=== PATIENT | female | born 1960 | race Caucasian/White ===

== ENCOUNTER → 2016-11-08 | Outpatient (CLI) | payer OTHER ==
[~2016-11-08] MED LIST: CALCTAB5 PO; CETI10TA84 PO; DOXY100C76 PO; EPP3/2 IM; LEVO50TA6 PO; LISD30CA4 PO; LORA-741 PO; MELATAB2 PO; MULT-506 PO; ONDA4TAB46 PO; OXYB10TA13 PO; PRED10TA PO; SUMA25TA12 PO
== END | disposition home or self-care (01) ==
LOC: C.PAPS 13:39
PROVIDERS: ATTEND Obstetrics & Gynecology
DX: Z01.419 Encounter for gynecological examination (general) (routine) without abnormal findings (principal)

== ENCOUNTER 2024-03-14 18:29 | Inpatient (IN) ==
--- OUTSIDE RECORDS SUMMARY | 2024-03-14 18:36 | External Medical Summary | Summary of Care ---
Author Name Unknown Organization [facility] Address [address] [place] [address] Phone [phone] Care Team Providers Care Knit Tubing Dyer Name Role Phone Mendez Pastor MD Primary Care Provider + Reason for Referral * Medication Prior Authorization - Pending Review Specialty Diagnoses / Procedures Referred By Contfaye t Referred To Contact Diagnoses Attention deficit disorder (ADD) without hyperactivity MEDICATION USE AGREEMENT Mendez Pastor MD [address] [place] [address] Referral ID Status Reason Start Date Expiration Date V isits Requested Visits Authorized [id number] Pending Review [phone] Reason for Visit * Reason Comments Medication Refill Encounter Details Date Type Department Care Team (Late st Contact Info) Description 01/10/2024 Refill Family Practice [facility] [address] [place] [address] Mendez Pastor MD [address] [place] [address] Attention deficit disorder (ADD) without hyperactivity; MEDICATION USE AGREEMENT Allergies Active Allergy Reactions Criticality Noted Date Comments Bactrim Hives 10/29/2007 Citalopram Hydrobromide 02/17/2017 Flu like symptoms Doxycycline Nausea/vomiting 09/20/2016 Not able to eat Cefuroxime Sodium Rash 07/13/2010 Swelling of feet rash documented as of this encounter (statuses as of 01/14/2024) Medications Medication Sig Dispensed Refills Start Date End Date Status CALCIUM 1200 [id number] MG-UNIT PO CHEW one tablet daily 0 Active cetirizine (ZYRTEC) 10 MG Tablet Take 1 Tablet by mouth in the morning. 0 01/26/2018 Active Albuterol Sulfate (ALBUTEROL HFA) 108 (90 BASE) MCG/ACT inhaler Inhale 2 Puffs by mouth every 6 hours as needed (cough). 18 g 1 01/03/2020 Active silver sulfadiazine (SILVADENE) 1 % cream Apply topically to affected area daily. Apply to burn. 20 g 1 06/02/2020 Active traMADol HCl 50 MG Oral Tablet (Ultram)Indication s:Fibromyalgia Take 1 Tab by mouth every 6 hours as needed for Pain, Severe. 30 Tab 0 03/20/2021 Active B Complex Vitamins Oral Capsule Take 1 Cap by mouth daily. 1 Cap 0 05/26/2021 Active Ondansetron HCl 4 MG Oral Tablet (Zofran)Indication s:Vertigo Take 1 Tab by mouth every 6 hours as needed for Nausea. 360 Tab 0 08/13/2021 Active Meclizine HCl 25 MG Oral Tablet (Antivert)Indicati ons:Vertigo Take 1 Tab by mouth 3 times a day as needed for Dizziness. 270 Tab 0 08/13/2021 Active Benzonatate 100 MG Oral CapsuleIndications :Bronchitis, complicated Take 1 Capsule by mouth 3 times a day as needed for Cough. 30 Capsule 1 05/13/2023 Active Fluorouracil 5 % External Cream (Efudex) Apply a thin layer twice daily to isolated lesion on face for 3 weeks then send photos through My Chart at the end of the treatment. 40 g 0 08/28/2023 Active Levothyroxine Sodium 50 MCG Oral Tablet (Levoxyl) TAKE 1 TABLET BY MOUTH DAILY (AT LEAST 30 MINUTES PRIOR TO BREAKFAST OR OTHER MEDS) 90 Tablet 1 11/07/2023 5 Active LORazepam 0.5 MG Oral Tablet (Ativan)Indication s:Anxiety state TAKE ONE TABLET BY MOUTH AT BEDTIME NEEDED FOR ANXIETY OR INSOMNIA 30 Tablet 2 11/19/2023 4 Active Semaglutide (1 MG/DOSE) 4 MG/3ML Subcutaneous Solution Pen-injector (Ozempic) Inject 1 mg under the skin once a week. 9 mL 2 11/20/2023 Active Pregabalin 75 MG Oral Capsule (Lyrica) TAKE ONE CAPSULE BY MOUTH EVERY MORNING AND TAKE TWO CAPSULES BY MOUTH EVERY NIGHT--can take extra 1 capsule in afternoon and extra 1 capsule in evening as needed for fibro flare. 400 Capsule 1 12/31/2023 Active Lisdexamfetamine Dimesylate 20 MG Oral Capsule (Vyvanse)Indicatio ns:Attention deficit disorder (ADD) without hyperactivity,MEDI CATION USE AGREEMENT Take 1 Capsule by mouth in the morning. 30 Capsule 0 01/14/2024 Active Lisdexamfetamine Dimesylate 20 MG Oral Capsule (Vyvanse)Indicatio ns:Attention deficit disorder (ADD) without hyperactivity,MEDI CATION USE AGREEMENT Take 1 Capsule by mouth in the morning. 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 Adjacent cysts to GB 01/24 [facility] US Chronic iritis 01/10/2014 ADD (attention deficit disorder) 06/16/2013 Overview: 06/25 trial vyvgautam. MEDICATION USE AGREEMENT 06/16/2013 Overview: Dr Pastor for ADD stimulants Osteoarthritis, hand 05/21/2013 Routine general medical exam ination at a health care facility 05/13/2013 Overview: 08/03 cologuard WNL alejandra 3y. 04/02 pap & HPV WNL. Alejandra 6y 06/29 GB polyp 3mm (no size mentioned on [facility] 2014 US). Alejandra 2y d/c if stable Referred for TOOLSMITH-EAB endometrial polyp 01/26 11/25 mammo WNL 11/25 D&C benign, no polyp 2011 colonoscopy WNL alejandra 5y (elects cologaurd) 07/24 ASCUS neg HPV, 04/22 WNL No transf. Zone, 11/22 WNL No transf. Zone, 12/19 WNL. Other past abnormals Urinary incontinence 08/06/2012 Overview: ICD-10 update of inactive term Allergic rhinitis 02/23/2009 Chronic sinusitis 02/23/2009 Major depressive disorder, r ecurrent episode, in partial remission Overview: on celexa ICD-10 update of inactive term Migraine Overview: maxalt prn Hypothyroidism documented as of this encounter (statuses as of 01/14/2024) Resolved Problems Problem Noted Date Diagnosed Date Resolved Date History of insect sting 06/29/201512/12 Diverticulitis of colon 01/25/2014 090 05/2017 Overview: 01/24 [facility] Abnormal pap 02/14/2009 08/28/2016 ADVANCE DIRECTIVE INFORMATION 05/31/2008 08/02/2008 Overview: No, explained to patient Major depressive disorder Overview: ICD-10 update of inactive term Cervical intraepithelial neoplasia grade 2 05/13/2013 documented as of this encounter (statuses as of 01/14/2024) Immunizations Name Administration Dates Next Due COVID-19 mRNA, LNP-s, No Pre serve, 2-Dose Series (Pfizer) 07/25/2021,10/28/2020,10/07/2020 COVID-19, LNP-s, No Preserve , Irving-sucrose, Ages 12+ (Pfizer) 04/05/2022 COVID-19, MRNA-LNP, 23-24, P F, 30 MCG/0.3 mL, 12 YRS AND ABOVE, IM ([facility]) 07/07/2023 Covid-19, Mrna, Lnp-s, Pf, B ivalent, 30 Mcg, IM, 12 yrs and above (Pfizer) 09/25/2022 DTWP - Dipth/Tet/Whole Cell Pertussis 05/27/2001 Diptheria/Tetanus (Adult) 05/27/2001 PPD 11/20/2010 Seasonal Influenza, PF, 6 M & above, IM , (FluLaval or Fluzone) 07/07/2023,07/26/2022 Seasonal Influenza, Quadriva lent, No Preserve, IM 07/11/2021,06/28/2020,07/22/2019,2017 Seasonal Influenza, Split, I IV3, With Preserve, Inj 07/23/2017,07/17/2016,07/20/2015,2013,08/13/2013,07/28/2012,07/02/2011,1 ,07/17/2009 TD, Preservative Free 07/02/2011 TDAP (age 10 and older)(Boostrix) 08/10/2021 TDAP (age 11 and older)(Adacel) 05/27/2001 documented as of this encounter Social History Tobacco Use Types Packs/Day Years Used Date Smoking Tobacco: Never Smokeless Tobacco: Never Comments:no passive smoke ex posures Alcohol Use Standard Drinks/Week Comments Not Currently 0 (1 standard drink = 0.6 oz pur e alcohol) PHQ-2 Answer Date Recorded PHQ-2 Score -1 10/15/2018 Sex and Gender Information Value Date Recorded Sex Assigned at Not on file Gender Identity Not on file Sexual Orientation Not on file Job Start Date Occupation Industry Not on file Not on file Not on file documented as of this encounter Miscellaneous Notes * Telephone Encounter - Soham Anderson CPhT - 01/14/2024 9:21 AM EDT Patients insurance would like to inform the office that LISDEXAMFETAMINE 20 MG CAPSULE is not requiring review because No review at this time, on formulary, needs sent as generic and NOT brand Vyvanse although member has had a lifetime auth in place for brand Vyvanse. Member received VYVANSE 20 MG CAPS 12.17.2023 Rx released Thank you, Catracho Anderson ([facility]) Gypsum Calciner III [facility] ([facility]) 01/14/2024, 9:21 AM * Telephone Encounter - Mendez Pastor MD - 01/14/2024 8:25 AM EDTSigned Prescriptions: Disp Refills Lisdexamfetamine Dimesylate 20 MG Oral Cap*30 Cap*0 Sig: Take 1 Capsule by mouth in the morning. Authorizing Provider: MENDEZ PASTOR * Telephone Encounter - Ida Myers [facility] - 01/14/2024 4:20 AM EDTPending Prescriptions: Disp Refills Lisdexamfetamine Dimesylate 20 MG Oral Cap*30 Cap*0 Sig: Take 1 Capsule by mouth in the morning. * Telephone Encounter - Nallely Mariano RPh - 01/12/2024 4:58 AM EDT Postponing until 01/13 I have reviewed the patients controlled substance dispensing history in the Prescription Drug Monitoring Program in compliance with the [facility] regulations before prescribing a controlled substance. PDMP checked on 01/12/2024. Pending Prescriptions: Disp Refills Lisdexamfetamine Dimesylate 20 MG Oral Ca*30 Cap*0 Sig: Take 1 Capsule by mouth in the morning. Last Visit: 12/31/2023 (in office), Visit date not found (telemedicine) Next Visit: 07/30/2024 Date medication was last filled: 12/18 Date medication is due for refill: 01/16 Pharmacy: [facility] Is this request for a controlled substance? Yes and Urine Drug Screen Not completed Toxicology results: Results for orders placed or performed in visit on 09/21/20 OPIOIDS/BENZO COMPLIANCE MONITORING W/INTERP Result Value COMPLIANCE INTERP (NOTE) URINE DRUG SCREEN RESULT Amphetamine REFER TO CONFIRMATION RESULT (A) Benzodiazepines REFER TO CONFIRMATION RESULT (A) Cannabinoids NEGATIVE Cocaine Metabolite NEGATIVE HYDROCODONE NEGATIVE METHADONE METABOLITE NEGATIVE Morphine / Codeine NEGATIVE OXYCODONE NEGATIVE COMMENT THE ABOVE SCREENING RESULTS ARE PRESUMPTIVE AND CAN ONLY BE USED FOR MEDICAL PURPOSES. CONFIRMATORY TESTING IS AVAILABLE UPON REQUEST. Cutoff Concentration URINE VALID INTERP NORMAL CREATININE JO ANN 30 *Note: Due to a large number of results and/or encounters for the requested time period, some results have not been displayed. A complete set of results can be found in Results Review. Please approve if appropriate. Thank you, Nallely Mariano, PharmD. Clinical Pharmacist [facility] ([facility] ([facility]) 01/12/2024, 4:58 AM documented in this encounter Plan of Treatment Upcoming Encounters Date Type Department Care Team (Late st Contact Info) Description 04/22/2024 7:40 AM EDT Office Visit [address] [place] [id number] Miya Dang PA-C [address] [place] [address] [place] [id number] 05/20/2024 8:20 AM EDT Office Visit Nutrition & Weight Management, [facility] [address] [address] Tamara Kinney PA-C [address] [place] [address] 05/26/2024 7:00 AM EDT [facility] [address] [address] 07/30/2024 8:40 AM EDT Office Visit Family Practice [facility] [address] [place] [address] Mendez Pastor MD [address] [facility] [address] Scheduled Procedures Name Priority Associated Diagnoses Date/Ti me COLONOSCOPY FLEXIBLE PROXIMA L DIAGNOSTIC Recall Special screening for malignant neoplasms, colon Health Maintenance Due Date Last Done Comments Fecal Occult Blood Test 2006 Sigmoidoscopy 2006 Zoster Vaccines (1 of 2) 2011 Depression Screening 10/15/2019 10/15/2018, 03/13/2017 (Declined) Colonoscopy 08/20/2022 08/20/2012, 08/20/2012 Mammogram 11/13/2023 11/13/2022, 10/2022, 09/04/2021, Additional history exists TSH 12/30/2024 12/31/2023, 11/2022, 12/10/2022, Additional history exists Cologuard 07/23/2025 07/23/2022, 03/2022, 07/18/2022, Additional history exists Colorectal Cancer Screening 07/23/2025 PAP SMEAR-EVERY 5 YRS,AGES 21-100 03/26/2026 03/26/2021, 11/08/2016, 07/20/2015, Additional history exists Lipid Panel 05/11/2026 05/11/2021, 03/14, 10/11/2017, Additional history exists DTaP,Tdap,and Td Vaccines (6 - Td or Tdap) 08/10/2031 08/10/2021, 07/02/2011, 05/27/2001, Additional history exists COVID-19 Vaccine Completed 07/07/2023, , 04/05/2022, Additional history exists Influenza Vaccine (FLU shot) Completed , 07/26/2022, 07/11/2021, Additional history exists GARDASIL-HPV IMMUNIZATION SERIES Aged Out No longer eligible based on patient's age to complete this topic Hepatitis B Aged Out No longer eligi ble based on patient's age to complete this topic MENINGOCOCCAL (MENACTRA/MENVEO) Aged Out No longer eligible based on patient's age to complete this topic Pneumococcal Vaccine: Pediatrics (0 to 5 Years) and At-Risk Patients (6 to 64 Years) Aged Out No longer eligible based on patient's age to complete this topic documented as of this encounter Medical Devices Not on filedocumented as of this encounter Visit Diagnoses Diagnosis Attention deficit disorder (ADD) without hyperactivity MEDICATION USE AGREEMENT documented in this encounter Care Teams Knit Tubing Dyer Relationship Specialty Start Date End Date Mendez Pastor MD [address] [place] [address] PCP - General Family Medicine 01/25/16 documented as of this encounter
--- OUTSIDE RECORDS SUMMARY | 2024-03-14 18:36 | External Medical Summary | Summary of Care ---
Author Name Unknown Organization [facility] Address [address] [place] [address] Phone [phone] Care Team Providers Care Hockey Instructor Name Role Phone Mendez Licona MD Primary Care Provider + Reason for Referral * Evaluate & Treat - Unlimited Visits (Within 10 days (routine)) - Authorized Specialty Diagnoses / Procedures Referred By Cat tilley Referred To Contact Psychology Diagnoses Persistent insomnia Mendez Licona MD [address] [place] [address] Referral ID Status Reason Start Date Expiration Date Visits Requested Visits Authorized [id number] Authorized Specialty Services Required 03/02/[phone] Question Answer Referral Priority Within 10 days (routine) Where should this appointment be scheduled? [facility] Is this referral for medication management? No Reason for Referral: Insomnia/Sleep Disorder Specific Condition Cognitive Behavioral Therapy for Insomnia (CBTI) Comments For E Feliciano @[facility] Reason for Visit * Reason Comments Return Visit Discuss sleep meds Encounter Details Date Type Department Care Team (Latest Contact Info) Description 03/02/2024 1:40 PM EDT Office Visit Family Practice [facility] [address] [place] [address] Mendez Licona MD [address] [place] [id number] Persistent insomnia*; Attention deficit disorder (ADD) without hyperactivity Allergies Active Allergy Reactions Criticality Noted Date Comments Bactrim Hives 10/29/2007 Citalopram Hydrobromide 02/17/2017 Flu like symptoms Doxycycline Nausea/vomiting 09/20/2016 Not able to eat Cefuroxime Sodium Rash 07/13/2010 Swelling of feet rash documented as of this encounter (statuses as of 03/02/2024) Medications Medication Sig Dispensed Refills Start Date End Date Status CALCIUM 1200 [id number] MG-UNIT PO CHEW one tablet daily Active cetirizine (ZYRTEC) 10 MG Tablet Take 1 Tablet by mouth in the morning. 01/26/2018 Active Albuterol Sulfate (ALBUTEROL HFA) 108 (90 BASE) MCG/ACT inhaler Inhale 2 Puffs by mouth every 6 hours as needed (cough). 18 g 1 01/03/2020 Active silver sulfadiazine (SILVADENE) 1 % cream Apply topically to affected area daily. Apply to burn. 20 g 1 06/02/2020 Active traMADol HCl 50 MG Oral Tablet (Ultram)Indications :Fibromyalgia Take 1 Tab by mouth every 6 hours as needed for Pain, Severe. 30 Tab 03/20/2021 Active B Complex Vitamins Oral Capsule Take 1 Cap by mouth daily. 1 Cap 05/26/2021 Active Ondansetron HCl 4 MG Oral Tablet (Zofran)Indications :Vertigo Take 1 Tab by mouth every 6 hours as needed for Nausea. 360 Tab 08/13/2021 Active Meclizine HCl 25 MG Oral Tablet (Antivert)Indicatio ns:Vertigo Take 1 Tab by mouth 3 times a day as needed for Dizziness. 270 Tab 08/13/2021 Active Benzonatate 100 MG Oral CapsuleIndications: Bronchitis, complicated Take 1 Capsule by mouth 3 times a day as needed for Cough. 30 Capsule 1 05/13/2023 Active Fluorouracil 5 % External Cream (Efudex) Apply a thin layer twice daily to isolated lesion on face for 3 weeks then send photos through My Chart at the end of the treatment. 40 g 08/28/2023 Active Levothyroxine Sodium 50 MCG Oral Tablet (Levoxyl) TAKE 1 TABLET BY MOUTH DAILY (AT LEAST 30 MINUTES PRIOR TO BREAKFAST OR OTHER MEDS) 90 Tablet 1 11/07/2023 11/06/2024 Active Semaglutide (1 MG/DOSE) 4 MG/3ML Subcutaneous [...] Active Lisdexamfetamine Dimesylate 20 MG Oral Capsule (Vyvanse)Indication s:Attention deficit disorder (ADD) without hyperactivity,MEDIC ATION USE AGREEMENT Take 1 Capsule by mouth in the morning. 30 Capsule 02/16/2024 Active LORazepam 0.5 MG Oral Tablet (Ativan)Indications :Anxiety state Take 1 Tablet by mouth at bedtime as needed for Anxiety or Sleep. 30 Tablet 2 02/20/2024 Active Eszopiclone 1 MG Oral Tablet (Lunesta)Indication s:Persistent insomnia Take 1 Tablet by mouth at bedtime. for sleep 30 Tablet 03/02/2024 Active documented as of this encounter (statuses as of 03/02/2024) Active Problems Problem Noted Date Diagnosed Date [...] US-3mm polyp. Adjacent cysts to GB 01/24 [facility] ER US Chronic iritis 01/10/2014 ADD (attention deficit disorder) 06/16/2013 Overview: 06/25 trial vyvrode. MEDICATION USE AGREEMENT 06/16/2013 Overview: Dr Licona for ADD stimulants Osteoarthritis, hand 05/21/2013 Routine general medical exam ination at a health care facility 05/13/2013 Overview: 08/03 cologuard WNL alejandra 3y. 04/02 pap & HPV WNL. Alejandra 6y 06/29 GB polyp 3mm ([place] [facility] Alejandra 2y d/c if stable Referred for FINANCIAL AID ADMINISTRATOR-EAB endometrial polyp 01/26 11/25 mammo WNL 11/25 [...] as of this encounter (statuses as of 03/02/2024) Resolved Problems Problem Noted Date Diagnosed Date Resolved Date History of insect sting 06/29/201512/12 Diverticulitis of colon 01/25/2014 09/0 05/2017 Overview: 01/24 [facility] Abnormal pap 02/14/2009 08/28/2016 ADVANCE DIRECTIVE INFORMATION 05/31/2008 08/02/2008 Overview: No, explained to patient Major depressive disorder Overview: ICD-10 update of inactive term Cervical intraepithelial neoplasia grade 2 05/13/2013 documented as of this encounter (statuses as of 03/02/2024) Immunizations Name Administration Dates Next Due COVID-19 mRNA, LNP-s, No Pre serve, 2-Dose Series (Pfizer) 07/25/2021,10/28/2020,10/07/2020 COVID-19, LNP-s, No Preserve , Irving-sucrose, Ages 12+ (Pfizer) 04/05/2022 COVID-19, MRNA-LNP, 23-24, P F, 30 MCG/0.3 mL, 12 YRS AND ABOVE, IM [facility] 07/07/2023 Covid-19, Mrna, Lnp-s, Pf, B ivalent, 30 Mcg, IM, 12 yrs and above (Pfizer) 09/25/2022 DTWP - Dipth/Tet/Whole Cell Pertussis 05/27/2001 Diptheria/Tetanus (Adult) 05/27/2001 PPD 11/20/2010 Seasonal Influenza, PF, 6 M & above, IM , (FluLaval or Fluzone) 07/07/2023,07/26/2022 Seasonal Influenza, Quadriva lent, No Preserve, IM 07/11/2021,06/28/2020,07/22/2019,2017 Seasonal Influenza, Split, I IV3, With Preserve, Inj 07/23/2017,07/17/2016,07/20/2015,2012,07/28/2012,07/02/2011,07/22/2010,1 TD, Preservative Free 07/02/2011 TDAP (age 10 [...] on file documented as of this encounter Last Filed Vital Signs Vital Sign Reading Time Taken Comments Blood Pressure 106/64 03/02/2024 1:33 PM EDT Pulse 95 03/02/2024 1:33 PM EDT Temperature - - Respiratory Rate - - Oxygen Saturation 97% 03/02/2024 1:33 PM EDT Inhaled Oxygen Concentration - - Weight - - Height - - Body Mass Index - - documented in this encounter Progress Notes * Mendez Licona MD - 03/02/2024 2:07 PM EDT SUBJECTIVE: Reyna Lobato is a 63 year old female here for Return Visit (Discuss sleep meds) . Here for f/u. Ongoing anxiety with insomnia at night. She has been using lorazepam 0.5 mg some fair relief but not always. She tends to worry about work her family. She thinks she has had this off and on since shewas a child. Her [employer] has been working very well her ADHD symptoms at work and at home. Her sleep symptoms did not seem to be worse since she has been on it. She has been on Vyvanse stable dose for several years. A lot of stress with her father being recently in the hospital. Other family stress. Hasn't been on sleep meds or CBT-I in past. Physical: BP 106/64 | Pulse 95 | LMP 01/08/2016 | SpO2 97% General-No apparent Distress Head, Eyes, Ears, Nose, Throat--Normocephalic, atraumatic Neck-Supple Lymph-no lymphadenopathy Lungs-Clear to Auscultation bilaterally Cardiovascular--Regular rate & Rhythm, +s1, s2, no murmur Extremities--no edema Neuro-alert & oriented x3 Psych-normal mood/affect no SIHI I/j- good + some anxiety (G47.00) Persistent insomnia (primary encounter diagnosis) Plan: Eszopiclone 1 MG Oral Tablet (Lunesta) Sleep hygiene discussed -trial Calm or Headspace appt -refer for CBT-I (F98.8) Attention deficit disorder (ADD) without hyperactivity Plan: consider decrease dose slightly (This note was completed using the dictation program Fluency Direct. As such, there may be misspellings, word substitutions, or other variations that should not change the essence of the clinical content of this encounter note.If there is need for further clarification, please direct questions to the provider listed above.) Mendez Licona MD "I have reviewed the patient's controlled substance dispensing history in the Prescription Drug Monitoring Program in compliance with the [facility] regulations before prescribing a controlled substance." documented in this encounter Nursing Notes * Mindy Lambert LPN - 03/02/2024 1:33 PM EDT The patient has been properly identified by confirmation of name and date of . Chief Complaint Patient presents with Return Visit Discuss sleep meds documented in this encounter Plan of Treatment Upcoming Encounters Date Type Department Care Team (Late st Contact Info) Description 05/20/2024 8:20 AM EDT Office Visit Nutrition & Weight Management, [facility] [address] [place] [address] Tamara Kinney PA-C [address] [place] [address] 05/26/2024 7:00 AM EDT Imaging Radiology [facility] [address] [place] [address] 07/30/2024 8:40 AM EDT Office Visit Family Practice [facility] [address] [place] [address] Mendez Licona MD [address] [place] [address] Scheduled Procedures Name Priority Associated Diagnoses Date/Ti me COLONOSCOPY FLEXIBLE PROXIMA L DIAGNOSTIC Recall Special screening for malignant neoplasms, colon Scheduled Referrals Name Type Priority Associated Diagnoses Orde r Schedule ADULT/PEDS PSYCHOLOGY REFERRAL OP Referral Within 10 days (routine) Persistent insomnia Ordered: 03/02/2024 Health Maintenance Due Date Last Done Comments Fecal Occult Blood Test 2006 Sigmoidoscopy 2006 Zoster Vaccines (1 of 2) 2011 Colonoscopy 08/20/2022 08/20/2012, 08/20/2012 Mammogram 11/13/2023 11/13/2022, 10/2022, 09/04/2021, Additional history exists TSH 12/30/2024 12/31/2023, 11/2022, 12/10/2022, Additional history exists Cologuard 07/23/2025 07/23/2022, 03/2022, 07/18/2022, Additional history exists Colorectal Cancer Screening 07/23/2025 PAP SMEAR-EVERY 5 YRS,AGES 21-100 03/26/2026 03/26/2021, 11/08/2016, 07/20/2015, Additional history exists Lipid Panel 01/28/2029 01/29/2024, 04/14, 04/06/2019, Additional history exists DTaP,Tdap,and Td Vaccines (6 [...] as of this encounter Visit Diagnoses Diagnosis Persistent insomnia- Primary Persistent disorder of initiating or maintaining sleep Attention deficit disorder (ADD) without hyperactivity documented in this encounter Care Teams Hockey Instructor Relationship Specialty Start Date End Date Mendez Licona MD [address] [place] [address] PCP - General Family Medicine 01/25/16 documented as of this encounter
--- OUTSIDE RECORDS SUMMARY | 2024-03-14 18:36 | External Medical Summary ---
Author Name Unknown Address Unknown Organization [id number]:[facility] [place] - [address] [facility] [address] Laboratory Report Ordering Provider Test Date Status DAWIT PALMA 01/29/2024 10:11:23 Final Observation Date Value Abnormality Reference (Units ) Status Triglyceride 01/29/2024 10:11:23 50 <=174 ( mg/dL) Final Triglyceride Reference Range s (mg/dL):
<150 Acceptable
150-174 Borderline high
175-499 High
>=500 Very high Cholesterol 01/29/2024 10:11:23 159 <200 (mg /dL) Final Total Cholesterol Reference Ranges (mg/dL):
<200 Desirable
200-239 Borderline high
>=240 High HDL 01/29/2024 10:11:23 72 >49 (mg/dL ) Final HDL Cholesterol Reference Ra nges (mg/dL):
>=60 High (Desirable)
<50 Low (Undesirable) For Females
<40 Low (Undesirable) For Males NON-HDL CHOLESTEROL 01/29/2024 10:11:23 87 <=159 (mg/dL) Final Non-HDL Cholesterol Referenc e Range (mg/dL):
<100 Target level for high risk ASCVD patient
<130 Optimal for general population
130-159 Near optimal for general population
160-189 Borderline High
190-219 High
>=220 Very High LDL, (calculated) 01/29/2024 10:11:23 77 <= 129 (mg/dL) Final LDL Cholesterol Reference Ra nges (mg/dL):
<70 Target level for high risk ASCVD patient
<100 Optimal for general population
100-129 Near optimal for general population
130-159 Borderline high
160-189 High
>=190 Very high Performing Location [facility] [place] - [address] [place] [address]
--- OUTSIDE RECORDS SUMMARY | 2024-03-14 18:36 | External Medical Summary | Summary of Care ---
Author Name Unknown Organization [facility] Address [address] [place] [address] Phone [phone] Care Team Providers Care Residential Sales Consultant Name Role Phone Mendez Pastor MD Primary Care Provider + Reason for Visit * Reason Comments Medication Refill Encounter Details Date Type Department Care Team (Late st Contact Info) Description 02/19/2024 [facility] [address] [facility] [address] Mendez Pastor MD [address] [place] [address] Anxiety state Allergies Active Allergy Reactions Criticality Noted Date Comments Bactrim Hives 10/29/2007 Citalopram Hydrobromide 02/17/2017 Flu like symptoms Doxycycline Nausea/vomiting 09/20/2016 Not able to eat Cefuroxime Sodium Rash 07/13/2010 Swelling of feet rash documented as of this encounter (statuses as of 02/20/2024) Medications Medication Sig Dispensed Refills Start Date End Date Status CALCIUM 1200 [id number] MG-UNIT PO CHEW one tablet daily 0 [...] MEDS) 90 Tablet 1 11/07/2023 5 Active Semaglutide (1 MG/DOSE) 4 MG/3ML Subcutaneous [...] mouth in the morning. 30 Capsule 0 02/16/2024 Active LORazepam 0.5 MG Oral Tablet (Ativan)Indication s:Anxiety state Take 1 Tablet by mouth at bedtime as needed for Anxiety or Sleep. 30 Tablet 2 02/20/2024 Active LORazepam 0.5 MG Oral Tablet (Ativan)Indication s:Anxiety state TAKE ONE TABLET BY MOUTH AT BEDTIME NEEDED FOR ANXIETY OR INSOMNIA 30 Tablet 2 11/19/2023 4 Discontinue d(Refill) documented as of this encounter (statuses as of 02/20/2024) Active Problems Problem Noted Date Diagnosed Date [...] US-3mm polyp. Adjacent cysts to GB 01/24 [facility] ER US Chronic iritis 01/10/2014 ADD (attention deficit disorder) 06/16/2013 Overview: 06/25 trial vyvrode. MEDICATION USE AGREEMENT 06/16/2013 Overview: Dr Pastor for ADD stimulants Osteoarthritis, hand 05/21/2013 Routine general medical exam ination at a health care facility 05/13/2013 Overview: 08/03 cologuard WNL alejandra 3y. 04/02 pap & HPV WNL. Alejandra 6y 06/29 GB polyp 3mm ([place] [facility] [place] Alejandra 1y d/c if stable Referred for ERP MANAGER-EAB endometrial polyp 01/26 11/25 mammo WNL 11/25 [...] as of this encounter (statuses as of 02/20/2024) Resolved Problems Problem Noted Date Diagnosed Date Resolved Date History of insect sting 06/29/201512/12 Diverticulitis of colon 01/25/201405/2017 Overview: 01/24 [facility] Abnormal pap 02/14/2009 08/28/2016 ADVANCE DIRECTIVE INFORMATION 05/31/2008 08/02/2008 Overview: No, explained to patient Major depressive disorder Overview: ICD-10 update of inactive term Cervical intraepithelial neoplasia grade 2 05/13/2013 documented as of this encounter (statuses as of 02/20/2024) Immunizations Name Administration Dates Next Due COVID-19 mRNA, LNP-s, No Pre serve, 2-Dose Series ([employer] website) 07/25/2021,10/28/2020,10/07/2020 COVID-19, LNP-s, No Preserve , Irving-sucrose, Ages 12+ ([employer] website) 04/05/2022 COVID-19, MRNA-LNP, 23-24, P F, 30 MCG/0.3 mL, 12 YRS AND ABOVE, IM ([employer]) 07/07/2023 Covid-19, Mrna, Lnp-s, Pf, B ivalent, 30 Mcg, IM, 12 yrs and above ([employer] website) 09/25/2022 DTWP - Dipth/Tet/Whole Cell Pertussis 05/27/2001 [...] encounter Miscellaneous Notes * Telephone Encounter - Mendez Pastor MD - 02/20/2024 2:56 PM EDTSigned Prescriptions: Disp Refills LORazepam 0.5 MG Oral Tablet (Ativan) 30 Tab*2 Sig: Take 1 Tablet by mouth at bedtime as needed for Anxiety or Sleep.Authorizing Provider: MENDEZ PASTOR----- * Telephone Encounter - Israel Rojo, [facility] - 02/20/2024 8:59 AM EDTPending Prescriptions: Disp Refills LORazepam 0.5 MG Oral Tablet (Ativan) 30 Tab*2 Sig: TAKE ONE TABLET BY MOUTH AT BEDTIME NEEDED FOR ANXIETY OR INSOMNIA * Telephone Encounter - Israel Rojo, [facility] - 02/20/2024 8:58 AM EDT I have reviewed the patients controlled substance dispensing history in the Prescription Drug Monitoring Program in compliance with the [facility] regulations before prescribing a controlled substance. PDMP checked on 02/20/2024. Pending Prescriptions: Disp Refills LORazepam 0.5 MG Oral Tablet (Ativan) 30 Tab*2 Sig: TAKE ONE TABLET BY MOUTH AT BEDTIME NEEDED FOR ANXIETY OR INSOMNIA Last Visit: 12/31/2023 (in office), Visit date not found (telemedicine) Next Visit: 03/02/2024 Date medication was last filled: 01/27/24 Date medication is due for refill: 02/25/24 Pharmacy: [facility] Is this request for a controlled [...] Results Review. Please approve if appropriate. Thank You, Israel Hsu [facility] Clinical Pharmacist [facility] ([facility]) (formerly Telepharmacy) 02/20/2024, 8:58 AM documented in this encounter Plan of Treatment Upcoming Encounters Date Type Department Care Team (Late st Contact Info) Description 03/02/2024 1:40 PM EDT Office Visit [facility] [address] [address] Mendez Pastor MD [address] [address] 04/22/2024 7:40 AM EDT Office Visit Dermatology[address] [place] [address] Miya Dang PA-C [address] [place] [address] [place] [address] 05/20/2024 8:20 AM EDT Office Visit Nutrition & Weight Management, [facility] [address] [place] [address] Tamara Kinney PA-C [address] [place] [address] 05/26/2024 7:00 AM EDT [facility] [address] [place] [address] 07/30/2024 8:40 AM EDT Office Visit [facility] [address] [address] Mendez Pastor MD [address] [place] [address] Scheduled Procedures Name Priority Associated Diagnoses Date/Ti me COLONOSCOPY FLEXIBLE PROXIMA L DIAGNOSTIC Recall Special screening for malignant neoplasms, colon Health Maintenance Due Date Last Done Comments Fecal Occult Blood Test 2006 Sigmoidoscopy 2006 Zoster Vaccines (1 of 2) 2011 Colonoscopy 08/20/2022 08/20/2012, 08/20/2012 Mammogram 11/13/2023 11/13/2022, 10/2022, 09/04/2021, Additional history exists TSH 12/30/2024 12/31/2023, 11/2022, 12/10/2022, Additional history exists Cologuard 07/23/2025 07/23/2022, 1003/2022, 07/18/2022, Additional history exists Colorectal Cancer Screening 07/23/2025 PAP SMEAR-EVERY 5 YRS,AGES 21-100 03/26/2026 03/26/2021, 11/08/2016, 07/20/2015, Additional history exists Lipid Panel 01/28/2029 01/29/2024, 07/, 04/06/2019, Additional history exists DTaP,Tdap,and Td Vaccines [...] as of this encounter Visit Diagnoses Diagnosis Anxiety state Anxiety state, unspecified documented in this encounter Care Teams Residential Sales Consultant Relationship Specialty Start Date End Date Mendez Pastor MD [address] [place] [address] PCP - General Family Medicine 01/25/16 documented as of this encounter
--- OUTSIDE RECORDS SUMMARY | 2024-03-14 18:36 | External Medical Summary | Summary of Care ---
Author Name Unknown Organization [facility] Address [address] [place] [address] Phone [phone] Care Team Providers Care Kiln Tester Name Role Phone Mendez Pastor MD Primary Care Provider + Reason for Visit * Reason Comments Medication Refill Encounter Details Date Type Department Care Team (Late st Contact Info) Description 02/11/2024 Refill Family Practice [facility] [address] [place] [address] Mendez Pastor MD [address] [place] [address] Attention deficit disorder (ADD) without hyperactivity; MEDICATION USE AGREEMENT Allergies Active Allergy Reactions Criticality Noted Date Comments Bactrim Hives 10/29/2007 Citalopram Hydrobromide 02/17/2017 Flu like symptoms Doxycycline Nausea/vomiting 09/20/2016 Not able to eat Cefuroxime Sodium Rash 07/13/2010 Swelling of feet rash documented as of this encounter (statuses as of 02/16/2024) Medications Medication Sig Dispensed Refills Start Date End Date Status CALCIUM 1200 [id number] MG-UNIT PO CHEW one tablet daily 0 [...] the morning. 30 Capsule 0 02/16/2024 Active Lisdexamfetamine Dimesylate 20 MG Oral Capsule (Vyvanse)Indicatio ns:Attention deficit disorder (ADD) without hyperactivity,MEDI CATION USE AGREEMENT Take 1 Capsule by mouth in the morning. 30 Capsule 0 01/14/2024 Discontinue d(Refill) documented as of this encounter (statuses as of 02/16/2024) Active Problems Problem Noted Date Diagnosed Date [...] US-3mm polyp. Adjacent cysts to GB 01/24 [facility] US Chronic iritis 01/10/2014 ADD (attention deficit disorder) 06/16/2013 Overview: 06/25 trial vyvanse. MEDICATION USE AGREEMENT 06/16/2013 Overview: Dr Pastor for ADD stimulants Osteoarthritis, hand 05/21/2013 Routine general medical exam ination at a health care facility 05/13/2013 Overview: 08/03 cologuard WNL alejandra 4y. 04/02 pap & HPV WNL. Alejandra 6y 06/29 GB polyp 3mm (no size mentioned [place] [facility] [place] Alejandra 2y d/c if stable Referred for LOAN ANALYST-EAB endometrial polyp 01/26 11/25 mammo WNL 11/25 [...] as of this encounter (statuses as of 02/16/2024) Resolved Problems Problem Noted Date Diagnosed Date Resolved Date History of insect sting 06/29/201512/12 Diverticulitis of colon 01/25/2014 090 05/2017 Overview: 01/24 [facility] Abnormal pap 02/14/2009 08/28/2016 ADVANCE DIRECTIVE INFORMATION 05/31/2008 08/02/2008 Overview: No, explained to patient Major depressive disorder Overview: ICD-10 update of inactive term Cervical intraepithelial neoplasia grade 2 05/13/2013 documented as of this encounter (statuses as of 02/16/2024) Immunizations Name Administration Dates Next Due COVID-19 mRNA, LNP-s, No Pre serve, 2-Dose Series ([employer]) 07/25/2021,10/28/2020,10/07/2020 COVID-19, LNP-s, No Preserve , Irving-sucrose, Ages 12+ (Pfizer) 04/05/2022 COVID-19, MRNA-LNP, 23-24, P F, 30 MCG/0.3 mL, 12 YRS AND ABOVE, IM ([facility]) 07/07/2023 Covid-19, Mrna, Lnp-s, Pf, B [...] Telephone Encounter - Mendez Pastor MD - 02/16/2024 10:50 PM EDT Signed Prescriptions: Disp Refills Lisdexamfetamine Dimesylate 20 MG Oral Cap*30 Cap*0 Sig: Take 1 Capsule by mouth in the morning. Authorizing Provider: MENDEZ PASTOR * Telephone Encounter - Ida Myers [facility] - 02/16/2024 4:02 AM EDTPending Prescriptions: Disp Refills Lisdexamfetamine Dimesylate 20 MG Oral Cap*30 Cap*0 Sig: Take 1 Capsule by mouth in the morning. * Telephone Encounter - Angela Noe [facility] - 02/12/2024 9:53 AM EDT PDMP review and script is too soon to refill. May be requested two full business days prior to nextdue date. Encounter postponed until 02/15. Please recheck PDMP and route to provider on this date if appropriate. I have reviewed the patients controlled substance dispensing history in the Prescription Drug Monitoring Program in compliance with the [facility] regulations before prescribing a controlled substance. PDMP checked on 02/12/2024. Pending Prescriptions: Disp Refills Lisdexamfetamine Dimesylate 20 MG Oral Ca*30 Cap*0 Sig: Take 1 Capsule by mouth in the morning. Last Visit: 12/31/2023 (in office), Visit date not found (telemedicine) Next Visit: 07/30/2024 Date medication was last filled: 01/20/24 Date medication is due for refill: 02/18/24 Pharmacy: [facility] Is this request for [...] in Results Review. Please approve if appropriate. Angela Pelletier, PharmD Clinical Pharmacist [facility] ([facility] Former[facility]) [phone] 02/12/2024 9:54 AM documented in this encounter Plan of Treatment Upcoming Encounters Date Type Department Care Team (Late st Contact Info) Description 04/22/2024 7:40 AM EDT Office Visit Dermatology[address] [address] Miya Dang PA-C [address] [place] [address] [place] [address] 05/20/2024 8:20 AM EDT Office Visit Nutrition & Weight Management, [facility] [address] [place] [address] Tamara Kinney PA-C [address] [facility] [place] [address] 05/26/2024 7:00 AM EDT Imaging Radiology [facility] [address] [place] [address] 07/30/2024 8:40 AM EDT Office Visit Family Practice [facility] [address] [place] [address] Mendez Pastor MD [address] [place] [address] Scheduled Procedures Name Priority Associated Diagnoses Date/Ti [...] Additional history exists Lipid Panel 01/28/2029 01/29/2024, /, 04/06/2019, Additional history exists DTaP,Tdap,and Td Vaccines [...] AGREEMENT documented in this encounter Care Teams Kiln Tester Relationship Specialty Start Date End Date Mendez Pastor MD [address] [place] [address] PCP - General Family Medicine 01/25/16 documented as of this encounter
--- OUTSIDE RECORDS SUMMARY | 2024-03-14 18:36 | External Medical Summary | Summary of Care ---
Author Name Unknown Organization [facility] Address [address] [place] [address] Phone [phone] Care Team Providers Care Liner Assembler Name Role Phone Mendez Licona MD Primary Care Provider + Reason for Visit * Reason Comments Outpatient Testing Encounter Details Date Type Department Care Team (Late st Contact Info) Description 01/29/2024 10:20 AM EDT Laboratory Laboratory, [facility] [address] [place] [phone] [facility] [address] [place] [address] Lipid screening Allergies Active Allergy Reactions Criticality Noted Date Comments Bactrim Hives 10/29/2007 Citalopram Hydrobromide 02/17/2017 Flu like symptoms Doxycycline Nausea/vomiting 09/20/2016 Not able to eat Cefuroxime Sodium Rash 07/13/2010 Swelling of feet rash documented as of this encounter (statuses as of 01/29/2024) Medications Medication Sig Dispensed Refills Start Date End Date Status CALCIUM 1200 [id number] MG-UNIT PO CHEW one tablet daily 0 [...] 0 08/13/2021 Active Benzonatate 100 MG Oral CapsuleIndications: [...] MEDS) 90 Tablet 1 11/07/2023 11/06/2024 Active LORazepam 0.5 MG Oral Tablet (Ativan)Indications :Anxiety state TAKE ONE TABLET BY MOUTH AT BEDTIME NEEDED FOR ANXIETY OR INSOMNIA 30 Tablet 2 11/19/2023 05/19/2024 Active Semaglutide (1 MG/DOSE) 4 MG/3ML Subcutaneous [...] the morning. 30 Capsule 0 01/14/2024 Active documented as of this encounter (statuses as of 01/29/2024) Active Problems Problem Noted Date Diagnosed Date [...] US-3mm polyp. Adjacent cysts to GB 01/24 [facility] US Chronic iritis 01/10/2014 ADD (attention deficit disorder) 06/16/2013 Overview: 06/25 trial vyvanse. MEDICATION USE AGREEMENT 06/16/2013 Overview: Dr Licona for ADD stimulants Osteoarthritis, hand 05/21/2013 Routine general medical exam ination at a health care facility 05/13/2013 Overview: 08/03 cologuard WNL alejandra 4y. 04/02 pap & HPV WNL. Alejandra 6y 06/29 GB polyp 3mm (no size mentioned on [facility] 2014 US). Alejandra 2y d/c if stable Referred for SHOE TURNER-EAB endometrial polyp 01/26 11/25 mammo WNL 11/25 D&C benign, no polyp 2011 colonoscopy WNL alejandra 6y (elects cologaurd) 07/24 ASCUS neg HPV, 04/22 WNL No transf. Zone, 11/22 WNL No transf. Zone, 3/09 WNL. Other past abnormals Urinary incontinence 08/06/2012 Overview: ICD-10 update of inactive term Allergic rhinitis 02/23/2009 Chronic sinusitis 02/23/2009 Major depressive disorder, r ecurrent episode, in partial remission Overview: on celexa ICD-10 update of inactive term Migraine Overview: maxalt prn Hypothyroidism documented as of this encounter (statuses as of 01/29/2024) Resolved Problems Problem Noted Date Diagnosed Date Resolved Date History of insect sting 06/29/201512/12 Diverticulitis of colon 01/25/201405/2017 Overview: 01/24 [facility] Abnormal pap 02/14/2009 08/28/2016 ADVANCE DIRECTIVE INFORMATION 05/31/2008 08/02/2008 Overview: No, explained to patient Major depressive disorder Overview: ICD-10 update of inactive term Cervical intraepithelial neoplasia grade 2 05/13/2013 documented as of this encounter (statuses as of 01/29/2024) Immunizations Name Administration Dates Next Due COVID-19 mRNA, LNP-s, No Pre serve, 2-Dose Series ([employer]) 07/25/2021,10/28/2020,10/07/2020 COVID-19, LNP-s, No Preserve , Irving-sucrose, Ages 12+ (Pfizer) 04/05/2022 COVID-19, MRNA-LNP, 23-24, P F, 30 MCG/0.3 mL, 12 YRS AND ABOVE, IM ([facility] 07/07/2023 Covid-19, Mrna, Lnp-s, Pf, B ivalent, [...] on file documented as of this encounter Plan of Treatment Upcoming Encounters Date Type Department Care Team (Late st Contact Info) Description 04/22/2024 7:40 AM EDT Office Visit Dermatology, [address] [address] Miya Dang PA-C [address] [place] [address] [place] [address] 05/20/2024 8:20 AM EDT Office Visit Nutrition & Weight Management, [facility] [address] [place] [address] Tamara Kinney PA-C [address] [place] [address] 05/26/2024 7:00 AM EDT Imaging Radiology [address] [place] [address] 07/30/2024 8:40 AM EDT Office Visit Family Practice [facility] [address] [place] [address] Mendez Licona MD [address] [place] [address] Pending Results Name Type Priority Associated Diagnoses Date /Time LIPID PANEL WITH DIRECT LDL IF TG IS HIGH Lab Routine Lipid screening 01/29/2024 10:11 AM EDT Scheduled Procedures Name Priority Associated Diagnoses Date/Ti [...] as of this encounter Visit Diagnoses Diagnosis Lipid screening Screening for lipoid disorders documented in this encounter Care Teams Liner Assembler Relationship Specialty Start Date End Date Mendez Licona MD [address] [place] [address] PCP - General Family Medicine 01/25/16 documented as of this encounter
--- OUTSIDE RECORDS SUMMARY | 2024-03-14 18:36 | External Medical Summary | Summary of Care ---
Author Name Unknown Organization [facility] Address [address] [place] [address] Phone [phone] Care Team Providers Care Die Repair Name Role Phone Mendez Pastor MD Primary Care Provider + Reason for Visit * Reason Comments Follow Up lesion on left cheek Encounter Details Date Type Department Care Team (Late st Contact Info) Description 01/08/2024 10:40 AM EDT Office Visit Dermatology[address] [address] Myia Dang PA-C [address] [place] [address] [place] [id number] Hx of nonmelanoma skin cancer*; Seborrheic keratosis; H/O dysplastic nevus Allergies Active Allergy Reactions Criticality Noted Date Comments Bactrim Hives 10/29/2007 Citalopram Hydrobromide 02/17/2017 Flu like symptoms Doxycycline Nausea/vomiting 09/20/2016 Not able to eat Cefuroxime Sodium Rash 07/13/2010 Swelling of feet rash documented as of this encounter (statuses as of 01/22/2024) Medications Medication Sig Dispensed Refills Start Date End Date Status CALCIUM 1200 2872-1290 MG-UNIT PO CHEW one tablet daily 0 [...] as of this encounter (statuses as of 01/22/2024) Active Problems Problem Noted Date Diagnosed Date [...] US-3mm polyp. Adjacent cysts to GB 01/24 [facility] ER US Chronic iritis 01/10/2014 ADD (attention deficit disorder) 06/16/2013 Overview: 06/25 trial vyvanse. MEDICATION USE AGREEMENT 06/16/2013 Overview: Dr Pastor for ADD stimulants Osteoarthritis, hand 05/21/2013 Routine general medical exam ination at a health care facility 05/13/2013 Overview: 08/03 cologuard WNL alejandra 3y. 04/02 pap & HPV WNL. Alejandra 5y 06/29 GB polyp 3mm (no size mentioned on [facility] 2014 US). Alejandra 1y d/c if stable Referred for DERMATOLOGY TEACHER-EAB endometrial polyp 01/26 11/25 mammo WNL 11/25 [...] as of this encounter (statuses as of 01/22/2024) Resolved Problems Problem Noted Date Diagnosed Date Resolved Date History of insect sting 06/29/201512/12 Diverticulitis of colon 01/25/201405/2017 Overview: 01/24 [facility] Abnormal pap 02/14/2009 08/28/2016 ADVANCE DIRECTIVE INFORMATION 05/31/2008 08/02/2008 Overview: No, explained to patient Major depressive disorder Overview: ICD-10 update of inactive term Cervical intraepithelial neoplasia grade 2 05/13/2013 documented as of this encounter (statuses as of 01/22/2024) Immunizations Name Administration Dates Next Due COVID-19 mRNA, LNP-s, No Pre serve, 2-Dose Series ([employer]) 07/25/2021,10/28/2020,10/07/2020 COVID-19, LNP-s, No Preserve , Irving-sucrose, Ages 12+ ([employer]) 04/05/2022 COVID-19, MRNA-LNP, 23-24, P F, 30 MCG/0.3 mL, 12 YRS AND ABOVE, IM ([employer]) 07/07/2023 Covid-19, Mrna, Lnp-s, Pf, B ivalent, 30 Mcg, IM, 12 yrs and above ([employer]) 09/25/2022 DTWP - Dipth/Tet/Whole Cell Pertussis 05/27/2001 [...] on file documented as of this encounter Patient Instructions * Patient Instructions* Miya Dang PA-C - 01/08/2024 10:42 AM EDT SUNSCREEN USE AND SUN PROTECTION: 1. The best protection is sun avoidance. Seek shade if you can, especially between 10am to 4pm (peak sun hours). 2. Use sunscreen with an SPF (Sun Protection Factor - the number on most sunscreen bottles) of 30 or more that protects from Ultraviolet A (UVA) and Ultraviolet B (UVB) wavelength light (strongly recommend SPF 50). This is referred to as broad spectrum sun protection because it protects from most wa velengths in both spectrums of UVA and UVB light. Unfortunately, even though the protection is broad it is not complete, therefore making sun avoidance the best protection. UVB and UVA have both beenimplicated in causing skin cancers. Older sunscreens only protected from UVB and sunscreens with added UVA protection should contain Titanium dioxide, Zinc oxide, or Avobenzone. Other oil free, non-comedogenic lotion with SPF 30 or greater is fine. 3. Use sun protection if outside for 15 minutes or more. Apply 20-30 minutes before going out and reapply every 1-2 hours. No sunscreen is truly water ''proof'' and it will wash away with sweat, swimming and rubbing. 4. Wear tightly woven, loose fitting (cooler) long sleeved clothing, UV-blocking sun glasses (eyes need protection as well) and wide-brimmed hatwear (no straw hats with holes because light still getsthrough). Strongly recommended *Neutrogena Pure and Free Baby SPF 60 (have separate face and body lotions) orCeraVe AM facial lotion (with SPF 30). If looking for non toxic alternatives-look for non-earl particle zinc. Product examples; Think sport, Think baby, Nogal, Dress Code, [place], [place] baby. "Baby" products can be used for all ages. documented in this encounter Progress Notes * Brianna Langford MD - 01/22/2024 12:03 PM EDT I have reviewed the relevant notes and photographs taken by SCARLETT Booker. I have reviewed and agree with the assessment and plan. Brianna Langford MD 01/22/2024 12:03 PM * Miya Dang PA-C - 01/08/2024 10:40 AM EDT SUBJECTIVE: History of Present Illness: Reyna Lobato is a 63 year old female seen today for follow up of lesion. Previous appointment date: 06/26/2023 Last attempted treatments include: cryo to AKs Full skin exam 03/04 Lesion on L cheek, present for 1-2 years, enlarging and now obstructing in line of sight.No tx to date. REVIEW OF SYSTEMS: SKIN: No other new or changing moles. HEME/LYMPH: No new or enlarging lumps or bumps. CONSTITUTIONAL: No nausea, vomiting, fevers, chills, diarrhea. No recent unintended weight loss, night sweats, appetite or malaise. 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 MEDICA TIONS: Current Outpatient Medications Medication Sig Dispense Refill CALCIUM 1200 4519-6030 MG-UNIT PO CHEW one tablet daily cetirizine (ZYRTEC) 10 MG Tablet Take 1 Tablet by mouth in the morning. Albuterol Sulfate (ALBUTEROL HFA) 108 (90 BASE) MCG/ACT inhaler Inhale 2 Puffs by mouth every 6 hours as needed (cough). 18 g 1 silver sulfadiazine (SILVADENE) 1 % cream Apply topically to affected area daily. Apply to burn. 20g 1 traMADol HCl 50 MG Oral Tablet (Ultram) Take 1 Tab by mouth every 6 hours as needed for Pain, Severe. 30 Tab 0 B Complex Vitamins Oral Capsule Take 1 Cap by mouth daily. 1 Cap 0 Ondansetron HCl 4 MG Oral Tablet (Zofran) Take 1 Tab by mouth every 6 hours as needed for Nausea. 360 Tab 0 Meclizine HCl 25 MG Oral Tablet (Antivert) Take 1 Tab by mouth 3 times a day as needed for Dizziness. 270 Tab 0 Benzonatate 100 MG Oral Capsule Take 1 Capsule by mouth 3 times a day as needed for Cough. 30 Capsule 1 Fluorouracil 5 % External Cream (Efudex) Apply a thin layer twice daily to isolated lesion on face for 3 weeks then send photos through My Chart at the end of the treatment. 40 g 0 Levothyroxine Sodium 50 MCG Oral Tablet (Levoxyl) TAKE 1 TABLET BY MOUTH DAILY (AT LEAST 30 MINUTESPRIOR TO BREAKFAST OR OTHER MEDS) 90 Tablet 1 LORazepam 0.5 MG Oral Tablet (Ativan) TAKE ONE TABLET BY MOUTH AT BEDTIME NEEDED FOR ANXIETY OR INSOMNIA 30 Tablet 2 Semaglutide (1 MG/DOSE) 4 MG/3ML Subcutaneous Solution Pen-injector (Ozempic) Inject 1 mg under theskin once a week. 9 mL 2 Lisdexamfetamine Dimesylate 20 MG Oral Capsule (Vyvanse) Take 1 Capsule by mouth in the morning. 30Capsule 0 Pregabalin 75 MG Oral Capsule (Lyrica) TAKE ONE CAPSULE BY MOUTH EVERY MORNING AND TAKE TWO CAPSULES BY MOUTH EVERY NIGHT--can take extra 1 capsule in afternoon and extra 1 capsule in evening as needed for fibro flare. 400 Capsule 1 No current facility-administered medications for this visit. ALLERG IES: Bactrim, Celexa [citalopram hydrobromide], Doxycycline, and Zinacef [cefuroxime sodium] OBJECT KIMO: GEN: alert, no distress, appears oriented, pleasant, and cooperative. SKIN: Detailed exam of face including lids and lips completed: 1A. L infraorbital region-[id number] skin colored pedunculated papule. ASSESS MENT/PLAN: 1. Favor tag like SK on L infraorbital region-Shave removal of the lesion noted above to remove andconfirm diagnosis. The procedure, risks including but not limited to; (scarring, bleeding, infection, pain, and bruising), benefits, alternatives and expected outcomes were discussed with the patient, and obtained verbal consent from pt. Time out called. Patient identified, procedure verified, siteidentified and verified. Patient and staff present in agreement. Area prepped with alcohol and anesthetized using 0.5cc of 0.5% lidocaine with epinephrine at 1:200,000 concentration. Shave of lesion performed. 20% AlCl and bandaging applied. Specimen sent to pathology. Patient instructed in routine post-op care. Patient alone today. Photo(s) of #1 taken, pt verbally consented to having photo(s) taken. Follow-up: 05/05 for full skin exam Contact patient via [employer] Photos and chart reviewed by Dr. Brianna Langford. Presumed diagnoses, expected natural histories, and management options discussed with the patient at length. Questions were addressed and anticipatory guidance provided. They were instructed to contact me if additional questions, concerns, or problems develop in the interim. -There were no barriers to learning and no other pain was related to today's visit. The patient and/or person accompanying patient demonstrates understanding of the visit and treatment. Miya Dang PA-C 01/08/2024 7:35 AM Ref: SELF[[id number]] NO STREET ADDRESS AVAILABLE None (office) None (fax) PCP: MENDEZ PASTOR [address] [place] [phone] documented in this encounter Nursing Notes * Sindi Ahn LPN - 01/08/2024 10:38 AM EDT Patient identified by full name and date of . Chief Complaint Patient presents with Follow Up lesion on left cheek documented in this encounter Miscellaneous Notes * Result Encounter Note - Miya Dang PA-C - 01/12/2024 7:34 AM EDT Sent patient a portal message with bx result. SK, no further tx needed. Pt urged to contact me withany questions or concerns. Miya Dang SYANELIS ATamar Skin, L infraorbital region, shave: Seborrheic keratosis documented in this encounter Plan of Treatment Upcoming Encounters Date Type Department Care Team (Late st Contact Info) Description 04/22/2024 7:40 AM EDT Office Visit Dermatology[address] [place] [address] Miya Segovia PA-C [address] [place] [address] [place] [address] 05/20/2024 8:20 AM EDT Office Visit Nutrition & Weight Management, [facility] [address] [place] [address] Tamara Kinney PA-C [address] [place] [address] 05/26/2024 7:00 AM EDT [facility] [address] [place] [address] 07/30/2024 8:40 AM EDT Office Visit Family Practice [facility] [address] [place] [address] Mendez Pastor MD [address] [place] [address] Scheduled Procedures Name Priority Associated Diagnoses Date/Ti [...] Not on filedocumented as of this encounter Procedures Procedure Name Priority Date/Time Associated Diagnosis Comments SURGICAL PATHOLOGY Routine 01/08/2024 11 :01 AM EDT Seborrheic keratosis DERM IMAGE (SITE) Routine 01/08/2024 Seborrheic keratosis Hx of nonmelanoma skin cancer H/O dysplastic nevus documented in this encounter Results * SURGICAL PATHOLOGY (01/08/2024 11:01 AM EDT) Final Diagnosis A. Skin, L infraorbital region, shave: Seborrheic keratosis 01/09/2024 10:42 AM EDT [facility] Clinical History See Order Comments 01/09/2024 10:42 AM EDT [facility] Order Comments 1A. L infraorbital region-[id number] skin colored pedunculated papule. Favor tag like SK 01/09/2024 10:42 AM EDT [facility] Gross Description A. Skin. Received in formalin with a container labeled with "Reyna Lobato", "[id number]", "1960" and " left infraorbital region". Received is a 0.5 x 0.2 cm skin shave. The skin surface has a so to yellow slightly raised, slightly rough, dull, firm, scaly papule measuring 0.2 x 0.2 cm, which extends to the closest margin. The underlying tissue is inked. The specimen is bisected and submitted in cassette A1. Gross By: 01/09/2024 10:42 AM EDT LAB[facility]ATORY [facility] Sign Out Location Pathologist sign out performed at [facility] ([facility] [place] [address]. 01/09/2024 10:42 AM EDT LAB[facility]ATORY [facility] Photographic images and diagrams represent dolan findings in this case; they are not intended to replace a complete review of the final diagnostic report. The following statement applies to Flow Cytometry, Histology, In situ Hybridization Assays and Molecular Genetics. This test was developed and performed at [facility] and its performance characteristics determined by [facility]. It has not been cleared or approved by the U.S. Food and Drug Administration. The FDA has determined that such clearance or approval is not necessary. This test is used for clinical purposes. It should not be regarded as investigational or for research. Special stains, including histochemical stains, and studies using immunologic and OLY methodology (where applicable) are performed with appropriate positive and negative control reactions. 01/09/2024 10:42 AM EDT LABORATORY [facility] Tissue Skin structure / Unknown 01/08/2024 11:01 AM EDT 01/08/2024 11:01 AM EDT Comment:1A. L infraorbital r egion-[id number] skin colored pedunculated papule.Favor tag like SK Miya Dang PA-C LAB PATHOLOGY ORDERABLES LABORATORY [address] [address] * DERM IMAGE (SITE) (01/08/2024) 01/08/2024 Miya Karen Dang PA-C DIGITAL PHOTOG ANTONIO documented in this encounter Visit Diagnoses Diagnosis Hx of nonmelanoma skin cancer- Primary Personal history of other malignant neoplasm of skin Seborrheic keratosis Other seborrheic keratosis H/O dysplastic nevus Personal history of diseases of skin and subcutaneous tissue documented in this encounter Care Teams Die Repair Relationship Specialty Start Date End Date Mendez Pastor MD [address] [place] [address] PCP - General Family Medicine 01/25/16 documented as of this encounter
--- OUTSIDE RECORDS SUMMARY | 2024-03-14 18:37 | External Medical Summary | Summary of Care ---
Author Name Unknown Organization [facility] Address [address] [place] [address] Phone [phone] Care Team Providers Care Legal Operations Manager Name Role Phone Mendez Licona MD Primary Care Provider + Reason for Visit * Reason Comments Outpatient Testing Encounter Details Date Type Department Care Team (Late st Contact Info) Description 12/09/2023 2:00 PM EST Laboratory Laboratory, [facility] [address] [place] [address] [place], Specimen Drop Off [facility] [address] [place] [address] Diarrhea, unspecified type Allergies Active Allergy Reactions Criticality Noted Date Comments Bactrim Hives 10/29/2007 Citalopram Hydrobromide 02/17/2017 Flu like symptoms Doxycycline Nausea/vomiting 09/20/2016 Not able to eat Cefuroxime Sodium Rash 07/13/2010 Swelling of feet rash documented as of this encounter (statuses as of 12/09/2023) Medications Medication Sig Dispensed Refills Start Date End Date Status CALCIUM 1200 6412-6353 MG-UNIT PO CHEW one tablet daily 0 [...] the treatment. 40 g 0 08/28/2023 Active Lisdexamfetamine Dimesylate 20 MG Oral Capsule (Vyvanse)Indication s:Attention deficit disorder (ADD) without hyperactivity,MEDIC ATION USE AGREEMENT Take 1 Capsule by mouth in the morning. 30 Capsule 0 11/10/2023 Active Levothyroxine Sodium 50 MCG Oral Tablet [...] AND TAKE TWO CAPSULES BY MOUTH EVERY NIGHT 300 Capsule 1 11/24/2023 Active Ciprofloxacin HCl 500 MG Oral Tablet (Cipro) take 1 tablet (500 mg) orally every 12 hours 20 Tablet 0 11/22/2023 Active metroNIDAZOLE 500 MG Oral Tablet (Flagyl) take 1 tablet (500 mg) orally three times a day 30 Tablet 0 11/22/2023 Active Ondansetron HCl 4 MG Oral Tablet (Zofran) take 1 tablet (4 mg) orally every 8 hours As Needed for nausea and vomiting for 4 days 14 Tablet 0 11/22/2023 Active documented as of this encounter (statuses as of 12/09/2023) Active Problems Problem Noted Date Diagnosed Date Sensorineural hearing loss (SNHL) of both ears 0 05/10/2022 Hx of nonmelanoma skin cancer 03/07/2022 Overview: 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 Adjacent cysts to GB 01/24 [facility] ER US Chronic iritis 01/10/2014 ADD (attention deficit disorder) 06/16/2013 Overview: 06/25 trial vyvanse. MEDICATION USE AGREEMENT 06/16/2013 Overview: Dr Licona for ADD stimulants Osteoarthritis, hand 05/21/2013 Routine general medical exam ination at a health care facility 05/13/2013 Overview: 08/03 cologuard WNL alejandra 3y. 04/02 pap & HPV WNL. Alejandra 5y 06/29 GB polyp 3mm (no size mentioned on [facility] [place] Alejandra 1y d/c if stable Referred for PHYSICIAN CHIEF OF PATHOLOGY-EAB endometrial polyp 01/26 11/25 mammo WNL 11/25 [...] as of this encounter (statuses as of 12/09/2023) Resolved Problems Problem Noted Date Diagnosed Date Resolved Date Diverticulitis of colon 01/25/2014 09/0 05/2017 Overview: 01/24 [facility] Abnormal pap 02/14/2009 08/28/2016 ADVANCE DIRECTIVE INFORMATION 05/31/2008 08/02/2008 Overview: No, explained to patient Major depressive disorder Overview: ICD-10 update of inactive term Cervical intraepithelial neoplasia grade 2 05/13/2013 documented as of this encounter (statuses as of 12/09/2023) Immunizations Name Administration Dates Next Due COVID-19 mRNA, LNP-s, No Pre serve, 2-Dose Series ([employer]) 07/25/2021,10/28/2020,10/07/2020 COVID-19, LNP-s, No Preserve , Irving-sucrose, Ages 12+ ([employer]) 04/05/2022 COVID-19, MRNA-LNP, 23-24, P F, 30 MCG/0.3 mL, 12 YRS AND ABOVE, IM ([facility]) 07/07/2023 Covid-19, Mrna, Lnp-s, Pf, B ivalent, [...] ex posures Alcohol Use Standard Drinks/Week Comments Yes 0 (1 standard drink = 0.6 oz pur e alcohol) social PHQ-2 Answer Date Recorded PHQ-2 Score -1 [...] Care Team (Late st Contact Info) Description 12/31/2023 8:20 AM EDT Office Visit Family Practice [facility] [address] [place] [address] Mendez Licona MD [address] [place] [address] 04/22/2024 7:40 AM EDT Office Visit [address] [place] [address] Miya Segovia PA-C [address] [place] [address] [place] [address] 05/20/2024 8:20 AM EDT Office Visit Nutrition & Weight Management, [facility] [address] [place] [address] Tamara Kinney PA-C [address] [place] [address] Pending Results Name Type Priority Associated Diagnoses Date /Time CLOSTRIDIUM DIFFICILE, PCR Lab Routine Diarrhea, unspecified type 12/09/2023 2:03 PM EST Scheduled Procedures Name Priority Associated Diagnoses Date/Ti me COLONOSCOPY FLEXIBLE PROXIMA L DIAGNOSTIC Recall Special screening for malignant neoplasms, colon Health Maintenance Due Date Last Done Comments Fecal Occult Blood Test 2006 Sigmoidoscopy 2006 Zoster Vaccines (1 of 2) 2011 Depression Screening 10/15/2019 10/15/2018, 03/13/2017 (Declined) Colonoscopy 08/20/2022 08/20/2012, 08/20/2012 Mammogram 11/13/2023 11/13/2022, 10/2022, 09/04/2021, Additional history exists TSH 03/14/2024 03/14/2023, 11/14, 02/18/2022, Additional history exists PAP SMEAR-EVERY 3 YRS,AGES 18-100 03/26/2024 03/26/2021, 11/08/2016, 07/20/2015, Additional history exists Cologuard 07/23/2025 07/23/2022, 03/2022, 07/18/2022, Additional history exists Colorectal Cancer Screening 07/23/2025 Lipid Panel 05/11/2026 05/11/2021, 03/14, 10/11/2017, Additional [...] as of this encounter Visit Diagnoses Diagnosis Diarrhea, unspecified type documented in this encounter Additional Health Concerns Infection Onset Date Last Indicated Resolved Time C. difficile Rule-Out 12/09/2023 12/09/2023 documented as of this encounter Care Teams Legal Operations Manager Relationship Specialty Start Date End Date Mendez Licona MD [address] [place] [address] PCP - General Family Medicine 01/25/16 documented as of this encounter
--- OUTSIDE RECORDS SUMMARY | 2024-03-14 18:37 | External Medical Summary ---
Author Name Unknown Address Unknown Organization [id number][facility] [address] [place] [address] Laboratory Report Ordering Provider Test Date Status DAWIT PALMA 12/08/2023 10:23:01 Final Observation Date Value Abnormality Reference (Units ) Status BUN 12/08/2023 10:23:01 14 6-20 (mg/dL) Final Creatinine 12/08/2023 10:23:01 0.6 0.5-1.0 (mg/dL) Final Glomerular filtration rate/1.73 sq M.predicted [Volume Rate/Area] in Serum, Plasma or Blood by Creatinine-based formula (CKD-EPI) 12/08/2023 10:23:01 >90 >=60 (mL/min) Final eGFR is calculated based on the CKD-EPI 2020 equation SODIUM 12/08/2023 10:23:01 142 135-146 (m mol/L) Final Potassium 12/08/2023 10:23:01 4.7 3.5-5.1 (m mol/L) Final Cl 12/08/2023 10:23:01 103 98-107 (mm ol/L) Final CO2 12/08/2023 10:23:01 26 22-32 (mmo l/L) Final Anion gap 12/08/2023 10:23:01 13 7-15 (mmol /L) Final Glucose 12/08/2023 10:23:01 85 70-120 (mg /dL) Final Calcium 12/08/2023 10:23:01 9.9 8.4-10.2 ( mg/dL) Final Performing Location LABORATORY [facility] [address] [place] [address]
--- OUTSIDE RECORDS SUMMARY | 2024-03-14 18:37 | External Medical Summary ---
Author Name Unknown Address Unknown Organization K01:[facility] [address] [facility] [address] Laboratory Report Ordering Provider Test Date Status DAWIT PALMA 12/08/2023 10:23:01 Final Observation Date Value Abnormality Reference (Units ) Status WBC, Total 12/08/2023 10:23:01 7.17 4.00-10.8 0 (K/uL) Final RBC 12/08/2023 10:23:01 4.26 3.85-5.15 (M/uL) Final Hemoglobin 12/08/2023 10:23:01 12.8 12.0-15.3 (g/dL) Final Anemia reflex testing trigge rs on a HGB < 12.0 for Females and HGB < 13.0 for Males in accordance with the WHO Anemia Guidelines
Anemia reflex testing triggers on a HGB < 12.0 for Females and HGB < 13.0 for Males in accordance with the WHO Anemia Guidelines HCT 12/08/2023 10:23:01 40.3 36.0-45.2 (%) Final MCV 12/08/2023 10:23:01 94.6 81.5-97.5 (fL) Final MCH 12/08/2023 10:23:01 30.0 27.0-34.0 (pg) Final MCHC 12/08/2023 10:23:01 31.8 32.0-36.0 (g/dL) Final RDW 12/08/2023 10:23:01 13.4 11.5-15.5 (%) Final Platelets 12/08/2023 10:23:01 483 Above hi gh normal 140-400 (K/uL) Final MPV 12/08/2023 10:23:01 10.4 6.6-11.1 ( fL) Final Nucleated erythrocytes/100 leukocytes [Ratio] in Blood by Automated count 12/08/2023 10:23:01 0 <=0 (/100 WBCs) Final Performing Location [facility] - [address] [facility] [address]
--- OUTSIDE RECORDS SUMMARY | 2024-03-14 18:37 | External Medical Summary ---
Author Name Unknown Address Unknown Organization : Laboratory Report Ordering Provider Test Date Status DAWIT PALMA 12/31/2023 15:56:56 Final Observation Date Value Abnormality Reference (Units ) Status Thiamine [Moles/volume] in Blood 12/31/2023 15:56:56 214 Above high normal 78-185 (nmol/L) Final Vitamin supplementation with in 24 hours prior to
blood draw may affect the accuracy of the results.
This test was developed and its analytical performance
characteristics have been determined by [facility] [place]. It has
not been cleared or approved by the U.S. Food and Drug
Administration. This assay has been validated pursuant
to the CLIA regulations and is used for clinical
purposes.

Test Performed at:
[facility]
[address] [facility]
[place] [address]
Bao Judge M.D., Ph.D.,Director of Laboratories Performing Location
--- OUTSIDE RECORDS SUMMARY | 2024-03-14 18:37 | External Medical Summary ---
Author Name Unknown Address Unknown Organization [id number]:[facility] [place] [address] [place] [address] Laboratory Report Ordering Provider Test Date Status DAWIT PALMA 12/31/2023 15:56:56 Final Observation Date Value Abnormality Reference (Units ) Status Vitamin B12 12/31/2023 15:56:56 415 [id number] (pg/mL) Final Performing Location LABORATORY [facility] - [address] [place] [address]
--- OUTSIDE RECORDS SUMMARY | 2024-03-14 18:37 | External Medical Summary | Summary of Care ---
Author Name Unknown Organization [facility] Address [address] [place] [address] Phone [phone] Care Team Providers Care Automotive Worker Foreman Name Role Phone Mendez Licona MD Primary Care Provider + Reason for Visit * Reason Comments Physical-Exam Yearly physical Encounter Details Date Type Department Care Team (Late st Contact Info) Description 12/31/2023 8:20 AM EDT Office Visit [facility] [address] [facility] [address] Mendez Licona MD [address] [place] [address] Well adult exam*; Encounter for screening mammogram for breast cancer; Hypothyroidism, unspecified type; B12 deficiency; Lipid screening; Screening for diabetes mellitus; Fibromyalgia; Need for shingles vaccine Allergies Active Allergy Reactions Criticality Noted Date Comments Bactrim Hives 10/29/2007 Citalopram Hydrobromide 02/17/2017 Flu like symptoms Doxycycline Nausea/vomiting 09/20/2016 Not able to eat Cefuroxime Sodium Rash 07/13/2010 Swelling of feet rash documented as of this encounter (statuses as of 12/31/2023) Medications Medication Sig Dispensed Refills Start Date End Date Status CALCIUM 1200 9637-9494 MG-UNIT PO CHEW one tablet daily 0 Active cetirizine (ZYRTEC) 10 MG Tablet Take 1 Tablet by mouth in the morning. 0 8 Active Albuterol Sulfate (ALBUTEROL HFA) 108 (90 BASE) MCG/ACT inhaler Inhale 2 Puffs by mouth every 6 hours as needed (cough). 18 g 1 0 Active silver sulfadiazine (SILVADENE) 1 % cream Apply topically to affected area daily. Apply to burn. 20 g 1 0 Active traMADol HCl 50 MG Oral Tablet (Ultram)Indicatio ns:Fibromyalgia Take 1 Tab by mouth every 6 hours as needed for Pain, Severe. 30 Tab 0 1 Active B Complex Vitamins Oral Capsule Take 1 Cap by mouth daily. 1 Cap 0 1 Active Ondansetron HCl 4 MG Oral Tablet (Zofran)Indicatio ns:Vertigo Take 1 Tab by mouth every 6 hours as needed for Nausea. 360 Tab 0 1 Active Meclizine HCl 25 MG Oral Tablet (Antivert)Indicat ions:Vertigo Take 1 Tab by mouth 3 times a day as needed for Dizziness. 270 Tab 0 1 Active Benzonatate 100 MG Oral CapsuleIndication s:Bronchitis, complicated Take 1 Capsule by mouth 3 times a day as needed for Cough. 30 Capsule 1 3 Active Fluorouracil 5 % External Cream (Efudex) Apply a thin layer twice daily to isolated lesion on face for 3 weeks then send photos through My Chart at the end of the treatment. 40 g 0 3 Active Levothyroxine Sodium 50 MCG Oral Tablet (Levoxyl) TAKE 1 TABLET BY MOUTH DAILY (AT LEAST 30 MINUTES PRIOR TO BREAKFAST OR OTHER MEDS) 90 Tablet 1 4 11/06/19 25 Active LORazepam 0.5 MG Oral Tablet (Ativan)Indicatio ns:Anxiety state TAKE ONE TABLET BY MOUTH AT BEDTIME NEEDED FOR ANXIETY OR INSOMNIA 30 Tablet 2 4 05/19/20 24 Active Semaglutide (1 MG/DOSE) 4 MG/3ML Subcutaneous Solution Pen-injector (Ozempic) Inject 1 mg under the skin once a week. 9 mL 2 4 Active Lisdexamfetamine Dimesylate 20 MG Oral Capsule (Vyvanse)Indicati ons:Attention deficit disorder (ADD) without hyperactivity,MED ICATION USE AGREEMENT Take 1 Capsule by mouth in the morning. 30 Capsule 0 4 Active Pregabalin 75 MG Oral Capsule (Lyrica) TAKE ONE CAPSULE BY MOUTH EVERY MORNING AND TAKE TWO CAPSULES BY MOUTH EVERY NIGHT--can take extra 1 pill in afternoon and extra 1 pill in evening as needed fibro flare. 400 Capsule 1 4 Active Pregabalin 75 MG Oral Capsule (Lyrica) TAKE ONE CAPSULE BY MOUTH EVERY MORNING AND TAKE TWO CAPSULES BY MOUTH EVERY NIGHT 300 Capsule 1 4 12/31/19 24 Discontinued Ciprofloxacin HCl 500 MG Oral Tablet (Cipro) take 1 tablet (500 mg) orally every 12 hours 20 Tablet 0 4 12/31/19 24 Discontinued(Med ication List Clean Up) metroNIDAZOLE 500 MG Oral Tablet (Flagyl) take 1 tablet (500 mg) orally three times a day 30 Tablet 0 4 12/31/19 24 Discontinued(Med ication List Clean Up) Ondansetron HCl 4 MG Oral Tablet (Zofran) take 1 tablet (4 mg) orally every 8 hours As Needed for nausea and vomiting for 4 days 14 Tablet 0 4 12/31/19 24 Discontinued(Med ication List Clean Up) documented as of this encounter (statuses as of 12/31/2023) Active Problems Problem Noted Date Diagnosed Date [...] US-3mm polyp. Adjacent cysts to GB 01/24 [facility] ER US Chronic iritis 01/10/2014 [...] [facility] 2013 US). Alejandra 1y d/c if stable Referred for SENIOR ASSOCIATE-EAB endometrial polyp 01/26 11/25 mammo WNL 11/25 [...] as of this encounter (statuses as of 12/31/2023) Resolved Problems Problem Noted Date Diagnosed Date Resolved Date History of insect sting 06/29/201512/12 Diverticulitis of colon 01/25/201405/2017 Overview: 01/24 [facility] Abnormal pap 02/14/2009 08/28/2016 ADVANCE DIRECTIVE INFORMATION 05/31/2008 08/02/2008 Overview: No, explained to patient Major depressive disorder Overview: ICD-10 update of inactive term Cervical intraepithelial neoplasia grade 2 05/13/2013 documented as of this encounter (statuses as of 12/31/2023) Immunizations Name Administration Dates Next Due COVID-19 mRNA, LNP-s, No Pre serve, 2-Dose Series (Pfizer) 07/25/2021,10/28/2020,10/07/2020 COVID-19, LNP-s, No Preserve , Irving-sucrose, Ages 12+ (Pfizer) 04/05/2022 COVID-19, MRNA-LNP, 23-24, P F, 30 MCG/0.3 mL, 12 YRS AND ABOVE, IM ([facility]) 07/07/2023 Covid-19, Mrna, Lnp-s, Pf, B ivalent, [...] Date Smoking Tobacco: Never Smokeless Tobacco: Never Tobacco Cessation:Counseling Given: Not Answered Comments:no passive smoke exposures Alcohol Use Standard Drinks/Week Comments Not Currently [...] Sign Reading Time Taken Comments Blood Pressure 118/62 12/31/2023 8:24 AM EDT Pulse 96 12/31/2023 8:24 AM EDT Temperature 36.9 C (98.5 F) 12/31/2023 8:24 AM ED T Respiratory Rate 18 12/31/2023 8:24 AM EDT Oxygen Saturation 98% 12/31/2023 8:24 AM EDT Inhaled Oxygen Concentration - - Weight 59.2 kg (130 lb 8 oz) 12/31/2023 8:24 AM EDT Height 157.5 cm (5' 2") 12/31/2023 8:24 AM EDT Body Mass Index 23.87 12/31/2023 8:24 AM EDT documented in this encounter Progress Notes * Mendez Licona MD - 12/31/2023 9:14 AM EDT SUBJECTIVE: Reyna Lobato is a 63 year old female here for Physical-Exam (Yearly physical) . Here for CPE No fever, chills, chest pain, shortness of breath, headache, nausea, vomit, diarrhea, constipation or vision changes Patient with chronic fibromyalgia pain worse with stress. She currently takes 75 mg in the morning and 150 mg in the evening. She still gets flares at some points. She has tried duloxetine 90 mg in the past without any relief. She uses tramadol with some minimal relief. She is wondering about otheroptions. She is considering retiring in the fall in his hopeful that will bring reduce stress but has to figure out medication coverage. ADHD is well controlled with Vyvanse 20 mg has been on a stable dose for quite some time. Pt was assessed for potential risk of misuse, abuse, or addiction based on family and social history and has been educated on the potential adverse affects of stimulants including the risk for misuseabuse and addiction. Where appropriate (history of comorbid substance dependency, abuse or diversion has had recent urine drug screening testing (including oxycodone, fentanyl, tramadol and carisoprodol) when applicable--- not applicable to this patient. patient has experienced improvement in pain control and level of functioning well on tramadol The narcotic will be used in combination with tolerated non pharmacologic therapy and non opiate pharacologic therapy and I have reviewed her medical record documentation for urine drug screening testing for listed and illicit drugs with the potential for abuse consistent with prescribed controlled substances. Patient has tried and failed non-drug pain management modalities and non-opioid drugs, acetaminophen, nsaids, etc. It will be used in combination with tolerated non drug therapies and non-opioid meds. Patient was assessed for potential risk of misuse, abuse, and addiction based on family and social history. Patient was counseled regarding potential side effects of opioids including risk or misuse, abuse, addiction. Patient was assessed for recent (w/in 60d) opioid use. Patient was evaluated for risk factors for opioid related harm. If identified to be at high risk for Opioid -related harm, the prescribed considered naloxone. Mendez Licona MD ROS: Negative except above. Past Medical History: Diagnosis Date ADD (attention deficit disorder) 06/16/2013 Cervical intraepithelial neoplasia grade 2 Chronic iritis 01/10/2014 Depressive disorder, not elsewhere classified on celexa Diverticulitis of colon 01/25/201401/24 [facility] Fibromyalgia 08/02/2019 History of diverticulitis of colon 12/31/2023 Hypothyroidism 2004 Iritis Migraine maxalt prn Osteoarthritis, hand 05/21/2013 Sensorineural hearing loss (SNHL) of both ears 05/10/2022 Past Surgical History: Procedure Laterality Date COLONOSCOPY, DIAGNOSTIC (RECTUM) 08/20/2012 COLONOSCOPY FLEXIBLE PROXIMAL DIAGNOSTIC performed by Rhea Guzman DO at OR [facility] COLPSCPY CERVIX W/LOOP ELECT 07/21/2008 for CIN2, 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 01/2016 Dr Santos [facility] polyp HYSTEROSCOPY W/BIOPSY AND/OR POLYPECTOMY W/WO D&C 11/2012 lobo Junior polyp OTHER (INFORMATION) ACT 112 SIGNED 06/20/21 DR. MOSHER REVISE UPPER EYELID/EXCESS SKIN Bilateral 06/01/2021 Bilateral Bleph Upper Eyelids Dr. Vargas Social History Socioeconomic History Marital status: Spouse name: Not on file Number of children: Not on file Years of education: Not on file Highest education level: Not on file Occupational History Occupation: [employer] at Tobacco Use Smoking status: Never Smokeless tobacco: Never Tobacco comments: no passive smoke exposures Vaping Use Vaping Use: Never used Substance and Sexual Activity Alcohol use: Not Currently Drug use: No Sexual activity: Not Currently Partners: Male control/protection: Condom Comment: 2 children Srinivas & Bayron. +Grandchild. . no DV Other Topics Concern Service Not Asked Blood Transfusions Not Asked Caffeine Concern Not Asked Occupational Exposure Not Asked Hobby Hazards Not Asked Sleep Concern Not Asked Stress Concern Not Asked Weight Concern Not Asked Special Diet Yes Comment: on Ca supp Back Care Not Asked Exercise No Bike Helmet Not Asked Seat Belt Not Asked Self-Exams Yes Comment: +BSE occ Social History Narrative [employer] INFORMATION ENVIRONMENTAL HISTORY: Type of Home: [employer] Story and Townhouse Type of Heating System: Electric Air Conditioning: No Basement: Unfinished, Dampness, Mold, mildew and garage Home have cockroaches: No Irritants in the home: Scented Candles and Scented air fresheners Patient's bedroom location: Floor: second Type of baljeet: Carpeting Beds: Number: 1 Type of beds: Mattress and Box spring Pillows: Number: 4 Type of pillows: Synthetic (hypoallergenic, polyester) Bedroom contains: Stuffed animals Pets: 1 cat(s) Lives on a farm: No 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 Entered by: Juan J Cintron MD 02/23/2009 Social Determinants of Health Financial Resource Strain: Not on file Food Insecurity: Not on file Transportation Needs: Not on file Physical Activity: Not on file Stress: Not on file Social Connections: Not on file Intimate Partner Violence: Not on file Housing Stability: Not on file Family History Problem Relation Age of Onset Heart Disorder Mother blockages Osteoporosis Mother Rheum arthritis Father seronegative Other (incontinence) Father No Known Problems Sister Rheum arthritis Brother No Known Problems Brother No Past Hx Brother No Past Hx Brother Asthma Brother Allergies Brother food allergies Cancer Grandmother (Maternal) 65 colon Cancer Grandmother (Paternal) age 93 nasal/eye cancer? Glaucoma Grandmother (Paternal) Pancreatic cancer Grandfather (Paternal) 80 Allergies Son seasonal allergies Testicular cancer Son 29 Current Outpatient Medications Medication Sig Dispense Refill CALCIUM 1200 4335-2096 MG-UNIT PO CHEW one tablet daily cetirizine [...] theskin once a week. 9 mL 2 Pregabalin 75 MG Oral Capsule (Lyrica) TAKE ONE CAPSULE BY MOUTH EVERY MORNING AND TAKE TWO CAPSULES BY MOUTH EVERY NIGHT 300 Capsule 1 Lisdexamfetamine Dimesylate 20 MG Oral Capsule (Vyvanse) Take 1 Capsule by mouth in the morning. 30Capsule 0 No current facility-administered medications for this visit. Physical: BP 118/62 | Pulse 96 | Temp 36.9 C (98.5 F) (Tympanic) | Resp 18 | Ht 1.575 m (5' 2") | Wt 59.2kg (130 lb 8 oz) | LMP 01/08/2016 | SpO2 98% | BMI 23.87 kg/m | BSA 1.61 m General-No apparent Distress Head, Eyes, Ears, Nose, Throat--Normocephalic, atraumatic Neck-Supple Lymph-no lymphadenopathy Lungs-Clear to Auscultation bilaterally Cardiovascular--Regular rate & Rhythm, +s1, s2, no murmur Abdomen-soft, nontender, nondistended + bowel sounds Extremities--no edema Skin- skin tag left cheek. Neuro-alert & oriented x3 "I have reviewed the patient's controlled substance dispensing history in the Prescription Drug Monitoring Program in compliance with the [facility] regulations before prescribing a controlled substance." (Z00.00) Well adult exam (primary encounter diagnosis) Plan: counseled on diet/exercise Pap UTD Mammo elects Q-1-2y , will ck this summer Colon UTD cologuard Labs reviewwed/ordered (Z12.31) Encounter for screening mammogram for breast cancer Plan: MAMMOGRAM SCREENING JOSE LUIS BILATERAL (E03.9) Hypothyroidism, unspecified type Plan: TSH WITH FREE T4 IF INDICATED (E53.8) B12 deficiency Plan: VITAMIN B12, VITAMIN B1 (THIAMINE), BLOOD, LC/MS/MS (Z13.220) Lipid screening Plan: LIPID PANEL WITH DIRECT LDL IF TG IS HIGH (Z13.1) Screening for diabetes mellitus Plan: BASIC METABOLIC PANEL (M79.7) Fibromyalgia Plan: can take extra 1-2 lyrica a day[ prn flares (Z23) Need for shingles vaccine Plan: ZOSTER VACCINE RECOMB, 2 DOSE, IM (SHINGRIX) (This note was completed using the dictation program Fluency Direct. As such, there may be misspellings, word substitutions, or other variations that should not change the essence of the clinical content of this encounter note.If there is need for further clarification, please direct questions to the provider listed above.) Mendez Licona MD documented in this encounter Nursing Notes * Mindy Lambert LPN - 12/31/2023 8:24 AM EDT The patient has been properly identified by confirmation of name and date of . Chief Complaint Patient presents with Physical-Exam Yearly physical documented in this encounter Plan of Treatment Upcoming Encounters Date Type Department Care Team (Late st Contact Info) Description 04/22/2024 7:40 AM EDT Office Visit Dermatology, [address], [place] [address] Miya Dang PA-C [address] [place] [address] [place] [address] 05/20/2024 8:20 AM EDT Office Visit Nutrition & Weight Management, [facility] [address] [place] [address] Tamara Kinney PA-C [address] [place] [address] 05/26/2024 7:00 AM EDT Imaging Radiology [facility] [address] [place] [address] 07/30/2024 8:40 AM EDT Office Visit Family Practice [facility] [address] [place] [address] Mendez Licona MD [address] [place] [address] Scheduled Orders Name Type Priority Associated Diagnoses Orde r Schedule VITAMIN B12 Lab Routine B12 deficiency Expected: 12/31/2023 (Approximate), Expires: 12/30/2024 VITAMIN B1 (THIAMINE), BLOOD, LC/MS/MS Lab Routine B12 deficiency Expected: 12/31/2023, Expires: 12/30/2024 TSH WITH FREE T4 IF INDICATED Lab Routine Hypothyroidism, unspecified type Expected: 12/31/2023 (Approximate), Expires: 12/30/2024 MAMMOGRAM SCREENING JOSE LUIS BILATERAL Medical Imaging Routine Encounter for screening mammogram for breast cancer Expected: 05/26/2024, Expires: 01/30/2025 BASIC METABOLIC PANEL Lab Routine Screening for diabetes mellitus Expected: 12/31/2023 (Approximate), Expires: 12/30/2024 LIPID PANEL WITH DIRECT LDL IF TG IS HIGH Lab Routine Lipid screening Expected: 12/31/2023, Expires: 12/30/2024 Scheduled Procedures Name Priority Associated Diagnoses Date/Ti [...] 03/14/2024 03/14/2023, 11/14, 02/18/2022, Additional history exists Cologuard 07/23/2025 07/23/2022, 03/2022, [...] as of this encounter Visit Diagnoses Diagnosis Well adult exam- Primary Routine general medical examination at a health care facility Encounter for screening mammogram for breast cancer Hypothyroidism, unspecified type B12 deficiency Other B-complex deficiencies Lipid screening Screening for lipoid disorders Screening for diabetes mellitus Fibromyalgia Mylagia and myositis, unspecified Need for shingles vaccine Need for prophylactic vaccination and inoculation against other viral diseases documented in this encounter Care Teams Automotive Worker Foreman Relationship Specialty Start Date End Date Mendez Licona MD [address] [place] [address] PCP - General Family Medicine 01/25/16 documented as of this encounter
--- OUTSIDE RECORDS SUMMARY | 2024-03-14 18:37 | External Medical Summary | Summary of Care ---
Author Name Unknown Organization [facility] Address [address] [place] [address] Phone [phone] Care Team Providers Care Occupational Therapy Director Name Role Phone Mendez Licona MD Primary Care Provider + Reason for Visit * Reason Comments Outpatient Testing Encounter Details Date Type Department Care Team (Late st Contact Info) Description 12/08/2023 11:00 AM EST Laboratory Laboratory, [facility] [address] [place] [id number] [facility] [address] [place] [address] Diarrhea, unspecified type Allergies Active Allergy Reactions Criticality Noted Date Comments Bactrim Hives 10/29/2007 Citalopram Hydrobromide 02/17/2017 Flu like symptoms Doxycycline Nausea/vomiting 09/20/2016 Not able to eat Cefuroxime Sodium Rash 07/13/2010 Swelling of feet rash documented as of this encounter (statuses as of 12/08/2023) Medications Medication Sig Dispensed Refills Start Date End Date Status CALCIUM 1200 9109-3217 MG-UNIT PO CHEW one tablet daily 0 [...] as of this encounter (statuses as of 12/08/2023) Active Problems Problem Noted Date Diagnosed Date [...] polyp. Adjacent cysts to GB 01/24 [facility] ER US Chronic iritis 01/10/2014 ADD (attention deficit disorder) 06/16/2013 Overview: 06/25 trial vyvanse. MEDICATION USE AGREEMENT 06/16/2013 Overview: Dr Licona for ADD stimulants Osteoarthritis, hand 05/21/2013 Routine general medical exam ination at a health care facility 05/13/2013 Overview: 08/03 cologuard WNL alejandra 3y. 04/02 pap & HPV WNL. Alejandra 5y 06/29 GB polyp 3mm (no size mentioned on [facility] 2014 US). Alejandra 1y d/c if stable Referred for TRADE ECONOMIST-EAB endometrial polyp 01/26 11/25 mammo WNL 11/25 [...] as of this encounter (statuses as of 12/08/2023) Resolved Problems Problem Noted Date Diagnosed Date Resolved Date Diverticulitis of colon 01/25/201405/2017 Overview: 01/24 [facility] Abnormal pap 02/14/2009 08/28/2016 ADVANCE DIRECTIVE INFORMATION 05/31/2008 08/02/2008 Overview: No, explained to patient Major depressive disorder Overview: ICD-10 update of inactive term Cervical intraepithelial neoplasia grade 2 05/13/2013 documented as of this encounter (statuses as of 12/08/2023) Immunizations Name Administration Dates Next Due COVID-19 mRNA, LNP-s, No Pre serve, 2-Dose Series (combionic) 07/25/2021,10/28/2020,10/07/2020 COVID-19, LNP-s, No Preserve , Irving-sucrose, Ages 12+ (combionic) 04/05/2022 COVID-19, MRNA-LNP, 23-24, P F, 30 MCG/0.3 mL, 12 YRS AND ABOVE, IM ([facility]) 07/07/2023 Covid-19, Mrna, Lnp-s, Pf, B ivalent, [...] 8:20 AM EDT Office Visit Family Practice [facility] [address] [place] [address] Mendez Licona MD [address] [place] [address] 04/22/2024 7:40 AM EDT Office Visit [address] [place], [place] [id number] Miya Dang, PATatianaC [address] [place] [address] [place] [address] 05/20/2024 8:20 AM EDT Office Visit Nutrition & Weight Management, [facility] [address] [place] [address] Tamara Kinney PA-C [address] [place] [address] Pending Results Name Type Priority Associated Diagnoses Date /Time CBC WITH WBC DIFFERENTIAL AND ANEMIA REFLEX WORKUP Lab Routine Diarrhea, unspecified type 12/08/2023 10:23 AM EST BASIC METABOLIC PANEL Lab Routine Diarrhea, unspecified type 12/08/2023 10:23 AM EST ANEMIA CBC Lab Routine Diarrhea, unspecified type 12/08/2023 10:23 AM EST DIFFERENTIAL, AUTOMATED Lab Routine Diarrhea, unspecified type 12/08/2023 10:23 AM EST ANEMIA REFLEX CHEMISTRY HOLD Lab Routine Diarrhea, unspecified type 12/08/2023 10:23 AM EST Scheduled Procedures Name Priority Associated Diagnoses Date/Ti me COLONOSCOPY FLEXIBLE PROXIMA L DIAGNOSTIC Recall Special screening for malignant neoplasms, colon Health Maintenance Due Date Last Done Comments Fecal Occult Blood Test 2006 Sigmoidoscopy 2006 Zoster Vaccines (1 of 2) 2011 Depression Screening 10/15/2019 10/15/2018, 03/13/2017 (Declined) Colonoscopy 08/20/2022 08/20/2012, 08/20/2012 Mammogram 11/13/2023 11/13/2022, 10/2022, 09/04/2021, Additional history exists TSH 03/14/2024 03/14/2023, 2 05/2023, 02/18/2022, Additional history exists PAP SMEAR-EVERY 3 YRS,AGES 18-100 03/26/2024 03/26/2021, 11/08/2016, 07/20/2015, Additional history exists Cologuard 07/23/2025 07/23/2022, 100 03/2022, 07/18/2022, Additional history exists Colorectal Cancer [...] Diarrhea, unspecified type documented in this encounter Care Teams Occupational Therapy Director Relationship Specialty Start Date End Date Mendez Licona MD [address] [place] [address] PCP - General Family Medicine 01/25/16 documented as of this encounter
--- OUTSIDE RECORDS SUMMARY | 2024-03-14 18:37 | External Medical Summary ---
Author Name Unknown Address Unknown Organization K01:[place] [facility] [place] [address] [facility] [address] Laboratory Report Ordering Provider Test Date Status DAWIT PALMA 12/31/2023 15:56:56 Final Observation Date Value Abnormality Reference (Units ) Status BUN 12/31/2023 15:56:56 16 6-20 (mg/dL) Final Creatinine 12/31/2023 15:56:56 0.6 0.5-1.0 (mg/dL) Final Glomerular filtration rate/1.73 sq M.predicted [Volume Rate/Area] in Serum, Plasma or Blood by Creatinine-based formula (CKD-EPI) 12/31/2023 15:56:56 >90 >=60 (mL/min) Final eGFR is calculated based on the CKD-EPI 2020 equation Sodium 12/31/2023 15:56:56 142 135-146 (m mol/L) Final Potassium 12/31/2023 15:56:56 4.1 3.5-5.1 (m mol/L) Final Cl 12/31/2023 15:56:56 103 98-107 (mm ol/L) Final CO2 12/31/2023 15:56:56 28 22-32 (mmo l/L) Final Anion gap 12/31/2023 15:56:56 11 7-15 (mmol /L) Final Glucose 12/31/2023 15:56:56 74 70-120 (mg /dL) Final Calcium 12/31/2023 15:56:56 9.4 8.4-10.2 ( mg/dL) Final Performing Location [facility] [place] [address] [place] [address]
--- OUTSIDE RECORDS SUMMARY | 2024-03-14 18:37 | External Medical Summary | Summary of Care ---
Author Name Unknown Organization [facility] Address [address] [place] [address] Phone [phone] Care Team Providers Care Material Damage Appraiser Name Role Phone Mendez Pastor MD Primary Care Provider + Reason for Visit * Reason Comments Medication Refill Encounter Details Date Type Department Care Team (Late st Contact Info) Description 11/22/2023 Refill Family Practice [facility] [address] [facility] [place] [address] Mendez Pastor MD [address] [place] [address] Allergies Active Allergy Reactions Criticality Noted Date Comments Bactrim Hives 10/29/2007 Citalopram Hydrobromide 02/17/2017 Flu like symptoms Doxycycline Nausea/vomiting 09/20/2016 Not able to eat Cefuroxime Sodium Rash 07/13/2010 Swelling of feet rash documented as of this encounter (statuses as of 11/24/2023) Medications Medication Sig Dispensed Refills Start Date End Date Status CALCIUM 1200 0566-9947 MG-UNIT PO CHEW one tablet daily 0 [...] EVERY NIGHT 300 Capsule 1 11/24/2023 Active Pregabalin 75 MG Oral Capsule (Lyrica) TAKE ONE CAPSULE BY MOUTH EVERY MORNING AND TAKE TWO CAPSULES BY MOUTH EVERY NIGHT 21 Capsule 0 08/26/2023 4 Discontinue d(Refill) documented as of this encounter (statuses as of 11/24/2023) Active Problems Problem Noted Date Diagnosed Date [...] US-3mm polyp. Adjacent cysts to GB 01/24 [facility] ER US Chronic iritis 01/10/2014 ADD (attention deficit disorder) 06/16/2013 Overview: 06/25 trial vyvanse. MEDICATION USE AGREEMENT 06/16/2013 Overview: Dr Pastor for ADD stimulants Osteoarthritis, hand 05/21/2013 Routine general medical exam ination at a health care facility 05/13/2013 Overview: 08/03 cologuard WNL alejandra 3y. 04/02 pap & HPV WNL. Alejandra 6y 06/29 GB polyp 3mm (no size mentioned on [facility] 2014 US). Alejandra 2y d/c if stable Referred for SHELL GRADER-EAB endometrial polyp 01/26 11/25 mammo WNL 11/25 D&C benign, no polyp 2011 colonoscopy WNL alejandra 5y (elects cologaurd) 07/24 ASCUS neg HPV, 7/11 WNL No transf. Zone, 11/22 WNL No transf. Zone, 12/19 WNL. Other past abnormals Urinary incontinence 08/06/2012 Overview: ICD-10 update of inactive term Allergic rhinitis 02/23/2009 Chronic sinusitis 02/23/2009 Major depressive disorder, r ecurrent episode, in partial remission Overview: on celexa ICD-10 update of inactive term Migraine Overview: maxalt prn Hypothyroidism documented as of this encounter (statuses as of 11/24/2023) Resolved Problems Problem Noted Date Diagnosed Date Resolved Date Diverticulitis of colon 01/25/201405/2017 Overview: 01/24 [facility] Abnormal pap 02/14/2009 08/28/2016 ADVANCE DIRECTIVE INFORMATION 05/31/2008 08/02/2008 Overview: No, explained to patient Major depressive disorder Overview: ICD-10 update of inactive term Cervical intraepithelial neoplasia grade 2 05/13/2013 documented as of this encounter (statuses as of 11/24/2023) Immunizations Name Administration Dates Next Due COVID-19 mRNA, LNP-s, No Pre serve, 2-Dose Series (Cerac) 07/25/2021,10/28/2020,10/07/2020 COVID-19, LNP-s, No Preserve , Irving-sucrose, Ages 12+ (Pfizer) 04/05/2022 COVID-19, MRNA-LNP, 23-24, P F, 30 MCG/0.3 mL, 12 YRS AND ABOVE, IM ([employer]-Comirnat) 07/07/2023 Covid-19, Mrna, Lnp-s, Pf, B ivalent, [...] Telephone Encounter - Mendez Pastor MD - 11/24/2023 8:29 AM ESTSigned Prescriptions: Disp Refills Pregabalin 75 MG Oral Capsule (Lyrica) 300 Ca*1 Sig: TAKE ONE CAPSULE BY MOUTH EVERY MORNING AND TAKE TWO CAPSULES BY MOUTH EVERY NIGHTAuthorizing Provider: MENDEZ PASTOR * Telephone Encounter - Ulysses Swann [facility] - 11/24/2023 6:44 AM EST Pending Prescriptions: Disp Refills Pregabalin 75 MG Oral Capsule (Lyrica) 270 Ca*1 Sig: TAKE ONE CAPSULE BY MOUTH EVERY MORNING AND TAKE TWO CAPSULES BY MOUTH EVERY NIGHT * Telephone Encounter - Ulysses Swann [facility] - 11/24/2023 6:42 AM EST I have reviewed the patients controlled substance dispensing history in the Prescription Drug Monitoring Program in compliance with the [facility] regulations before prescribing a controlled substance. PDMP checked on 11/24/2023. Pending Prescriptions: Disp Refills Pregabalin 75 MG Oral Capsule (Lyrica) 270 Ca*1 Sig: TAKE ONE CAPSULE BY MOUTH EVERY MORNING AND TAKE TWO CAPSULES BY MOUTH EVERY NIGHT Last Visit: 06/05/2023 (in office), Visit date not found (telemedicine) Next Visit: 12/31/2023 Date medication was last filled: 08/25 Date medication is due for refill: 11/25 Pharmacy: [facility] Is this request for a [...] in Results Review. Please approve if appropriate. Thanks, Ulysses Swann PharmD Clinical Pharmacist [facility] [phone] 11/24/2023,6:43 AM documented in this encounter Plan of Treatment Upcoming Encounters Date Type Department Care Team (Late st Contact Info) Description 12/31/2023 8:20 AM EDT Office Visit Family Practice [facility] [address] [place] [address] Mendez Pastor MD [address] [place] [address] 04/22/2024 7:40 AM EDT Office Visit Dermatology[address] [place] [address] Miya Dang PA-C [address] [place] [address] [place] [address] 05/20/2024 8:20 AM EDT Office Visit Nutrition & Weight Management, [facility] [address] [place] [address] Tamara Kinney PA-C [address] [place] [address] Scheduled Procedures Name Priority Associated Diagnoses Date/Ti [...] Not on filedocumented as of this encounter Care Teams Material Damage Appraiser Relationship Specialty Start Date End Date Mendez Pastor MD [address] [place] [address] PCP - General Family Medicine 01/25/16 documented as of this encounter
--- OUTSIDE RECORDS SUMMARY | 2024-03-14 18:37 | External Medical Summary | Summary of Care ---
Author Name Unknown Organization [facility] Address [address] [place] [address] Phone [phone] Care Team Providers Care Financial Analysis Consultant Name Role Phone Mendez Licona MD Primary Care Provider + Encounter Details Date Type Department Care Team (Late st Contact Info) Description 01/02/2024 Orders Only PATIENT PORTAL DO NOT DELETE THIS DEPT USED BY [place] [id number] Allergies Active Allergy Reactions Criticality Noted Date Comments Bactrim Hives 10/29/2007 Citalopram Hydrobromide 02/17/2017 Flu like symptoms Doxycycline Nausea/vomiting 09/20/2016 Not able to eat Cefuroxime Sodium Rash 07/13/2010 Swelling of feet rash documented as of this encounter (statuses as of 01/02/2024) Medications Medication Sig Dispensed Refills Start Date End Date Status CALCIUM 1200 6449-3862 MG-UNIT PO CHEW one tablet daily 0 [...] a week. 9 mL 2 11/20/2023 Active Lisdexamfetamine Dimesylate 20 MG Oral Capsule (Vyvanse)Indication s:Attention deficit disorder (ADD) without hyperactivity,MEDIC ATION USE AGREEMENT Take 1 Capsule by mouth in the morning. 30 Capsule 0 12/10/2023 Active Pregabalin 75 MG Oral Capsule (Lyrica) TAKE ONE CAPSULE BY MOUTH EVERY MORNING AND TAKE TWO CAPSULES BY MOUTH EVERY NIGHT--can take extra 1 capsule in afternoon and extra 1 capsule in evening as needed for fibro flare. 400 Capsule 1 12/31/2023 Active documented as of this encounter (statuses as of 01/02/2024) Active Problems Problem Noted Date Diagnosed Date [...] US-3mm polyp. Adjacent cysts to GB 01/24 [facility] ER US Chronic iritis 01/10/2014 ADD (attention deficit disorder) 06/16/2013 Overview: 06/25 trial vyvanse. MEDICATION USE AGREEMENT 06/16/2013 Overview: Dr Licona for ADD stimulants Osteoarthritis, hand 05/21/2013 Routine general medical exam ination at a health care facility 05/13/2013 Overview: 08/03 cologuard WNL alejandra 3y. 04/02 pap & HPV WNL. Alejandra 6y 06/29 GB polyp 3mm (no size mentioned on [facility] 2014 US). Alejandra 1y d/c if stable Referred for OCCUPATIONAL HEALTH SPECIALIST-EAB endometrial polyp 01/26 11/25 mammo WNL 11/25 [...] as of this encounter (statuses as of 01/02/2024) Resolved Problems Problem Noted Date Diagnosed Date Resolved Date History of insect sting 06/29/201512/12 Diverticulitis of colon 01/25/201405/2017 Overview: 01/24 [facility] Abnormal pap 02/14/2009 08/28/2016 ADVANCE DIRECTIVE INFORMATION 05/31/2008 08/02/2008 Overview: No, explained to patient Major depressive disorder Overview: ICD-10 update of inactive term Cervical intraepithelial neoplasia grade 2 05/13/2013 documented as of this encounter (statuses as of 01/02/2024) Immunizations Name Administration Dates Next Due COVID-19 mRNA, LNP-s, No Pre serve, 2-Dose Series (Pfizer) 07/25/2021,10/28/2020,10/07/2020 COVID-19, LNP-s, No Preserve , Irving-sucrose, Ages 12+ (Pfizer) 04/05/2022 COVID-19, MRNA-LNP, 23-24, P F, 30 MCG/0.3 mL, 12 YRS AND ABOVE, IM ([facility]) 07/07/2023 Covid-19, Mrna, Lnp-s, Pf, B [...] 04/22/2024 7:40 AM EDT Office Visit Dermatology, [address] [place] [address] Miya Dang PA-C [address] [place] [address] [place] [address] 05/20/2024 8:20 AM EDT Office Visit Nutrition & Weight Management, [facility] [address] [place] [address] Tamara Kinney PA-C [address] [place] [address] 05/26/2024 7:00 AM EDT Imaging Radiology [facility] [address] [place] [address] 07/30/2024 8:40 AM EDT Office Visit Family Practice [facility] [address] [place] [address] Mendez Licona MD [address] [place] [address] Scheduled Procedures Name Priority Associated Diagnoses Date/Ti [...] filedocumented as of this encounter Care Teams Financial Analysis Consultant Relationship Specialty Start Date End Date Mendez Licona MD [address] [place] [address] PCP - General Family Medicine 01/25/16 documented as of this encounter
--- OUTSIDE RECORDS SUMMARY | 2024-03-14 18:37 | External Medical Summary | Summary of Care ---
Author Name Unknown Organization [facility] Address [address] [place] [address] Phone [phone] Care Team Providers Care Seismic Prospecting Observer Helper Name Role Phone Mendez Licona MD Primary Care Provider + Reason for Visit * Reason Comments Outpatient Testing Encounter Details Date Type Department Care Team (Late st Contact Info) Description 12/31/2023 4:10 PM EDT Laboratory Laboratory, Health system [address] [place] [id number] [facility] [address] [place] [address] B12 deficiency; Hypothyroidism, unspecified type; Screening for diabetes mellitus Allergies Active Allergy Reactions Criticality Noted Date Comments Bactrim Hives 10/29/2007 Citalopram Hydrobromide 02/17/2017 Flu like symptoms Doxycycline Nausea/vomiting 09/20/2016 Not able to eat Cefuroxime Sodium Rash 07/13/2010 Swelling of feet rash documented as of this encounter (statuses as of 12/31/2023) Medications Medication Sig Dispensed Refills Start Date End Date Status CALCIUM 1200 6301-8175 MG-UNIT PO CHEW one tablet daily 0 [...] polyp 3mm (no size mentioned on [facility] 2014 [place]). Alejandra 1y d/c if stable Referred for FLOATLIGHT LOADING SUPERVISOR-EAB endometrial polyp 01/26 11/25 mammo WNL 11/25 [...] mRNA, LNP-s, No Pre serve, 2-Dose Series (GOOD) 07/25/2021,10/28/2020,10/07/2020 COVID-19, LNP-s, No Preserve , Irving-sucrose, Ages 12+ (Pfizer) 04/05/2022 COVID-19, MRNA-LNP, 23-24, P F, 30 MCG/0.3 mL, 12 YRS AND ABOVE, IM ([employer]-Comirnat) 07/07/2023 Covid-19, Mrna, Lnp-s, Pf, B [...] 04/22/2024 7:40 AM EDT Office Visit Dermatology, [address] [place] [address] Miya Dang PA-C [address] [place] [address] [place] [address] 05/20/2024 8:20 AM EDT Office Visit Nutrition & Weight Management, Health system [address] [place] [address] Tamara Kinney PA-C [address] [place] [address] 05/26/2024 7:00 AM EDT Imaging Radiology [facility] [address] [place] [address] 07/30/2024 8:40 AM EDT Office Visit Family Practice Health system [address] [place] [address] Mendez Licona MD [address] [place] [address] Pending Results Name Type Priority Associated Diagnoses Date /Time VITAMIN B12 Lab Routine B12 deficiency 12/31/2023 3:56 PM EDT VITAMIN B1 (THIAMINE), BLOOD, LC/MS/MS Lab Routine B12 deficiency 12/31/2023 3:56 PM EDT TSH WITH FREE T4 IF INDICATED Lab Routine Hypothyroidism, unspecified type 12/31/2023 3:56 PM EDT BASIC METABOLIC PANEL Lab Routine Screening for diabetes mellitus 12/31/2023 3:56 PM EDT Scheduled Procedures Name Priority Associated Diagnoses [...] 02/18/2022, Additional history exists Cologuard 07/23/2025 07/23/2022, 1003/2022, [...] as of this encounter Visit Diagnoses Diagnosis B12 deficiency Other B-complex deficiencies Hypothyroidism, unspecified type Screening for diabetes mellitus documented in this encounter Care Teams Seismic Prospecting Observer Helper Relationship Specialty Start Date End Date Mendez Licona MD [address] [place] [address] PCP - General Family Medicine 01/25/16 documented as of this encounter
--- OUTSIDE RECORDS SUMMARY | 2024-03-14 18:37 | External Medical Summary ---
Author Name Unknown Address Unknown Organization K01:[facility] [place] [address] [facility] [address] Laboratory Report Ordering Provider Test Date Status DAWIT PALMA 12/08/2023 10:23:01 Final Observation Date Value Abnormality Reference (Units ) Status SYNC LEUKOCYTES IN BLOOD BY AUTOMATED COUNT 12/08/2023 10:23:01 7.17 4.00-10.80 (K/uL) Final Segs 12/08/2023 10:23:01 56.7 40.0-75.0 (%) Final Lymphs % 12/08/2023 10:23:01 30.3 18.0-42.0 (%) Final Monos 12/08/2023 10:23:01 6.0 1.0-11.0 (%) Final Eosinophils 12/08/2023 10:23:01 5.6 0.0-6.0 (%) Final Basos 12/08/2023 10:23:01 1.3 0.0-2.0 (%) Final Immature Granulocyte, Percent 12/08/2023 10:23:01 0.1 0.0-2.0 (%) Final Absolute Segs 12/08/2023 10:23:01 4.07 1.80-7.70 (K/uL) Final Lymphs, absolute 12/08/2023 10:23:01 2.17 1.00-4.80 (K/ul) Final Monos, Abs 12/08/2023 10:23:01 0.43 0.00-1.10 (K/uL) Final Eos, Abs 12/08/2023 10:23:01 0.40 0.00-0.70 (K/uL) Final Basos, Abs 12/08/2023 10:23:01 0.09 0.00-0.20 (K/uL) Final Immature Granulocytes, Number 12/08/2023 10:23:01 0.01 0.00-0.20 (K/uL) Final Performing Location [facility] [place] [address] [facility] [address]
--- OUTSIDE RECORDS SUMMARY | 2024-03-14 18:37 | External Medical Summary | Summary of Care ---
Author Name Unknown Organization [facility] Address [address] [place] [address] Phone [phone] Care Team Providers Care Rock Drill Operator Name Role Phone Mendez Pastor MD Primary Care Provider + Reason for Visit * Reason Comments Follow Up lesion on left cheek Encounter Details Date Type Department Care Team (Late st Contact Info) Description 01/08/2024 10:40 AM EDT Office Visit Dermatology[address] [address] Miya Dang PA-C [address] [place] [address] [place] [address] Hx of nonmelanoma skin cancer*; Seborrheic keratosis; H/O dysplastic nevus Allergies Active Allergy Reactions Criticality Noted Date Comments Bactrim Hives 10/29/2007 Citalopram Hydrobromide 02/17/2017 Flu like symptoms Doxycycline Nausea/vomiting 09/20/2016 Not able to eat Cefuroxime Sodium Rash 07/13/2010 Swelling of feet rash documented as of this encounter (statuses as of 01/08/2024) Medications Medication Sig Dispensed Refills Start Date End Date Status CALCIUM 1200 0400-9760 MG-UNIT PO CHEW one tablet daily 0 [...] as of this encounter (statuses as of 01/08/2024) Active Problems Problem Noted Date Diagnosed Date [...] US-3mm polyp. Adjacent cysts to GB 01/24 [facility] ER US Chronic iritis 01/10/2014 ADD (attention deficit disorder) 06/16/2013 Overview: 06/25 trial vyvanse. MEDICATION USE AGREEMENT 06/16/2013 Overview: Dr Pastor for ADD stimulants Osteoarthritis, hand 05/21/2013 Routine general medical exam ination at a health care facility 05/13/2013 Overview: 08/03 cologuard WNL alejandra 3y. 04/02 pap & HPV WNL. Alejandra 6y 06/29 GB polyp 3mm (no size mentioned on [facility] [place] Alejandra 1y d/c if stable Referred for ORACLE DATABASE MANAGER-EAB endometrial polyp 01/26 11/25 mammo WNL [...] as of this encounter (statuses as of 01/08/2024) Resolved Problems Problem Noted Date Diagnosed Date Resolved Date History of insect sting 06/29/201512/12 Diverticulitis of colon 01/25/201405/2017 Overview: 01/24 [facility] Abnormal pap 02/14/2009 08/28/2016 ADVANCE DIRECTIVE INFORMATION 05/31/2008 08/02/2008 Overview: No, explained to patient Major depressive disorder Overview: ICD-10 update of inactive term Cervical intraepithelial neoplasia grade 2 05/13/2013 documented as of this encounter (statuses as of 01/08/2024) Immunizations Name Administration Dates Next Due COVID-19 mRNA, LNP-s, No Pre serve, 2-Dose Series (its learning) 07/25/2021,10/28/2020,10/07/2020 COVID-19, LNP-s, No Preserve , Irving-sucrose, Ages 12+ (Pfizer) 04/05/2022 COVID-19, MRNA-LNP, 23-24, P F, 30 MCG/0.3 mL, 12 YRS AND ABOVE, IM ([employer]-Comirnat) 07/07/2023 Covid-19, Mrna, Lnp-s, Pf, B ivalent, 30 Mcg, IM, 12 yrs and above (its learning) 09/25/2022 DTWP - Dipth/Tet/Whole Cell Pertussis 05/27/2001 [...] zinc. Product examples; Think sport, Think baby, [employer], [employer], [employer], [place] baby. "Baby" products can be used for all ages. documented in this encounter Progress Notes * Miya Dang PA-C - 01/08/2024 10:40 [...] 07/2020) Reviewed, same day as visit, 0 [employer] Dermatology lab work(s)/pathology report(s) as well as those sent by referring provider prior to seeing pt. MEDICA TIONS: Current Outpatient Medications Medication Sig Dispense Refill CALCIUM 1200 7001-5441 MG-UNIT PO CHEW one tablet daily cetirizine [...] (1 MG/DOSE) 4 MG/3ML Subcutaneous Solution Pen-injector (OzSmartMove) Inject 1 mg under theskin once a [...] lids and lips completed: 1A. L infraorbital region-[id number] skin colored pedunculated papule. ASSESS MENT/PLAN: 1. [...] for full skin exam Contact patient via [facility] Photos and chart reviewed by Dr. Brianna [...] Miya Dang PA-C 01/08/2024 7:35 AM Ref: SELF[[id number]] NO STREET ADDRESS AVAILABLE None (office) None (fax) PCP: MENDEZ PASTOR [address] [place] [address] [phone] documented in this encounter Nursing Notes * Sindi Ahn LPN - 01/08/2024 10:38 AM EDT Patient identified by full name and date of . Chief Complaint Patient presents with Follow Up lesion on left cheek documented in this encounter Plan of Treatment Upcoming Encounters Date Type Department Care Team (Late st Contact Info) Description 04/22/2024 7:40 AM EDT Office Visit Dermatology[address] [place] [address] Miya Dang PA-C [address] [place] [address] [place] [address] 05/20/2024 8:20 AM EDT Office Visit Nutrition & Weight Management, [facility] [address] [place] [address] Tamara Kinney PA-C [address] [place] [address] 05/26/2024 7:00 AM EDT [facility] [address] [place] [address] 07/30/2024 8:40 AM EDT Office Visit Family Practice [facility] [address] [place] [address] Mendez Pastor MD [address] [place] [address] Pending Results Name Type Priority Associated Diagnoses Date /Time SURGICAL PATHOLOGY Pathology Routine Seborrheic keratosis 01/08/2024 11:01 AM EDT Scheduled Procedures Name Priority Associated [...] as of this encounter Visit Diagnoses Diagnosis Hx of nonmelanoma skin cancer- Primary Personal history of other malignant neoplasm of skin Seborrheic keratosis Other seborrheic keratosis H/O dysplastic nevus Personal history of diseases of skin and subcutaneous tissue documented in this encounter Care Teams Rock Drill Operator Relationship Specialty Start Date End Date Mendez Pastor MD [address] [place] [address] PCP - General Family Medicine 01/25/16 documented as of this encounter
--- OUTSIDE RECORDS SUMMARY | 2024-03-14 18:37 | External Medical Summary | Summary of Care ---
Author Name Unknown Organization [facility] Address [address] [place] [address] Phone [phone] Care Team Providers Care Directional Driller Name Role Phone Mendez Pastor MD Primary Care Provider + Reason for Visit * Reason Comments Medication Refill Encounter Details Date Type Department Care Team (Late st Contact Info) Description 12/06/2023 Refill Family Practice [facility] [address] [facility] [place] [address] Alejandro Hernandez MD [address] [facility] [place] [address] Attention deficit disorder (ADD) without hyperactivity; MEDICATION USE AGREEMENT Allergies Active Allergy Reactions Criticality Noted Date Comments Bactrim Hives 10/29/2007 Citalopram Hydrobromide 02/17/2017 Flu like symptoms Doxycycline Nausea/vomiting 09/20/2016 Not able to eat Cefuroxime Sodium Rash 07/13/2010 Swelling of feet rash documented as of this encounter (statuses as of 12/10/2023) Medications Medication Sig Dispensed Refills Start Date End Date Status CALCIUM 1200 2618-1614 MG-UNIT PO CHEW one tablet daily 0 [...] 4 days 14 Tablet 0 11/22/2023 Active Lisdexamfetamine Dimesylate 20 MG Oral Capsule (Vyvanse)Indicatio ns:Attention deficit disorder (ADD) without hyperactivity,MEDI CATION USE AGREEMENT Take 1 Capsule by mouth in the morning. 30 Capsule 0 12/10/2023 Active Lisdexamfetamine Dimesylate 20 MG Oral Capsule (Vyvanse)Indicatio ns:Attention deficit disorder (ADD) without hyperactivity,MEDI CATION USE AGREEMENT Take 1 Capsule by mouth in the morning. 30 Capsule 0 11/10/2023 4 Discontinue d(Refill) documented as of this encounter (statuses as of 12/10/2023) Active Problems Problem Noted Date Diagnosed Date [...] US-3mm polyp. Adjacent cysts to GB 01/24 [facility] US Chronic iritis 01/10/2014 ADD (attention deficit disorder) 06/16/2013 Overview: 06/25 trial vyvanse. MEDICATION USE AGREEMENT 06/16/2013 Overview: Dr Pastor for ADD stimulants Osteoarthritis, hand 05/21/2013 Routine general medical exam ination at a health care facility 05/13/2013 Overview: 08/03 cologuard WNL alejandra 3y. 04/02 pap & HPV WNL. Alejandra 6y 06/29 GB polyp 3mm (no size mentioned on [facility] 2014 [place]). Alejandra 2y d/c if stable Referred for POWER [employer] INST[employer]ER [employer] REPA[employer]ER-EAB endometrial polyp 01/26 11/25 mammo WNL 11/25 [...] as of this encounter (statuses as of 12/10/2023) Resolved Problems Problem Noted Date Diagnosed Date Resolved Date Diverticulitis of colon 01/25/2014 09/0 05/2017 Overview: 01/24 [facility] Abnormal pap 02/14/2009 08/28/2016 ADVANCE DIRECTIVE INFORMATION 05/31/2008 08/02/2008 Overview: No, explained to patient Major depressive disorder Overview: ICD-10 update of inactive term Cervical intraepithelial neoplasia grade 2 05/13/2013 documented as of this encounter (statuses as of 12/10/2023) Immunizations Name Administration Dates Next Due COVID-19 mRNA, LNP-s, No Pre serve, 2-Dose Series (I-Pulse) 07/25/2021,10/28/2020,10/07/2020 COVID-19, LNP-s, No Preserve , Irving-sucrose, Ages 12+ (I-Pulse) 04/05/2022 COVID-19, MRNA-LNP, 23-24, P F, 30 MCG/0.3 mL, 12 YRS AND ABOVE, IM (PFIZER-Comirnat) 07/07/2023 Covid-19, Mrna, Lnp-s, Pf, B ivalent, [...] Telephone Encounter - Mendez Pastor MD - 12/10/2023 8:47 AM ESTSigned Prescriptions: Disp Refills Lisdexamfetamine Dimesylate 20 MG Oral Cap*30 Cap*0 Sig: Take 1 Capsule by mouth in the morning. Authorizing Provider: MENDEZ PASTOR * Telephone Encounter - Ida Myers, [facility] - 12/10/2023 4:39 AM ESTPending Prescriptions: Disp Refills Lisdexamfetamine Dimesylate 20 MG Oral Cap*30 Cap*0 Sig: Take 1 Capsule by mouth in the morning. * Telephone Encounter - Geri Wheeler [facility] - 12/06/2023 4:29 PM EST Postpone until 12/10 I have reviewed the patients controlled substance dispensing history in the Prescription Drug Monitoring Program in compliance with the [facility] regulations before prescribing a controlled substance. PDMP checked on 12/06/2023. Pending Prescriptions: Disp Refills Lisdexamfetamine Dimesylate 20 MG Oral Ca*30 Cap*0 Sig: Take 1 Capsule by mouth in the morning. Last Visit: 06/05/2023 (in office), Visit date not found (telemedicine) Next Visit: 12/31/2023 Date medication was last filled: 11/14/23 Date medication is due for refill: 12/13/23 Pharmacy: [facility] Is this request for [...] Results Review. Please approve if appropriate. Thank You Geri Wheeler PharmD Clinical Pharmacist [facility] ([facility]) (formerly Telepharmacy) [phone] / [phone] 12/06/2023, 4:29 PM documented in this encounter Plan of Treatment Upcoming Encounters Date Type Department Care Team (Late st Contact Info) Description 12/31/2023 8:20 AM EDT Office Visit Family Practice [facility] [address] [place] [address] Mendez Pastor MD [address] [employer] [address] 04/22/2024 7:40 AM EDT Office Visit Dermatology[address] [address] Miya Dang PA-C [address] [place] [address] [place] [address] 05/20/2024 8:20 AM EDT Office Visit Nutrition & Weight Management, [facility] [address] [place] [address] Tamara Kineny PA-C [address] [place] [address] Scheduled Procedures Name Priority Associated Diagnoses Date/Ti [...] MEDICATION USE AGREEMENT documented in this encounter Additional Health Concerns Infection Onset Date Last Indicated Resolved Time C. difficile Rule-Out 12/09/2023 12/09/2023 documented as of this encounter Care Teams Directional Driller Relationship Specialty Start Date End Date Mendez Pastor MD [address] [place] [address] PCP - General Family Medicine 01/25/16 documented as of this encounter
--- OUTSIDE RECORDS SUMMARY | 2024-03-14 18:37 | External Medical Summary ---
Author Name Unknown Address Unknown Organization [id number]:[facility] [place] [facility] - [address] [facility] [address] Laboratory Report Ordering Provider Test Date Status DAWIT PALMA 12/31/2023 15:56:56 Final Observation Date Value Abnormality Reference (Units ) Status TSH 12/31/2023 15:56:56 0.87 0.27-4.20 (uIU/mL) Final Performing Location LAB[facility]ATORY [facility] - [address] [facility] [address]
--- OUTSIDE RECORDS SUMMARY | 2024-03-14 18:37 | External Medical Summary | Summary of Care ---
Author Name Unknown Organization [facility] Address [address] [place] [address] Phone [phone] Care Team Providers Care Health Care Attorney Name Role Phone Mendez Pastor MD Primary Care Provider + Reason for Referral * Medication Prior Authorization - Pending Review Specialty Diagnoses / Procedures Referred By Contfaye t Referred To Contact Diagnoses Attention deficit disorder (ADD) without hyperactivity MEDICATION USE AGREEMENT Mendez Pastor MD [address] [place] [address] Referral ID Status Reason Start Date Expiration Date V isits Requested Visits Authorized [id number] Pending Review 999 999 Reason for Visit * Reason Comments Medication Refill Encounter Details Date Type Department Care Team (Late st Contact Info) Description 01/10/2024 Refill Family Practice [facility] [address] [place] [address] Mendez Pastor MD [address] [place] [address] Attention deficit disorder (ADD) without hyperactivity; MEDICATION USE AGREEMENT Allergies Active Allergy Reactions Criticality Noted Date Comments Bactrim Hives 10/29/2007 Citalopram Hydrobromide 02/17/2017 Flu like symptoms Doxycycline Nausea/vomiting 09/20/2016 Not able to eat Cefuroxime Sodium Rash 07/13/2010 Swelling of feet rash documented as of this encounter (statuses as of 01/14/2024) Medications Medication Sig Dispensed Refills Start Date End Date Status CALCIUM 1200 1835-6933 MG-UNIT PO CHEW one tablet daily 0 [...] US-3mm polyp. Adjacent cysts to GB 01/24 [facility] US Chronic iritis 01/10/2014 ADD (attention deficit disorder) 06/16/2013 Overview: 06/25 trial vyvgautam. MEDICATION USE AGREEMENT 06/16/2013 Overview: Dr Pastor for ADD stimulants Osteoarthritis, hand 05/21/2013 Routine general medical exam ination at a health care facility 05/13/2013 Overview: 08/03 cologuard WNL alejandra 3y. 04/02 pap & HPV WNL. Alejandra 6y 06/29 GB polyp 3mm (no size mentioned on [facility] [place]). 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 - 01/14/2024 4:20 AM EDTPending Prescriptions: Disp Refills Lisdexamfetamine Dimesylate 20 MG Oral Cap*30 Cap*0 Sig: Take 1 Capsule by mouth in the morning. * Telephone Encounter - Nallely Mariano [facility] - 01/12/2024 4:58 AM EDT Postponing until 01/13 I have reviewed the patients controlled substance dispensing history in the Prescription Drug Monitoring Program in compliance with the [employer] regulations before prescribing a controlled substance. PDMP checked on 01/12/2024. Pending Prescriptions: Disp Refills Lisdexamfetamine Dimesylate 20 MG Oral Ca*30 Cap*0 Sig: Take 1 Capsule by mouth in the morning. Last Visit: 12/31/2023 (in office), Visit date not found (telemedicine) Next Visit: 07/30/2024 Date medication was last filled: 12/18 Date medication is due for refill: 01/16 Pharmacy: [facility] Is this request for [...] 7:40 AM EDT Office Visit Dermatology, [address] [address] Miya Dang PA-C [address] [place] [address] [place] [phone] 05/20/2024 8:20 AM EDT Office Visit Nutrition & Weight Management, [facility] [address] [place] [address] Tamara Kinney PA-C [address] [place] [address] 05/26/2024 7:00 AM EDT Imaging Radiology [facility] [address] [facility] [address] [place] [address] 07/30/2024 8:40 AM EDT Office Visit Family Practice [facility] [address] [place] [address] Mendez Pastor MD [address] [place] [address] Scheduled Procedures Name Priority Associated Diagnoses Date/Ti [...] AGREEMENT documented in this encounter Care Teams Health Care Attorney Relationship Specialty Start Date End Date Mendez Pastor MD [address] [place] [address] PCP - General Family Medicine 01/25/16 documented as of this encounter
[2024-03-14 19:18] LABS: Hematocrit (blood only) 38.4 % (37.0-47.0); Mean Corpuscular Hemoglobin 29.7 pg (25.0-34.0); Mean Corpuscular Hgb Conc 33.9 g/dL (32.0-36.0); Mean Corpuscular Volume 87.7 fL (80.0-100.0); Mean Platelet Volume 9.7 fL (9.4-12.4); Platelet Count 271 K/uL (130-400); RDW Standard Deviation 41.7 fL (36.4-46.3); Red Blood Count 4.38 M/uL (4.20-5.40); White Blood Count 15.28 K/ul (4.8-10.8)
[2024-03-14 19:23] LABS: Appearance Urine Clear (Clear); Bacteria Urine Automated None Seen (None Seen); Bilirubin Urine 1+ (Negative); Blood Urine Negative (Negative); Cast Urine Automated 0-2 /lpf (0-2); Color Urine Dark Yellow; Epithelial Cell Urine Auto 0-2 /hpf (0-2); Glucose Urine UA Negative (Negative); Ketones Urine 4+ (Negative); Leukocyte Esterase Urine 1+ (Negative); Nitrite Urine Negative (Negative); Protein Urine 1+ (Negative); Specific Gravity Urine 1.033 (1.000-1.030); Urobilinogen Urine Negative (Negative); WBC Urine Automated 0-5 /hpf (0-5)
[2024-03-14 19:34] LABS: Anion Gap 9 (3-11); BUN Creatinine Ratio 14.8 (10-20); Blood Urea Nitrogen 8 mg/dl (6-23); Calcium 9.1 mg/dl (8.6-10.3); Carbon Dioxide 24 mmol/L (21-32); Chloride 105 mmol/L (98-107); Creatinine Clr Calc Pharmacy 85.4 ml/min; Est GFR (African American) 117.2 ml/min; Est GFR (Non-African American) 101.1 ml/min; Glucose 118 mg/dl (70-99(Fasting)); Potassium 3.6 mmol/L (3.5-5.1); Sodium 138 mmol/L (136-145)
[2024-03-14 19:36] LABS: Basophils # (auto) 0.03 K/uL (0.00-0.20); Basophils % (auto) 0.2 %; Eosinophils # (auto) 0.01 K/uL (0.00-0.50); Eosinophils % (auto) 0.1 %; Immature Granulocytes % (auto) 0.7 %; Lymphocytes # (auto) 0.71 K/uL (1.20-3.40); Lymphocytes % (auto) 4.6 %; Monocytes # (auto) 0.57 K/uL (0.11-0.59); Monocytes % (auto) 3.7 %; Neutrophils # (auto) 13.86 K/uL (1.40-6.50); Neutrophils % (auto) 90.7 %
[2024-03-14 19:38] LABS: Alanine Aminotransferase 9 U/L (7-52); Albumin Globulin Ratio 1.3 (0.9-2); Albumin Level 4.2 gm/dl (3.4-5.0); Alkaline Phosphatase 48 U/L (34-104); Aspartate Aminotransferase 13 U/L (13-39); Bilirubin,Total 0.8 mg/dl (0.2-1.0); Globulin 3.2 gm/dl (2.5-4.0); Lipase < 3 U/L (11-82); Total Protein 7.4 gm/dl (6.0-8.3)
[2024-03-14] MEDS: KETOROLAC TROMETHAMINE 15 MG/ML VIAL IV ONE (20:16)
[2024-03-14] MEDS: SODIUM CHLORIDE 0.9% 1,000 ML IV ONE (20:16)
[2024-03-14] MEDS: OPTIRAY 320 100ml IV ONE (20:21)
--- NOTE | 2024-03-14 20:50 | Emergency Department Note ---
Impression & Plan Diverticulitis, Diverticulitis of intestine with perforation ED Provider Note NAME: MANSOOR GOTTLIEB AGE: 63 SEX: F : 1960 ARRIVES VIA: Walk-In INFORMANT: Patient, ED PROVIDER(S): Paramjit Meeks MD CHIEF COMPLAINT: Abdominal pain HPI: This is 63-year-old female presenting for abdominal pain. Patient states she has history of diverticulitis and feels somewhat similar. She noticed with past few days she has had pain in her left lower quadrant and left upper quadrant. She notes significant pain as well as fever up to 102. She notes sinus pain as well. She otherwise reports normal bowel movements with nausea and poor appetite. No diarrhea. ROS: See above HPI for pertinent positives & negatives. A total of 10 systems reviewed and were otherwise negative. PAST MEDICAL HISTORY: See Below PAST SURGICAL HISTORY: See Below FAMILY HISTORY: See Below SOCIAL HISTORY: See Below HOME MEDICATIONS: See Below ALLERGIES: See Below VITALS: See Below PHYSICAL EXAMINATION: General: resting comfortably in no acute distress Head: Normocephalic and atraumatic Eyes: Normal inspection, extraocular muscles intact Ear, nose, throat: Normal external exam Neck: Normal range of motion Respiratory: lungs clear to auscultation bilaterally Cardiovascular: Regular rate/rhythm, no murmur GI: Left upper/lower quadrant tenderness with voluntary guarding, no rebound Extremities: nontender, moves all extremities Neuro: The patient awake and alert, appropriately conversive, no focal deficits, symmetric faces Skin: Warm, dry, and intact MEDICAL DECISION MAKING: This is 63-year-old female sent for abdominal pain. Pain somewhat similar but somewhat worse than diverticulitis in the past but patient does have a tenderness in her belly with voluntary guarding. Will do CT imaging of elucidate further. Patient is mildly hypotensive/tachycardic will give fluids at this time. Patient notes improvement in symptoms after pain medication and fluids. Her heart rate is now downtrending with increasing blood pressure. -CT imaging reveals acute sigmoid diverticulitis with possible microperforation.will give IV antibiotics at this time. -discussed with Dr. Yanira Morales, general surgeon, who states patient should be n.p.o. and she will see the patient in consultation. -Patient and family aware of these findings. Discussed care with hospitalist, Dr. O'Andrea for admission. Differential diagnosis: SBO, diverticulitis, appendicitis, ER treatment provided: See below Diagnostics interpreted by me: ECG: None Cardiac Monitoring: An order was placed for continuous cardiac monitoring. The monitor shows a rate of 102 with sinus rhythm. Laboratory studies: As stated above and show below. Imaging studies: See below. Past Med/Surg History Problem List (Updated 03/16/24 @ 01:26 by Paramjit Meeks MD) Diverticulitis of intestine with perforation (Acute) Diverticulitis (Acute) Hypokalemia Acute diverticulitis Sepsis Dietary counseling and surveillance ADHD Migraine headache Fatty infiltration of liver Overweight (BMI 25.0-29.9) Abnormal weight gain Early satiety Abdominal bloating Weight gain Encounter for annual routine gynecological examination Fibromyalgia Osteoarthritis (Chronic) Hypothyroidism (Chronic) Acute abdomen (Acute 01/24/14) Cervical strain (Acute) Cervical strain (Acute) Concussion (Acute) Contusion of right hip (Acute) Diverticulitis (Acute 01/24/14) Nausea vomiting and diarrhea (Acute) Substernal chest pain (Acute) Surgical History H/O dilation and curettage H/O LEEP Family History Denies family history of Ovarian cancer Breast cancer Colorectal cancer Social History Smoking Status: Never smoker Do You Dip or Chew Tobacco: No; Hx Alcohol Use: No Hx Substance Use: No Preferred Language: Tajik Communication Ability: Effective 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 Required: No Beliefs That Will Affect Care: None Current Living Situation: Alone Feels Safe at Home: Yes Assistive Devices: None Allergies Allergies Allergy/AdvReac Type Severity Reaction Status Date / Time Bactrim Allergy Mild RASH Verified 09/15/16 17:20 sulfamethoxazole Allergy Mild Unknown Verified 03/14/24 22:13 trimethoprim Allergy Mild Unknown Verified 03/14/24 22:13 amoxicillin Allergy Unknown - Verified 03/14/24 22:13 cefuroxime Allergy Unknown SUNBURN Verified 03/14/24 22:13 SKIN, RECIEVED IV Home Meds Home Medications Medication Instructions Recorded Confirmed albuterol sulfate 90 mcg/actuation 2 puff inhalation .Q6HRS PRN 06/02/24 06/02/24 aerosol inhaler Shortness Of Breath Or Wheezing benzonatate 100 mg capsule 100 mg PO TID PRN Cough 03/14/24 03/14/24 calcium carbonate 600 mg-vitamin 1 cap PO DAILY 03/14/24 03/14/24 D3 12.5 mcg (500 unit) capsule (Calcium 600 with Vitamin D3) cetirizine 10 mg tablet (Zyrtec) 10 mg PO DAILY 03/14/24 03/14/24 eszopiclone 1 mg tablet 1 mg PO HS 03/14/24 03/14/24 levothyroxine 50 mcg tablet 50 mcg PO QAM 03/14/24 03/14/24 lisdexamfetamine 20 mg capsule 20 mg PO DAILY 03/14/24 03/14/24 (Vyvanse) lorazepam 0.5 mg tablet 0.5 mg PO HS PRN Sleep 03/14/24 03/14/24 meclizine 25 mg tablet 25 mg PO TID PRN dizzyness 03/14/24 03/14/24 ondansetron HCl 4 mg tablet 4 mg PO Q8 PRN Nausea 03/14/24 03/14/24 pregabalin 75 mg capsule 75 mg PO QAM 03/14/24 03/14/24 pregabalin 75 mg capsule 150 mg PO HS 03/14/24 03/14/24 semaglutide 1 mg/dose (4 mg/3 mL) 1 mg subcut .WEEKLY 03/14/24 03/14/24 subcutaneous pen injector (Ozempic) silver sulfadiazine 1 % topical 1 applic topical DIRECTED 03/14/24 03/14/24 cream (Silvadene) tramadol 50 mg tablet 50 mg PO Q6H PRN Pain 03/14/24 03/14/24 vitamin B complex 1 tab PO DAILY 03/14/24 03/14/24 Results & Data (ED) Vital Signs Vital Signs - 24 hr 03/14/24 18:42 03/14/24 19:23 03/14/24 19:33 Temperature 36.5 C Temperature Source Temporal Artery Scan Pulse Rate 114 H 102 H 101 H Pulse Rate from SpO2 Sensor 90 Pulse Rhythm Regular Pulse Strength Normal Respiratory Rate 18 15 Respiratory Effort / Characteristics Non-Labored Spontaneous Respiratory Depth Normal Respiratory Pattern Regular Blood Pressure 97/67 L Blood Pressure Mean 77 Blood Pressure Position Sitting Pulse Oximetry 98 96 Oxygen Delivery Method Room Air Sepsis Recent Fever Within 48 Hours No Sepsis New/Unexplained Change in Mental Status No Sepsis Action Taken by Nursing No Action Required 03/14/24 20:00 03/14/24 20:30 03/14/24 21:06 Temperature Temperature Source Pulse Rate 104 H 99 H 96 H Pulse Rate from SpO2 Sensor 103 H 99 H 95 H Pulse Rhythm Pulse Strength Respiratory Rate 22 23 26 H Respiratory Effort / Characteristics Respiratory Depth Respiratory Pattern Blood Pressure Blood Pressure Mean Blood Pressure Position Pulse Oximetry 97 95 96 Oxygen Delivery Method Sepsis Recent Fever Within 48 Hours Sepsis New/Unexplained Change in Mental Status Sepsis Action Taken by Nursing 03/14/24 21:30 03/14/24 21:42 03/14/24 22:00 Temperature Temperature Source Pulse Rate 91 H 94 H Pulse Rate from SpO2 Sensor 91 H 96 H Pulse Rhythm Pulse Strength Respiratory Rate 17 17 Respiratory Effort / Characteristics Respiratory Depth Respiratory Pattern Blood Pressure 105/63 107/67 Blood Pressure Mean 77 84 Blood Pressure Position Pulse Oximetry 97 99 Oxygen Delivery Method Sepsis Recent Fever Within 48 Hours Sepsis New/Unexplained Change in Mental Status Sepsis Action Taken by Nursing 03/14/24 22:06 03/14/24 22:24 03/14/24 22:30 Temperature Temperature Source Pulse Rate 99 H 99 H Pulse Rate from SpO2 Sensor 99 H 98 H Pulse Rhythm Pulse Strength Respiratory Rate 15 19 Respiratory Effort / Characteristics Respiratory Depth Respiratory Pattern Blood Pressure 97/83 L Blood Pressure Mean 95 Blood Pressure Position Pulse Oximetry 96 96 Oxygen Delivery Method Sepsis Recent Fever Within 48 Hours Sepsis New/Unexplained Change in Mental Status Sepsis Action Taken by Nursing 03/14/24 23:20 Temperature Temperature Source Pulse Rate 100 H Pulse Rate from SpO2 Sensor Pulse Rhythm Pulse Strength Respiratory Rate Respiratory Effort / Characteristics Respiratory Depth Respiratory Pattern Blood Pressure Blood Pressure Mean Blood Pressure Position Pulse Oximetry Oxygen Delivery Method Sepsis Recent Fever Within 48 Hours Sepsis New/Unexplained Change in Mental Status Sepsis Action Taken by Nursing Laboratory Data 03/15/24 03:47 03/15/24 03:47 Lab Results 03/14/24 03/14/24 03/14/24 Range/Units 19:06 19:09 23:35 WBC 15.28 H (4.8-10.8) K/ul RBC 4.38 (4.20-5.40) M/uL Hgb 13.0 (12.0-16.0) g/dl Hct 38.4 (37.0-47.0) % MCV 87.7 (80.0-100.0) fL MCH 29.7 (25.0-34.0) pg MCHC 33.9 (32.0-36.0) g/dL RDW Std Deviation 41.7 (36.4-46.3) fL RDW Coeff of Mega 13.0 (11.5-14.5) % Plt Count 271 (130-400) K/uL MPV 9.7 (9.4-12.4) fL Immature Gran % (Auto) 0.7 % Neut % (Auto) 90.7 % Lymph % (Auto) 4.6 % [place] % (Auto) 3.7 % Eos % (Auto) 0.1 % Baso % (Auto) 0.2 % Neut # (Auto) 13.86 H (1.40-6.50) K/uL Lymph # (Auto) 0.71 L (1.20-3.40) K/uL [place] # (Auto) 0.57 (0.11-0.59) K/uL Eos # (Auto) 0.01 (0.00-0.50) K/uL Baso # (Auto) 0.03 (0.00-0.20) K/uL Immature Gran # (Auto) 0.10 (0.01-0.20) K/uL Sodium 138 (136-145) mmol/L Potassium 3.6 (3.5-5.1) mmol/L Chloride 105 (98-107) mmol/L Carbon Dioxide 24 (21-32) mmol/L Anion Gap 9 (3-11) BUN 8 (6-23) mg/dl Creatinine 0.54 L (0.6-1.2) mg/dl Est Cr Clr Drug Dosing 85.4 ml/min Est GFR ( Amer) 117.2 ml/min Est GFR (Non-Af Amer) 101.1 ml/min BUN/Creatinine Ratio 14.8 (10-20) Glucose 118 H (70-99(Fasting)) mg/dl Estimat Average Glucose 105 mg/dl Hemoglobin A1c 5.3 (4.5-5.6) % Lactate 0.7 (0.4-2.0) mmol/L Calcium 9.1 (8.6-10.3) mg/dl Magnesium 1.9 (1.7-2.4) mg/dl Total Bilirubin 0.8 (0.2-1.0) mg/dl AST 13 (13-39) U/L ALT 9 (7-52) U/L Alkaline Phosphatase 48 (34-104) U/L Total Protein 7.4 (6.0-8.3) gm/dl Albumin 4.2 (3.4-5.0) gm/dl Globulin 3.2 (2.5-4.0) gm/dl Albumin/Globulin Ratio 1.3 (0.9-2) Lipase < 3 L (11-82) U/L Urine Color Dark Yellow Urine Appearance Clear (Clear) Urine pH 5.0 (4.5-7.5) Ur Specific [place] 1.033 H (1.000-1.030) Urine Protein 1+ H (Negative) Urine Glucose (UA) Negative (Negative) Urine Ketones 4+ H (Negative) Urine Blood Negative (Negative) Urine Nitrite Negative (Negative) Urine Bilirubin 1+ H (Negative) Urine Urobilinogen Negative (Negative) Ur Leukocyte Esterase 1+ H (Negative) Urine WBC (Auto) 0-5 (0-5) /hpf Urine RBC (Auto) 3-5 H (0-2) /hpf U Hyaline Cast (Auto) 0-2 (0-2) /lpf U Epithel Cells (Auto) 0-2 (0-2) /hpf Urine Bacteria (Auto) None Seen (None Seen) Administered Medications Acetaminophen (Acetaminophen 325 Mg Tab) 650 mg PO QID PRN PRN Reason: pain/fever Stop: 04/14/24 00:22 Last Admin: 03/15/24 22:41 Dose: 650 mg Documented By: Admin: 03/15/24 15:29 Dose: 650 mg Documented By: Admin: 03/15/24 06:07 Dose: 650 mg Documented By: ANNIKA Al Hydrox/Mg Hydrox/Simethicone (Aluminum/Magnesium Susp 30 Ml Udc) 15 ml PO Q6H PRN PRN Reason: Indigestion Stop: 04/14/24 13:32 Last Admin: 03/15/24 18:38 Dose: 15 ml Documented By: Admin: 03/15/24 13:55 Dose: 15 ml Documented By: KIMMIE Cetirizine HCl (Cetirizine Hcl 10 Mg Tablet) 10 mg PO DAILY JONES Stop: 04/14/24 08:59 Last Admin: 03/15/24 08:37 Dose: 10 mg Documented By: KIMMIE Enoxaparin Sodium (Enoxaparin Inj 40 Mg/0.4 Ml Syr) 40 mg SQ QAM JONES Stop: 04/14/24 08:59 Last Admin: 03/15/24 08:38 Dose: 40 mg Documented By: KIMMIE Piperacillin Sod/Tazobactam (Sod 4.5 gm/ Dextrose) 100 mls @ 25 mls/hr IV Q8H JONES; Protocol Stop: 03/25/24 05:59 Last Admin: 03/15/24 21:59 Dose: 25 mls/hr Documented By: Infusion: 03/15/24 17:09 Dose: Infused Documented By: Admin: 03/15/24 13:15 Dose: 25 mls/hr Documented By: Infusion: 03/15/24 09:46 Dose: Infused Documented By: Admin: 03/15/24 06:07 Dose: 25 mls/hr Documented By: ANNIKA Potassium Chloride/Sodium Chloride (Normal Saline W/20 Meq Kcl) 20 meq in 1,000 mls @ 100 mls/hr IV .Q10H JONES; Protocol Stop: 04/14/24 10:59 Last Admin: 03/16/24 00:12 Dose: 100 mls/hr Documented By: Infusion: 03/16/24 00:11 Dose: Infused Documented By: Admin: 03/15/24 13:55 Dose: 100 mls/hr Documented By: KIMMIE Ketorolac Tromethamine (Ketorolac Tromethamine 15 Mg/Ml Vial) 15 mg IV Q6H PRN PRN Reason: Pain Stop: 03/20/24 00:22 Last Admin: 03/15/24 18:40 Dose: 15 mg Documented By: Admin: 03/15/24 10:34 Dose: 15 mg Documented By: Admin: 03/15/24 01:45 Dose: 15 mg Documented By: PHILIPPE Levothyroxine Sodium (Levothyroxine Sodium 50 Mcg Tablet) 50 mcg PO DAILYBB [facility] Stop: 04/14/24 06:29 Last Admin: 03/15/24 07:01 Dose: 50 mcg Documented By: KIMMIE Miscellaneous (Vyvanse~Order Awaiting Action) 1 each N/A QS [facility] Stop: 04/14/24 07:59 Last Admin: 03/15/24 23:51 Dose: Not Given Documented By: Admin: 03/15/24 16:00 Dose: Not Given Documented By: Admin: 03/15/24 08:36 Dose: Not Given Documented By: KIMMIE Oxycodone HCl (Oxycodone Hcl Ir 5 Mg Tab (Immediate Release)) 5 - 10 mg PO QID PRN PRN Reason: Pain Stop: 03/29/24 01:14 Last Admin: 03/15/24 03:51 Dose: 5 mg Documented By: ANNIKA Pregabalin (Pregabalin 75 Mg Cap) 75 mg PO QAM [facility] Stop: 04/14/24 08:59 Last Admin: 03/15/24 08:37 Dose: 75 mg Documented By: KIMMIE Pregabalin (Pregabalin 150 Mg Cap) 150 mg PO HS [facility] Stop: 04/14/24 20:59 Last Admin: 03/15/24 21:00 Dose: 150 mg Documented By: NEFTALY Vitamin B Complex (Vitamin B Complex Tab) 1 tab PO DAILY JONES Stop: 04/14/24 08:59 Last Admin: 03/15/24 08:37 Dose: 1 tab Documented By: KIMMIE Discontinued Medications Sodium Chloride (Nss) 1,000 mls @ 999 mls/hr IV .Q1H1M ONE Stop: 03/14/24 21:06 Last Infusion: 03/14/24 21:30 Dose: Infused Documented By: Admin: 03/14/24 20:16 Dose: 999 mls/hr Documented By: NENITA Piperacillin Sod/Tazobactam Sod (Zosyn) 4.5 gm in 100 mls @ 200 mls/hr IV NOW ONE Stop: 03/14/24 23:01 Last Infusion: 03/14/24 23:35 Dose: Infused Documented By: Admin: 03/14/24 23:05 Dose: 200 mls/hr Documented By: NENITA Sodium Chloride (Nss) 1,000 mls @ 999 mls/hr IV .Q1H1M STA Stop: 03/14/24 23:57 Last Infusion: 03/15/24 01:26 Dose: Infused Documented By: Admin: 03/14/24 23:34 Dose: 999 mls/hr Documented By: ANNIKA Lorazepam 0.25 mg/ Syringe 0.25 mls @ 2 mls/min IV NOW STA Stop: 03/14/24 23:16 Last Admin: 03/14/24 23:34 Dose: 2 mls/min Documented By: ANNIKA Magnesium Sulfate/Dextrose (Magnesium Sulfate / D5w) 1 gm in 100 mls @ 50 mls/hr IV ONE STA Stop: 03/15/24 01:57 Last Infusion: 03/15/24 05:08 Dose: Infused Documented By: Admin: 03/15/24 00:38 Dose: 50 mls/hr Documented By: Potassium Chloride/Sodium Chloride (Normal Saline W/20 Meq Kcl) 20 meq in 1,000 mls @ 100 mls/hr IV .Q10H STA; Protocol Stop: 03/15/24 10:41 Last Infusion: 03/15/24 14:03 Dose: Infused Documented By: Admin: 03/15/24 02:36 Dose: 100 mls/hr Documented By: ANNIKA Famotidine (Pepcid 20mg Iv Push) 20 mg in 5 mls @ 2.5 mls/min IV NOW STA Stop: 03/15/24 20:20 Last Admin: 03/15/24 20:59 Dose: 2.5 mls/min Documented By: NEFTALY Ioversol (Optiray 320 100ml) 95 ml IV ONCE ONE Stop: 03/14/24 20:22 Last Admin: 03/14/24 20:21 Dose: 95 ml Documented By: OLGA Ketorolac Tromethamine (Ketorolac Tromethamine 15 Mg/Ml Vial) 15 mg IV NOW ONE Stop: 03/14/24 20:06 Last Admin: 03/14/24 20:16 Dose: 15 mg Documented By: NENITA Ketorolac Tromethamine (Ketorolac Tromethamine 15 Mg/Ml Vial) 15 mg IV NOW STA Stop: 03/14/24 23:16 Last Admin: 03/14/24 23:34 Dose: 15 mg Documented By: ANNIKA Imaging Data Radiologist's Impression: Abdomen/Pelvis CT 03/14/24 19:06 CR Exam(s): CT ABDOMEN + PELVIS With Contrast IV Amt: 95 ml optiray 320 EXAM: CT Abdomen and Pelvis With Intravenous Contrast CLINICAL HISTORY: Reason for exam: LLQ pain, diverticulitis. TECHNIQUE: Axial computed tomography images of the abdomen and pelvis with intravenous contrast. CTDI is 11 mGy and DLP is 575 mGy-cm. Automated exposure control was utilized for the study. A dose lowering technique was utilized adhering to the principles of ALARA. CONTRAST: Patient received 95 ml optiray 320 of IV contrast COMPARISON: 11/22/23 FINDINGS: Lung bases: Bibasilar subsegmental atelectasis. Pleural space: Trace pleural fluid left lung base. ABDOMEN: Liver: Small benign hepatic cysts. Gallbladder and bile ducts: Distended but otherwise unremarkable gallbladder. No biliary dilatation. No calcified stones. Pancreas: Unremarkable. No mass. No ductal dilation. Spleen: Unremarkable. No splenomegaly. Adrenals: Unremarkable. No mass. Kidneys and ureters: Unremarkable. No solid mass. No hydronephrosis. Stomach and bowel: No bowel obstruction. Fluid-filled small bowel. Diverticulosis. Acute diverticulitis of the distal sigmoid colon. PELVIS: Appendix: Normal appendix. Bladder: Decompressed urinary bladder, limiting evaluation. Reproductive: Retroverted uterus. ABDOMEN and PELVIS: Intraperitoneal space: Trace pelvic ascites. No abscess. Possible small focus of free air adjacent to the inflamed sigmoid colon (series 301, image 60). Bones/joints: No acute fracture or dislocation. Soft tissues: Unremarkable. Vasculature: Unremarkable. No aortic aneurysm. Lymph nodes: Unremarkable. No enlarged lymph nodes. IMPRESSION: Acute sigmoid diverticulitis with possible microperforation. A single 9 mm focus of free air is suggested in the adjacent mesentery. There is no evidence of drainable diverticular abscess. Communications: Call Doctor Other Electronically signed by: Manuelito Nichols M.D. 03/14/24 22:18 PM Discharge Plan Visit Data Chief Complaint: Abdominal Pain Stated Complaint: LOWER ABD, RT EAR PAIN ED Provider: Paramjit Meeks Discharge Problem: Diverticulitis, Diverticulitis of intestine with perforation Patient Disposition: Admitted As Inpatient Discharge Instructions Interventions: ED Discharge Assessment Last Done: 03/15/24 03:47
--- NOTE | 2024-03-14 22:19 | CT Scan Report ---
Exam(s): CT ABDOMEN + PELVIS With Contrast IV Amt: 95 ml optiray 320 EXAM: CT Abdomen and Pelvis With Intravenous Contrast CLINICAL HISTORY: Reason for exam: LLQ pain, diverticulitis. TECHNIQUE: Axial computed tomography images of the abdomen and pelvis with intravenous contrast. CTDI is 11 mGy and DLP is 575 mGy-cm. Automated exposure control was utilized for the study. A dose lowering technique was utilized adhering to the principles of ALARA. CONTRAST: Patient received 95 ml optiray 320 of IV contrast COMPARISON: 11/22/23 FINDINGS: Lung bases: Bibasilar subsegmental atelectasis. Pleural space: Trace pleural fluid left lung base. ABDOMEN: Liver: Small benign hepatic cysts. Gallbladder and bile ducts: Distended but otherwise unremarkable gallbladder. No biliary dilatation. No calcified stones. Pancreas: Unremarkable. No mass. No ductal dilation. Spleen: Unremarkable. No splenomegaly. Adrenals: Unremarkable. No mass. Kidneys and ureters: Unremarkable. No solid mass. No hydronephrosis. Stomach and bowel: No bowel obstruction. Fluid-filled small bowel. Diverticulosis. Acute diverticulitis of the distal sigmoid colon. PELVIS: Appendix: Normal appendix. Bladder: Decompressed urinary bladder, limiting evaluation. Reproductive: Retroverted uterus. ABDOMEN and PELVIS: Intraperitoneal space: Trace pelvic ascites. No abscess. Possible small focus of free air adjacent to the inflamed sigmoid colon (series 301, image 60). Bones/joints: No acute fracture or dislocation. Soft tissues: Unremarkable. Vasculature: Unremarkable. No aortic aneurysm. Lymph nodes: Unremarkable. No enlarged lymph nodes. IMPRESSION: Acute sigmoid diverticulitis with possible microperforation. A single 9 mm focus of free air is suggested in the adjacent mesentery. There is no evidence of drainable diverticular abscess. Communications: Call Doctor Other Electronically signed by: Manuelito Nichols M.D. 03/14/24 22:18 PM
[2024-03-14] MEDS: PIPERACILLIN/TAZOBACTAM 4.5 GM/100 ML BAG IV ONE (23:05)
[2024-03-14 23:17] LABS: Magnesium 1.9 mg/dl (1.7-2.4)
[2024-03-14] MEDS: KETOROLAC TROMETHAMINE 15 MG/ML VIAL IV STA (23:34)
[2024-03-14] MEDS: LORazepam 0.25 MG in SYRINGE 0.125 ML IV STA (23:34)
[2024-03-14] MEDS: SODIUM CHLORIDE 0.9% 1,000 ML IV STA (23:34)
--- NOTE | 2024-03-14 23:54 | History & Physical Report ---
Date of Service March 14, 2024 Assessment & Plan (1) Sepsis: Plan: Secondary to complicated diverticulitis Diverticulitis with microperforation on CT Recurrent episodes hypothyroidism, euthyroid as of recent outpatient TSH ADD, mood disorder, stable Hyperglycemia rule out DM Medical telemetry CS, Zosyn IVF N.p.o. General surgery consult Re: Complicated diverticulitis (ED provider already in touch with Dr. Doyle.) Check hemoglobin A1c DVT prophylaxis per Lovenox subcu Full code Patient son requesting updates providers. Mr. Srinivas Lobato, contact #[phone]. Text document was generated using [email or web address] recognition software. It may contain grammatical or spelling errors. Kindly contact undersigned for clarification of any documentation item in question. History of Present Illness Primary Care Provider: Mendez Licona MD History obtained from patient, family, and records. Medical history significant for recurrent diverticulitis, hypothyroidism, ADD, mood disorder, fibromyalgia, cervical intraepithelial neoplasia, skin cancer as per records. Last admission January 2014 for acute diverticulitis status post medical management. Last ER visit November 2023 for acute sigmoid diverticulitis. Patient sent home. Improved with medical management. No recent GI follow-up Early this morning, patient noted achy left lower quadrant pain similar to diverticulitis attack but more intense than usual. No improvement with intake of leftover Cipro Flagyl medications from 2 months ago. Temperature 102. Some nausea, no emesis. No diarrhea, no hematochezia. No chest pain, no SOB. IV Zosyn administered at the ER for complicated diverticulitis. 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 [facility] Allergies Allergy/AdvReac Type Severity Reaction Status Date / Time Bactrim Allergy Mild RASH Verified 09/15/16 17:20 sulfamethoxazole Allergy Mild Unknown Verified 03/14/24 22:13 trimethoprim Allergy Mild Unknown Verified 03/14/24 22:13 amoxicillin Allergy Unknown - Verified 03/14/24 22:13 cefuroxime Allergy Unknown SUNBURN Verified 03/14/24 22:13 SKIN, RECIEVED IV Home Medications Medication Instructions Recorded Confirmed Type albuterol sulfate 90 mcg/actuation 2 puff inhalation .Q6HRS PRN 03/14/24 03/14/24 History aerosol inhaler Shortness Of Breath Or Wheezing benzonatate 100 mg capsule 100 mg PO TID PRN Cough 03/14/24 03/14/24 History calcium carbonate 600 mg-vitamin 1 cap PO DAILY 03/14/24 03/14/24 History D3 12.5 mcg (500 unit) capsule (Calcium 600 with Vitamin D3) cetirizine 10 mg tablet (Zyrtec) 10 mg PO DAILY 03/14/24 03/14/24 History eszopiclone 1 mg tablet 1 mg PO HS 03/14/24 03/14/24 History levothyroxine 50 mcg tablet 50 mcg PO QAM 03/14/24 03/14/24 History lisdexamfetamine 20 mg capsule 20 mg PO DAILY 03/14/24 03/14/24 History (Vyvanse) lorazepam 0.5 mg tablet 0.5 mg PO HS PRN Sleep 03/14/24 03/14/24 History meclizine 25 mg tablet 25 mg PO TID PRN dizzyness 03/14/24 03/14/24 History ondansetron HCl 4 mg tablet 4 mg PO Q8 PRN Nausea 03/14/24 03/14/24 History pregabalin 75 mg capsule 75 mg PO QAM 03/14/24 03/14/24 History pregabalin 75 mg capsule 150 mg PO HS 03/14/24 03/14/24 History semaglutide 1 mg/dose (4 mg/3 mL) 1 mg subcut .WEEKLY 03/14/24 03/14/24 History subcutaneous pen injector (Ozempic) silver sulfadiazine 1 % topical 1 applic topical DIRECTED 03/14/24 03/14/24 History cream (Silvadene) tramadol 50 mg tablet 50 mg PO Q6H PRN Pain 03/14/24 03/14/24 History vitamin B complex 1 tab PO DAILY 03/14/24 03/14/24 History Past Med/Surg History Problem List (Updated 03/15/24 @ 09:54 by Ike Kumari MD) Sepsis Dietary counseling and surveillance ADHD Migraine headache Fatty infiltration of liver Overweight (BMI 25.0-29.9) Abnormal weight gain Early satiety Abdominal bloating Weight gain Encounter for annual routine gynecological examination Fibromyalgia Osteoarthritis (Chronic) Hypothyroidism (Chronic) Acute abdomen (Acute 01/24/14) Cervical strain (Acute) Cervical strain (Acute) Concussion (Acute) Contusion of right hip (Acute) Diverticulitis (Acute 01/24/14) Nausea vomiting and diarrhea (Acute) Substernal chest pain (Acute) Surgical History H/O dilation and curettage H/O LEEP Family History Denies family history of Ovarian cancer Breast cancer Colorectal cancer Social History Smoking Status: Never smoker Do You Dip or Chew Tobacco: No; Hx Alcohol Use: No Hx Substance Use: No Preferred Language: Welsh Communication Ability: Effective Greenhouse Assistant Required: No Beliefs That Will Affect Care: None Current Living Situation: Alone Other Information That Helps Us Care for You: No Feels Safe at Home: Yes Safety Concerns: Feels Safe At This Time Review of Systems Review of Systems: As per HPI, all other systems reviewed and negative Physical Exam Physical Exam: GENERAL: Slightly uncomfortable, slightly anxious, pleasant, no respiratory distress SKIN: Normal color, warm HEENT: [place] palpebral conjunctivae, no ptosis, dry buccal mucosa NECK : Supple, no tenderness CHEST : CTA, no tenderness HEART : Tachycardic, no obvious murmurs ABDOMEN: Some distention, left-sided abdominal tenderness EXTREMITIES : No LE swelling/tenderness, no other conspicuous deformities noted NEUROLOGIC : Coherent, no facial asymmetry, no other gross focality Results & Data Results & Data Vital Signs (Past 12 Hours) Vital Signs Temp Pulse Resp BP Pulse Ox O2 Del Method 03/14/24 23:20 100 H 03/14/24 22:30 97/83 L 03/14/24 22:24 99 H 19 96 03/14/24 22:06 99 H 15 96 03/14/24 22:00 107/67 03/14/24 21:42 94 H 17 99 03/14/24 21:30 91 H 17 105/63 97 03/14/24 21:06 96 H 26 H 96 03/14/24 20:30 99 H 23 95 03/14/24 20:00 104 H 22 97 03/14/24 19:33 101 H 15 96 03/14/24 19:23 102 H 03/14/24 18:42 36.5 C 114 H 18 97/67 L 98 Room Air Laboratory Results Laboratory Results WBC 15.28 K/ul (4.8-10.8) H 03/14/24 19:06 RBC 4.38 M/uL (4.20-5.40) 03/14/24 19:06 Hgb 13.0 g/dl (12.0-16.0) 03/14/24 19:06 Hct 38.4 % (37.0-47.0) 03/14/24 19:06 MCV 87.7 fL (80.0-100.0) 03/14/24 19:06 MCH 29.7 pg (25.0-34.0) 03/14/24 19:06 MCHC 33.9 g/dL (32.0-36.0) 03/14/24 19:06 RDW Std Deviation 41.7 fL (36.4-46.3) 03/14/24 19:06 RDW Coeff of Mega 13.0 % (11.5-14.5) 03/14/24 19:06 Plt Count 271 K/uL (130-400) 03/14/24 19:06 MPV 9.7 fL (9.4-12.4) 03/14/24 19:06 Immature Gran % (Auto) 0.7 % 03/14/24 19:06 Neut % (Auto) 90.7 % 03/14/24 19:06 Lymph % (Auto) 4.6 % 03/14/24 19:06 [place] % (Auto) 3.7 % 03/14/24 19:06 Eos % (Auto) 0.1 % 03/14/24 19:06 Baso % (Auto) 0.2 % 03/14/24 19:06 Neut # (Auto) 13.86 K/uL (1.40-6.50) H 03/14/24 19:06 Lymph # (Auto) 0.71 K/uL (1.20-3.40) L 03/14/24 19:06 [place] # (Auto) 0.57 K/uL (0.11-0.59) 03/14/24 19:06 Eos # (Auto) 0.01 K/uL (0.00-0.50) 03/14/24 19:06 Baso # (Auto) 0.03 K/uL (0.00-0.20) 03/14/24 19:06 Immature Gran # (Auto) 0.10 K/uL (0.01-0.20) 03/14/24 19:06 Sodium 138 mmol/L (136-145) 03/14/24 19:06 Potassium 3.6 mmol/L (3.5-5.1) 03/14/24 19:06 Chloride 105 mmol/L (98-107) 03/14/24 19:06 Carbon Dioxide 24 mmol/L (21-32) 03/14/24 19:06 Anion Gap 9 (3-11) 03/14/24 19:06 BUN 8 mg/dl (6-23) 03/14/24 19:06 Creatinine 0.54 mg/dl (0.6-1.2) L 03/14/24 19:06 Est Cr Clr Drug Dosing 85.4 ml/min 03/14/24 19:06 Est GFR ( Amer) 117.2 ml/min 03/14/24 19:06 Est GFR (Non-Af Amer) 101.1 ml/min 03/14/24 19:06 BUN/Creatinine Ratio 14.8 (10-20) 03/14/24 19:06 Glucose 118 mg/dl (70-99(Fasting)) H 03/14/24 19:06 Calcium 9.1 mg/dl (8.6-10.3) 03/14/24 19:06 Magnesium 1.9 mg/dl (1.7-2.4) 03/14/24 19:06 Total Bilirubin 0.8 mg/dl (0.2-1.0) 03/14/24 19:06 AST 13 U/L (13-39) 03/14/24 19:06 ALT 9 U/L (7-52) 03/14/24 19:06 Alkaline Phosphatase 48 U/L (34-104) 03/14/24 19:06 Total Protein 7.4 gm/dl (6.0-8.3) 03/14/24 19:06 Albumin 4.2 gm/dl (3.4-5.0) 03/14/24 19:06 Globulin 3.2 gm/dl (2.5-4.0) 03/14/24 19:06 Albumin/Globulin Ratio 1.3 (0.9-2) 03/14/24 19:06 Lipase < 3 U/L (11-82) L 03/14/24 19:06 Urine Color Dark Yellow 03/14/24 19:09 Urine Appearance Clear (Clear) 03/14/24 19:09 Urine pH 5.0 (4.5-7.5) 03/14/24 19:09 Ur Specific [place] 1.033 (1.000-1.030) H 03/14/24 19:09 Urine Protein 1+ (Negative) H 03/14/24 19:09 Urine Glucose (UA) Negative (Negative) 03/14/24 19:09 Urine Ketones 4+ (Negative) H 03/14/24 19:09 Urine Blood Negative (Negative) 03/14/24 19:09 Urine Nitrite Negative (Negative) 03/14/24 19:09 Urine Bilirubin 1+ (Negative) H 03/14/24 19:09 Urine Urobilinogen Negative (Negative) 03/14/24 19:09 Ur Leukocyte Esterase 1+ (Negative) H 03/14/24 19:09 Urine WBC (Auto) 0-5 /hpf (0-5) 03/14/24 19:09 Urine RBC (Auto) 3-5 /hpf (0-2) H 03/14/24 19:09 U Hyaline Cast (Auto) 0-2 /lpf (0-2) 03/14/24 19:09 U Epithel Cells (Auto) 0-2 /hpf (0-2) 03/14/24 19:09 Urine Bacteria (Auto) None Seen (None Seen) 03/14/24 19:09 Impressions Abdomen/Pelvis CT 03/14/24 19:06 CR Exam(s): CT ABDOMEN + PELVIS With Contrast IV Amt: 95 ml optiray 320 EXAM: CT Abdomen and Pelvis With Intravenous Contrast CLINICAL HISTORY: Reason for exam: LLQ pain, diverticulitis. TECHNIQUE: Axial computed tomography images of the abdomen and pelvis with intravenous contrast. CTDI is 11 mGy and DLP is 575 mGy-cm. Automated exposure control was utilized for the study. A dose lowering technique was utilized adhering to the principles of ALARA. CONTRAST: Patient received 95 ml optiray 320 of IV contrast COMPARISON: 11/22/23 FINDINGS: Lung bases: Bibasilar subsegmental atelectasis. Pleural space: Trace pleural fluid left lung base. ABDOMEN: Liver: Small benign hepatic cysts. Gallbladder and bile ducts: Distended but otherwise unremarkable gallbladder. No biliary dilatation. No calcified stones. Pancreas: Unremarkable. No mass. No ductal dilation. Spleen: Unremarkable. No splenomegaly. Adrenals: Unremarkable. No mass. Kidneys and ureters: Unremarkable. No solid mass. No hydronephrosis. Stomach and bowel: No bowel obstruction. Fluid-filled small bowel. Diverticulosis. Acute diverticulitis of the distal sigmoid colon. PELVIS: Appendix: Normal appendix. Bladder: Decompressed urinary bladder, limiting evaluation. Reproductive: Retroverted uterus. ABDOMEN and PELVIS: Intraperitoneal space: Trace pelvic ascites. No abscess. Possible small focus of free air adjacent to the inflamed sigmoid colon (series 301, image 60). Bones/joints: No acute fracture or dislocation. Soft tissues: Unremarkable. Vasculature: Unremarkable. No aortic aneurysm. Lymph nodes: Unremarkable. No enlarged lymph nodes. IMPRESSION: Acute sigmoid diverticulitis with possible microperforation. A single 9 mm focus of free air is suggested in the adjacent mesentery. There is no evidence of drainable diverticular abscess. Communications: Call Doctor Other Electronically signed by: Manuelito Nichols M.D. 03/14/24 22:18 PM
[2024-03-15] MEDS ORDERED: PROMETHAZINE HCL 6.25 MG in SODIUM CHLORIDE 0.9% 50 ML IV PRN (00:23)
[2024-03-15] MEDS: MAGNESIUM SULFATE / D5W 1 GM/100 ML BAG IV STA (00:38)
[2024-03-15] MEDS: KETOROLAC TROMETHAMINE 15 MG/ML VIAL IV PRN (01:45)
[2024-03-15] MEDS: NSS + 20MEQ KCL 20 MEQ/1,000 ML BAG IV STA (02:36)
[2024-03-15] MEDS ORDERED: MECLIZINE HCL 25 MG TAB PO PRN (03:48)
[2024-03-15] MEDS: oxyCODONE HCL IR 5 MG TAB (IMMEDIATE RELEASE) PO PRN (03:51)
[2024-03-15 04:47] LABS: Basophils # (auto) 0.03 K/uL (0.00-0.20); Basophils % (auto) 0.2 %; Eosinophils # (auto) 0.04 K/uL (0.00-0.50); Eosinophils % (auto) 0.3 %; Hemoglobin 11.8 g/dl (12.0-16.0); Immature Granulocytes # (auto) 0.07 K/uL (0.01-0.20); Immature Granulocytes % (auto) 0.5 %; Lymphocytes # (auto) 1.18 K/uL (1.20-3.40); Mean Corpuscular Hemoglobin 29.8 pg (25.0-34.0); Mean Corpuscular Hgb Conc 33.7 g/dL (32.0-36.0); Mean Corpuscular Volume 88.4 fL (80.0-100.0); Monocytes % (auto) 4.7 %; Neutrophils # (auto) 12.76 K/uL (1.40-6.50); Neutrophils % (auto) 86.3 %; Platelet Count 279 K/uL (130-400); RDW Coefficient of Variation 13.1 % (11.5-14.5); RDW Standard Deviation 42.5 fL (36.4-46.3); Red Blood Count 3.96 M/uL (4.20-5.40); White Blood Count 14.78 K/ul (4.8-10.8)
[2024-03-15 04:59] LABS: BUN Creatinine Ratio 14.8 (10-20); Calcium 8.5 mg/dl (8.6-10.3); Creatinine Clr Calc Pharmacy 75.6 ml/min; Est GFR (African American) 112.6 ml/min; Est GFR (Non-African American) 97.2 ml/min; Potassium 3.3 mmol/L (3.5-5.1)
[2024-03-15] MEDS: PIPERACILLIN/TAZOBACTAM 4.5 GM in DEXTROSE 5% MINI-B 100 ML IV SCH (06:07)
[2024-03-15] MEDS: ACETAMINOPHEN 325 MG TAB PO PRN (06:07)
[2024-03-15] MEDS: LEVOTHYROXINE SODIUM 50 MCG TABLET PO SCH (07:01)
[2024-03-15 08:10] LABS: Estimated Average Glucose 105 mg/dl; Hemoglobin A1C 5.3 % (4.5-5.6)
[2024-03-15] MEDS: PREGABALIN 75 MG CAP PO SCH (08:37)
[2024-03-15] MEDS: CETIRIZINE HCL 10 MG TABLET PO SCH (08:37)
[2024-03-15] MEDS: VITAMIN B COMPLEX TAB PO SCH (08:37)
[2024-03-15] MEDS: ENOXAPARIN INJ 40 MG/0.4 ML SYR SQ SCH (08:38)
--- NOTE | 2024-03-15 12:15 | Surgery Consultation ---
<Statement entered by Ezekiel Reese DO - 03/15/24 14:34> I have seen and examined this patient with surgical PA and I agree with this plan. No acute surgical intervention. Surgery will follow along with you for now. Dr. Escobar will be covering the surgical service this week. Date of Consultation March 15, 2024 Assessment & Plan (1) Diverticulitis: This is a 63y F with a PMH of fibromyalgia who presents to the [facility] ED on 03/14/24 with complaints of abdominal pain that started Friday AM. Her pain ended up being associated with fevers/chills, nausea with dry heaves so she came into the ER for further evaluation. A CT a/p was obtained that revealed acute sigmoid di verticulitis with possible microperforation. There is no evidence of drainable diverticular abscess. She does have a history of diverticulitis in the past, the last time being this year in November. She was discharged from the ER on cipro/flagyl which made her very ill and she believes she only completed 5/10 days of the oral abx. . Last colonoscopy was >10 years ago and completed 2 Cologuard since then. Today WBC 14, hbg 11 (13), K 3.3. Vitals show she is afebrile with HRs in the 90-100's. BPs stable. On exam abdomen is soft, with mild distention, and generalized discomfort throughout the abdomen, worse along the left side. For now agree patient warrants admission and a trial of conservative measures and supportive care with bowel rest, IVF, and the start of IV abx. We will continue to follow closely. History of Present Illness Attending Physician: Ignacio Scales MD History of Present Illness This is a 63y F with a PMH of fibromyalgia who presents to the [facility] ED on 03/14/24 with complaints of abdominal pain. Her pain woke her up from her sleep around 1 :30AM on Friday. It was located throughout most of the whole abdomen. She tried backing diet down to clears and taking some of her old abx (cipro/flagyl) without relief. Her pain ended up being associated with fevers/chills, nausea with dry heaves so she came into the ER for further evaluation. A CT a/p was obtained that revealed acute sigmoid diverticulitis with possible microperforation. There is no evidence of drainable diverticular abscess. She does have a history of diverticulitis in the past, the last time being this year in November. She was discharged on cipro/flagyl which made her very ill and she believes she only completed 5/10 days of the oral abx. She denies any prior abdominal surgical history. Last colonoscopy was >10 years ago and completed 2 Cologuard since then.She denies any bloody BM's or strong family history of colon ca that she is aware of. She reports some feelings of GERD/indigestion. Runs more constipated than not since starting Ozempic about a year ago. Allergies Allergy/AdvReac Type Severity Reaction Status Date / Time Bactrim Allergy Mild RASH Verified 09/15/16 17:20 sulfamethoxazole Allergy Mild Unknown Verified 03/14/24 22:13 trimethoprim Allergy Mild Unknown Verified 03/14/24 22:13 amoxicillin Allergy Unknown - Verified 03/14/24 22:13 cefuroxime Allergy Unknown SUNBURN Verified 03/14/24 22:13 SKIN, RECIEVED IV Home Medications Medication Instructions Recorded Confirmed Type albuterol sulfate 90 mcg/actuation 2 puff inhalation .Q6HRS PRN 03/14/24 03/14/24 History aerosol inhaler Shortness Of Breath Or Wheezing benzonatate 100 mg capsule 100 mg PO TID PRN Cough 03/14/24 03/14/24 History calcium carbonate 600 mg-vitamin 1 cap PO DAILY 03/14/24 03/14/24 History D3 12.5 mcg (500 unit) capsule (Calcium 600 with Vitamin D3) cetirizine 10 mg tablet (Zyrtec) 10 mg PO DAILY 03/14/24 03/14/24 History eszopiclone 1 mg tablet 1 mg PO HS 03/14/24 03/14/24 History levothyroxine 50 mcg tablet 50 mcg PO QAM 03/14/24 03/14/24 History lisdexamfetamine 20 mg capsule 20 mg PO DAILY 03/14/24 03/14/24 History (Vyvanse) lorazepam 0.5 mg tablet 0.5 mg PO HS PRN Sleep 03/14/24 03/14/24 History meclizine 25 mg tablet 25 mg PO TID PRN dizzyness 03/14/24 03/14/24 History ondansetron HCl 4 mg tablet 4 mg PO Q8 PRN Nausea 03/14/24 03/14/24 History pregabalin 75 mg capsule 75 mg PO QAM 03/14/24 03/14/24 History pregabalin 75 mg capsule 150 mg PO HS 03/14/24 03/14/24 History semaglutide 1 mg/dose (4 mg/3 mL) 1 mg subcut .WEEKLY 03/14/24 03/14/24 History subcutaneous pen injector (Ozempic) silver sulfadiazine 1 % topical 1 applic topical DIRECTED 03/14/24 03/14/24 History cream (Silvadene) tramadol 50 mg tablet 50 mg PO Q6H PRN Pain 03/14/24 03/14/24 History vitamin B complex 1 tab PO DAILY 03/14/24 03/14/24 History Patient History Surgical History H/O dilation and curettage H/O LEEP Family History Denies family history of Ovarian cancer Breast cancer Colorectal cancer Social History Smoking Status: Never smoker Do You Dip or Chew Tobacco: No; Hx Alcohol Use: No Hx Substance Use: No Preferred Language: Tongan Communication Ability: Effective Maintenance Fitter Required: No Beliefs That Will Affect Care: None Current Living Situation: Alone Other Information That Helps Us Care for You: No Feels Safe at Home: Yes Safety Concerns: Feels Safe At This Time Review of Systems Constitutional: + fever and + chills Respiratory: no dyspnea Cardiovascular: Additional Comments: + palpitations Gastrointestinal: + abdominal pain, + bloating, + nausea a nd + constipation; no vomiting and no blood in stools Genitourinary: reports some burning with urination Physical Exam Physical Exam: awake/alert, no distress Constitutional: well developed and well nourished; no acute distress Respiratory: normal respiratory effort Cardiovascular: Rate/Rhythm: + tachycardic Gastrointestinal (Abdomen): Inspection/Auscultation: + abdomen distended (mild) Percussion/Palpation: + abdomen tender (ttp throughout, worse on the L side) and abdomen soft Results & Data Vital Signs (Past 12 Hours) Vital Signs Pulse Resp BP Pulse Ox Pulse Ox O2 Del Method O2 Del Method 03/15/24 10:30 Room Air 03/15/24 10:00 101 H 24 96 03/15/24 09:30 101 H 24 96 03/15/24 09:21 103 H 26 H 96 03/15/24 08:33 110 H 21 96 03/15/24 08:18 106 H 25 H 95 03/15/24 07:35 110 H 03/15/24 07:30 108 H 25 H 97 03/15/24 07:03 104 H 24 97 03/15/24 06:39 104 H 19 96 03/15/24 05:09 Room Air 03/15/24 04:39 105 H 19 96 03/15/24 04:08 Room Air 03/15/24 04:00 102 H 18 112/64 96 03/15/24 03:48 97 Room Air 03/15/24 03:30 103 H 16 95 03/15/24 02:30 105 H 20 98 03/15/24 02:12 107 H 23 03/15/24 01:36 103 H 24 96 03/15/24 01:21 101 H 21 98 03/15/24 00:30 101 H 20 96 Diagnostic Findings ADDENDUM ADDENDUM: 03/14/24 22:42 Call Doctor Regarding Other, called Dr. Meeks on 03/14 22: 42 (-04:00) Electronically signed by: Manuelito Nichols M.D. Electronically signed by: Manuelito Nichols M.D. 03/14/24 22:18 PM ADDENDUM END Exam(s): CT ABDOMEN + PELVIS With Contrast IV Amt: 95 ml optiray 320 EXAM: CT Abdomen and Pelvis With Intravenous Contrast CLINICAL HISTORY: Reason for exam: LLQ pain, diverticulitis. TECHNIQUE: Axial computed tomography images of the abdomen and pelvis with intravenous contrast. CTDI is 11 mGy and DLP is 575 mGy-cm. Automated exposure control was utilized for the study. A dose lowering technique was utilized adhering to the principles of ALARA. CONTRAST: Patient received 95 ml optiray 320 of IV contrast COMPARISON: 11/22/23 FINDINGS: Lung bases: Bibasilar subsegmental atelectasis. Pleural space: Trace pleural fluid left lung base. ABDOMEN: Liver: Small benign hepatic cysts. Gallbladder and bile ducts: Distended but otherwise unremarkable gallbladder. No biliary dilatation. No calcified stones. Pancreas: Unremarkable. No mass. No ductal dilation. Spleen: Unremarkable. No splenomegaly. Adrenals: Unremarkable. No mass. Kidneys and ureters: Unremarkable. No solid mass. No hydronephrosis. Stomach and bowel: No bowel obstruction. Fluid-filled small bowel. Diverticulosis. Acute diverticulitis of the distal sigmoid colon. PELVIS: Appendix: Normal appendix. Bladder: Decompressed urinary bladder, limiting evaluation. Reproductive: Retroverted uterus. ABDOMEN and PELVIS: Intraperitoneal space: Trace pelvic ascites. No abscess. Possible small focus of free air adjacent to the inflamed sigmoid colon (series 301, image 60). Bones/joints: No acute fracture or dislocation. Soft tissues: Unremarkable. Vasculature: Unremarkable. No aortic aneurysm. Lymph nodes: Unremarkable. No enlarged lymph nodes. IMPRESSION: Acute sigmoid diverticulitis with possible microperforation. A single 9 mm focus of free air is suggested in the adjacent mesentery. There is no evidence of drainable diverticular abscess. Communications: Call Doctor Other Electronically signed by: Manuelito Nichols M.D. 03/14/24 22:18 PM PG Care Time/CCT Total # of Minutes Spent Total Time Spent with Patient: Total time spent is greater than 50% in coordination of care (as documented) at patient's floor/unit and/or counseling patient: Coding Level of Care Code 02504 OFFICE CONSULT LVL M Diagnoses Diverticulitis K57.92
[2024-03-15] MEDS: ALUMINUM/MAGNESIUM SUSP 30 ML UDC PO PRN (13:55)
[2024-03-15] MEDS: NSS + 20MEQ KCL 20 MEQ/1,000 ML BAG IV SCH (13:55)
--- NOTE | 2024-03-15 16:39 | Hospitalist Progress Note ---
Date of Service March 15, 2024 Assessment & Plan (1) Acute diverticulitis: (2) Hypokalemia: Plan 69 year old female presenting with recurrent sigmoid diverticulitis. Last episode in Nov 2023 but did not require admission. Presented / with abdominal pain, fever and nausea/dry heaves. CT A/P- Acute sigmoid diverticulitis with possible microperforation. A single 9 mm focus of free air is suggested in the adjacent mesentery. There is no evidence of drainable diverticular abscess. Acute sigmoid diverticulitis with possible microperforation- CT noted as above. WBC 14. Vitals stable. Seen by surgery- recommendations noted. Continue IVF, NPO, Bowel rest, iv zosyn. Intolerant to cipro per patient. Hypokalemia- repleted. recheck in am Hypothyroid- continue synthroid Mood disorder- stable DVT ppx- sc lovenox Dispo- Pending medical stability. on iv antibiotics Updated son at bedside Time spent- approx 35 mins Admission and Anticipated Discharge Date Admission Date: March 14, 2024 Subjective Patient was seen and examined at bedside in presence of son. Her pain is much better today. No N/V. Had BMs. No fever or chills. Discussed the plan of care. Review of Systems Review of Systems: All systems reviewed & are unremarkable except as noted in Subjective Physical Exam Physical Exam: General: Lying comfortably in bed, not in distress, on room air HEENT: EOMI, OPHELIA, MMM Chest: Clear breath sounds bilaterally, no wheezes or crackles CVS: Regular rate and rhythm, normal heart sounds, no murmur Abdomen: Soft, tender, not distended, normal bowel sounds Neuro: Awake, alert, oriented, conversing well, non focal Extremities: No cyanosis, clubbing or edema Results & Data Results & Data Vital Signs (Past 12 Hours) Vital Signs Pulse Resp BP Pulse Ox O2 Del Method 03/15/24 14:30 100 H 22 97 03/15/24 14:06 106 H 25 H 94 03/15/24 13:42 102 H 22 97 03/15/24 13:06 102 H 22 96 03/15/24 12:46 118/71 03/15/24 12:42 107 H 23 99 03/15/24 12:36 102 H 26 H 99 03/15/24 12:03 99 H 25 H 96 03/15/24 11:33 99 H 18 97 03/15/24 11:12 103 H 19 99 03/15/24 10:33 106 H 31 H 03/15/24 10:30 Room Air 03/15/24 10:00 110/69 03/15/24 10:00 101 H 24 96 03/15/24 09:30 101 H 24 96 03/15/24 09:21 103 H 26 H 96 03/15/24 08:33 110 H 21 96 03/15/24 08:18 106 H 25 H 95 03/15/24 07:35 110 H 03/15/24 07:30 108 H 25 H 97 03/15/24 07:03 104 H 24 97 03/15/24 06:39 104 H 19 96 03/15/24 05:09 Room Air 03/15/24 04:39 105 H 19 96 Laboratory Results Short CBC 03/14/24 03/15/24 Range/Units 19:06 03:47 WBC 15.28 H 14.78 H (4.8-10.8) K/ul Hgb 13.0 11.8 L (12.0-16.0) g/dl Hct 38.4 35.0 L (37.0-47.0) % Plt Count 271 279 (130-400) K/uL BMP 03/14/24 03/15/24 19:06 03:47 Sodium 138 140 Potassium 3.6 3.3 L Chloride 105 110 H Carbon Dioxide 24 21 BUN 8 9 Creatinine 0.54 L 0.61 Glucose 118 H 86 Calcium 9.1 8.5 L Liver Function 03/14/24 Range/Units 19:06 Total Bilirubin 0.8 (0.2-1.0) mg/dl AST 13 (13-39) U/L ALT 9 (7-52) U/L Alkaline Phosphatase 48 (34-104) U/L Albumin 4.2 (3.4-5.0) gm/dl Urine 03/14/24 Range/Units 19:09 Urine Color Dark Yellow Urine Appearance Clear (Clear) Urine pH 5.0 (4.5-7.5) Ur Specific [place] 1.033 H (1.000-1.030) Urine Protein 1+ H (Negative) Urine Glucose (UA) Negative (Negative)
[2024-03-15] MEDS: FAMOTIDINE 20MG IV PUSH 20 MG/5 ML SYR IV STA (20:59)
[2024-03-15] MEDS ORDERED: Nursing to Pharmacy Communication SCH (21:00)
[2024-03-15] MEDS: PREGABALIN 150 MG CAP PO SCH (21:00)
[2024-03-16] MEDS: LACTATED RINGER'S 1,000 ML IV ONE (04:53)
[2024-03-16] MEDS: POTASSIUM CHLORIDE / WTR 10 MEQ/100 ML PLCT IV SCH (05:01)
[2024-03-16] MEDS: MAGNESIUM SULFATE / D5W 1 GM/100 ML BAG IV ONE (05:06)
[2024-03-16 06:12] LABS: Hemoglobin 9.2 g/dl (12.0-16.0); Mean Corpuscular Hemoglobin 29.6 pg (25.0-34.0); Mean Corpuscular Hgb Conc 32.9 g/dL (32.0-36.0); Mean Platelet Volume 9.8 fL (9.4-12.4); Platelet Count 221 K/uL (130-400); RDW Coefficient of Variation 12.9 % (11.5-14.5); RDW Standard Deviation 42.1 fL (36.4-46.3); Red Blood Count 3.11 M/uL (4.20-5.40); White Blood Count 8.21 K/ul (4.8-10.8)
[2024-03-16 06:30] LABS: BUN Creatinine Ratio 12.2 (10-20); Calcium 7.5 mg/dl (8.6-10.3); Creatinine Clr Calc Pharmacy 94.2 ml/min; Est GFR (Non-African American) 104.4 ml/min; Potassium 5.1 mmol/L (3.5-5.1)
[2024-03-16] MEDS ORDERED: MoRPHine SULFATE 2 MG/ML CARP IV PRN (06:52)
[2024-03-16] MEDS ORDERED: HYDROmorphone INJ 0.5 MG/0.5 ML SYR IV PRN (09:10)
[2024-03-16] MEDS ORDERED: NSS + 20MEQ KCL 20 MEQ/1,000 ML BAG IV SCH (09:30)
--- NOTE | 2024-03-16 09:44 | Surgery Progress Note ---
Date of Service March 16, 2024 Assessment & Plan (1) Diverticulitis of intestine with perforation: Plan: pt here w/ diverticulitis and microperforation WBC 8(14). pt is afebrile. HRs 90-110's. BP stable increased pain and some new chills this AM abdomen discomfort elicited in bilateral lower regions continue NPO/IVF and IV abx Will continue to monitor closely, if worsens may need to consider repeat CT pt seen. was feeling great. had an episode of pain earlier...repeat ct ordered shows some worsening of inflammation/peritonitis with inflammation of cecum as well ( likely reactive). reviewed with Dr. Hernandez. pt currently feeling better. afebrile. wbc normal. abd: tender. no acute abdomen. may end up needing ex - lap with likely diverting stoma. will monitor another 24 hours. if wbc climbs, fevers present, or symptoms worsen will have low th reshold for intervention. pt agrees with plan. currently minimal discomfort. Admission and Anticipated Discharge Date Admission Date: March 14, 2024 Subjective Patient reports + chills and some worsening pain over the last hour. Pain mostly lower abdomen rating a 6-8/10. No nausea/vomiting. + gas. Some pain with urinating Physical Exam Physical Exam: awake, chilled, Respiratory: normal respiratory effort Gastrointestinal (Abdomen): Inspection/Auscultation: abdomen not distended Percussion/Palpation: + abdomen tender (ttp across lower abdomen) and abdomen soft Results & Data Vital Signs (Past 12 Hours) Vital Signs Temp Pulse Pulse Resp BP Pulse Ox O2 Del Method 03/16/24 07:41 98.2 F 97 H 18 108/70 95 Room Air 03/16/24 04:13 116 H 03/16/24 04:04 103 H 03/16/24 03:49 99.0 F 73 18 115/72 98 Room Air 03/16/24 03:48 03/15/24 23:21 99.0 F 110 H 16 110/71 97 Room Air 03/15/24 22:01 108 H O2 Del Method 03/16/24 07:41 03/16/24 04:13 03/16/24 04:04 03/16/24 03:49 03/16/24 03:48 Room Air 03/15/24 23:21 03/15/24 22:01 PG Care Time/CCT Total # of Minutes Spent Total Time Spent with Patient: Total time spent is greater than 50% in coordination of care (as documented) at patient's floor/unit and/or counseling patient: Coding Level of Care Code 54004 SUB INP/OBS CARE 2MIN Diagnoses Diverticulitis of intestine with perforation K57.80
[2024-03-16] MEDS: PANTOprazole 40 MG in SYRINGE 0 ML IV SCH ×2 (10:27→20:00)
--- NOTE | 2024-03-16 10:34 | Hospitalist Progress Note ---
Date of Service March 16, 2024 Assessment & Plan (1) Acute diverticulitis: (2) Hypokalemia: Plan 69 year old female presenting with recurrent sigmoid diverticulitis. Last episode in Nov 2023 but did not require admission. Presented 6/2 with abdominal pain, fever and nausea/dry heaves. CT A/P- Acute sigmoid diverticulitis with possible microperforation. A single 9 mm focus of free air is suggested in the adjacent mesentery. There is no evidence of drainable diverticular abscess. Acute sigmoid diverticulitis with possible microperforation- CT noted as above. WBC 14->8. Vitals stable. This morning worsening symptoms but helped by dilaudid. No generalized peritonitis on exam. Seen by surgery- recommendations noted. If symptoms worsen, will need to get stat CT A/P to look for complications. Surgery on board. Continue IVF, NPO, Bowel rest, iv zosyn, iv dilaudid prn for pain. Intolerant to cipro per patient. Hypokalemia- resolved. recheck in am Hypothyroid- continue synthroid Mood disorder- stable Hb drop- ? dilutional. Will recheck later today and in am. DVT ppx- sc lovenox Dispo- Pending medical stability. on iv antibiotics Time spent- approx 35 mins Admission and Anticipated Discharge Date Admission Date: March 14, 2024 Subjective Patient was seen and examined at bedside. She states she was feeling fine until this morning and all of a sudden her pain got worse and she had chills. She is unsure whether it is just her gas or something else. Vitals stable, afebrile, abd exam without generalized peritonitis. Toradol did not help and was given iv dilaudid which seemed to help. Discussed that if gets worse, will need to get stat CT A/P. Surgery on board. No N/V. Had BM. Review of Systems Review of Systems: All systems reviewed & are unremarkable except as noted in Subjective Physical Exam Physical Exam: General: Lying comfortably in bed, not in distress, on room air HEENT: EOMI, OPHELIA, MMM Chest: Clear breath sounds bilaterally, no wheezes or crackles CVS: Regular rate and rhythm, normal heart sounds, no murmur Abdomen: Soft, left sided tenderness, not distended, normal bowel sounds Neuro: Awake, alert, oriented, conversing well, non focal Extremities: No cyanosis, clubbing or edema Results & Data Results & Data Vital Signs (Past 12 Hours) Vital Signs Temp Pulse Resp BP Pulse Ox O2 Del Method O2 Del Method 03/16/24 07:41 36.8 C 97 H 18 108/70 95 Room Air 03/16/24 04:13 116 H 03/16/24 04:04 103 H 03/16/24 03:49 37.2 C 73 18 115/72 98 Room Air 03/16/24 03:48 Room Air 03/15/24 23:21 37.2 C 110 H 16 110/71 97 Room Air Laboratory Results Short CBC 03/16/24 Range/Units 05:34 WBC 8.21 (4.8-10.8) K/ul Hgb 9.2 L (12.0-16.0) g/dl Hct 28.0 L (37.0-47.0) % Plt Count 221 (130-400) K/uL BMP 03/16/24 03/16/24 03/16/24 05:34 05:34 07:02 Sodium 137 Potassium 5.1 D Cancelled 4.1 Chloride 110 H Carbon Dioxide 16 L BUN 6 Creatinine 0.49 L Glucose 71 Calcium 7.5 L
[2024-03-16] MEDS: OPTIRAY 320 100ml IV ONE (11:59)
--- NOTE | 2024-03-16 12:40 | CT Scan Report ---
CT SCAN OF THE ABDOMEN AND PELVIS WITH IV CONTRAST CLINICAL HISTORY: Generalized abdominal pain. Tachycardia. COMPARISON STUDY: Abdominal CT dated 03/14/2024. TECHNIQUE: Following the IV administration of 94 cc of Optiray 320, CT scan of the abdomen and pelvi s is performed from the lung bases to the proximal femora. Images are reviewed in the axial, sagittal , and coronal planes. IV contrast was administered without complication. A dose lowering technique wa s utilized adhering to the principles of ALARA. CT DOSE: 877.81 mGy.cm FINDINGS: Lung bases: The heart is enlarged and without pericardial effusion. There are coronary artery calcifi cations. There are trace pleural effusions with dependent consolidation. Liver: The contrast-enhanced liver is normal in size, contour, and attenuation. There is no intrahepa tic biliary ductal dilatation. The hepatic veins and portal veins are patent. Scattered subcentimeter hepatic hypodensities likely represent cysts but are too small for definitive characterization. Gallbladder: The gallbladder is markedly distended without clear CT evidence of acute cholecystitis. Spleen: Normal in size and attenuation. Pancreas: Unremarkable. Adrenal glands: Unremarkable. Kidneys: The contrast enhanced kidneys are normal in size and without hydronephrosis. The kidneys enh ance symmetrically. Abdominal vasculature: The abdominal aorta is normal in course and caliber. Bowel: There is moderate colonic diverticulosis. Findings of sigmoid diverticulitis better seen on 03/14/2024. No bowel obstruction is seen.. The appendix is normal as visualized. There is mild wall thic kening of the cecum, with stool seen in the right colon. Peritoneum: There is a small volume of intraperitoneal free air seen below the diaphragm. There is a small volume of abdominopelvic ascites with associated peritoneal thickening and enhancement. No orga nized/drainable collection is seen at this time. There is a fat-containing umbilical hernia. Lymphadenopathy: None. Pelvic viscera: The bladder is partially decompressed and grossly unremarkable. The uterus and adnexa are normal as visualized. Skeletal structures: The skeletal structures are osteopenic. There is mild lumbosacral spondylosis. S clerotic change is seen in the sacroiliac joints. No lytic or blastic lesions are seen. IMPRESSION: 1. There is wall thickening and edema of the distal ileum and right colon. The right colon is fluid-f illed, and this could represent ileocecitis/colitis. 2. Again seen are findings of visceral perforation, which could be related to sigmoid diverticulitis or possibly the inflamed right colon. Surgical evaluation is advised. 3. There is a small volume of intraperitoneal free air identified below the diaphragm. 4. There is a small volume of abdominopelvic ascites with associated peritoneal thickening and enhanc ement suggestive of peritonitis. No organized/drainable fluid collection is seen. 5. Cardiomegaly. 6. Trace pleural effusions with dependent consolidation. 7. Markedly distended gallbladder without clear CT evidence of acute cholecystitis. Correlate with cl inical and laboratory findings. 8. Additional findings as above. ACT 112: Negative or not required by law. Electronically signed by: Alfa Hernandez M.D. 03/16/2024 12:38 PM
[2024-03-16 13:16] LABS: Hematocrit (blood only) 33.6 % (37.0-47.0); Hemoglobin 11.2 g/dl (12.0-16.0)
[2024-03-16] MEDS: D5W AND 1/2NSS 1,000 ML IV SCH (16:16)
[2024-03-16] MEDS: HYDROmorphone INJ 0.5 MG/0.5 ML SYR IV PRN (20:15)
[2024-03-16] MEDS: D5W AND LACTATED RINGERS 1,000 ML IV SCH (20:45)
[2024-03-16] MEDS ORDERED: D5W AND 1/2NSS 1,000 ML IV SCH (22:30)
--- NOTE | 2024-03-16 22:52 | Communication Note ---
Date of Service: March 16, 2024 Patient has been admitted to the hospital with diverticulitis. I visited with her at the bedside at approximately 10:05 PM. The patient notes that her abdominal pain is less severe than what she noted since admission and earlier today. She denies any shakes or chills. She notes that she is passing flatus but has not had a bowel movement at this time. She notes that at the present time her abdominal pain is mostly confined to the left lower quadrant. Vital signs reviewed and blood pressure is 99/61. She is slightly tachycardic with a heart rate around 104. She is afebrile. On physical exam her abdomen is soft and nondistended. There is no rebound tenderness or guarding but she does have pain with palpation in the left lower quadrant. For the present time we will continue with the plan as outlined by yeimiksrobinson team which includes continuous intravenous antibiotics in form of Zosyn. We will continue hydration measures with intravenous fluids and we will also continue n.p.o. status. Patient does have repeat labs ordered for the morning. Addendum (5:30 am) Patient visited at bedside at approximately 5:00 AM. Patient denies any wor sening abdominal pain. I was informed by nursing staff the patient did have fever of approximately 100.5. Patient was given Tylenol approximate 1/2-hour later and her temperature was rechecked and still remain elevated at 99.4. On physical exam the patient remains normotensive with again a slight tachycardia with heart rate approximate 100-110. There is been no change in her abdominal exam noted from my prior visit. Will continue with current plan as outlined above for the present time
--- NOTE | 2024-03-17 07:50 | Surgery Progress Note ---
Date of Service March 17, 2024 Assessment & Plan (1) Diverticulitis of intestine with perforation: Plan: Pt here w/ concern for diverticulitis w/ perf CT a/p obtained yesterday for worsening pain + chills. showed c/f visceral perf of sigmoid diverticulitis or possibly the inflamed right colon ( after review the R colon is likely secondarily inflamed) Morning labs are pending. She did have a temp of 100.6F overnight that resolved with tylenol. BPs stable. HRs remain 90-110s Will eval labs and check up on her later this AM, for now continue supportive care with NPO/IVF/IV abx Please inform us of any changes in patient's status, if deteriorates will likely require surgical intervention as above. pt states she actually feels well today other than what she thinks is "gas pain". better than yesterday. she did have several low grade fevers. still no leukocytosis had long discussion with her/her son today. will continue to monitor /npo/antibiotics. low threshold for operative intervention if she worsens clinically. abd: soft. +LLQ tenderness. no rebound/peritoneal signs. Admission and Anticipated Discharge Date Admission Date: March 14, 2024 Subjective Patient feeling okay. No worse than yesterday. No nausea/vomiting. Pain mostly in the lower abdomen, currently rating it a 4/10 in severity. Fever overnight. Physical Exam Physical Exam: awake/alert Gastrointestinal (Abdomen): Inspection/Auscultation: abdomen not distended Percussion/Palpation: + abdomen tender (generalized discomfort, but worse across lower abdomen L>R) and abdomen soft Results & Data Vital Signs (Past 12 Hours) Vital Signs Temp Pulse Pulse Resp BP Pulse Ox O2 Del Method 03/17/24 07:34 98.6 F 98 H 17 100/62 96 Room Air 03/17/24 05:19 99.3 F 03/17/24 04:00 100.6 F H 107 H 18 102/64 94 Room Air 03/17/24 01:00 110 H 03/16/24 23:54 99.3 F 106 H 18 95/57 L 94 Room Air 03/16/24 20:00 Room Air 03/16/24 20:00 98.1 F 104 H 18 99/61 L 100 Room Air PG Care Time/CCT Total # of Minutes Spent Total Time Spent with Patient: Total time spent is greater than 50% in coordination of care (as documented) at patient's floor/unit and/or counseling patient: Coding Level of Care Code 88118 SUB INP/OBS CARE Diagnoses Diverticulitis of intestine with perforation K57.80
[2024-03-17 07:53] LABS: Basophils # (auto) 0.01 K/uL (0.00-0.20); Basophils % (auto) 0.1 %; Eosinophils # (auto) 0.16 K/uL (0.00-0.50); Eosinophils % (auto) 1.7 %; Hematocrit (blood only) 31.1 % (37.0-47.0); Hemoglobin 10.5 g/dl (12.0-16.0); Immature Granulocytes # (auto) 0.06 K/uL (0.01-0.20); Immature Granulocytes % (auto) 0.6 %; Lymphocytes # (auto) 0.99 K/uL (1.20-3.40); Lymphocytes % (auto) 10.7 %; Mean Corpuscular Hemoglobin 29.6 pg (25.0-34.0); Mean Corpuscular Hgb Conc 33.8 g/dL (32.0-36.0); Mean Corpuscular Volume 87.6 fL (80.0-100.0); Mean Platelet Volume 9.7 fL (9.4-12.4); Monocytes # (auto) 0.65 K/uL (0.11-0.59); Neutrophils # (auto) 7.37 K/uL (1.40-6.50); Neutrophils % (auto) 79.9 %; Platelet Count 279 K/uL (130-400); RDW Standard Deviation 42.2 fL (36.4-46.3); Red Blood Count 3.55 M/uL (4.20-5.40); White Blood Count 9.24 K/ul (4.8-10.8)
[2024-03-17 07:59] LABS: Calcium 8.2 mg/dl (8.6-10.3); Creatinine Clr Calc Pharmacy 100.3 ml/min; Est GFR (African American) 120.2 ml/min; Est GFR (Non-African American) 103.7 ml/min; Potassium 3.3 mmol/L (3.5-5.1)
--- NOTE | 2024-03-17 13:10 | Hospitalist Progress Note ---
Date of Service March 17, 2024 Assessment & Plan (1) Acute diverticulitis: (2) Hypokalemia: Plan 69 year old female presenting with recurrent sigmoid diverticulitis. Last episode in Nov 2023 but did not require admission. Presented / with abdominal pain, fever and nausea/dry heaves. CT A/P On admission- Acute sigmoid diverticulitis with possible microperforation. A single 9 mm focus of free air is suggested in the adjacent mesentery. There is no evidence of drainable diverticular abscess. Repeat CT abdomen pelvis on March 164again seen findings of visceral perforation. Small amount of intraperitoneal free air below the diaphragm. Acute sigmoid diverticulitis with possible microperforation CT abdomen and pelvis as above WBC count down trended Continue IV fluids Pain control Appreciate surgery input; they recommended supportive care with n.p.o./IV fluids and antibiotics. Hypokalemia- Repleted Hypothyroid- continue synthroid Mood disorder- stable Hb drop- ? dilutional. Hb stabilized around 10.5 to 11. DVT ppx- sc lovenox Dispo- Pending medical stability. on iv antibiotics Time spent evaluating patient, direct bedside care, chart review, placing orders, interpretation of diagnostic studies, discussion with consultants, patient, and family members, as well as other required patient management activities is 40 minutes Please note the above document was generated using voice recognition software. It may contain grammatical, syntax or spelling errors. Any formal questions or concerns about the content, text or information contained within the body of thi s dictation should be directly addressed to the provider for clarification Admission and Anticipated Discharge Date Admission Date: March 14, 2024 Subjective Patient seen and examined at bedside. She reports that her abdomen pain is slightly better compared to yesterday. She reports she still does not have an appetite. Low grade overnight Review of Systems Review of Systems: All systems reviewed & are unremarkable except as noted in Subjective Physical Exam Physical Exam: Constitutional: Alert oriented x 3; not in distress. Respiratory: normal respiratory effort, lungs clear to auscultation, no wheeze, rales, rhonchi. Normal insp/exp effort, no accessory muscle use Cardiovascular: RRR, no murmur, no edema Vessels: no JVD or carotid bruit Chest: normal inspection of chest Abdomen: Tenderness in left lower quadrant Skin: no rashes, warm and dry normal turgor Neurologic: PERRL, EOMI, accommodation nl, no face palsy, no dysarthria CN's II- XI intact bilaterally and moves all extremities Psychiatric: A+Ox3, euthymic affect Results & Data Results & Data Vital Signs (Past 12 Hours) Vital Signs Temp Pulse Pulse Resp BP Pulse Ox O2 Del Method 03/17/24 11:38 38 C H 115 H 18 112/66 95 Room Air 03/17/24 10:34 Room Air 03/17/24 08:00 98 H 03/17/24 07:34 37 C 98 H 17 100/62 96 Room Air 03/17/24 05:19 37.4 C 03/17/24 04:00 38.1 C H 107 H 18 102/64 94 Room Air
[2024-03-17] MEDS: POTASSIUM CHLORIDE / WTR 10 MEQ/100 ML PLCT IV SCH (14:20)
[2024-03-17] MEDS: D5NSS + 20MEQ KCL 20 MEQ/1,000 ML BAG IV SCH (16:45)
[2024-03-18] MEDS: LORazepam 0.5 MG TAB PO PRN (05:57)
[2024-03-18 07:03] LABS: Basophils # (auto) 0.04 K/uL (0.00-0.20); Basophils % (auto) 0.4 %; Eosinophils # (auto) 0.28 K/uL (0.00-0.50); Eosinophils % (auto) 2.7 %; Hematocrit (blood only) 32.4 % (37.0-47.0); Immature Granulocytes # (auto) 0.05 K/uL (0.01-0.20); Immature Granulocytes % (auto) 0.5 %; Lymphocytes # (auto) 1.34 K/uL (1.20-3.40); Lymphocytes % (auto) 12.8 %; Mean Corpuscular Hemoglobin 29.5 pg (25.0-34.0); Mean Corpuscular Volume 86.9 fL (80.0-100.0); Mean Platelet Volume 10.1 fL (9.4-12.4); Monocytes # (auto) 0.92 K/uL (0.11-0.59); Monocytes % (auto) 8.8 %; Neutrophils # (auto) 7.87 K/uL (1.40-6.50); Neutrophils % (auto) 74.8 %; Platelet Count 319 K/uL (130-400); RDW Coefficient of Variation 12.7 % (11.5-14.5); RDW Standard Deviation 40.5 fL (36.4-46.3); Red Blood Count 3.73 M/uL (4.20-5.40)
[2024-03-18 07:19] LABS: BUN Creatinine Ratio 9.5 (10-20); Calcium 7.8 mg/dl (8.6-10.3); Creatinine Clr Calc Pharmacy 119.5 ml/min; Est GFR (African American) 127.3 ml/min; Est GFR (Non-African American) 109.9 ml/min; Potassium 3.5 mmol/L (3.5-5.1)
--- NOTE | 2024-03-18 08:04 | Surgery Progress Note ---
Date of Service March 18, 2024 Assessment & Plan (1) Diverticulitis of intestine with perforation: Plan: Pt here w/ diverticulitis with perforation, no drainable abscess we have been monitoring pt closely, she had a temp of 102F yesterday evening and some low grade temps ~99F since then WBC normal at 10 this AM She currently denies any abdominal pain at rest. she has only really required Tylenol for pain/fevers. biggest complaints are fatigue and some anxiety Abdominal exam unchanged from yesterday At this point appears she may be turning a bit of a corner as abdominal symptoms improving. we will allow her to trial some clear liquids and see how she fairs. otherwise continue IVF and IV abx No plans for surgical intervention at this time and we will continue to monitor her clinically for any changes in status as above. "feeling much better than when I came in". some discomfort with activity. no nausea. wbc still normal. +intermittent fevers. abd with minimal suprapubic tenderness. much improved. will give trial of clears. continue IV antibiotics. no urgent indication for surgical intervention. Admission and Anticipated Discharge Date Admission Date: March 14, 2024 Subjective Pt reports feeling general malaise and wiped out, some anxiousness regarding her situation. She currently denies any abdominal pain at rest, no nausea/vomiting. Physical Exam Physical Exam: awake, no distress. fatigued appearing Gastrointestinal (Abdomen): Percussion/Palpation: + abdomen tender (discomfort to palpation across lower abdomen, worse in LLQ) and abdomen soft Results & Data Vital Signs (Past 12 Hours) Vital Signs Temp Pulse Pulse Resp BP BP Pulse Ox 03/18/24 05:57 102 H 03/18/24 03:00 99.1 F 103 H 16 101/69 95 03/18/24 00:09 99.1 F 99 H 16 94 03/17/24 23:39 100 H 03/17/24 23:00 99.9 F H 102 H 18 91/63 L 92 O2 Del Method 03/18/24 05:57 03/18/24 03:00 Room Air 03/18/24 00:09 Room Air 03/17/24 23:39 03/17/24 23:00 Room Air PG Care Time/CCT Total # of Minutes Spent Total Time Spent with Patient: Total time spent is greater than 50% in coordination of care (as documented) at patient's floor/unit and/or counseling patient: Coding Level of Care Code 20106 SUB INP/OBS CARE Diagnoses Diverticulitis of intestine with perforation K57.80
--- NOTE | 2024-03-18 13:15 | Hospitalist Progress Note ---
Date of Service March 18, 2024 Assessment & Plan (1) Acute diverticulitis: (2) Hypokalemia: Plan 69 year old female presenting with recurrent sigmoid diverticulitis. Last episode in Nov 2023 but did not require admission. Presented 03/14 with abdominal pain, fever and nausea/dry heaves. CT A/P On admission- Acute sigmoid diverticulitis with possible microperforation. A single 9 mm focus of free air is suggested in the adjacent mesentery. There is no evidence of drainable diverticular abscess. Repeat CT abdomen pelvis on March 164again seen findings of visceral perforation. Small amount of intraperitoneal free air below the diaphragm. Acute sigmoid diverticulitis with possible microperforation CT abdomen and pelvis as above WBC count down trended Continue IV fluids Started on clear liquid; will consider to advance if tolerated as per surgery Pain control Continue iv antiboitics Surgery on board. Hypokalemia- Repleted Hypothyroid- continue synthroid Mood disorder- stable Hb drop- ? dilutional. Hb stabilized around 10.5 to 11. DVT ppx- sc lovenox Dispo- Pending medical stability. on iv antibiotics Time spent evaluating patient, direct bedside care, chart review, placing orders, interpretation of diagnostic studies, discussion with consultants, patient, and family members, as well as other required patient management activities is 40 minutes Please note the above document was generated using voice recognition software. It may contain grammatical, syntax or spelling errors. Any formal questions or concerns about the content, text or information contained within the body of this dictation should be directly addressed to the provider for clarification Admission and Anticipated Discharge Date Admission Date: March 14, 2024 Subjective Patient seen and examined at bedside She has been afebrile in the morning. Reports that the abdominal pain has decreased in intensity. Review of Systems Review of Systems: All systems reviewed & are unremarkable except as noted in Subjective Physical Exam Physical Exam: Constitutional: Alert oriented x 3; not in distress. Respiratory: normal respiratory effort, lungs clear to auscultation, no wheeze, rales, rhonchi. Normal insp/exp effort, no accessory muscle use Cardiovascular: RRR, no murmur, no edema Vessels: no JVD or carotid bruit Chest: normal inspection of chest Abdomen: mild Tenderness in left lower quadrant Skin: no rashes, warm and dry normal turgor Neurologic: PERRL, EOMI, accommodation nl, no face palsy, no dysarthria CN's II- XI intact bilaterally and moves all extremities Psychiatric: A+Ox3, euthymic affect Results & Data Results & Data Vital Signs (Past 12 Hours) Vital Signs Temp Pulse Pulse Resp BP Pulse Ox O2 Del Method 03/18/24 12:23 37.0 C 99 H 17 108/73 96 Room Air 03/18/24 05:57 102 H 03/18/24 03:00 37.3 C 103 H 16 101/69 95 Room Air
[2024-03-18 23:39] LABS: Appearance Urine Clear (Clear); Bilirubin Urine Negative (Negative); Blood Urine Negative (Negative); Color Urine Yellow; Glucose Urine UA Negative (Negative); Ketones Urine Negative (Negative); Leukocyte Esterase Urine Negative (Negative); Nitrite Urine Negative (Negative); Protein Urine Negative (Negative); Specific Gravity Urine 1.007 (1.000-1.030); Urobilinogen Urine Negative (Negative)
--- NOTE | 2024-03-19 06:29 | Electrocardiogram Report ---
Test Reason : Blood Pressure : / mmHG Vent. Rate : 127 BPM Atrial Rate : 127 BPM P-R Int : 150 ms QRS Dur : 076 ms QT Int : 298 ms P-R-T Axes : 047 001 041 degrees QTc Int : 433 ms Sinus tachycardia with Premature ventricular complexes Low voltage QRS Cannot rule out Anterior infarct , age undetermined Abnormal ECG When compared with ECG of 18-FEB-2022 12:58, Premature ventricular complexes are now Present Vent. rate has increased BY 44 BPM Minimal criteria for Anterior infarct are now Present T wave amplitude has decreased in Anterior leads Confirmed by Levi Iverson ([id number]) on 03/19/2024 6:29:44 AM Referred By: REFERRED SELF Confirmed By:Levi Iverson
--- NOTE | 2024-03-19 06:38 | Surgery Progress Note ---
Date of Service March 19, 2024 Assessment & Plan (1) Diverticulitis of intestine with perforation: Plan: Clinically improving. However because of the severe nature of her diverticulitis with perforation I would like to keep her on clears for 1 more day. If she has no problems today and tonight we could advance her to full liquids tomorrow. [facility] surgeons covering for the weekend. Admission and Anticipated Discharge Date Admission Date: March 14, 2024 Subjective Vee Jo states that she is feeling much better this is actually the best she has felt since admission. She had a good night of rest. Currently no pain and no nausea. She tolerated the clear liquids. Physical Exam Constitutional: WD/WN, vitals as above no acute distress and not ill appearing Eyes: PERRL, conjunctivae normal, anicteric sclerae EOM intact bilaterally ENMT: external ear and nose normal, oropharynx normal Ears: no hearing impairment Neck: trachea midline, no thyromegaly Respiratory: normal respiratory effort; no respiratory distress and does not use accessory muscles Cardiovascular: Rate/Rhythm: regular rate and regular rhythm Gastrointestinal (Abdomen): Soft. Positive suprapubic tenderness. This is improving. No peritoneal signs Skin: no rashes, warm and dry Psychiatric: Orientation: alert, oriented x 3 and cooperative Results & Data Vital Signs (Past 12 Hours) Vital Signs Temp Pulse Pulse Resp BP Pulse Ox O2 Del Method 03/19/24 03:07 37.1 C 104 H 18 108/73 93 Room Air 03/18/24 22:38 37.4 C 107 H 18 105/71 95 Room Air 03/18/24 22:03 107 H 03/18/24 20:16 37.2 C 108 H 18 93/63 L 97 Room Air PG Care Time/CCT Total # of Minutes Spent Total Time Spent with Patient: Total time spent is greater than 50% in coordination of care (as documented) at patient's floor/unit and/or counseling patient: Coding Level of Care Code 64169 SUB INP/OBS CARE Diagnoses Diverticulitis of intestine with perforation K57.80
[2024-03-19 08:00] LABS: Hematocrit (blood only) 32.5 % (37.0-47.0); Hemoglobin 10.7 g/dl (12.0-16.0); Mean Corpuscular Hemoglobin 28.9 pg (25.0-34.0); Mean Corpuscular Hgb Conc 32.9 g/dL (32.0-36.0); Mean Corpuscular Volume 87.8 fL (80.0-100.0); Mean Platelet Volume 9.7 fL (9.4-12.4); Platelet Count 342 K/uL (130-400); RDW Coefficient of Variation 13.3 % (11.5-14.5); White Blood Count 10.63 K/ul (4.8-10.8)
[2024-03-19 08:15] LABS: Anion Gap 7 (3-11); Blood Urea Nitrogen < 2 mg/dl (6-23); Calcium 8.1 mg/dl (8.6-10.3); Carbon Dioxide 26 mmol/L (21-32); Chloride 108 mmol/L (98-107); Creatinine Clr Calc Pharmacy 115.7 ml/min; Est GFR (African American) 125.4 ml/min; Est GFR (Non-African American) 108.2 ml/min; Glucose 106 mg/dl (70-99(Fasting)); Potassium 3.5 mmol/L (3.5-5.1); Sodium 141 mmol/L (136-145)
[2024-03-19 08:22] LABS: Basophils # (auto) 0.04 K/uL (0.00-0.20); Basophils % (auto) 0.4 %; Eosinophils # (auto) 0.52 K/uL (0.00-0.50); Eosinophils % (auto) 4.9 %; Immature Granulocytes # (auto) 0.06 K/uL (0.01-0.20); Immature Granulocytes % (auto) 0.6 %; Lymphocytes # (auto) 2.22 K/uL (1.20-3.40); Lymphocytes % (auto) 20.9 %; Monocytes # (auto) 0.74 K/uL (0.11-0.59); Neutrophils # (auto) 7.05 K/uL (1.40-6.50); Neutrophils % (auto) 66.2 %; RBC Morphology Unremarkable
--- NOTE | 2024-03-19 11:06 | Hospitalist Progress Note ---
Date of Service March 19, 2024 Assessment & Plan (1) Acute diverticulitis: (2) Hypokalemia: Plan 69 year old female presenting with recurrent sigmoid diverticulitis. Last episode in Nov 2023 but did not require admission. Presented 6/2 with abdominal pain, fever and nausea/dry heaves. CT A/P On admission- Acute sigmoid diverticulitis with possible microperforation. A single 9 mm focus of free air is suggested in the adjacent mesentery. There is no evidence of drainable diverticular abscess. Repeat CT abdomen pelvis on March 164again seen findings of visceral perforation. Small amount of intraperitoneal free air below the diaphragm. Acute sigmoid diverticulitis with possible microperforation CT abdomen and pelvis as above WBC count down trended Continue IV fluids Continue on clear liquid; Plan to switch over to full liquid tomorrow am if patient continues to tolerate well Pain control Continue iv antibiotics Surgery on board. Hypokalemia- Repleted Hypothyroid- continue synthroid Mood disorder- stable Hb drop- ? dilutional. Hb stabilized around 10.5 to 11. DVT ppx- sc lovenox Dispo- Pending medical stability. on iv antibiotics.Patient is to be closely monitoring patient for acute sigmoid diverticulitis with micro perforation Time spent evaluating patient, direct bedside care, chart review, placing orders, interpretation of diagnostic studies, discussion with consultants, patient, and family members, as well as other required patient management activities is 40 minutes Please note the above document was generated using voice recognition software. It may contain grammatical, syntax or spelling errors. Any formal questions or concerns about the content, text or information contained within the body of this dictation should be directly addressed to the provider for clarification Admission and Anticipated Discharge Date Admission Date: March 14, 2024 Subjective Patient seen and examined at bedside. She reports that she is feeling much better today with less amount of pain. She has been afebrile as well. She also had a bowel movement. Review of Systems Review of Systems: All systems reviewed & are unremarkable except as noted in Subjective Physical Exam Physical Exam: Constitutional: Alert oriented x 3; not in distress. Respiratory: normal respiratory effort, lungs clear to auscultation, no wheeze, rales, rhonchi. Normal insp/exp effort, no accessory muscle use Cardiovascular: RRR, no murmur, no edema Vessels: no JVD or carotid bruit Chest: normal inspection of chest Abdomen: soft, non-tender Skin: no rashes, warm and dry normal turgor Neurologic: PERRL, EOMI, accommodation nl, no face palsy, no dysarthria CN's II- XI intact bilaterally and moves all extremities Psychiatric: A+Ox3, euthymic affect Results & Data Results & Data Vital Signs (Past 12 Hours) Vital Signs Temp Pulse Pulse Resp BP Pulse Ox O2 Del Method 03/19/24 07:36 37.4 C 95 H 18 108/73 93 Room Air 03/19/24 06:00 102 H 03/19/24 03:07 37.1 C 104 H 18 108/73 93 Room Air
[2024-03-20 06:26] LABS: Hematocrit (blood only) 28.7 % (37.0-47.0); Hemoglobin 9.6 g/dl (12.0-16.0); Mean Corpuscular Hemoglobin 29.3 pg (25.0-34.0); Mean Corpuscular Hgb Conc 33.4 g/dL (32.0-36.0); Mean Corpuscular Volume 87.5 fL (80.0-100.0); Mean Platelet Volume 9.7 fL (9.4-12.4); Platelet Count 357 K/uL (130-400); RDW Coefficient of Variation 12.8 % (11.5-14.5); RDW Standard Deviation 41.1 fL (36.4-46.3); Red Blood Count 3.28 M/uL (4.20-5.40); White Blood Count 9.55 K/ul (4.8-10.8)
[2024-03-20 06:48] LABS: Basophils # (auto) 0.04 K/uL (0.00-0.20); Basophils % (auto) 0.4 %; Eosinophils % (auto) 5.2 %; Immature Granulocytes # (auto) 0.09 K/uL (0.01-0.20); Immature Granulocytes % (auto) 0.9 %; Lymphocytes # (auto) 2.12 K/uL (1.20-3.40); Lymphocytes % (auto) 22.2 %; Monocytes # (auto) 0.71 K/uL (0.11-0.59); Monocytes % (auto) 7.4 %; Neutrophils # (auto) 6.09 K/uL (1.40-6.50); Neutrophils % (auto) 63.9 %
[2024-03-20 06:49] LABS: BUN Creatinine Ratio 4.4 (10-20); Calcium 8.1 mg/dl (8.6-10.3); Creatinine Clr Calc Pharmacy 112.9 ml/min; Est GFR (African American) 124.5 ml/min; Est GFR (Non-African American) 107.4 ml/min; Potassium 3.5 mmol/L (3.5-5.1)
--- NOTE | 2024-03-20 13:22 | Hospitalist Progress Note ---
Date of Service March 20, 2024 Assessment & Plan (1) Acute diverticulitis: (2) Hypokalemia: Plan 69 year old female presenting with recurrent sigmoid diverticulitis. Last episode in Nov 2023 but did not require admission. Presented / with abdominal pain, fever and nausea/dry heaves. CT A/P On admission- Acute sigmoid diverticulitis with possible microperforation. A single 9 mm focus of free air is suggested in the adjacent mesentery. There is no evidence of drainable diverticular abscess. Repeat CT abdomen pelvis on March 164again seen findings of visceral perforation. Small amount of intraperitoneal free air below the diaphragm. Acute sigmoid diverticulitis with possible microperforation CT abdomen and pelvis as above WBC count down trended Continue IV fluids Diet advanced to full liquid diet Pain control Continue iv antibiotics Surgery on board. Hypokalemia- Repleted Hypothyroid- continue synthroid Mood disorder- stable Hb drop- ? dilutional. Hb stabilized around 9 to 10 DVT ppx- sc lovenox Dispo- Pending medical stability. on iv antibiotics.Patient is to be closely monitoring patient for acute sigmoid diverticulitis with micro perforation Time spent evaluating patient, direct bedside care, chart review, placing orders, interpretation of diagnostic studies, discussion with consultants, patient, and family members, as well as other required patient management activities is 40 minutes Please note the above document was generated using voice recognition software. It may contain grammatical, syntax or spelling errors. Any formal questions or concerns about the content, text or information contained within the body of this dictation should be directly addressed to the provider for clarification Admission and Anticipated Discharge Date Admission Date: March 14, 2024 Subjective Patient seen and examined at bedside. She is comfortably lying in the bed; not in distress She is tolerating clear liquid diet. Diet to be advanced further to full liquid Review of Systems Review of Systems: All systems reviewed & are unremarkable except as noted in Subjective Physical Exam Physical Exam: Constitutional: Alert oriented x 3; not in distress. Respiratory: normal respiratory effort, lungs clear to auscultation, no wheeze, rales, rhonchi. Normal insp/exp effort, no accessory muscle use Cardiovascular: RRR, no murmur, no edema Vessels: no JVD or carotid bruit Chest: normal inspection of chest Abdomen: soft, non-tender Skin: no rashes, warm and dry normal turgor Neurologic: PERRL, EOMI, accommodation nl, no face palsy, no dysarthria CN's II- XI intact bilaterally and moves all extremities Psychiatric: A+Ox3, euthymic affect Results & Data Results & Data Vital Signs (Past 12 Hours) Vital Signs Temp Pulse Pulse Resp BP Pulse Ox O2 Del Method 03/20/24 11:17 37.2 C 89 18 92/60 L 95 Room Air 03/20/24 08:10 97 H 03/20/24 07:45 36.8 C 91 H 18 99/65 L 96 Room Air 03/20/24 04:08 36.7 C 94 H 20 94/64 L 96 Room Air
--- NOTE | 2024-03-20 15:48 | Surgery Progress Note ---
Date of Service March 20, 2024 Assessment & Plan (1) Diverticulitis of intestine with perforation: Plan: Tolerating advancement of diet to full liquids. If tolerates, can try low fiber tomorrow. Outpatient colonoscopy and consideration of sigmoid resection were discussed (she is hoping to have this done) Low fiber diet for 4-6 weeks reviewed and then the importance of fiber/ water intake was discussed to lower risk of recurrence. She is hoping to stay off of the ozempic. Admission and Anticipated Discharge Date Admission Date: March 14, 2024 Subjective Son is a bedside. Tolerating PO intake (full liquids). She denies any abdominal pain but still has cramping at times which is relieved by passing gas. She has had a liquid bowel movement. She still notes bloating. She has not had any nausea or vomiting. Physical Exam Constitutional: WD/WN, vitals as above Respiratory: normal respiratory effort, lungs clear to auscultation Gastrointestinal (Abdomen): Inspection/Auscultation: abdomen normal to inspection, + abdomen distended and normal bowel sounds Percussion/Palpation: + abdomen tender (mild in left lower quadrant) and abdomen soft; no guarding Musculoskeletal: Extremities: extremities normal to inspection Neurologic: awake; no focal motor deficits Results & Data Vital Signs (Past 12 Hours) Vital Signs Temp Pulse Pulse Resp BP Pulse Ox O2 Del Method 03/20/24 14:56 96 H 03/20/24 11:17 37.2 C 89 18 92/60 L 95 Room Air 03/20/24 08:10 97 H 03/20/24 07:45 36.8 C 91 H 18 99/65 L 96 Room Air 03/20/24 04:08 36.7 C 94 H 20 94/64 L 96 Room Air Laboratory Results Abnormal lab results 03/20/24 Range/Units 05:46 RBC 3.28 L (4.20-5.40) M/uL Hgb 9.6 L (12.0-16.0) g/dl Hct 28.7 L (37.0-47.0) % [place] # (Auto) 0.71 H (0.11-0.59) K/uL Chloride 108 H (98-107) mmol/L BUN 2 L (6-23) mg/dl Creatinine 0.45 L (0.6-1.2) mg/dl BUN/Creatinine Ratio 4.4 L (10-20) Calcium 8.1 L (8.6-10.3) mg/dl (1) Diverticulitis of intestine with perforation Diverticulitis site: large intestine Diverticulitis bleeding: without bleeding Qualified Code(s): K57.20 - Diverticulitis of large intestine with perforation and abscess without bleeding
[2024-03-21 06:27] LABS: Hematocrit (blood only) 29.2 % (37.0-47.0); Hemoglobin 9.7 g/dl (12.0-16.0); Mean Corpuscular Hemoglobin 29.3 pg (25.0-34.0); Mean Corpuscular Hgb Conc 33.2 g/dL (32.0-36.0); Mean Corpuscular Volume 88.2 fL (80.0-100.0); Mean Platelet Volume 9.3 fL (9.4-12.4); Platelet Count 400 K/uL (130-400); RDW Coefficient of Variation 13.2 % (11.5-14.5); RDW Standard Deviation 42.6 fL (36.4-46.3); Red Blood Count 3.31 M/uL (4.20-5.40); White Blood Count 9.88 K/ul (4.8-10.8)
[2024-03-21 06:37] LABS: BUN Creatinine Ratio 5.7 (10-20); Calcium 8.3 mg/dl (8.6-10.3); Creatinine Clr Calc Pharmacy 94.6 ml/min; Est GFR (African American) 117.9 ml/min; Est GFR (Non-African American) 101.8 ml/min; Potassium 3.3 mmol/L (3.5-5.1)
[2024-03-21 06:45] LABS: Basophils # (auto) 0.06 K/uL (0.00-0.20); Basophils % (auto) 0.6 %; Eosinophils # (auto) 0.61 K/uL (0.00-0.50); Eosinophils % (auto) 6.2 %; Immature Granulocytes # (auto) 0.07 K/uL (0.01-0.20); Immature Granulocytes % (auto) 0.7 %; Lymphocytes # (auto) 2.27 K/uL (1.20-3.40); Monocytes # (auto) 0.72 K/uL (0.11-0.59); Monocytes % (auto) 7.3 %; Neutrophils # (auto) 6.15 K/uL (1.40-6.50); Neutrophils % (auto) 62.2 %
[2024-03-21] MEDS: POTASSIUM CHLORIDE PWD 20 MEQ PACK PO SCH (09:24)
--- NOTE | 2024-03-21 11:00 | Surgery Progress Note ---
Date of Service March 21, 2024 Assessment & Plan (1) Diverticulitis of intestine with perforation: Plan: Improving. Will advance to low fiber diet. Likely can be discharged tomorrow. Discussed low fiber for 4-6 weeks followed by increasing fiber (diet first, supplements second). Will have surgical f/u with Dr. Escobar. Admission and Anticipated Discharge Date Admission Date: March 14, 2024 Subjective Feels better today. Still somewhat bloated but tolerating advancement of diet. No nausea/ vomiting. Bowels are functioning with gas and liquid stool. Still mildly tender on left side. Physical Exam Constitutional: WD/WN, vitals as above Gastrointestinal (Abdomen): Inspection/Auscultation: abdomen normal to inspection, + abdomen distended (mild, less than yesterday) and normal bowel sounds Percussion/Palpation: + abdomen tender (very mild left lower) and abdomen soft; no guarding Results & Data Vital Signs (Past 12 Hours) Vital Signs Temp Pulse Pulse Resp BP Pulse Ox O2 Del Method 03/21/24 07:43 37.0 C 70 16 82/52 L 96 Room Air 03/21/24 07:13 87 03/21/24 02:56 36.8 C 89 18 94/63 L 94 Room Air 03/21/24 00:10 95 H Laboratory Results Abnormal lab results 03/21/24 Range/Units 05:49 RBC 3.31 L (4.20-5.40) M/uL Hgb 9.7 L (12.0-16.0) g/dl Hct 29.2 L (37.0-47.0) % MPV 9.3 L (9.4-12.4) fL [facility] # (Auto) 0.72 H (0.11-0.59) K/uL [facility] # (Auto) 0.61 H (0.00-0.50) K/uL Potassium 3.3 L (3.5-5.1) mmol/L BUN 3 L (6-23) mg/dl Creatinine 0.53 L (0.6-1.2) mg/dl BUN/Creatinine Ratio 5.7 L (10-20) Calcium 8.3 L (8.6-10.3) mg/dl (1) Diverticulitis of intestine with perforation Diverticulitis bleeding: without bleeding Diverticulitis site: large intestine Qualified Code(s): K57.20 - Diverticulitis of large intestine with perforation and abscess without bleeding
--- NOTE | 2024-03-21 12:53 | Hospitalist Progress Note ---
Date of Service March 21, 2024 Assessment & Plan (1) Acute diverticulitis: (2) Hypokalemia: Plan 69 year old female presenting with recurrent sigmoid diverticulitis. Last episode in Nov 2023 but did not require admission. Presented 6/ with abdominal pain, fever and nausea/dry heaves. CT A/P On admission- Acute sigmoid diverticulitis with possible microperforation. A single 9 mm focus of free air is suggested in the adjacent mesentery. There is no evidence of drainable diverticular abscess. Repeat CT abdomen pelvis on March 164again seen findings of visceral perforation. Small amount of intraperitoneal free air below the diaphragm. Acute sigmoid diverticulitis with possible microperforation CT abdomen and pelvis as above WBC count down trended Continue IV fluids Diet advanced to low fibre Pain control Continue iv antibiotics Surgery on board; possible Discharge in a.m. depending on clinical course. Patient to follow-up with surgery for possible section of the bowel. Hypokalemia- Repleted Hypothyroid- continue synthroid Mood disorder- stable Hb drop- ? dilutional. Hb stabilized around 9 to 10 DVT ppx- sc lovenox Dispo- Pending medical stability. on iv antibiotics.Patient is to be closely monitoring patient for acute sigmoid diverticulitis with micro perforation Time spent evaluating patient, direct bedside care, chart review, placing orders, interpretation of diagnostic studies, discussion with consultants, patient, and family members, as well as other required patient management activities is 40 minutes Please note the above document was generated using voice recognition software. It may contain grammatical, syntax or spelling errors. Any formal questions or concerns about the content, text or information contained within the body of this dictation should be directly addressed to the provider for clarification Admission and Anticipated Discharge Date Admission Date: March 14, 2024 Subjective Patient seen and examined at bedside. She is comfortable lying in the bed; not in distress. She denies any pain; reports gas/bloating She wants to advance her diet. Review of Systems Review of Systems: All systems reviewed & are unremarkable except as noted in Subjective Physical Exam Physical Exam: Constitutional: Alert oriented x 3; not in distress. Respiratory: normal respiratory effort, lungs clear to auscultation, no wheeze, rales, rhonchi. Normal insp/exp effort, no accessory muscle use Cardiovascular: RRR, no murmur, no edema Vessels: no JVD or carotid bruit Chest: normal inspection of chest Abdomen: soft, non-tender Skin: no rashes, warm and dry normal turgor Neurologic: PERRL, EOMI, accommodation nl, no face palsy, no dysarthria CN's II- XI intact bilaterally and moves all extremities Psychiatric: A+Ox3, euthymic affect Results & Data Results & Data Vital Signs (Past 12 Hours) Vital Signs Temp Pulse Pulse Resp BP Pulse Ox O2 Del Method 03/21/24 11:07 36.9 C 84 16 92/58 L 94 Room Air 03/21/24 07:43 37.0 C 70 16 82/52 L 96 Room Air 03/21/24 07:13 87 03/21/24 02:56 36.8 C 89 18 94/63 L 94 Room Air
[2024-03-22 06:58] LABS: Basophils # (auto) 0.06 K/uL (0.00-0.20); Basophils % (auto) 0.5 %; Eosinophils # (auto) 0.43 K/uL (0.00-0.50); Eosinophils % (auto) 3.5 %; Hematocrit (blood only) 30.2 % (37.0-47.0); Hemoglobin 9.9 g/dl (12.0-16.0); Immature Granulocytes % (auto) 0.8 %; Lymphocytes # (auto) 2.23 K/uL (1.20-3.40); Lymphocytes % (auto) 18.4 %; Mean Corpuscular Hemoglobin 29.1 pg (25.0-34.0); Mean Corpuscular Hgb Conc 32.8 g/dL (32.0-36.0); Mean Corpuscular Volume 88.8 fL (80.0-100.0); Mean Platelet Volume 9.2 fL (9.4-12.4); Monocytes # (auto) 0.66 K/uL (0.11-0.59); Monocytes % (auto) 5.4 %; Neutrophils # (auto) 8.67 K/uL (1.40-6.50); Neutrophils % (auto) 71.4 %; Platelet Count 469 K/uL (130-400); RDW Coefficient of Variation 13.2 % (11.5-14.5); RDW Standard Deviation 42.7 fL (36.4-46.3); White Blood Count 12.15 K/ul (4.8-10.8)
[2024-03-22 07:24] LABS: BUN Creatinine Ratio 9.4 (10-20); Calcium 8.2 mg/dl (8.6-10.3); Creatinine Clr Calc Pharmacy 77.9 ml/min; Est GFR (African American) 110.8 ml/min; Est GFR (Non-African American) 95.6 ml/min; Potassium 3.5 mmol/L (3.5-5.1)
--- NOTE | 2024-03-22 07:58 | Surgery Progress Note ---
Date of Service March 22, 2024 Assessment & Plan (1) Diverticulitis of intestine with perforation: Plan: pt tolerating low fiber diet VSS wbc elevated from yesterday 12 (9) denies fever/chills patient reports ready to go home Will need a course of oral antibiotics for 2 weeks at d/c f/u with Dr. Escobar outpatient Continues to feel well and improved clinically. White blood cell count went up a little bit today however she has been afebrile with no new symptoms. No current indication for surgical intervention. We will discuss elective intervention in the future at her office visit with me. She will also need a colonoscopy in about 2 months. Admission and Anticipated Discharge Date Admission Date: March 14, 2024 Subjective Patient reports feeling well this AM +flatus, + BM tolerating low fiber denies fever, chills abd discomfort LLQ no pain Review of Systems Constitutional: no fever and no chills Respiratory: no dyspnea Cardiovascular: no chest pain Gastrointestinal: no abdominal pain, no nausea and no vomiting Musculoskeletal: no muscle weakness Physical Exam Physical Exam: alert oriented Constitutional: cooperative and comfortable; no acute distress Respiratory: normal respiratory effort and able to speak in complete sentences; no respiratory distress Cardiovascular: Rate/Rhythm: regular rate Gastrointestinal (Abdomen): Inspection/Auscultation: abdomen not distended Percussion/Palpation: + abdomen tender and abdomen soft; no guarding Musculoskeletal: no cyanosis or clubbing, extremities motor strength 5/5 Results & Data Vital Signs (Past 12 Hours) Vital Signs Temp Pulse Pulse Resp BP Pulse Ox O2 Del Method 03/22/24 07:47 87 03/22/24 07:09 98.8 F 87 18 93/59 L 91 Room Air 03/22/24 02:28 98.6 F 95 H 16 95/59 L 92 Room Air 03/21/24 22:31 99.1 F 99 H 16 92/63 L 96 Room Air 03/21/24 22:02 101 H PG Care Time/CCT Total # of Minutes Spent Total Time Spent with Patient: Total time spent is greater than 50% in coordination of care (as documented) at patient's floor/unit and/or counseling patient: Coding Level of Care Code 20436 SUB INP/OBS CARE Diagnoses Diverticulitis of large intestine with perforation without bleeding K57.20 Diverticulitis bleeding: without bleeding Diverticulitis site: large intestine (1) Diverticulitis of intestine with perforation Diverticulitis bleeding: without bleeding Diverticulitis site: large intestine Qualified Code(s): K57.20 - Diverticulitis of large intestine with perforation and abscess without bleeding
--- NOTE | 2024-03-22 13:23 | Discharge Summary ---
Date of Service March 22, 2024 Admission HPI Per Admitting Provider History obtained from patient, family, and records. Medical history significant for recurrent diverticulitis, hypothyroidism, ADD, mood disorder, fibromyalgia, cervical intraepithelial neoplasia, skin cancer as per records. Last admission January 2014 for acute diverticulitis status post medical management. Last ER visit November 2023 for acute sigmoid diverticulitis. Patient sent home. Improved with medical management. No recent GI follow-up Early this morning, patient noted achy left lower quadrant pain similar to diverticulitis attack but more intense than usual. No improvement with intake of leftover Cipro Flagyl medications from 2 months ago. Temperature 102. Some nausea, no emesis. No diarrhea, no hematochezia. No chest pain, no SOB. IV Zosyn administered at the ER for complicated diverticulitis. 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 [employer] Admission Exam Per Admitting Provider GENERAL: Slightly uncomfortable, slightly anxious, pleasant, no respiratory distress SKIN: Normal color, warm HEENT: [place] palpebral conjunctivae, no ptosis, dry buccal mucosa NECK : Supple, no tenderness CHEST : CTA, no tenderness HEART : Tachycardic, no obvious murmurs ABDOMEN: Some distention, left-sided abdominal tenderness EXTREMITIES : No LE swelling/tenderness, no other conspicuous deformities noted NEUROLOGIC : Coherent, no facial asymmetry, no other gross focalit Principal Diagnosis Acute diverticulitis with microperforation Discharge Exam Constitutional: Alert oriented x 3; not in distress. Respiratory: normal respiratory effort, lungs clear to auscultation, no wheeze, rales, rhonchi. Normal insp/exp effort, no accessory muscle use Cardiovascular: RRR, no murmur, no edema Vessels: no JVD or carotid bruit Chest: normal inspection of chest Abdomen: soft, non-tender Skin: no rashes, warm and dry normal turgor Neurologic: PERRL, EOMI, accommodation nl, no face palsy, no dysarthria CN's II- XI intact bilaterally and moves all extremities Psychiatric: A+Ox3, euthymic affect Discharge Data Allergies Allergy/AdvReac Type Severity Reaction Status Date / Time Bactrim Allergy Mild RASH Verified 09/15/16 17:20 sulfamethoxazole Allergy Mild Unknown Verified 03/14/24 22:13 trimethoprim Allergy Mild Unknown Verified 03/14/24 22:13 amoxicillin Allergy Unknown - Verified 03/14/24 22:13 cefuroxime Allergy Unknown SUNBURN Verified 03/14/24 22:13 SKIN, RECIEVED IV Consultations 03/15/24 03:48 Consult General Surgery Routine Ordered Studies 03/14/24 19:06 CT abd pelvis IV con only Stat 03/16/24 10:59 CT Abd and Pelvis [CT abd pelvis IV con only] Stat Hospital Course (1) Acute diverticulitis: (2) Hypokalemia: Plan 69 year old female presenting with recurrent sigmoid diverticulitis. Last episode in Nov 2023 but did not require admission. Presented 03/14 with abdominal pain, fever and nausea/dry heaves. CT abdomen pelvis done on admission showed acute sigmoid diverticulitis with possible microperforation. No evidence of drainage diverticular abscess. Patient had febrile and had leukocytosis on admission. Patient was admitted to medical floor; was started on IV antibiotics. General surgery was consulted for comanagement. Patient was kept n.p.o.; diet was advanced gradually. Leukocytosis improved. Patient's abdominal pain decreased. Patient fevers episodes decreased. Blood culture was negative At discharge, patient was tolerating low fiber diet. Surgery recommended 2 more weeks of oral antibiotics at discharge. Patient to follow-up with PCP and have colonoscopy done in 6 to 8 weeks. She will also follow-up with surgery to have evaluation for possible surgery in near future. [place] was held at discharge. Please note the above document was generated using voice recognition software. It may contain grammatical, syntax or spelling errors. Any formal questions or concerns about the content, text or information contained within the body of this dictation should be directly addressed to the provider for clarification Total Time Total Time Spent Total Time Spent (In Minutes): 35 Total Time Includes: Examination of the Patient, Discharge Planning, Medication Reconciliation, Communication With Other Providers and Other Discharge Plan Discharge Items Patient Disposition: Home - Self-Care Reason For Visit: SEPSIS Discharge Diagnosis: Acute sigmoid diverticulitis with possible microperforation Activity: Resume your previous activity Non-emergency contact: Primary Care Provider Call non-emergency contact if: you have any medication questions and your symptoms worsen Follow-up/Referrals: Augustin Escobar DO [Surgeon] - (call office for a follow up to discuss surgical options ) Mendez Licona MD [Primary Care Provider] - (Date & Time 03/24/2024 4:00 PM Provider Mendez Licona MD Department Family Practice [facility] ) Diet: Regular Addtl Attending Provider Instructions: You were admitted to the hospital due to diverticulitis with possible microperforation. You are treated with bowel rest, IV antibiotics during the hospitalization. You are prescribed Augmentin to be taken twice daily for 2 more weeks as per surgery's recommendation. Please follow a low fiber diet for next 4 weeks. Please follow-up with your primary care doctor. You will need colonoscopy in 6 to 8 weeks time. Please hold Ozempic for the time being till decision regarding surgery is made. Follow-up with surgery to make decision regarding possible surgery in the future. Pending Studies at Discharge: No Stand-Alone Forms: My [facility] [place], Smoking Cessation Medications and DC Order Prescriptions: New amoxicillin-pot clavulanate 875-125 mg tablet 1 tab PO BID 14 Days Qty: 28 0RF Continued silver sulfadiazine [Silvadene] 1 % Cream 1 applic TOPICAL DIRECTED Rx Instructions: apply a 1.5 mm thickness cetirizine [Zyrtec] 10 mg Tablet 10 mg PO DAILY ondansetron HCl 4 mg tablet 4 mg PO Q8 PRN (Reason: Nausea) tramadol 50 mg Tablet 50 mg PO Q6H PRN (Reason: Pain) lorazepam 0.5 mg tablet 0.5 mg PO HS PRN (Reason: Sleep) meclizine 25 mg Tablet 25 mg PO TID PRN (Reason: dizzyness) benzonatate 100 mg capsule 100 mg PO TID PRN (Reason: Cough) levothyroxine 50 mcg tablet 50 mcg PO QAM vitamin B complex Tablet 1 tab PO DAILY albuterol sulfate 90 mcg/actuation Hfa Aerosol Inhaler 2 puff INHALATION .Q6HRS PRN (Reason: Shortness Of Breath Or Wheezing) eszopiclone 1 mg tablet 1 mg PO HS pregabalin 75 mg capsule 75 mg PO QAM pregabalin 75 mg capsule 150 mg PO HS lisdexamfetamine [Vyvanse] 20 mg capsule 20 mg PO DAILY calcium carbonate-vitamin D3 [Calcium 600 with Vitamin D3] 600 mg-12.5 mcg (500 unit) Capsule 1 cap PO DAILY Rx Instructions: unsure of strenght Held Ozempic 1 mg/dose (4 mg/3 mL) pen injector 1 mg SUBCUT .WEEKLY Hold Instructions: Resume on 04/19/24. Hold till decision regarding surgery is made Rx Instructions: Q mon Discharge Orders: Discharge Order (Routine); Ordered 03/22/24 Ordered By: Everette Kiran Admission Data Admit Date/Time: 03/14/24 23:56 Attending Provider: Everette Kiran Admit Provider: Ike Kumari Primary Care Provider: Mendez Licona Other Providers: Ezekiel Reese Other Interventions: Discharge Summary Assessment (RN) Last Done: 03/22/24 09:46
--- NOTE | 2024-03-23 15:45 | Coding Query ---
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 Please assist us with the question(s) below: Coding Question(s): Documentation in the medical record indicates the followin/4 CT There is a small volume of abdominopelvic ascites with associated peritoneal thickening and enhancement suggestive of peritonitis. 03/[address] a/p obtained yesterday for worsening pain + chills. showed c/f visceral perf of sigmoid diverticulitis or possibly the inflamed right colon ( after review the R colon is likely secondarily inflamed) Based on your medical judgment, can you further clarify in the progress notes if PERITONITIS has been ruled in/ruled out on discharge? [ ] Peritonitis ruled out [ ] Peritonitis ruled in [ ] Other [ X ] Unable to determine Physician's Response(s): Thank you Nicole Benitez, IRASEMAP, CCS Principal Diagnosis: "that condition established after study, to be chiefly responsible for occasioning the admission of the patient to the hospital for care." Co-Existing Principal Diagnosis: "when two or more diagnoses equally meet the criteria for principal diagnosis as determined by the circumstances of admission, diagnostic work up, and/or therapy provided, and the Alphabetic Index, Tabular List, or another coding guideline does not provide sequencing direction, any one of the diagnoses may be sequenced first." "When the physician has documented what appears to be a current diagnosis in the body of the record, but has not included the diagnosis in the final diagnostic statement, the physician should be asked whether the diagnosis should be added." (Source [facility] 2 QTR90. p3-4) BLAYNE
== END 2024-03-22 11:09 | disposition home or self-care (01) | DRG 872 ==
LOC: ED 18:29 → SUATTDRO 23:56 → EDINP 23:56 → 2N 03-15 03:47

== ENCOUNTER 2024-04-07 14:15 | Inpatient (IN) ==
--- NOTE | 2024-04-07 14:26 | ED Triage Note ---
Date of Service April 07, 2024 Provider in Triage Author: Geri Corey History of Present Illness This patient was briefly evaluated while in triage. An abbreviated physical exam was performed. This patient is a 63-year-old Female who presents to the ED for evaluation of abdominal pain. Pt. has been on antibiotics since diverticulitis on 03/15. States she was admitted for several days. Last night, developed LLQ pain and was advised by Dr. Escobar to come to the ED for any flare-up of pain. Reports fever of 101 this morning. Physical Exam VITALS: Vitals are noted on the nurse's note and reviewed by myself. GENERAL: This is a 63 year old female, in no acute distress, nondiaphoretic, well-developed well-nourished. SKIN: No obvious rashes, edema, erythema HEAD: Normocephalic atraumatic. EYES: Conjunctivae without injection, sclerae without icterus. NECK: No JVD. LUNGS: No retractions or accessory muscle use. MUSCULOSKELETAL: Normal gait. NEURO: Patient was alert and oriented to person place and time. No focal thien rological deficits. Initial orders for labs and / or imaging were placed and patient was placed in the waiting area until a bed is available. Please see further documentation for the full ED course.
--- NOTE | 2024-04-07 15:01 | Electrocardiogram Report ---
Test Reason : Blood Pressure : / mmHG Vent. Rate : 106 BPM Atrial Rate : 106 BPM P-R Int : 142 ms QRS Dur : 076 ms QT Int : 324 ms P-R-T Axes : 049 000 047 degrees QTc Int : 430 ms Sinus tachycardia Possible Old Anterior infarct (cited on or before 28-SEP-2015) Abnormal ECG When compared with ECG of 16-MAR-2024 11:39, Premature ventricular complexes are no longer Present Confirmed by Alejandro Duggan ([id number]) on 04/07/2024 3:01:34 PM Referred By: Confirmed By:Alejandro Duggan
[2024-04-07] MEDS ORDERED: MoRPHine SULFATE 4 MG/ML 1 ML CARP\\VIAL IV PRN (15:11)
--- NOTE | 2024-04-07 15:14 | Emergency Department Note ---
Impression & Plan Colonic diverticular abscess, Acute diverticulitis ED Provider Note NAME: MANSOOR GOTTLIEB AGE: 63 SEX: F : 1960 ARRIVES VIA: Walk-In INFORMANT: Patient, ED PROVIDER(S): Junior Reyes DO CHIEF COMPLAINT: Abdominal pain HPI: The patient is a 63-year-old female who presented to the emergency department at the request of her primary surgeon. The patient was recently discharged from our facility for diverticulitis with microperforation. She has been on extended course of Augmentin twice daily. The patient started having fever on Friday of last week. She did contact her surgeon at that time she did not have any pain. She was told to keep using Tylenol for fever but if she develops pain she should go directly to the emergency department. This morning the patient noticed some pain so she came the emergency department for further evaluation. She denies having any dysuria or frequency. She denies having any coughing. ROS: See above HPI for pertinent positives & negatives. A total of 10 systems reviewed and were otherwise negative. PAST MEDICAL HISTORY: See Below PAST SURGICAL HISTORY: See Below FAMILY HISTORY: See Below SOCIAL HISTORY: See Below HOME MEDICATIONS: See Below ALLERGIES: See Below VITALS: See Below PHYSICAL EXAMINATION: GENERAL: The patient is awake and alert. She is very anxious and appears to be uncomfortable. EYES: The conjunctivae are clear. The pupils are round and reactive. EARS, NOSE, MOUTH AND THROAT: The nose is without any evidence of any deformity. NECK: The neck is nontender and supple. RESPIRATORY: Normal respiratory effort is noted there is no evidence of wheezing rhonchi or rales CARDIOVASCULAR: Regular rate and rhythm noted there no murmurs rubs or gallops normal S1 normal S2. GASTROINTESTINAL: Tenderness to palpation which is moderate. There is guarding in the left lower quadrant. Diffuse tenderness was noted as well. MUSCULOSKELETAL/EXTREMITIES: There is no evidence of gross deformity full range of motion is noted in the hips and shoulders. SKIN: There is no obvious evidence of any rash. There are no petechiae, pallor or cyanosis noted. NEUROLOGIC: Patient is awake alert and oriented x3 MEDICAL DECISION MAKING: The patient is a 63-year-old female who was an inpatient at our facility for diverticulitis. She has been on antibiotics ever since her discharge. She started having fevers last Friday. She contacted her general surgeon. She was told to continue using Tylenol but she was also told if she developed pain she should go to the emergency department. Today she started developing pain so she came to the emergency room for further evaluation. The patient did have significant guarding in the left lower quadrant. CT does appear to show worsening of her diverticulitis with microperforation as well as abscess. I discussed her condition with the on-call general surgical group as well [facility] They have agreed to evaluate the patient in the emergency department. She was treated with IV fluids and IV pain medication. She was also given IV antibiotics. Triage Nursing notes reviewed. Prior medical records reviewed Vital Signs: reviewed and remarkable for hypotension. Differential diagnosis: Etiologies such as appendicitis, diverticulitis, obstruction, inflammatory bowel disease, renal colic, PUD, biliary pathology, pancreatitis, mesenteric ischemia, aortic pathology, infections, genitourinary, UTI, perforated viscus, as well as others were entertained. ER treatment provided: See below Diagnostics interpreted by me: ECG: EKG was obtained in the emergency department. My interpretation is sinus tachycardia at 106 bpm. There is no ectopy. There is no acute ST segment abnormalities noted. This was compared to a tracing from March 16, 2024. No changes were noted. Cardiac Monitoring: An order was placed for continuous cardiac monitoring. The monitor shows a rate of 87 bpm with sinus rhythm. Laboratory studies: As stated above and show below. Imaging studies: See below. Radiographic imaging was reviewed by myself Consultation(s): I discussed this case with Alexa who [facility]. I discussed this case with Dr. Holley who is on-call for general surgery ED COURSE: Procedures: none Critical Care: I have personally spent greater than 45 minutes of critical care time in the direct management of this patient. This includes bedside care, interpretation of diagnostic studies, and testing, discussion with consultants, patient, and family members, and other required patient management activities. This 45 minutes is in excess of all separately billable procedures. Past Med/Surg History Problem List Abnormal CXR Acute diverticulitis (Acute) Colonic diverticular abscess (Acute) Diverticulitis of intestine with perforation (Acute) Diverticulitis (Acute) Hypokalemia Acute diverticulitis Sepsis Dietary counseling and surveillance ADHD Migraine headache Fatty infiltration of liver Overweight (BMI 25.0-29.9) Abnormal weight gain Early satiety Abdominal bloating Weight gain Encounter for annual routine gynecological examination Fibromyalgia Osteoarthritis (Chronic) Hypothyroidism (Chronic) Acute abdomen (Acute 01/24/14) Cervical strain (Acute) Cervical strain (Acute) Concussion (Acute) Contusion of right hip (Acute) Diverticulitis (Acute 01/24/14) Nausea vomiting and diarrhea (Acute) Substernal chest pain (Acute) Surgical History History of hysterectomy Hx of colonoscopy H/O dilation and curettage H/O LEEP Family History Father Diabetes Other Cancer Denies family history of Ovarian cancer Breast cancer Colorectal cancer Social History Smoking Status: Never smoker Do You Dip or Chew Tobacco: No; Hx Alcohol Use: No Hx Substance Use: No Preferred Language: Albanian Communication Ability: Effective Patrol Conductor Required: No Beliefs That Will Affect Care: None marital status: Current Living Situation: Alone current occupational status: employed How many Children do You have: 2 Feels Safe at Home: Yes during the past year weight has: remained stable Assistive Devices: None Allergies Allergies Allergy/AdvReac Type Severity Reaction Status Date / Time Bactrim Allergy Mild RASH Verified 09/15/16 17:20 sulfamethoxazole Allergy Mild Unknown Verified 04/07/24 16:36 trimethoprim Allergy Mild Unknown Verified 04/07/24 16:36 amoxicillin Allergy Unknown - Verified 04/07/24 16:36 cefuroxime Allergy Unknown SUNBURN Verified 04/07/24 16:36 SKIN, RECIEVED IV Home Meds Home Medications Medication Instructions Recorded Confirmed albuterol sulfate 90 mcg/actuation 2 puff inhalation .Q6HRS PRN 03/14/24 04/07/24 aerosol inhaler Shortness Of Breath Or Wheezing calcium carbonate 600 mg-vitamin 1 cap PO DAILY 03/14/24 04/07/24 D3 12.5 mcg (500 unit) capsule (Calcium 600 with Vitamin D3) cetirizine 10 mg tablet (Zyrtec) 10 mg PO DAILY 03/14/24 04/07/24 levothyroxine 50 mcg tablet 50 mcg PO QAM 03/14/24 04/07/24 lisdexamfetamine 20 mg capsule 20 mg PO DAILY PRN Need to 03/14/24 04/07/24 (Vyvanse) focus/Projects at work lorazepam 0.5 mg tablet 0.5 mg PO HS PRN Sleep 03/14/24 04/07/24 meclizine 25 mg tablet 25 mg PO TID PRN dizzyness 03/14/24 04/07/24 ondansetron HCl 4 mg tablet 4 mg PO Q8 PRN Nausea 03/14/24 04/07/24 pregabalin 75 mg capsule 75 mg PO QAM 03/14/24 04/07/24 silver sulfadiazine 1 % topical 1 applic topical DIRECTED 03/14/24 04/07/24 cream (Silvadene) tramadol 50 mg tablet 50 mg PO Q6H PRN Pain 03/14/24 04/07/24 vitamin B complex 1 tab PO DAILY 03/14/24 04/07/24 pregabalin 75 mg capsule 150 mg PO HS 04/07/24 04/07/24 Previous Rx's Medication Instructions Recorded amoxicillin 875 mg-potassium 1 tab PO BID #30 tabs 03/31/24 clavulanate 125 mg tablet Results & Data (ED) Vital Signs Vital Signs - 24 hr 04/07/24 14:23 Temperature 37.1 C Temperature Source Oral Pulse Rate 115 H Respiratory Rate 18 Respiratory Effort / Characteristics Non-Labored Spontaneous Respiratory Depth Normal Respiratory Pattern Regular Blood Pressure 97/65 L Blood Pressure Mean 75 Pulse Oximetry 95 Oxygen Delivery Method Room Air Sepsis Recent Fever Within 48 Hours Yes Sepsis New/Unexplained Change in Mental Status No Sepsis Action Taken by Nursing Physician Notified Home Medications Current Medication List: was personally reviewed by me Laboratory Data Attestation: I reviewed the patient's lab results. 04/07/24 14:50 04/07/24 14:50 Lab Results 04/07/24 Range/Units 14:50 WBC 19.83 H (4.8-10.8) K/ul RBC 4.09 L (4.20-5.40) M/uL Hgb 11.6 L (12.0-16.0) g/dl Hct 35.4 L (37.0-47.0) % MCV 86.6 (80.0-100.0) fL MCH 28.4 (25.0-34.0) pg MCHC 32.8 (32.0-36.0) g/dL RDW Std Deviation 40.1 (36.4-46.3) fL RDW Coeff of Mega 12.8 (11.5-14.5) % Plt Count 522 H (130-400) K/uL MPV 10.0 (9.4-12.4) fL Immature Gran % (Auto) 0.6 % Neut % (Auto) 76.9 % Lymph % (Auto) 13.7 % [place] % (Auto) 4.3 % Eos % (Auto) 3.9 % Baso % (Auto) 0.6 % Neut # (Auto) 15.27 H (1.40-6.50) K/uL Lymph # (Auto) 2.72 (1.20-3.40) K/uL [place] # (Auto) 0.85 H (0.11-0.59) K/uL Eos # (Auto) 0.77 H (0.00-0.50) K/uL Baso # (Auto) 0.11 (0.00-0.20) K/uL Immature Gran # (Auto) 0.11 (0.01-0.20) K/uL PT 11.8 (9.0-12.0) Seconds INR 1.1 (0.9-1.1) APTT 29 (21-31) Seconds PTT Ratio 1.1 Sodium 136 (136-145) mmol/L Potassium 3.5 (3.5-5.1) mmol/L Chloride 99 (98-107) mmol/L Carbon Dioxide 26 (21-32) mmol/L Anion Gap 11 (3-11) BUN 10 (6-23) mg/dl Creatinine 0.62 (0.6-1.2) mg/dl Est Cr Clr Drug Dosing 74.4 ml/min Est GFR ( Amer) 112.0 ml/min Est GFR (Non-Af Amer) 96.6 ml/min BUN/Creatinine Ratio 16.1 (10-20) Glucose 113 H (70-99(Fasting)) mg/dl Lactate 1.1 (0.4-2.0) mmol/L Calcium 9.2 (8.6-10.3) mg/dl Magnesium 2.0 (1.7-2.4) mg/dl Total Bilirubin 0.6 (0.2-1.0) mg/dl Direct Bilirubin 0.2 (0-0.2) mg/dl AST 12 L (13-39) U/L ALT 10 (7-52) U/L Alkaline Phosphatase 59 (34-104) U/L Troponin I High Sens 3.1 (0-14) pg/ml Total Protein 7.9 (6.0-8.3) gm/dl Albumin 4.0 (3.4-5.0) gm/dl Procalcitonin 0.15 (0-0.5) ng/ml Administered Medications Discontinued Medications Sodium Chloride (Nss) 1,000 mls @ 999 mls/hr IV .Q1H1M JONES Stop: 04/07/24 16:30 Last Admin: 04/07/24 16:54 Dose: 999 mls/hr Documented By: Infusion: 04/07/24 16:54 Dose: Infused Documented By: Admin: 04/07/24 15:49 Dose: 999 mls/hr Documented By: MERRILL Piperacillin Sod/Tazobactam Sod (Zosyn) 4.5 gm in 100 mls @ 200 mls/hr IV NOW ONE Stop: 04/07/24 16:19 Last Infusion: 04/07/24 16:43 Dose: Infused Documented By: Admin: 04/07/24 16:11 Dose: 200 mls/hr Documented By: MERRILL Ioversol (Optiray 320 100ml) 93 ml IV ONCE ONE Stop: 04/07/24 15:39 Last Admin: 04/07/24 15:38 Dose: 93 ml Documented By: OLGA Morphine Sulfate (Morphine Sulfate 4 Mg/Ml 1 Ml Carp\Vial) 4 mg IV NOW STA Stop: 04/07/24 15:12 Last Admin: 04/07/24 15:47 Dose: 4 mg Documented By: MERRILL Ondansetron HCl (Ondansetron Inj 2 Mg/Ml 2 Ml Vial) 4 mg IV NOW STA Stop: 04/07/24 15:12 Last Admin: 04/07/24 15:47 Dose: 4 mg Documented By: SDK Imaging Data Attestation: I personally reviewed and interpreted this imaging study as follows: My Impression: CT of the abdomen and pelvis was obtained in the emergency department. My interpretation is no signs of bowel obstruction, significant stranding was noted in the left lower abdomen. Final report below. Radiologist's Impression: Abdomen/Pelvis CT 04/07/24 14:27 CT OF THE ABDOMEN AND PELVIS WITH CONTRAST CLINICAL HISTORY: LLQ pain, hx. diverticulitis with perforation COMPARISON STUDY: CT of the abdomen and pelvis March 16, 2024. TECHNIQUE: Following IV administration of 93 mL of Optiray, axial images of the abdomen and pelvis were obtained from the lung bases to the proximal femurs. Images were reviewed in the axial, sagittal, and coronal planes. IV contrast was administered without complication. Automated exposure control was utilized for the study. A dose lowering technique was utilized adhering to the principles of ALARA. CT DOSE: 536.55 mGy.cm FINDINGS: Lower lung opacities favor atelectasis. Hypodense hepatic lesions favor cysts. Subcentimeter hepatic lesions are too small character as but likely benign. Gallbladder distention is unchanged. There is no pericholecystic thickening. Spleen, adrenal glands, kidneys and pancreas are unremarkable. There is no hydronephrosis. Extensive sigmoid diverticulosis is again noted. Sigmoid colon wall thickening with pericolonic inflammation has increased since CT of March 16, 2024. A small amount of fluid within the pelvis is also increased. Moderate extraluminal gas extending into the mesentery has significantly increased since prior exam. The largest pocket measures 5 x 3.4 cm. A few fluid and gas containing pericolonic collections measure up to 2.4 x 2 cm. These have progressed. Tethered appearance of several ileal loops is noted. Underlying fistulas cannot be excluded. Moderate wall thickening of the distal ileum and right colon was also shown on prior exam. Small bowel is mildly fluid-filled. No definite evidence for a bowel obstruction. Prominent ileocolic lymph nodes are likely reactive. IMPRESSION: 1. Extensive sigmoid diverticulosis with progression of sigmoid colon wall thickening and moderate pericolonic inflammation since CT of March 16, 2024. Significant increase in extraluminal gas extending into the mesentery. The findings favor perforated sigmoid diverticulitis with progression since prior CT. A few small fluid and gas containing pericolonic collections consistent with abscesses. No drainable abscess. 2. Persistent wall thickening of several ileal loops and the right colon, likely secondary to perforated diverticulitis. Tethered appearance of several ileal loops. Developing fistulas cannot be excluded. 3. Mildly fluid-filled small bowel without transition point. The findings favor an ileus. No evidence for a bowel obstruction. 4. No change in gallbladder distention. No CT evidence for acute cholecystitis. ACT 112: Negative or not required by law. Electronically signed by: Lior Sims M.D. 04/07/2024 4:05 PM Chest X-Ray 04/07/24 14:27 XR chest 1V portable CLINICAL HISTORY: Sepsis COMPARISON STUDY: Chest radiograph and chest CT September 28, 2015. FINDINGS: Lung volumes are normal. A 1.7 cm right lower lung nodular opacity is present. There is no pneumothorax or pleural effusion. Cardiac size is stable. Mediastinal contours are normal. There is no evidence for pulmonary edema. IMPRESSION: 1.7 cm right lower lung nodular opacity. This may reflect atelectasis. A small focus of pneumonia could appear similar although is considered less likely. A pulmonary nodule is also considered less likely, as no nodule was shown on abdominal CT of March 14, 2024. This can be assessed on follow-up exams to ensure resolution. ACT 112: Negative or not required by law. Electronically signed by: Lior Sims M.D. 04/07/2024 3:36 PM Discharge Plan Visit Data Chief Complaint: Abdominal Pain Stated Complaint: abdominal pain ED Provider: Junior Reyes Discharge Problem: Colonic diverticular abscess, Acute diverticulitis Patient Disposition: Being Evaluated by Hospitalist
[2024-04-07 15:22] LABS: Basophils # (auto) 0.11 K/uL (0.00-0.20); Basophils % (auto) 0.6 %; Eosinophils # (auto) 0.77 K/uL (0.00-0.50); Eosinophils % (auto) 3.9 %; Hematocrit (blood only) 35.4 % (37.0-47.0); Hemoglobin 11.6 g/dl (12.0-16.0); Immature Granulocytes # (auto) 0.11 K/uL (0.01-0.20); Immature Granulocytes % (auto) 0.6 %; Lymphocytes # (auto) 2.72 K/uL (1.20-3.40); Lymphocytes % (auto) 13.7 %; Mean Corpuscular Hemoglobin 28.4 pg (25.0-34.0); Mean Corpuscular Hgb Conc 32.8 g/dL (32.0-36.0); Mean Corpuscular Volume 86.6 fL (80.0-100.0); Monocytes # (auto) 0.85 K/uL (0.11-0.59); Monocytes % (auto) 4.3 %; Neutrophils # (auto) 15.27 K/uL (1.40-6.50); Neutrophils % (auto) 76.9 %; Platelet Count 522 K/uL (130-400); RDW Coefficient of Variation 12.8 % (11.5-14.5); RDW Standard Deviation 40.1 fL (36.4-46.3); Red Blood Count 4.09 M/uL (4.20-5.40); White Blood Count 19.83 K/ul (4.8-10.8)
[2024-04-07 15:35] LABS: BUN Creatinine Ratio 16.1 (10-20); Bilirubin Direct 0.2 mg/dl (0-0.2); Bilirubin,Total 0.6 mg/dl (0.2-1.0); Calcium 9.2 mg/dl (8.6-10.3); Creatinine Clr Calc Pharmacy 74.4 ml/min; Est GFR (Non-African American) 96.6 ml/min; Potassium 3.5 mmol/L (3.5-5.1); Total Protein 7.9 gm/dl (6.0-8.3)
--- NOTE | 2024-04-07 15:37 | XRay Report ---
XR chest 1V portable CLINICAL HISTORY: Sepsis COMPARISON STUDY: Chest radiograph and chest CT September 28, 2015. FINDINGS: Lung volumes are normal. A 1.7 cm right lower lung nodular opacity is present. There is no pneumothorax or pleural effusion. Cardiac size is stable. Mediastinal contours are normal. There is n o evidence for pulmonary edema. IMPRESSION: 1.7 cm right lower lung nodular opacity. This may reflect atelectasis. A small focus of p neumonia could appear similar although is considered less likely. A pulmonary nodule is also consider ed less likely, as no nodule was shown on abdominal CT of March 14, 2024. This can be assessed on follo w-up exams to ensure resolution. ACT 112: Negative or not required by law. Electronically signed by: Lior Sims M.D. 04/07/2024 3:36 PM
[2024-04-07] MEDS: OPTIRAY 320 100ml IV ONE (15:38)
[2024-04-07 15:41] LABS: Troponin I High Sensitivity 3.1 pg/ml (0-14)
[2024-04-07 15:43] LABS: INR 1.1 (0.9-1.1); Partial Thromboplastin Ratio 1.1; Partial Thromboplastin Time 29 Seconds (21-31); Prothrombin Time 11.8 Seconds (9.0-12.0)
[2024-04-07] MEDS: ONDANSETRON INJ 2 MG/ML 2 ML VIAL IV STA (15:47)
[2024-04-07] MEDS: MoRPHine SULFATE 4 MG/ML 1 ML CARP\\VIAL IV STA (15:47)
[2024-04-07] MEDS: SODIUM CHLORIDE 0.9% 1,000 ML IV SCH (15:49)
--- NOTE | 2024-04-07 16:07 | CT Scan Report ---
CT OF THE ABDOMEN AND PELVIS WITH CONTRAST CLINICAL HISTORY: LLQ pain, hx. diverticulitis with perforation COMPARISON STUDY: CT of the abdomen and pelvis March 16, 2024. TECHNIQUE: Following IV administration of 93 mL of Optiray, axial images of the abdomen and pelvis we re obtained from the lung bases to the proximal femurs. Images were reviewed in the axial, sagittal, and coronal planes. IV contrast was administered without complication. Automated exposure control wa s utilized for the study. A dose lowering technique was utilized adhering to the principles of ALARA . CT DOSE: 536.55 mGy.cm FINDINGS: Lower lung opacities favor atelectasis. Hypodense hepatic lesions favor cysts. Subcentimete r hepatic lesions are too small character as but likely benign. Gallbladder distention is unchanged. There is no pericholecystic thickening. Spleen, adrenal glands, kidneys and pancreas are unremarkable . There is no hydronephrosis. Extensive sigmoid diverticulosis is again noted. Sigmoid colon wall thi ckening with pericolonic inflammation has increased since CT of March 16, 2024. A small amount of fluid within the pelvis is also increased. Moderate extraluminal gas extending into the mesentery has sign ificantly increased since prior exam. The largest pocket measures 5 x 3.4 cm. A few fluid and gas con taining pericolonic collections measure up to 2.4 x 2 cm. These have progressed. Tethered appearance of several ileal loops is noted. Underlying fistulas cannot be excluded. Moderate wall thickening of the distal ileum and right colon was also shown on prior exam. Small bowel is mildly fluid-filled. No definite evidence for a bowel obstruction. Prominent ileocolic lymph nodes are likely reactive. IMPRESSION: 1. Extensive sigmoid diverticulosis with progression of sigmoid colon wall thickening and moderate pe ricolonic inflammation since CT of March 16, 2024. Significant increase in extraluminal gas extending i nto the mesentery. The findings favor perforated sigmoid diverticulitis with progression since prior CT. A few small fluid and gas containing pericolonic collections consistent with abscesses. No draina ble abscess. 2. Persistent wall thickening of several ileal loops and the right colon, likely secondary to perfora iza diverticulitis. Tethered appearance of several ileal loops. Developing fistulas cannot be exclude d. 3. Mildly fluid-filled small bowel without transition point. The findings favor an ileus. No evidence for a bowel obstruction. 4. No change in gallbladder distention. No CT evidence for acute cholecystitis. ACT 112: Negative or not required by law. Electronically signed by: Lior Sims M.D. 04/07/2024 4:05 PM
[2024-04-07] MEDS: PIPERACILLIN/TAZOBACTAM 4.5 GM/100 ML BAG IV ONE (16:11)
--- NOTE | 2024-04-07 17:09 | History & Physical Report ---
Date of Service April 07, 2024 Assessment & Plan (1) Diverticulitis of intestine with perforation: (2) Sepsis: Plan: Patient is 63 year old female with PMH hypothyroidism, mood disorder presented to ER with c/o abdominal pain x 1 day. Hospitalization 03/14/2024-03/23/2024 for diverticulitis with microperforation treated with IV antibiotics and has been on Augmentin since. Intermittent fevers past week Today in ER afebrile, P: 115, R: 18, BP 97/65, 95% on room air. (Patient with chronic low blood pressure at baseline) WBC: 19, lactate: 1.1 CT ABD/PELVIS: 1. Extensive sigmoid diverticulosis with progression of sigmoid colon wall thickening and moderate pericolonic inflammation since CT of March 16, 2024. Significant increase in extraluminal gas extending into the mesentery. The findings favor perforated sigmoid diverticulitis with progression since prior C T. A few small fluid and gas containing pericolonic collections consistent with abscesses. No drainable abscess. 2. Persistent wall thickening of several ileal loops and the right colon, likely secondary to perforated diverticulitis. Tethered appearance of several ileal loops. Developing fistulas cannot be excluded. 3. Mildly fluid-filled small bowel without transition point. The findings favor an ileus. No evidence for a bowel obstruction. 4. No change in gallbladder distention. No CT evidence for acute cholecystitis. In ER given to L NSS, Zosyn, morphine Patient reassessed P: 91, R: 18, BP 94/60, 95% on room air, lungs clear to auscultation, brisk capillary refill, HR regular rhythm Blood cultures pending IVF Meropenem Toradol as needed pain. Patient prefers nonnarcotic medication as she does not like how it makes her feel General surgery consult. Spoke to on-call who reports member of surgical team will evaluate patient this evening and recommends IVF, antibiotics CBC, BMP in am (3) Hypothyroidism: Plan: Continue levothyroxine (4) Abnormal CXR: Plan: CXR: IMPRESSION: 1.7 cm right lower lung nodular opacity. This may reflect atelectasis. A small focus of pneumonia could appear similar although is considered less likely. A pulmonary nodule is also considered less likely, as no nodule was shown on abdominal CT of March 14, 2024. No cough, SOB, CP Would recommend repeat imaging to follow (5) ADHD: Plan: Hold home prn Vyvanse and lorazepam DVT Prophylaxis SCDs Disposition admit__ __Code as per discussion with pt Follows with [facility] for routine care Pt was seen and care coordinated with __. See addendum I spent a total of ___minutes reviewing notes, outpatient records, labs, medication, coordinating, documenting and providing care for this patient excluding time spent in the performance of separately billed services. History of Present Illness Chief Complaint: abdominal pain Primary Care Provider: Mendez Licona MD Patient is 63 year old female with PMH hypothyroidism, mood disorder presented to ER with c/o abdominal pain. History obtained from patient and inpatient and outpatient chart review. History [facility] hospitalization 03/14/2024-03/23/2024 for diverticulitis with microperforation treated with IV antibiotics and discharged on Augmentin. Patient followed up with general surgery, Dr. Escobar on 03/31/2024 and was continued on Augmentin and low residue diet with plan of future laparoscopic sigmoid colectomy. Patient states since discharge home had been not having any abdominal pain. Reported fever 7 days and 5 days ago had Tmax 101.4F. Fevers seemed to resolve after that and was not having any abdominal pain. She tried liquid diet and was feeling ok, so started back with low residue diet again. She was discharged on 14 days Augmentin and general surgery prescribed additional 15 days and she denies any lapse in antibiotic therapy. Reports last night started with left lower abdominal pain. This morning LLQ abdominal pain more severe and sharp with any movement and rates 8 out of 10 on pain scale. She states had two formed BMs this am without any noted melena or hematochezia. States this morning 101F fever. Denies N/V, MUIR, dizziness, syncope, CP, SOB, orthopnea, palpitations, cough, sore throat, weakness, extremity edema, rashes, urinary symptoms. Allergies Allergy/AdvReac Type Severity Reaction Status Date / Time Bactrim Allergy Mild RASH Verified 09/15/16 17:20 sulfamethoxazole Allergy Mild Unknown Verified 04/07/24 16:36 trimethoprim Allergy Mild Unknown Verified 04/07/24 16:36 amoxicillin Allergy Unknown - Verified 04/07/24 16:36 cefuroxime Allergy Unknown SUNBURN Verified 04/07/24 16:36 SKIN, RECIEVED IV Home Medications Medication Instructions Recorded Confirmed Type albuterol sulfate 90 mcg/actuation 2 puff inhalation .Q6HRS PRN 03/14/24 04/07/24 History aerosol inhaler Shortness Of Breath Or Wheezing calcium carbonate 600 mg-vitamin 1 cap PO DAILY 03/14/24 04/07/24 History D3 12.5 mcg (500 unit) capsule (Calcium 600 with Vitamin D3) cetirizine 10 mg tablet (Zyrtec) 10 mg PO DAILY 03/14/24 04/07/24 History levothyroxine 50 mcg tablet 50 mcg PO QAM 03/14/24 04/07/24 History lisdexamfetamine 20 mg capsule 20 mg PO DAILY PRN Need to 03/14/24 04/07/24 History (Doreen) focus/Projects at work lorazepam 0.5 mg tablet 0.5 mg PO HS PRN Sleep 03/14/24 04/07/24 History meclizine 25 mg tablet 25 mg PO TID PRN dizzyness 03/14/24 04/07/24 History ondansetron HCl 4 mg tablet 4 mg PO Q8 PRN Nausea 03/14/24 04/07/24 History pregabalin 75 mg capsule 75 mg PO QAM 03/14/24 04/07/24 History silver sulfadiazine 1 % topical 1 applic topical DIRECTED 03/14/24 04/07/24 History cream (Silvadene) tramadol 50 mg tablet 50 mg PO Q6H PRN Pain 03/14/24 04/07/24 History vitamin B complex 1 tab PO DAILY 03/14/24 04/07/24 History amoxicillin 875 mg-potassium 1 tab PO BID #30 tabs 03/31/24 04/07/24 Rx clavulanate 125 mg tablet pregabalin 75 mg capsule 150 mg PO HS 04/07/24 04/07/24 History Past Med/Surg History Problem List Abnormal CXR Acute diverticulitis (Acute) Colonic diverticular abscess (Acute) Diverticulitis of intestine with perforation (Acute) Diverticulitis (Acute) Hypokalemia Acute diverticulitis Sepsis Dietary counseling and surveillance ADHD Migraine headache Fatty infiltration of liver Overweight (BMI 25.0-29.9) Abnormal weight gain Early satiety Abdominal bloating Weight gain Encounter for annual routine gynecological examination Fibromyalgia Osteoarthritis (Chronic) Hypothyroidism (Chronic) Acute abdomen (Acute 01/24/14) Cervical strain (Acute) Cervical strain (Acute) Concussion (Acute) Contusion of right hip (Acute) Diverticulitis (Acute 01/24/14) Nausea vomiting and diarrhea (Acute) Substernal chest pain (Acute) Surgical History History of hysterectomy Hx of colonoscopy H/O dilation and curettage H/O LEEP Family History Father Diabetes Other Cancer Denies family history of Ovarian cancer Breast cancer Colorectal cancer Social History Smoking Status: Never smoker Do You Dip or Chew Tobacco: No; Hx Alcohol Use: No Hx Substance Use: No Preferred Language: Croatian Communication Ability: Effective 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 Beliefs That Will Affect Care: None marital status: Current Living Situation: Alone current occupational status: employed How many Children do You have: 2 Feels Safe at Home: Yes during the past year weight has: remained stable Assistive Devices: None Review of Systems Review of Systems: All systems reviewed & are unremarkable except as noted in HPI & below Physical Exam Physical Exam: General: no acute distress, ill appearing but non-toxic appearance, WDWN Head: normocephalic, atraumatic Eyes: conjunctiva non-injected, anicteric ENT: normal inspection external ears, nose, mucous membranes moist Neck: supple, trachea midline Lungs: clear, no respiratory distress, no wheezing/rhonchi/rales CV: RRR, no murmur, no pretibial edema Abd: normal BS, soft, +tender to palpation LLQ with guarding Ext: no cyanosis, no calf tenderness Neuro: A&O x 3, no focal deficits noted, normal affect Skin: warm, dry Results & Data Results & Data Vital Signs (Past 12 Hours) Vital Signs Temp Pulse Resp BP Pulse Ox O2 Del Method 04/07/24 14:23 37.1 C 115 H 18 97/65 L 95 Room Air Laboratory Results Short CBC 04/07/24 Range/Units 14:50 WBC 19.83 H (4.8-10.8) K/ul Hgb 11.6 L (12.0-16.0) g/dl Hct 35.4 L (37.0-47.0) % Plt Count 522 H (130-400) K/uL BMP 04/07/24 14:50 Sodium 136 Potassium 3.5 Chloride 99 Carbon Dioxide 26 BUN 10 Creatinine 0.62 Glucose 113 H Calcium 9.2 Liver Function 04/07/24 Range/Units 14:50 Total Bilirubin 0.6 (0.2-1.0) mg/dl Direct Bilirubin 0.2 (0-0.2) mg/dl AST 12 L (13-39) U/L ALT 10 (7-52) U/L Alkaline Phosphatase 59 (34-104) U/L Albumin 4.0 (3.4-5.0) gm/dl Diagnostic Findings Abdomen/Pelvis CT 04/07/24 14:27 CT OF THE ABDOMEN AND PELVIS WITH CONTRAST CLINICAL HISTORY: LLQ pain, hx. diverticulitis with perforation COMPARISON STUDY: CT of the abdomen and pelvis March 16, 2024. TECHNIQUE: Following IV administration of 93 mL of Optiray, axial images of the abdomen and pelvis were obtained from the lung bases to the proximal femurs. Images were reviewed in the axial, sagittal, and coronal planes. IV contrast was administered without complication. Automated exposure control was utilized for the study. A dose lowering technique was utilized adhering to the principles of ALARA. CT DOSE: 536.55 mGy.cm FINDINGS: Lower lung opacities favor atelectasis. Hypodense hepatic lesions favor cysts. Subcentimeter hepatic lesions are too small character as but likely benign. Gallbladder distention is unchanged. There is no pericholecystic thickening. Spleen, adrenal glands, kidneys and pancreas are unremarkable. There is no hydronephrosis. Extensive sigmoid diverticulosis is again noted. Sigmoid colon wall thickening with pericolonic inflammation has increased since CT of March 16, 2024. A small amount of fluid within the pelvis is also increased. Moderate extraluminal gas extending into the mesentery has significantly increased since prior exam. The largest pocket measures 5 x 3.4 cm. A few fluid and gas containing pericolonic collections measure up to 2.4 x 2 cm. These have progressed. Tethered appearance of several ileal loops is noted. Underlying fistulas cannot be excluded. Moderate wall thickening of the distal ileum and right colon was also shown on prior exam. Small bowel is mildly fluid-filled. No definite evidence for a bowel obstruction. Prominent ileocolic lymph nodes are likely reactive. IMPRESSION: 1. Extensive sigmoid diverticulosis with progression of sigmoid colon wall thickening and moderate pericolonic inflammation since CT of March 16, 2024. Significant increase in extraluminal gas extending into the mesentery. The findings favor perforated sigmoid diverticulitis with progression since prior CT. A few small fluid and gas containing pericolonic collections consistent with abscesses. No drainable abscess. 2. Persistent wall thickening of several ileal loops and the right colon, likely secondary to perforated diverticulitis. Tethered appearance of several ileal loops. Developing fistulas cannot be excluded. 3. Mildly fluid-filled small bowel without transition point. The findings favor an ileus. No evidence for a bowel obstruction. 4. No change in gallbladder distention. No CT evidence for acute cholecystitis. ACT 112: Negative or not required by law. Electronically signed by: Lior Sims M.D. 04/07/2024 4:05 PM Chest X-Ray 04/07/24 14:27 XR chest 1V portable CLINICAL HISTORY: Sepsis COMPARISON STUDY: Chest radiograph and chest CT September 28, 2015. FINDINGS: Lung volumes are normal. A 1.7 cm right lower lung nodular opacity is present. There is no pneumothorax or pleural effusion. Cardiac size is stable. Mediastinal contours are normal. There is no evidence for pulmonary edema. IMPRESSION: 1.7 cm right lower lung nodular opacity. This may reflect atel ectasis. A small focus of pneumonia could appear similar although is considered less likely. A pulmonary nodule is also considered less likely, as no nodule was shown on abdominal CT of March 14, 2024. This can be assessed on follow-up exams to ensure resolution. ACT 112: Negative or not required by law. Electronically signed by: Lior Sims M.D. 04/07/2024 3:36 PM ECG Additional Comments: Sinus tachycardia, rate 106 Supervising Physician Co-Signing Physician Notes Patient was seen and examined independently at bedside. Chart reviewed. Case discussed with Renay HILARIO and agree with the documentation above. In summary, this is a 63 year old female with recent hospitalization from 03/14-03/23 for acute sigmoid diverticulitis with microperforation which improved and discharged home on augmentin for 2 weeks which was extended during follow up visit to surgical team on 03/31 presented to the ED with fever and recurrence of LLQ pain and found to have complicated sigmoid diverticulitis (1. Extensive sigmoid diverticulosis with progression of sigmoid colon wall thickening and moderate pericolonic inflammation since CT of March 16, 2024. Significant increase in extraluminal gas extending into the mesentery. The findings favor perforated sigmoid diverticulitis with progression since prior CT. A few small fluid and gas containing pericolonic collections consistent with abscesses. No drainable abscess.2. Persistent wall thickening of several ileal loops and the right colon, likely secondary to perforated diverticulitis. Tethered appearance of several ileal loops. Developing fistulas cannot be excluded.3. Mildly fluid- filled small bowel without transition point. The findings favor an ileus. No evidence for a bowel obstruction. 4. No change in gallbladder distention. No CT evidence for acute cholecystitis.). Seen by surgical team who recommended conservative management for now. Afebrile, hemodynamically table, WBC 19 but lactate normal, procal negative. Will continue bowel rest, npo, ivf, iv meropenem, iv toradol, surgery consult. She would like toradol for pain rather than iv morphine as toradol helped her during recent admission. Further need for surgical intervention deferred to surgical team depending on the clinical course. On exam, AAO, sitting in bed, comfortable, not in acute distress, chest clear, HS normal, no edema, neurologically intact. Abd soft, tender LLQ, BS+, not distended. Son at bedside. Rest as per the note above. (1) Diverticulitis of intestine with perforation Diverticulitis bleeding: without bleeding Diverticulitis site: large intestine Qualified Code(s): K57.20 - Diverticulitis of large intestine with perforation and abscess without bleeding
--- NOTE | 2024-04-07 19:32 | Surgery Consultation ---
Date of Consultation April 07, 2024 Assessment & Plan (1) Acute diverticulitis: Patient has been admitted on the hospital service. From surgery perspective we recommend the following: Provide analgesics Provide antiemetics Provide IV fluid for hydration Continue antibioticsthe patient has received Zosyn in the emergency department but the hospitalist have elected to switch her to meropenem. Follow serial labs Implement n.p.o. status (I do feel the patient can have an occasional ice chip for comfort) I discussed with the patient that we would like to treat her in a conservative manner as any emergent surgery will necessitate a colostomy. At the present time the patient is nontoxic-appearing. Her blood pressure is slightly low but review of her blood pressure readings show that this is typically what her blood pressure runs. She is currently afebrile and without tachycardia or acute kidney injury and she also does not have an elevated lactic acid level so I therefore feel conservative treatment can be attempted. I did discuss with the patient that if she clinically deteriorates consideration may need to be given to performing a more emergent surgery which may necessitate a temporary colostomy and she expressed her understanding Additional recommendations be forthcoming based on her clinical course as unfolds Supervising Physician Co-Signing Physician Notes I personally saw and evaluated the patient with Min Norton PA-C and agree with the assessment and plan. 63 yo female with acute diverticulitis She has been admitted to the medical service Keep NPO, give IV ABX Her CT images and results were personally viewed and interpreted by myself She has no overt peritoneal signs and will try to treat her non-operatively for now I did discuss the case with Dr. Escobar and he will be assuming her care History of Present Illness Reason for Consultation: Diverticulitis Attending Physician: Ignacio Scales MD History of Present Illness This is a 63-year-old female who is known to [facility] general surgery. The patient was most recently hospitalized in March of this year from March 14, 2024 until March 22, 2024. During this admission the patient was noted to have sigmoid diverticulitis that was treated in a conservative manner. The patient was discharged home and she has since seen Dr. Jere Escobar of [facility] general surgery most recently on March [address] Escobar had plans to perform an elective sigmoid colectomy on this patient. Tentative plans were for patient to have surgery in late May or early June. Plans were for patient to have a bowel prep, followed by colonoscopy then followed by surgery in order to facilitate the chance of doing a 1 stage procedure. The patient presented to the emergency department today secondary to abdominal pain. She notes that she was feeling well yesterday but earlier today she developed some left-sided abdominal pain that is mostly confined to the left lower quadrant. She has not had any nausea or vomiting. She denies any modifying factors or radiation of the pain. She reports a temperature as high as 101.1 earlier today. She did report having a loose nonbloody bowel movement today. Patient does report she has had a colonoscopy most recently about 12 years ago and to the best of her knowledge there were no concerning findings or concerning pathology on the study. Patient says that she has never had abdominal surgery in the past. (In the past surgical history portion of this document/patient's problem list it is documented the patient has had a hysterectomyI did verify with the patient that she has not had a hysterectomy) Since arrival to the emergency department this patient has had labs and imaging which independent reviewed. A chest x-ray showed the patient had a 1.7 cm right lower lobe lung nodule. There did not appear to be any intraperitoneal free air on the study. A CT scan of the abdomen pelvis was performed that showed extensive sigmoid diverticulosis with progression of sigmoid colon wall thickening when compared to her most recent CT scan of March 16, 2024. There is extraluminal gas extending into the mesentery and a few small fluid and gas c ontaining pericolonic collections felt to be abscesses. These abscesses were felt to be too small to drain but the overall interpretation of the study showed concern for perforated sigmoid diverticulitis. There is no evidence for bowel obstruction but there was some fluid-filled small bowel favoring the diagnosis of ileus. Labs included CBC were white blood cell count was elevated 19.8. Hemoglobin and hematocrit were 11.6 and 35.4. Platelet count was 522,000. Coagulation studies were normal. Chemistry profile showed sodium and potassium as well as the BUN and creatinine were normal. Lactic acid was nonelevated at 1.1. Her magnesium was normal. There is no elevation of patient's LFTs. At the time of my interview she was resting comfortably in bed and she was no distress. Allergies Allergy/AdvReac Type Severity Reaction Status Date / Time Bactrim Allergy Mild RASH Verified 09/15/16 17:20 sulfamethoxazole Allergy Mild Unknown Verified 04/07/24 16:36 trimethoprim Allergy Mild Unknown Verified 04/07/24 16:36 amoxicillin Allergy Unknown - Verified 04/07/24 16:36 cefuroxime Allergy Unknown SUNBURN Verified 04/07/24 16:36 SKIN, RECIEVED IV Home Medications Medication Instructions Recorded Confirmed Type albuterol sulfate 90 mcg/actuation 2 puff inhalation .Q6HRS PRN 03/14/24 04/07/24 History aerosol inhaler Shortness Of Breath Or Wheezing calcium carbonate 600 mg-vitamin 1 cap PO DAILY 03/14/24 04/07/24 History D3 12.5 mcg (500 unit) capsule (Calcium 600 with Vitamin D3) cetirizine 10 mg tablet (Zyrtec) 10 mg PO DAILY 03/14/24 04/07/24 History levothyroxine 50 mcg tablet 50 mcg PO QAM 03/14/24 04/07/24 History lisdexamfetamine 20 mg capsule 20 mg PO DAILY PRN Need to 03/14/24 04/07/24 History (Doreen) focus/Projects at work lorazepam 0.5 mg tablet 0.5 mg PO HS PRN Sleep 03/14/24 04/07/24 History meclizine 25 mg tablet 25 mg PO TID PRN dizzyness 03/14/24 04/07/24 History ondansetron HCl 4 mg tablet 4 mg PO Q8 PRN Nausea 03/14/24 04/07/24 History pregabalin 75 mg capsule 75 mg PO QAM 03/14/24 04/07/24 History silver sulfadiazine 1 % topical 1 applic topical DIRECTED 03/14/24 04/07/24 History cream (Silvadene) tramadol 50 mg tablet 50 mg PO Q6H PRN Pain 03/14/24 04/07/24 History vitamin B complex 1 tab PO DAILY 03/14/24 04/07/24 History amoxicillin 875 mg-potassium 1 tab PO BID #30 tabs 03/31/24 04/07/24 Rx clavulanate 125 mg tablet pregabalin 75 mg capsule 150 mg PO HS 04/07/24 04/07/24 History Patient History Surgical History History of hysterectomy Hx of colonoscopy H/O dilation and curettage H/O LEEP Family History Father Diabetes Other Cancer Denies family history of Ovarian cancer Breast cancer Colorectal cancer Social History Smoking Status: Never smoker Do You Dip or Chew Tobacco: No; Hx Alcohol Use: No Hx Substance Use: No Preferred Language: Martiniquais Communication Ability: Effective Assistant Distribution Manager Required: No Beliefs That Will Affect Care: None marital status: Current Living Situation: Alone current occupational status: employed How many Children do You have: 2 Other Information That Helps Us Care for You: No Feels Safe at Home: Yes Safety Concerns: Feels Safe At This Time during the past year weight has: remained stable Assistive Devices: Glasses Review of Systems Review of Systems: All systems reviewed & are unremarkable except as noted in HPI & below Physical Exam Constitutional: WD/WN, vitals as above Eyes: no conjunctival abnormality ENMT: Ears: no hearing impairment and no external ear abnormality Mouth: no oropharynx abnormality Neck: trachea midline Respiratory: normal respiratory effort; no respiratory distress and no labored breathing Cardiovascular: Rate/Rhythm: regular rate and regular rhythm Vessels: dorsalis pedis pulses present and radial pulses present Gastrointestinal (Abdomen): Abdomen is soft with mild distention. Her abdomen is nonrigid. Patient did have pain with palpation in her abdomen greatest in the left lower quadrant. There was, however no rebound tenderness. Musculoskeletal: No calf tenderness Skin: no rashes Neurologic: moves all extremities Psychiatric: A+Ox3, euthymic affect Results & Data Vital Signs (Past 12 Hours) Vital Signs Temp Pulse Resp BP Pulse Ox O2 Del Method 04/07/24 19:00 98/61 L 04/07/24 19:00 85 17 93 04/07/24 18:36 86 16 93 04/07/24 18:15 88 11 L 95 04/07/24 18:00 94/60 L 04/07/24 17:54 91 H 18 93 04/07/24 17:33 91 H 15 93 04/07/24 17:30 93/63 L 04/07/24 17:27 90 17 94 04/07/24 17:24 87 04/07/24 17:18 91 H 19 92 04/07/24 14:23 37.1 C 115 H 18 97/65 L 95 Room Air PG Care Time/CCT Total # of Minutes Spent Total Time Spent with Patient: Total time spent is greater than 50% in coordination of care (as documented) at patient's floor/unit and/or counseling patient: Coding Level of Care Code 97907 IN/OBS CONSULT LVL 5,80M Diagnoses Acute diverticulitis K57.92
[2024-04-07] MEDS: PREGABALIN 150 MG CAP PO SCH (21:45)
[2024-04-08] MEDS: SODIUM CHLORIDE 0.9% 1,000 ML IV SCH (00:07)
[2024-04-08] MEDS: SODIUM CHLORIDE 0.9% 1,000 ML IV ONE (00:10)
[2024-04-08] MEDS: KETOROLAC 30 MG/ML VIAL IV SCH (00:13)
[2024-04-08 00:15] LABS: Appearance Urine Clear (Clear); Bilirubin Urine Negative (Negative); Blood Urine Negative (Negative); Color Urine Yellow; Glucose Urine UA Negative (Negative); Ketones Urine 1+ (Negative); Leukocyte Esterase Urine Negative (Negative); Nitrite Urine Negative (Negative); Protein Urine Negative (Negative); Specific Gravity Urine 1.013 (1.000-1.030); Urobilinogen Urine Negative (Negative)
[2024-04-08] MEDS: MEROPENEM 500 MG in SYRINGE 0 ML IV SCH (00:49)
--- OUTSIDE RECORDS SUMMARY | 2024-04-08 03:38 | External Medical Summary | Summary of Care ---
Author Name Unknown Organization [facility] Address [address] [place] [address] Phone [phone] Care Team Providers Care Marketing Writer Name Role Phone Mendez Licona MD Primary Care Provider + Encounter Details Date Type Department Care Team (Late st Contact Info) Description 04/05/2024 12:15 PM EDT Scheduled Telephone Care Coordination and Integration [address], [place] [id number] Ria Severino, Community Health Fabricator Special Items [address], [place] [id number] Allergies Active Allergy Reactions Criticality Noted Date Comments Bactrim Hives 10/29/2007 Citalopram Hydrobromide 02/17/2017 Flu like symptoms Doxycycline Nausea/vomiting 09/20/2016 Not able to eat Cefuroxime Sodium Rash 07/13/2010 Swelling of feet rash documented as of this encounter (statuses as of 04/05/2024) Medications Medication Sig Dispensed Refills Start Date End Date Status CALCIUM 1200 0481-9442 MG-UNIT PO CHEW one tablet daily Active [...] MEDS) 90 Tablet 1 11/07/2023 11/06/2024 Active Pregabalin 75 MG Oral Capsule (Lyrica) TAKE ONE CAPSULE BY MOUTH EVERY MORNING AND TAKE TWO CAPSULES BY MOUTH EVERY NIGHT--can take extra 1 capsule in afternoon and extra 1 capsule in evening as needed for fibro flare. 400 Capsule 1 12/31/2023 Active LORazepam 0.5 MG Oral Tablet (Ativan)Indications :Anxiety state Take 1 Tablet by mouth at bedtime as needed for Anxiety or Sleep. 30 Tablet 2 02/20/2024 Active Eszopiclone 1 MG Oral Tablet (Lunesta)Indication s:Persistent insomnia Take 1 Tablet by mouth at bedtime. for sleep 30 Tablet 03/02/2024 Active Lisdexamfetamine Dimesylate 20 MG Oral Capsule (Vyvanse)Indication s:Attention deficit disorder (ADD) without hyperactivity,MEDIC ATION USE AGREEMENT Take 1 Capsule by mouth in the morning. 30 Capsule 03/16/2024 Active Amoxicillin-Pot Clavulanate 875-125 MG Oral Tablet (Augmentin) 03/22/2024 Active documented as of this encounter (statuses as of 04/05/2024) Active Problems Problem Noted Date Diagnosed Date [...] US-3mm polyp. Adjacent cysts to GB 01/24 [facility] ER US Chronic iritis 01/10/2014 ADD (attention deficit disorder) 06/16/2013 Overview: 06/25 trial vyvanse. MEDICATION USE AGREEMENT 06/16/2013 Overview: Dr Licona for ADD stimulants Osteoarthritis, hand 05/21/2013 Routine general medical exam ination at a health care facility 05/13/2013 Overview: 08/03 cologuard WNL alejandra 3y. 04/02 pap & HPV WNL. Alejandra 6y 06/29 GB polyp 3mm (no size mentioned on [facility] 2014 US). Alejandra 2y d/c if stable Referred for [employer]-EAB endometrial polyp 01/26 11/25 mammo WNL 11/25 [...] as of this encounter (statuses as of 04/05/2024) Resolved Problems Problem Noted Date Diagnosed Date Resolved Date History of insect sting 06/29/2015/ Diverticulitis of colon 01/25/201405/2017 Overview: 01/24 [facility] Abnormal pap 02/14/2009 08/28/2016 ADVANCE DIRECTIVE INFORMATION 05/31/2008 08/02/2008 Overview: No, explained to patient Major depressive disorder Overview: ICD-10 update of inactive term Cervical intraepithelial neoplasia grade 2 05/13/2013 documented as of this encounter (statuses as of 04/05/2024) Immunizations Name Administration Dates Next Due COVID-19 mRNA, LNP-s, No Pre serve, 2-Dose Series ([employer]) 07/25/2021,10/28/2020,10/07/2020 COVID-19, LNP-s, No Preserve , Irving-sucrose, [...] 07/02/2011 TDAP (age 10 and older)(Boostrix) 08/10/2021 TDAP, Age 7 and older, IM (Adacel) 05/27/2001 documented as of this encounter Social History Tobacco Use Types Packs/Day Years Used Date Smoking Tobacco: Never Smokeless Tobacco: Never Comments:no passive smoke ex posures Alcohol Use Standard Drinks/Week Comments Not Currently 0 (1 standard drink = 0.6 oz pur e alcohol) PHQ-2 Answer Date Recorded PHQ-2 Score -1 10/15/2018 Utilities Answer Date Recorded Do you have trouble paying y our heating, water, or electric bill? (Adult - for ages 18 years and over) Not on file 03/30/2024 Is your family able to pay t he heat, water, or electric bill? (Household - for ages 0-17 years) Not on file 03/30/2024 Does your family have access to good internet? (Household - for ages 0-17 years) Not on file 03/30/2024 Social Connections Answer Date Recorded How often do you feel lonely or isolated from those around you? (Adult - for ages 18 years and over) Not on file 03/30/2024 Sex and Gender Information Value Date Recorded Sex Assigned at Not on file Gender Identity Not on file Sexual Orientation Not on file Job Start Date Occupation Industry Not on file Not on file Not on file documented as of this encounter Progress Notes * Ria Severino, Community Health Fabricator Special Items - 04/05/2024 12:16 PM EDT Telemedicine visit: No Community Health Fabricator Special Items (GENESIS) documentation: CHW placed VALERIE #2 PC to patient per CM's request Patient reported that she was running a fever this past Friday and was taking Tylenol for it to keep it down. She has not ran a fever since this past Friday. Is on a low fiber diet and is trying to let her belly rest as much as possible right now. She is to be having surgery soon. She is not havingpain however is still having discomfort in her stomach. She is just doing what she can do to rest her stomach as much as she can. CHW confirmed CM's contact number and encouraged patient to reach outto CM with any concerns or questions. Ria Severino- Community Health Worker 1 Support Services[facility] [employer] Plan [email or web address] documented in this encounter Plan of Treatment Upcoming Encounters Date Type Department Care Team (Late st Contact Info) Description 05/20/2024 8:20 AM EDT Office Visit Nutrition & Weight Management, [facility] [address] [address] Tamara Kinney PA-C [address] [address] 05/26/2024 7:00 AM EDT [facility] [address] [address] 07/30/2024 8:40 AM EDT Office Visit Family Practice [facility] [address] [address] Mendez Licona MD [address] [address] Scheduled Procedures Name Priority Associated Diagnoses Date/Ti me COLONOSCOPY FLEXIBLE PROXIMA L DIAGNOSTIC Recall Special screening for malignant neoplasms, colon Health Maintenance Due Date Last Done Comments Fecal Occult Blood Test 2006 Sigmoidoscopy 2006 Zoster Vaccines (1 of 2) 2011 Depression Monitoring 10/15/2019 10/15/2018 Colonoscopy 08/20/2022 08/20/2012, 08/20/2012 Mammogram 11/13/2023 11/13/2022, [...] filedocumented as of this encounter Care Teams Marketing Writer Relationship Specialty Start Date End Date Mendez Licona MD [address] [address] PCP - General Family Medicine 01/25/16 documented as of this encounter
--- OUTSIDE RECORDS SUMMARY | 2024-04-08 03:38 | External Medical Summary | Summary of Care ---
Author Name Unknown Organization [facility] Address [address] [place] [address] Phone [phone] Care Team Providers Care Product Safety Specialist Name Role Phone Mendez Licona MD Primary Care Provider + Reason for Visit * Reason Onset Date Comments Forms Request 03/29/2024 [employer] forms Encounter Details Date Type Department Care Team (Late st Contact Info) Description 03/29/2024 Telephone Family Practice [facility] [address] [place] [address] Mendez Licona MD [address] [place] [address] Forms Request ([employer] forms) Allergies Active Allergy Reactions Criticality Noted Date Comments Bactrim Hives 10/29/2007 Citalopram Hydrobromide 02/17/2017 Flu like symptoms Doxycycline Nausea/vomiting 09/20/2016 Not able to eat Cefuroxime Sodium Rash 07/13/2010 Swelling of feet rash documented as of this encounter (statuses as of 03/31/2024) Medications Medication Sig Dispensed Refills Start Date End Date Status CALCIUM 1200 7030-6609 MG-UNIT PO CHEW one tablet daily Active [...] as of this encounter (statuses as of 03/31/2024) Active Problems Problem Noted Date Diagnosed Date [...] 3mm (no size mentioned on [facility] 2014 US). Alejandra 1y d/c if stable Referred for BURLAPPER-EAB endometrial polyp 01/26 11/25 mammo WNL 11/25 [...] as of this encounter (statuses as of 03/31/2024) Resolved Problems Problem Noted Date Diagnosed Date Resolved Date History of insect sting 06/29/201512/12 Diverticulitis of colon 01/25/201405/2017 Overview: 01/24 [facility] Abnormal pap 02/14/2009 08/28/2016 ADVANCE DIRECTIVE INFORMATION 05/31/2008 08/02/2008 Overview: No, explained to patient Major depressive disorder Overview: ICD-10 update of inactive term Cervical intraepithelial neoplasia grade 2 05/13/2013 documented as of this encounter (statuses as of 03/31/2024) Immunizations Name Administration Dates Next Due COVID-19 mRNA, LNP-s, No Pre serve, 2-Dose Series ([employer]) 07/25/2021,10/28/2020,10/07/2020 COVID-19, LNP-s, No Preserve , Irving-sucrose, Ages 12+ (Pfizer) 04/05/2022 COVID-19, MRNA-LNP, 23-24, P F, 30 MCG/0.3 mL, 12 YRS AND ABOVE, IM ([facility] 07/07/2023 Covid-19, Mrna, Lnp-s, Pf, B ivalent, 30 Mcg, IM, 12 yrs and above ([employer]) 09/25/2022 DTWP - Dipth/Tet/Whole Cell Pertussis 05/27/2001 [...] encounter Miscellaneous Notes * Telephone Encounter - Mindy Lambert LPN - 03/31/2024 12:40 PM EDT Both forms faxed and scanned to [facility] * Telephone Encounter - Mendez Licona MD - 03/30/2024 9:38 PM EDT [place] [employer] form completed--to Mindy [employer] form completed Sees surgeon 03/31/24 for f/u. * Telephone Encounter - Mindy Lambert LPN - 03/30/2024 4:17 PM EDT Received [place] [employer] form for patients absence. Placed in PCP mailbox. * Telephone Encounter - Mindy Lambert LPN - 03/29/2024 10:24 AM EDT Received FMLA forms via fax from [employer]. Forms placed in PCP mailbox for signature. documented in this encounter Plan of Treatment Upcoming Encounters Date Type Department Care Team (Late st Contact Info) Description 05/20/2024 8:20 AM EDT Office Visit Nutrition & Weight Management, [facility] [address] [address] Tamara Kinney PA-C [address] [address] 05/26/2024 7:00 AM EDT Imaging Radiology [facility] [address] [address] 07/30/2024 8:40 AM EDT Office Visit Family Practice [facility] [address] [address] Mendez Licona MD [address] [address] Scheduled Procedures Name Priority Associated Diagnoses Date/Ti [...] Additional history exists Lipid Panel 01/28/2029 01/29/2024, 07/3 , 04/06/2019, Additional history exists DTaP,Tdap,and Td Vaccines [...] filedocumented as of this encounter Care Teams Product Safety Specialist Relationship Specialty Start Date End Date Mendez Licona MD [address] [address] PCP - General Family Medicine 01/25/16 documented as of this encounter
[2024-04-08] MEDS: LEVOTHYROXINE SODIUM 50 MCG TABLET PO SCH (06:10)
[2024-04-08 06:46] LABS: BUN Creatinine Ratio 12.7 (10-20); Creatinine Clr Calc Pharmacy 83.9 ml/min; Est GFR (African American) 116.5 ml/min; Est GFR (Non-African American) 100.5 ml/min; Potassium 3.4 mmol/L (3.5-5.1)
[2024-04-08 07:42] LABS: Basophils # (auto) 0.06 K/uL (0.00-0.20); Basophils % (auto) 0.5 %; Eosinophils # (auto) 1.15 K/uL (0.00-0.50); Eosinophils % (auto) 10.4 %; Hematocrit (blood only) 27.8 % (37.0-47.0); Hemoglobin 8.7 g/dl (12.0-16.0); Immature Granulocytes # (auto) 0.05 K/uL (0.01-0.20); Immature Granulocytes % (auto) 0.5 %; Lymphocytes # (auto) 2.16 K/uL (1.20-3.40); Lymphocytes % (auto) 19.6 %; Mean Corpuscular Hemoglobin 27.9 pg (25.0-34.0); Mean Corpuscular Hgb Conc 31.3 g/dL (32.0-36.0); Mean Corpuscular Volume 89.1 fL (80.0-100.0); Monocytes # (auto) 0.63 K/uL (0.11-0.59); Monocytes % (auto) 5.7 %; Neutrophils # (auto) 6.99 K/uL (1.40-6.50); Neutrophils % (auto) 63.3 %; Platelet Count 312 K/uL (130-400); RDW Standard Deviation 41.9 fL (36.4-46.3); Red Blood Count 3.12 M/uL (4.20-5.40); White Blood Count 11.04 K/ul (4.8-10.8)
[2024-04-08] MEDS: PREGABALIN 75 MG CAP PO SCH (08:06)
[2024-04-08] MEDS: POTASSIUM CHLORIDE / WTR 10 MEQ/100 ML PLCT IV SCH (10:06)
--- NOTE | 2024-04-08 10:34 | Surgery Progress Note ---
Date of Service April 08, 2024 Assessment & Plan (1) Acute diverticulitis: Plan: smoldering. failed out-pt treatment. discussed options...the fastest and likely best way to resolve this would be OR today with sigmoid colectomy and diverting colostomy. we have had this discussion before as well. the stoma could likely be reversed in the future. option 2 would be to restart IV antibiotics/bowel rest. we would consult ID for recs regarding possible PICC l ine with plans for longer IV antibiotic treatment. this option may or may not work and we may end up performing surgery anyway. currently feeling better and is not ready to consent to surgery yet. wishes to try conservative management a little longer. keep NPO for now. will consult ID. will monitor closely. low threshold for surgery if she deteriorates clinically. (2) Colonic diverticular abscess: Admission and Anticipated Discharge Date Admission Date: April 07, 2024 Subjective pt seen. well known to me as I have been following as an out pt. feeling significantly better this AM. Physical Exam Constitutional: WD/WN, vitals as above no acute distress and not ill appearing Eyes: PERRL, conjunctivae normal, anicteric sclerae EOM intact bilaterally ENMT: external ear and nose normal, oropharynx normal Ears: no hearing impairment Neck: trachea midline, no thyromegaly Respiratory: normal respiratory effort; no respiratory distress and does not use accessory muscles Cardiovascular: Rate/Rhythm: regular rate and regular rhythm Gastrointestinal (Abdomen): soft. +LLQ /suprapubic TTP. no peritonitis. Skin: no rashes, warm and dry Psychiatric: Orientation: alert, oriented x 3 and cooperative Results & Data Vital Signs (Past 12 Hours) Vital Signs Temp Pulse Pulse Resp BP Pulse Ox O2 Del Method 04/08/24 08:01 36.6 C 90 18 90/53 L 96 Room Air 04/08/24 03:36 36.6 C 84 16 92/56 L 95 Room Air 04/08/24 00:00 98 H 04/07/24 23:51 37.3 C 99 H 16 105/68 94 Room Air PG Care Time/CCT Total # of Minutes Spent Total Time Spent with Patient: Total time spent is greater than 50% in coordination of care (as documented) at patient's floor/unit and/or counseling patient: Coding Level of Care Code 25815 SUB INP/OBS CARE MIN Diagnoses Acute diverticulitis K57.92 Colonic diverticular abscess K57.20
--- NOTE | 2024-04-08 13:07 | Infectious Disease Consult ---
Date of Consultation April 08, 2024 Assessment & Plan (1) Acute diverticulitis: (2) Colonic diverticular abscess: (3) Sepsis: Plan 63yo F with h/o hypothyroidism, mood disorder, fibromyalgia, prior h/o diverticulitis including 2013, Nov 2023 (received cipro/flagyl, developed significant diarrhea), and most recently admitted 03/14-03/22 with recurrent sigmoid diverticulitis with c/f microperforation and treated conservatively (tx with zosyn, dcd on augmentin x 14 days that was extended another 15d) who presented on 04/07 with abdominal pain. Abdominal pain had improved on augmentin (never stopped, compliant), but then developed worsening LLQ abdominal pain and fever x 1d. Here she has been afebrile. Initial WBC 19.83, Cr 0.55, UA negative. CTAP with IV contrast showed extensive sigmoid diverticulosis with progression of sigmoid colon wall thickening and moderate pericolonic inflammation since Aubrey 4, significant increase in extraluminal gas extending into the mesentery, findings favor perforated sigmoid diverticulitis with progression, a small few fluid and gas containing pericolonic collections c/w abscesses, no drainable abscess; persistent wall thickening of several ileal loops and the right colon, likely 2/2 perforated diverticulitis, tethered appearance of several ileal loops, developing fistulas cannot be excluded; some findings favoring ileus. CXR with RLL nodular density. Patient was started on empiric abx. Seen by surgery and patient would like to hold off on surgical intervention and prefers conservative management. ID consulted 04/08. Worsening diverticulitis/abscess on augmentin could be either due to developing resistance or uncontrolled source from perforation. If there could be some resistance to augmentin, coverage with either 3rd gen cephalosporin vs broader coverage would be needed. I reviewed antibiotic options extensively with patient and with [facility] pharmacist. Patient has refused cipro/flagyl combination due to her significant diarrhea in the past with this medication. We could use zosyn vs cefepime/flagyl or CTX/flagyl. Since she is from the community, I would like to trial her on CTX/flagyl and monitor for any improvement with this while she is inpatient since this will provide an easier outpatient regimen. If she is intolerant or has clinical worsening on this regimen, then will broaden her back to zosyn or cefepime/flagyl for the duration, which will be at least 3-4 weeks with follow up imaging to assess for abscess resolution. I do note the cefuroxime allergy, will have nursing monitor her closely while she is getting cephalosporins. # Recurrent sigmoid diverticulitis with perforation and abscesses # H/o hypothyroidism - f/u blood cx - Rivka changed meropenem to CTX 2g IV daily and flagyl 500mg PO bid - monitor closely for any intolerance, fevers, or worsening leukocytosis if present, then would change to cefepime/flagyl or zosyn - I will also add ESR/CRP to labs for baseline - plan will be for at least 3-4 weeks of antibiotics with follow up imaging towards end of therapy final duration pending resolution of abscesses ID will continue to follow. If questions or concerns, contact Infectious Disease Call Center . Crystal Koenig MD [facility], Division of Infectious Diseases [facility]: [phone] Consultation Information Consultation was provided via telemedicine using two-way real-time interactive telecommunication between the patient and the telemedicine provider. For the duration of the visit, the provider was performing the assessment from a different facility than the patient. This includesuse of bluetooth stethoscope forauscultationperformed by the telepresenter that the telemedicine provider can hear if described in the physical exam. Hemodialysis Patient Care Specialist contact information: Please call [facility] Call Center [phone]. (Phone Number For Physician Use Only) After establishing a telemedicine visit, patient was: Patient was verified with two unique identifiers, Patient/authorized rep acknowledged consent and understanding and Gave permission to continue telehealth session Time Spent with Patient: Initial => 75 min History of Present Illness Reason for Consultation: perforated diverticulitis, ?need for shelter IV abx Attending Physician: Arnel Benites MD History of Present Illness 63yo F with h/o hypothyroidism, mood disorder, fibromyalgia, prior h/o div erticulitis including 2013, Nov 2023, and most recently admitted 03/14-03/22 with recurrent sigmoid diverticulitis with c/f microperforation and treated conservatively (tx with zosyn, dcd on augmentin x 14 days that was extended another 15d) who presented on 04/07 with abdominal pain. She was seen by surgery outpatient on 03/31 with plans for future laparoscopic sigmoid colectomy. Augmentin was extended another 15 days during that visit. Patient reports that since discharge, her abdominal pain had improved. However, on the night prior to admission, she developed LLQ abdominal pain that became more severe. On the morning of presentation, she developed a fever of 101. Here she has been afebrile. Initial WBC 19.83, Cr 0.55, UA negative. CTAP with IV contrast showed extensive sigmoid diverticulosis with progression of sigmoid colon wall thickening and moderate pericolonic inflammation since Aubrey 4, significant increase in extraluminal gas extending into the mesentery, findings favor perforated sigmoid diverticulitis with progression, a small few fluid and gas containing pericolonic collections c/w abscesses, no drainable abscess; persistent wall thickening of several ileal loops and the right colon, likely 2/2 perforated diverticulitis, tethered appearance of several ileal loops, developing fistulas cannot be excluded; some findings favoring ileus. CXR with RLL nodular density. Patient was started on empiric abx. Seen by surgery and patient would like to hold off on surgical intervention and prefers conservative management. ID consulted 04/08. On evaluation, patient reports feeling better. She had left sided abdominal pain that is subsided today. Also reports some soft stools, no blood. No BM today. She does also report being on cipro/flagyl in November, but got really sick from that and only took 7 days of that regimen before it was stopped. She did have diarrhea at that time and stool was sent for C diff but test not run due to stool not loose. She has adequately tolerated augmentin, thinks amoxicillin is written as an allergy since it didnt work as prescribed. She doesnt recall reaction to Bactrim. Did have a sunburn with cefuroxime. Allergies Allergy/AdvReac Type Severity Reaction Status Date / Time Bactrim Allergy Mild RASH Verified 09/15/16 17:20 sulfamethoxazole Allergy Mild Unknown Verified 04/07/24 16:36 trimethoprim Allergy Mild Unknown Verified 04/07/24 16:36 amoxicillin Allergy Unknown - Verified 04/07/24 16:36 cefuroxime Allergy Unknown SUNBURN Verified 04/07/24 16:36 SKIN, RECIEVED IV Home Medications Medication Instructions Recorded Confirmed Type albuterol sulfate 90 mcg/actuation 2 puff inhalation .Q6HRS PRN 03/14/24 04/07/24 History aerosol inhaler Shortness Of Breath Or Wheezing calcium carbonate 600 mg-vitamin 1 cap PO DAILY 03/14/24 04/07/24 History D3 12.5 mcg (500 unit) capsule (Calcium 600 with Vitamin D3) cetirizine 10 mg tablet (Zyrtec) 10 mg PO DAILY 03/14/24 04/07/24 History levothyroxine 50 mcg tablet 50 mcg PO QAM 03/14/24 04/07/24 History lisdexamfetamine 20 mg capsule 20 mg PO DAILY PRN Need to 03/14/24 04/07/24 History (Vyvroddenilson) focus/Projects at work lorazepam 0.5 mg tablet 0.5 mg PO HS PRN Sleep 03/14/24 04/07/24 History meclizine 25 mg tablet 25 mg PO TID PRN dizzyness 03/14/24 04/07/24 History ondansetron HCl 4 mg tablet 4 mg PO Q8 PRN Nausea 03/14/24 04/07/24 History pregabalin 75 mg capsule 75 mg PO QAM 03/14/24 04/07/24 History silver sulfadiazine 1 % topical 1 applic topical DIRECTED 03/14/24 04/07/24 History cream (Silvadene) tramadol 50 mg tablet 50 mg PO Q6H PRN Pain 03/14/24 04/07/24 History vitamin B complex 1 tab PO DAILY 03/14/24 04/07/24 History amoxicillin 875 mg-potassium 1 tab PO BID #30 tabs 03/31/24 04/07/24 Rx clavulanate 125 mg tablet pregabalin 75 mg capsule 150 mg PO HS 04/07/24 04/07/24 History Patient History Surgical History History of hysterectomy Hx of colonoscopy H/O dilation and curettage H/O LEEP Family History Father Diabetes Other Cancer Denies family history of Ovarian cancer Breast cancer Colorectal cancer Social History Smoking Status: Never smoker Do You Dip or Chew Tobacco: No; Hx Alcohol Use: No Hx Substance Use: No Preferred Language: Thai Communication Ability: Effective Grounds Supervisor Required: No Beliefs That Will Affect Care: None marital status: Current Living Situation: Alone current occupational status: employed How many Children do You have: 2 Other Information That Helps Us Care for You: No Feels Safe at Home: Yes Safety Concerns: Feels Safe At This Time during the past year weight has: remained stable Assistive Devices: None Review of System 10-point review of systems reviewed and are negative except for as above. Physical Exam Physical Exam: General: Awake, alert, no acute distress HEENT: NC/AT, EOMI, mmm Neck: supple Lungs: respirations non-labored Heart: nl peripheral perfusion Abdomen: soft, mild tenderness Ext: no LE edema Skin: no rash Neuro: moving all extremities Results & Data Vital Signs (Past 12 Hours) Vital Signs Temp Pulse Pulse Resp BP Pulse Ox O2 Del Method 04/08/24 11:36 36.9 C 95 H 18 99/62 L 97 Room Air 04/08/24 10:49 83 04/08/24 08:01 36.6 C 90 18 90/53 L 96 Room Air 04/08/24 03:36 36.6 C 84 16 92/56 L 95 Room Air Laboratory Results Labs reviewed. Diagnostic Findings Imaging reviewed.
[2024-04-08 14:17] LABS: C Reactive Protein 19.06 mg/dl (0-0.5)
[2024-04-08] MEDS: cefTRIAXone SODIUM 2,000 MG/50 ML BAG IV SCH (14:56)
--- NOTE | 2024-04-08 15:59 | Hospitalist Progress Note ---
Date of Service April 08, 2024 Assessment & Plan (1) Diverticulitis of intestine with perforation: (2) Sepsis: Plan: Patient is 63 year old female with PMH hypothyroidism, mood disorder presented to ER with c/o abdominal pain x 1 day. Hospitalization 03/14/2024-03/23/2024 for diverticulitis with microperforation treated with IV antibiotics and has been on Augmentin since. Intermittent fevers past week Today in ER afebrile, P: 115, R: 18, BP 97/65, 95% on room air. (Patient with chronic low blood pressure at baseline) WBC: 19, lactate: 1.1 Sepsis Recurrent sigmoid diverticulitis with perforation and abscess --CT ABD:Extensive sigmoid diverticulosis with progression of sigmoid colon wall thickening and moderate pericolonic inflammation since CT of March 16, 2024. Significant increase in extraluminal gas extending into the mesentery. The findings favor perforated sigmoid diverticulitis with progression since prior CT. A few small fluid and gas containing pericolonic collections consistent with abscesses. No drainable abscess. Persistent wall thickening of several ileal loops and the right colon, likely secondary to perforated diverticulitis. Tethered appearance of several ileal loops. Developing fistulas cannot be excluded. Mildly fluid-filled small bowel without transition point. The findings favor an ileus. No evidence for a bowel obstruction. No change in gallbladder distention. No CT evidence for acute cholecystitis. --ESR, CRP elevated -- Blood cultures pending Continue IV fluids, n.p.o. Patient preferred conservative management --IV meropenem changed to Rocephin, Flagyl Appreciate surgery, infectious disease input Pain control Will need prolonged IV antibiotics Diarrhea likely secondary to antibiotics Check stool for C. difficile if recurrence of diarrhea Hypokalemia Replete electrolytes as needed Monitor (3) Hypothyroidism: Plan: Continue levothyroxine (4) Abnormal CXR: Plan: CXR: IMPRESSION: 1.7 cm right lower lung nodular opacity. This may reflect atelectasis. A small focus of pneumonia could appear similar although is considered less likely. A pulmonary nodule is also considered less likely, as no nodule was shown on abdominal CT of March 14, 2024. --No cough, SOB, CP -- Added incentive spirometer --Will need repeat imaging as outpatient (5) ADHD: Plan: Hold home prn Vyvanse and lorazepam Hypothyroidism Continue levothyroxine DVT Px SCDs Admission and Anticipated Discharge Date Admission Date: April 07, 2024 Subjective Patient is seen and examined at bedside Left lower quadrant abdominal pain is better Reports having loose BMs Denies any chest pain, dyspnea, nausea, vomiting No other complaints Review of Systems Review of Systems: All systems reviewed & are unremarkable except as noted in Subjective Physical Exam Physical Exam: Physical Exam: Vitals signs as noted above General Appearance:Moderately built and nourished, no apparent distress Head: normocephalic, Atraumatic Eyes: normal inspection, EOMI Neck: supple, Trachea midline Respiratory/Chest: Normal breath sounds, CTA, No accessory muscle use Cardiovascular: S1, S2, No murmur Abdomen/GI:Soft, LLQ mild tender, Bowel sounds present Extremities/Musculoskeletal:normal inspection, no edema Neurologic/Psych:AAOX3, grossly no focal neurological deficits Skin: normal color, warm Results & Data Results & Data Vital Signs (Past 12 Hours) Vital Signs Temp Pulse Pulse Resp BP Pulse Ox O2 Del Method 04/08/24 15:30 36.8 C 96 H 16 99/63 L 94 Room Air 04/08/24 11:36 36.9 C 95 H 18 99/62 L 97 Room Air 04/08/24 10:49 83 04/08/24 08:01 36.6 C 90 18 90/53 L 96 Room Air Laboratory Results Short CBC 04/08/24 Range/Units 05:49 WBC 11.04 H (4.8-10.8) K/ul Hgb 8.7 L D (12.0-16.0) g/dl Hct 27.8 L (37.0-47.0) % Plt Count 312 (130-400) K/uL BMP 04/08/24 05:49 Sodium 142 Potassium 3.4 L Chloride 110 H Carbon Dioxide 25 BUN 7 Creatinine 0.55 L Glucose 91 Calcium 8.0 L Urine 04/08/24 Range/Units 00:00 Urine Color Yellow Urine Appearance Clear (Clear) Urine pH 5.0 (4.5-7.5) Ur Specific [place] 1.013 (1.000-1.030) Urine Protein Negative (Negative) Urine Glucose (UA) Negative (Negative) (1) Diverticulitis of intestine with perforation Diverticulitis bleeding: without bleeding Diverticulitis site: large intestine Qualified Code(s): K57.20 - Diverticulitis of large intestine with perforation and abscess without bleeding
[2024-04-08] MEDS ORDERED: metroNIDAZOLE 500 MG TAB PO SCH (21:00)
[2024-04-08] MEDS: metroNIDAZOLE 500 MG/100 ML BAG IV SCH (21:35)
[2024-04-08] MEDS: CALCIUM CARBONATE 500 MG CHEWABLE TAB PO PRN (21:35)
[2024-04-09] MEDS: LORazepam 0.5 MG TAB PO PRN (01:46)
[2024-04-09] MEDS: ONDANSETRON INJ 2 MG/ML 2 ML VIAL IV PRN (03:53)
[2024-04-09 07:20] LABS: Hematocrit (blood only) 28.4 % (37.0-47.0); Mean Corpuscular Hemoglobin 28.2 pg (25.0-34.0); Mean Corpuscular Hgb Conc 31.7 g/dL (32.0-36.0); Mean Platelet Volume 9.8 fL (9.4-12.4); Platelet Count 356 K/uL (130-400); RDW Coefficient of Variation 12.5 % (11.5-14.5); RDW Standard Deviation 40.5 fL (36.4-46.3); Red Blood Count 3.19 M/uL (4.20-5.40); White Blood Count 9.65 K/ul (4.8-10.8)
[2024-04-09 07:45] LABS: BUN Creatinine Ratio 14.3 (10-20); Creatinine Clr Calc Pharmacy 109.8 ml/min; Est GFR (African American) 127.3 ml/min; Est GFR (Non-African American) 109.9 ml/min; Magnesium 1.8 mg/dl (1.7-2.4); Potassium 3.4 mmol/L (3.5-5.1)
[2024-04-09] MEDS: ADVANCED PROBIOTIC 625 MG CAPSULE PO SCH (08:53)
--- NOTE | 2024-04-09 09:23 | Infectious Disease Progress Nt ---
Date of Service April 09, 2024 Assessment & Plan (1) Acute diverticulitis: (2) Colonic diverticular abscess: (3) Sepsis: Plan 63yo F with h/o hypothyroidism, mood disorder, fibromyalgia, prior h/o diverticulitis including 2013, Nov 2023 (received cipro/flagyl, developed significant diarrhea), and most recently admitted 03/14-03/22 with recurrent sigmoid diverticulitis with c/f microperforation and treated conservatively (tx with zosyn, dcd on augmentin x 14 days that was extended another 15d) who presented on 04/07 with abdominal pain. Abdominal pain had improved on augmentin (never stopped, compliant), but then developed worsening LLQ abdominal pain and fever x 1d. Here she has been afebrile. Initial WBC 19.83, Cr 0.55, UA negative. CTAP with IV contrast showed extensive sigmoid diverticulosis with progression of sigmoid colon wall thickening and moderate pericolonic inflammation since [place] 4, significant increase in extraluminal gas extending into the mesentery, findings favor perforated sigmoid diverticulitis with progression, a small few fluid and gas containing pericolonic collections c/w abscesses, no drainable abscess; persistent wall thickening of several ileal loops and the right colon, likely 2/2 perforated diverticulitis, tethered appearance of several ileal loops, developing fistulas cannot be excluded; some findings favoring ileus. CXR with RLL nodular density. Patient was started on empiric abx. Seen by surgery and patient would like to hold off on surgical intervention and prefers conservative management. ID consulted 04/08. ESR 40, CRP 19.06. UA neg. Abx changed to CTX/Flagyl on 04/08. Patient is tolerating CTX, no rash. She is resistant to taking PO flagyl and I did try explaining to her that its possible the issues last time could have been from ciprofloxacin and she should trial PO flagyl while inpatient. She still has abdominal discomfort and not really eating PO so would like to hold off for now. However, she did agree to try PO flagyl when she is feeling better. I would monitor her over the weekend on this regimen for any worsening abdominal pain, leukocytosis or fevers. # Recurrent sigmoid diverticulitis with perforation and abscesses # H/o hypothyroidism - continue CTX 2g IV daily and flagyl 500mg bid - please monitor over the weekend for fevers, leukocytosis, or worsening abdominal pain on this current regimen if present, may need to consider changing regimen to cefepime/flagyl - she should be trialed on PO flagyl prior to discharge - plan will be for at least 3-4 weeks of antibiotics with follow up imaging towards end of therapy final duration pending resolution of abscesses (start 04/07, 4 weeks on 05/05) ID will continue to follow. If questions or concerns, contact Infectious Disease Call Center . Crystal Koenig MD [facility], Division of Infectious Diseases [facility]: [phone] Admission and Anticipated Discharge Date Admission Date: April 07, 2024 Subjective Subsequent visit was provided via telemedicine using two-way real-time interactive telecommunication between the patient and the telemedicine provider. For the duration of the visit, the provider was performing the assessment from a different facility than the patient. This includesuse of bluetooth stethoscope forauscultationperformed by the telepresenter that the telemedicine provider can hear if described in the physical exam. [employer] contact information: Please call [facility] Center [phone]. (Phone Number For Physician Use Only) After establishing a telemedicine visit, patient was: Patient was verified with two unique identifiers, Patient/authorized rep acknowledged consent and understanding and Gave permission to continue telehealth session Time Spent with Patient: Subsequent => 55 min Patient had some abdominal discomfort last night. Otherwise tolerating CTX. She refused PO flagyl which has been changed to IV. She is refusing PO due to prior history with cipro/flagyl causing nausea/vomiting and diarrhea. Physical Exam Physical Exam: General: Awake, alert, no acute distress HEENT: NC/AT, EOMI, mmm Neck: supple Lungs: respirations non-labored Heart: nl peripheral perfusion Abdomen: soft, mild tenderness Ext: no LE edema Skin: no rash Neuro: moving all extremities Results & Data Vital Signs (Past 12 Hours) Vital Signs Temp Pulse Pulse Resp BP Pulse Ox O2 Del Method 04/09/24 08:19 36.7 C 96 H 20 109/64 96 Room Air 04/09/24 03:48 36.8 C 99 H 16 117/71 95 Room Air 04/08/24 23:53 04/08/24 23:51 101 H 04/08/24 22:11 37.0 C 101 H 18 110/72 98 Room Air O2 Del Method 04/09/24 08:19 04/09/24 03:48 04/08/24 23:53 Room Air 04/08/24 23:51 04/08/24 22:11 Laboratory Results Labs reviewed.
--- NOTE | 2024-04-09 09:40 | Surgery Progress Note ---
Date of Service April 09, 2024 Assessment & Plan (1) Acute diverticulitis: Plan: She has been afebrile and her white blood cell count is now normal at 9000. Clinically she looks pretty good. We are going to try 1 more dose of Flagyl and if she reacts similarly we will have to have infectious disease change her antibiotic regimen. I want to continue to keep her n.p.o. for now. We will replace the Toradol with IV acetaminophen as needed for any discomfort. We will also order a PICC line with anticipated longer-term IV antibiotics. [facility] surgeons covering for the weekend. (2) Colonic diverticular abscess: Admission and Anticipated Discharge Date Admission Date: April 07, 2024 Subjective Patient currently feeling well. She states that she had a rough night and did not get much sleep. This seems to stem after they gave her the IV Flagyl she began having some epigastric discomfort as well as some nausea. They did give her some Zofran and Ativan and this did help. She has very minimal lower abdominal pain. She currently no longer has the nausea. Physical Exam Constitutional: WD/WN, vitals as above no acute distress and not ill appearing Eyes: PERRL, conjunctivae normal, anicteric sclerae EOM intact bilaterally ENMT: external ear and nose normal, oropharynx normal Ears: no hearing impairment Neck: trachea midline, no thyromegaly Respiratory: normal respiratory effort; no respiratory distress and does not use accessory muscles Cardiovascular: Rate/Rhythm: regular rate and regular rhythm Gastrointestinal (Abdomen): Soft. Positive left lower quadrant suprapubic tenderness to deep palpation. Mildly improved from yesterday. No evidence of peritonitis. Skin: no rashes, warm and dry Psychiatric: Orientation: alert, oriented x 3 and cooperative Results & Data Vital Signs (Past 12 Hours) Vital Signs Temp Pulse Pulse Resp BP Pulse Ox O2 Del Method 04/09/24 08:19 36.7 C 96 H 20 109/64 96 Room Air 04/09/24 03:48 36.8 C 99 H 16 117/71 95 Room Air 04/08/24 23:53 04/08/24 23:51 101 H 04/08/24 22:11 37.0 C 101 H 18 110/72 98 Room Air O2 Del Method 04/09/24 08:19 04/09/24 03:48 04/08/24 23:53 Room Air 04/08/24 23:51 04/08/24 22:11 PG Care Time/CCT Total # of Minutes Spent Total Time Spent with Patient: Total time spent is greater than 50% in coordination of care (as documented) at patient's floor/unit and/or counseling patient: Coding Level of Care Code 13856 SUB INP/OBS CARE 2/35MIN Diagnoses Acute diverticulitis K57.92 Colonic diverticular abscess K57.20
[2024-04-09] MEDS ORDERED: FAMOTIDINE 20MG IV PUSH 20 MG/5 ML SYR IV PRN (10:30)
[2024-04-09] MEDS: POTASSIUM CHLORIDE / WTR 10 MEQ/100 ML PLCT IV SCH (11:34)
[2024-04-09] MEDS: D5W AND 1/2NSS + 20MEQ KCL 20 MEQ/1,000 ML BAG IV SCH (11:35)
--- NOTE | 2024-04-09 15:49 | Hospitalist Progress Note ---
Date of Service April 09, 2024 Assessment & Plan (1) Diverticulitis of intestine with perforation: (2) Sepsis: Plan: Patient is 63 year old female with PMH hypothyroidism, mood disorder presented to ER with c/o abdominal pain x 1 day. Hospitalization 03/14/2024-03/23/2024 for diverticulitis with microperforation treated with IV antibiotics and has been on Augmentin since. Intermittent fevers past week Today in ER afebrile, P: 115, R: 18, BP 97/65, 95% on room air. (Patient with chronic low blood pressure at baseline) WBC: 19, lactate: 1.1 Sepsis Recurrent sigmoid diverticulitis with perforation and abscess --CT ABD:Extensive sigmoid diverticulosis with progression of sigmoid colon wall thickening and moderate pericolonic inflammation since CT of March 16, 2024. Significant increase in extraluminal gas extending into the mesentery. The findings favor perforated sigmoid diverticulitis with progression since prior CT. A few small fluid and gas containing pericolonic collections consistent with abscesses. No drainable abscess. Persistent wall thickening of several ileal loops and the right colon, likely secondary to perforated diverticulitis. Tethered appearance of several ileal loops. Developing fistulas cannot be excluded. Mildly fluid-filled small bowel without transition point. The findings favor an ileus. No evidence for a bowel obstruction. No change in gallbladder distention. No CT evidence for acute cholecystitis. --ESR, CRP elevated -- Blood cultures pending Continue IV fluids, n.p.o. Patient preferred conservative management --IV meropenem changed to Rocephin, Flagyl Appreciate surgery, infectious disease input Pain control Will need prolonged IV antibiotics Diarrhea likely secondary to antibiotics Check stool for C. difficile if recurrence of diarrhea Clinically stable Will need PICC line placement prior to discharge Continue current management Hypokalemia Replete electrolytes as needed Monitor (3) Hypothyroidism: Plan: Continue levothyroxine (4) Abnormal CXR: Plan: CXR: IMPRESSION: 1.7 cm right lower lung nodular opacity. This may reflect atelectasis. A small focus of pneumonia could appear similar although is considered less likely. A pulmonary nodule is also considered less likely, as no nodule was shown on abdominal CT of March 14, 2024. --No cough, SOB, CP -- Added incentive spirometer --Will need repeat imaging as outpatient (5) ADHD: Plan: Hold home prn Vyvanse Insomnia on lorazepam PRN Hypothyroidism Continue levothyroxine DVT Px Heparin SQ Admission and Anticipated Discharge Date Admission Date: April 07, 2024 Subjective Patient is seen and examined at bedside States having nausea associated with heartburn Abdominal pain improving Discussed with surgery today Reports having poor sleep overnight Denies any chest pain, dyspnea, dizziness Review of Systems Review of Systems: All systems reviewed & are unremarkable except as noted in Subjective Physical Exam Physical Exam: Physical Exam: Vitals signs as noted above General Appearance:Moderately built and nourished, no apparent distress Head: normocephalic, Atraumatic Eyes: normal inspection, EOMI Neck: supple, Trachea midline Respiratory/Chest: Normal breath sounds, CTA, No accessory muscle use Cardiovascular: S1, S2, No murmur Abdomen/GI:Soft, LLQ mild tender, Bowel sounds present Extremities/Musculoskeletal:normal inspection, no edema Neurologic/Psych:AAOX3, grossly no focal neurological deficits Skin: normal color, warm Results & Data Results & Data Vital Signs (Past 12 Hours) Vital Signs Temp Pulse Pulse Resp BP Pulse Ox O2 Del Method 04/09/24 12:02 36.6 C 94 H 18 105/65 99 Room Air 04/09/24 08:19 36.7 C 96 H 20 109/64 96 Room Air 04/09/24 07:00 93 H 04/09/24 03:48 36.8 C 99 H 16 117/71 95 Room Air Laboratory Results Short CBC 04/09/24 Range/Units 06:33 WBC 9.65 (4.8-10.8) K/ul Hgb 9.0 L (12.0-16.0) g/dl Hct 28.4 L (37.0-47.0) % Plt Count 356 (130-400) K/uL BMP 04/09/24 06:33 Sodium 139 Potassium 3.4 L Chloride 109 H Carbon Dioxide 16 L BUN 6 Creatinine 0.42 L Glucose 70 Calcium 8.0 L (1) Diverticulitis of intestine with perforation Diverticulitis bleeding: without bleeding Diverticulitis site: large intestine Qualified Code(s): K57.20 - Diverticulitis of large intestine with perforation and abscess without bleeding
[2024-04-09] MEDS: ACETAMINOPHEN 1,000 MG/100 ML VIAL IV PRN (16:44)
[2024-04-09] MEDS: HEPARIN SOD 5,000 UNIT/0.5 ML VIAL SQ SCH (20:42)
[2024-04-10 06:47] LABS: Hematocrit (blood only) 28.2 % (37.0-47.0); Hemoglobin 9.1 g/dl (12.0-16.0); Mean Corpuscular Hemoglobin 27.7 pg (25.0-34.0); Mean Corpuscular Hgb Conc 32.3 g/dL (32.0-36.0); Mean Platelet Volume 9.5 fL (9.4-12.4); Platelet Count 384 K/uL (130-400); RDW Coefficient of Variation 12.7 % (11.5-14.5); Red Blood Count 3.28 M/uL (4.20-5.40); White Blood Count 6.56 K/ul (4.8-10.8)
[2024-04-10 07:22] LABS: BUN Creatinine Ratio 8.1 (10-20); Calcium 8.4 mg/dl (8.6-10.3); Creatinine Clr Calc Pharmacy 134.9 ml/min; Est GFR (African American) 132.7 ml/min; Est GFR (Non-African American) 114.5 ml/min; Magnesium 1.8 mg/dl (1.7-2.4); Potassium 3.6 mmol/L (3.5-5.1)
--- NOTE | 2024-04-10 11:59 | Surgery Progress Note ---
Date of Service April 10, 2024 Assessment & Plan (1) Acute diverticulitis: Plan: She has been afebrile and her white blood cell count is now normal. Clinically she looks pretty good. on antibiotics. Will continue the IV antibiotics, and advance her to clears. Continuing to follow. She will most likely have a PICC line placed for longer-term antibiotics early next week. (2) Colonic diverticular abscess: Admission and Anticipated Discharge Date Admission Date: April 07, 2024 Subjective feeling better. Positive flatus; no nausea or vomiting. Physical Exam Physical Exam: NAD, A&O x 3 NCAT Abdomen: Soft, mild TTP in LLQ Results & Data Vital Signs (Past 12 Hours) Vital Signs Temp Pulse Pulse Resp BP Pulse Ox O2 Del Method 04/10/24 11:13 36.5 C 77 18 123/76 97 Room Air 04/10/24 07:35 36.5 C 69 19 119/76 97 Room Air 04/10/24 07:00 92 H 04/10/24 02:50 36.5 C 87 16 123/77 96 Room Air Laboratory Results 04/10/24 Range/Units 06:15 WBC 6.56 (4.8-10.8) K/ul RBC 3.28 L (4.20-5.40) M/uL Hgb 9.1 L (12.0-16.0) g/dl Hct 28.2 L (37.0-47.0) % MCV 86.0 (80.0-100.0) fL MCH 27.7 (25.0-34.0) pg MCHC 32.3 (32.0-36.0) g/dL RDW Std Deviation 40.0 (36.4-46.3) fL RDW Coeff of Mega 12.7 (11.5-14.5) % Plt Count 384 (130-400) K/uL MPV 9.5 (9.4-12.4) fL Sodium 139 (136-145) mmol/L Potassium 3.6 (3.5-5.1) mmol/L Chloride 107 (98-107) mmol/L Carbon Dioxide 23 (21-32) mmol/L Anion Gap 9 (3-11) BUN 3 L (6-23) mg/dl Creatinine 0.37 L (0.6-1.2) mg/dl Est Cr Clr Drug Dosing 134.9 ml/min Est GFR ( Amer) 132.7 ml/min Est GFR (Non-Af Amer) 114.5 ml/min BUN/Creatinine Ratio 8.1 L (10-20) Glucose 120 H (70-99(Fasting)) mg/dl Calcium 8.4 L (8.6-10.3) mg/dl Magnesium 1.8 (1.7-2.4) mg/dl
--- NOTE | 2024-04-10 15:26 | Hospitalist Progress Note ---
Date of Service April 10, 2024 Assessment & Plan (1) Diverticulitis of intestine with perforation: (2) Sepsis: Plan: Patient is 63 year old female with PMH hypothyroidism, mood disorder presented to ER with c/o abdominal pain x 1 day. Hospitalization 03/14/2024-03/23/2024 for diverticulitis with microperforation treated with IV antibiotics and has been on Augmentin since. Intermittent fevers past week Today in ER afebrile, P: 115, R: 18, BP 97/65, 95% on room air. (Patient with chronic low blood pressure at baseline) WBC: 19, lactate: 1.1 Sepsis Recurrent sigmoid diverticulitis with perforation and abscess --CT ABD:Extensive sigmoid diverticulosis with progression of sigmoid colon wall thickening and moderate pericolonic inflammation since CT of March 16, 2024. Significant increase in extraluminal gas extending into the mesentery. The findings favor perforated sigmoid diverticulitis with progression since prior CT. A few small fluid and gas containing pericolonic collections consistent with abscesses. No drainable abscess. Persistent wall thickening of several ileal loops and the right colon, likely secondary to perforated diverticulitis. Tethered appearance of several ileal loops. Developing fistulas cannot be excluded. Mildly fluid-filled small bowel without transition point. The findings favor an ileus. No evidence for a bowel obstruction. No change in gallbladder distention. No CT evidence for acute cholecystitis. --ESR, CRP elevated -- Blood cultures negative to date Patient preferred conservative management --IV meropenem changed to Rocephin, Flagyl Appreciate surgery, infectious disease input Pain control Will need prolonged IV antibiotics Diarrhea likely secondary to antibiotics Check stool for C. difficile if recurrence of diarrhea Will need PICC line placement prior to discharge Decrease IV fluids Started on clear liquid diet Hypokalemia Replete electrolytes as needed Monitor (3) Hypothyroidism: Plan: Continue levothyroxine (4) Abnormal CXR: Plan: CXR: IMPRESSION: 1.7 cm right lower lung nodular opacity. This may reflect atelectasis. A small focus of pneumonia could appear similar although is considered less likely. A pulmonary nodule is also considered less likely, as no nodule was shown on abdominal CT of March 14, 2024. --No cough, SOB, CP -- Added incentive spirometer --Will need repeat imaging as outpatient (5) ADHD: Plan: Hold home prn Vyvanse Insomnia on lorazepam PRN Hypothyroidism Continue levothyroxine DVT Px Heparin SQ Admission and Anticipated Discharge Date Admission Date: April 07, 2024 Subjective Patient is seen and examined at bedside Abdominal pain resolved States having minimal nausea this morning Denies any other complaints Heartburn resolved Review of Systems Review of Systems: All systems reviewed & are unremarkable except as noted in Subjective Physical Exam Physical Exam: Physical Exam: Vitals signs as noted above General Appearance:Moderately built and nourished, no apparent distress Head: normocephalic, Atraumatic Eyes: normal inspection, EOMI Neck: supple, Trachea midline Respiratory/Chest: Normal breath sounds, CTA, No accessory muscle use Cardiovascular: S1, S2, No murmur Abdomen/GI:Soft, non tender, Bowel sounds present Extremities/Musculoskeletal:normal inspection, no edema Neurologic/Psych:AAOX3, grossly no focal neurological deficits Skin: normal color, warm Results & Data Results & Data Vital Signs (Past 12 Hours) Vital Signs Temp Pulse Pulse Resp BP Pulse Ox O2 Del Method 04/10/24 14:00 91 H 04/10/24 11:13 36.5 C 77 18 123/76 97 Room Air 04/10/24 07:35 36.5 C 69 19 119/76 97 Room Air 04/10/24 07:00 92 H Laboratory Results Short CBC 04/10/24 Range/Units 06:15 WBC 6.56 (4.8-10.8) K/ul Hgb 9.1 L (12.0-16.0) g/dl Hct 28.2 L (37.0-47.0) % Plt Count 384 (130-400) K/uL BMP 04/10/24 06:15 Sodium 139 Potassium 3.6 Chloride 107 Carbon Dioxide 23 BUN 3 L Creatinine 0.37 L Glucose 120 H Calcium 8.4 L (1) Diverticulitis of intestine with perforation Diverticulitis bleeding: without bleeding Diverticulitis site: large intestine Qualified Code(s): K57.20 - Diverticulitis of large intestine with perforation and abscess without bleeding
[2024-04-10] MEDS: CALCIUM CARBONATE 500 MG CHEWABLE TAB PO PRN (21:55)
[2024-04-11 06:17] LABS: Hematocrit (blood only) 28.3 % (37.0-47.0); Hemoglobin 9.2 g/dl (12.0-16.0); Mean Corpuscular Hgb Conc 32.5 g/dL (32.0-36.0); Mean Corpuscular Volume 86.3 fL (80.0-100.0); Mean Platelet Volume 9.5 fL (9.4-12.4); Platelet Count 404 K/uL (130-400); RDW Standard Deviation 40.9 fL (36.4-46.3); Red Blood Count 3.28 M/uL (4.20-5.40); White Blood Count 7.37 K/ul (4.8-10.8)
[2024-04-11 06:30] LABS: BUN Creatinine Ratio 4.8 (10-20); Calcium 8.7 mg/dl (8.6-10.3); Creatinine Clr Calc Pharmacy 118.9 ml/min; Est GFR (African American) 127.3 ml/min; Est GFR (Non-African American) 109.9 ml/min; Potassium 3.4 mmol/L (3.5-5.1)
--- NOTE | 2024-04-11 08:23 | Surgery Progress Note ---
Date of Service April 11, 2024 Assessment & Plan (1) Acute diverticulitis: Plan: She has been afebrile and her white blood cell count is now normal. Clinically she looks pretty good. on antibiotics. Will continue the IV antibiotics, and Continue with clears. Continuing to follow. She will most likely have a PICC line placed for longer-term antibiotics early next week. (2) Colonic diverticular abscess: Admission and Anticipated Discharge Date Admission Date: April 07, 2024 Subjective Doing well today. Tolerating clear liquid diet. Decreasing pain. No fevers or chills. Physical Exam Physical Exam: NAD, A&O x 3 NCAT Abdomen: Soft, mild TTP in LLQ Results & Data Vital Signs (Past 12 Hours) Vital Signs Temp Pulse Pulse Resp BP BP Pulse Ox 04/11/24 07:38 36.5 C 71 19 101/66 98 04/11/24 03:21 36.5 C 65 18 102/67 98 04/10/24 23:22 36.8 C 81 18 115/70 97 04/10/24 22:57 04/10/24 22:55 80 O2 Del Method O2 Del Method 04/11/24 07:38 Room Air 04/11/24 03:21 Room Air 04/10/24 23:22 Room Air 04/10/24 22:57 Room Air 04/10/24 22:55
[2024-04-11] MEDS: POTASSIUM CHLORIDE CRTAB 20 MEQ TABCR PO ONE (12:14)
--- NOTE | 2024-04-11 13:27 | Hospitalist Progress Note ---
Date of Service April 11, 2024 Assessment & Plan (1) Diverticulitis of intestine with perforation: (2) Sepsis: Plan: Patient is 63 year old female with PMH hypothyroidism, mood disorder presented to ER with c/o abdominal pain x 1 day. Hospitalization 03/14/2024-03/23/2024 for diverticulitis with microperforation treated with IV antibiotics and has been on Augmentin since. Intermittent fevers past week Today in ER afebrile, P: 115, R: 18, BP 97/65, 95% on room air. (Patient with chronic low blood pressure at baseline) WBC: 19, lactate: 1.1 Sepsis Recurrent sigmoid diverticulitis with perforation and abscess --CT ABD:Extensive sigmoid diverticulosis with progression of sigmoid colon wall thickening and moderate pericolonic inflammation since CT of March 16, 2024. Significant increase in extraluminal gas extending into the mesentery. The findings favor perforated sigmoid diverticulitis with progression since prior CT. A few small fluid and gas containing pericolonic collections consistent with abscesses. No drainable abscess. Persistent wall thickening of several ileal loops and the right colon, likely secondary to perforated diverticulitis. Tethered appearance of several ileal loops. Developing fistulas cannot be excluded. Mildly fluid-filled small bowel without transition point. The findings favor an ileus. No evidence for a bowel obstruction. No change in gallbladder distention. No CT evidence for acute cholecystitis. --ESR, CRP elevated -- Blood cultures negative to date Patient preferred conservative management --IV meropenem transition to Rocephin, Flagyl Appreciate surgery, infectious disease input Pain control Will need prolonged IV antibiotics Diarrhea likely secondary to antibiotics Check stool for C. difficile if recurrence of diarrhea Continue clear liquid diet Will likely request PICC line placement tomorrow Hypokalemia Replete electrolytes as needed Monitor (3) Hypothyroidism: Plan: Continue levothyroxine (4) Abnormal CXR: Plan: CXR: 1.7 cm right lower lung nodular opacity. This may reflect atelectasis. A small focus of pneumonia could appear similar although is considered less likely. A pulmonary nodule is also considered less likely, as no nodule was shown on abdominal CT of March 14, 2024. --No cough, SOB, CP -- Added incentive spirometer --Will need repeat imaging as outpatient (5) ADHD: Plan: Hold home prn Vyvanse Insomnia on lorazepam PRN Hypothyroidism Continue levothyroxine DVT Px Heparin SQ Admission and Anticipated Discharge Date Admission Date: April 07, 2024 Subjective Patient is seen and examined at bedside Less nausea today Tolerating clear liquid diet Had bowel movement today Denies any significant abdominal pain No other complaints Denies any chest pain, dyspnea, dizziness Family at bedside Review of Systems Review of Systems: All systems reviewed & are unremarkable except as noted in Subjective Physical Exam Physical Exam: Physical Exam: Vitals signs as noted above General Appearance:Moderately built and nourished, no apparent distress Head: normocephalic, Atraumatic Eyes: normal inspection, EOMI Neck: supple, Trachea midline Respiratory/Chest: Normal breath sounds, CTA, No accessory muscle use Cardiovascular: S1, S2, No murmur Abdomen/GI:Soft, non tender, Bowel sounds present Extremities/Musculoskeletal:normal inspection, no edema Neurologic/Psych:AAOX3, grossly no focal neurological deficits Skin: normal color, warm Results & Data Results & Data Vital Signs (Past 12 Hours) Vital Signs Temp Pulse Pulse Pulse Resp BP BP 04/11/24 11:30 36.5 C 82 18 113/70 04/11/24 07:38 36.5 C 71 19 101/66 04/11/24 07:00 66 04/11/24 03:21 36.5 C 65 18 102/67 Pulse Ox O2 Del Method 04/11/24 11:30 96 Room Air 04/11/24 07:38 98 Room Air 04/11/24 07:00 04/11/24 03:21 98 Room Air Laboratory Results Short CBC 04/11/24 Range/Units 05:29 WBC 7.37 (4.8-10.8) K/ul Hgb 9.2 L (12.0-16.0) g/dl Hct 28.3 L (37.0-47.0) % Plt Count 404 H (130-400) K/uL BMP 04/11/24 05:31 Sodium 141 Potassium 3.4 L Chloride 108 H Carbon Dioxide 27 BUN 2 L Creatinine 0.42 L Glucose 103 H Calcium 8.7 (1) Diverticulitis of intestine with perforation Diverticulitis bleeding: without bleeding Diverticulitis site: large intestine Qualified Code(s): K57.20 - Diverticulitis of large intestine with perforation and abscess without bleeding
[2024-04-12 06:54] LABS: Hematocrit (blood only) 28.3 % (37.0-47.0); Hemoglobin 9.3 g/dl (12.0-16.0)
--- NOTE | 2024-04-12 06:59 | Surgery Progress Note ---
Date of Service April 12, 2024 Assessment & Plan (1) Acute diverticulitis: Plan: improving. afebrile all weekend. wbc normal. to get PICC line today will advance to full liquids. if everything comes together, possible d/c home tomorrow with home IV antibiotics/PICC line. Admission and Anticipated Discharge Date Admission Date: April 07, 2024 Subjective pt seen. had a good weekend. no pain at all currently which is a first. +bm's. johann clear liquid diet Physical Exam Constitutional: WD/WN, vitals as above no acute distress and not ill appearing Eyes: PERRL, conjunctivae normal, anicteric sclerae EOM intact bilaterally ENMT: external ear and nose normal, oropharynx normal Ears: no hearing impairment Neck: trachea midline, no thyromegaly Respiratory: normal respiratory effort; no respiratory distress and does not use accessory muscles Cardiovascular: Rate/Rhythm: regular rate and regular rhythm Gastrointestinal (Abdomen): soft. mild LLQ ttp. much improved. Skin: no rashes, warm and dry Psychiatric: Orientation: alert, oriented x 3 and cooperative Results & Data Vital Signs (Past 12 Hours) Vital Signs Temp Pulse Pulse Resp BP BP Pulse Ox 04/12/24 03:16 36.6 C 83 17 94/58 L 97 04/11/24 23:10 36.6 C 73 18 98/60 L 96 04/11/24 23:00 04/11/24 22:57 72 04/11/24 19:36 36.8 C 81 17 104/66 97 O2 Del Method O2 Del Method 04/12/24 03:16 Room Air 04/11/24 23:10 Room Air 04/11/24 23:00 Room Air 04/11/24 22:57 04/11/24 19:36 Room Air PG Care Time/CCT Total # of Minutes Spent Total Time Spent with Patient: Total time spent is greater than 50% in coordination of care (as documented) at patient's floor/unit and/or counseling patient: Coding Level of Care Code 24030 SUB INP/OBS CARE 11/06MIN Diagnoses Acute diverticulitis K57.92
[2024-04-12 10:42] LABS: Calcium 8.5 mg/dl (8.6-10.3); Magnesium 1.8 mg/dl (1.7-2.4); Potassium 3.4 mmol/L (3.5-5.1)
[2024-04-12 10:48] LABS: BUN Creatinine Ratio 7.9 (10-20); Creatinine Clr Calc Pharmacy 121.4 ml/min; Est GFR (African American) 131.6 ml/min; Est GFR (Non-African American) 113.5 ml/min
[2024-04-12] MEDS: POTASSIUM CHLORIDE CRTAB 20 MEQ TABCR PO ONE (13:39)
--- NOTE | 2024-04-12 14:55 | Hospitalist Progress Note ---
Date of Service April 12, 2024 Assessment & Plan (1) Diverticulitis of intestine with perforation: (2) Sepsis: Plan: Patient is 63 year old female with PMH hypothyroidism, mood disorder presented to ER with c/o abdominal pain x 1 day. Hospitalization 03/14/2024-03/23/2024 for diverticulitis with microperforation treated with IV antibiotics and has been on Augmentin since. Intermittent fevers past week Today in ER afebrile, P: 115, R: 18, BP 97/65, 95% on room air. (Patient with chronic low blood pressure at baseline) WBC: 19, lactate: 1.1 Sepsis Recurrent sigmoid diverticulitis with perforation and abscess --CT ABD:Extensive sigmoid diverticulosis with progression of sigmoid colon wall thickening and moderate pericolonic inflammation since CT of March 16, 2024. Significant increase in extraluminal gas extending into the mesentery. The findings favor perforated sigmoid diverticulitis with progression since prior CT. A few small fluid and gas containing pericolonic collections consistent with abscesses. No drainable abscess. Persistent wall thickening of several ileal loops and the right colon, likely secondary to perforated diverticulitis. Tethered appearance of several ileal loops. Developing fistulas cannot be excluded. Mildly fluid-filled small bowel without transition point. The findings favor an ileus. No evidence for a bowel obstruction. No change in gallbladder distention. No CT evidence for acute cholecystitis. --ESR, CRP elevated -- Blood cultures negative to date Patient preferred conservative management --IV meropenem transition to Rocephin, Flagyl Appreciate surgery, infectious disease input Pain control Will need prolonged IV antibiotics till 05/05/24 per ID Diarrhea likely secondary to antibiotics Check stool for C. difficile if recurrence of diarrhea Advance to full liquid diet Requested PICC line placement today Likely discharge tomorrow Hypokalemia Replete electrolytes as needed Monitor (3) Hypothyroidism: Plan: Continue levothyroxine (4) Abnormal CXR: Plan: CXR: 1.7 cm right lower lung nodular opacity. This may reflect atelectasis. A small focus of pneumonia could appear similar although is considered less likely. A pulmonary nodule is also considered less likely, as no nodule was shown on abdominal CT of March 14, 2024. --No cough, SOB, CP -- Added incentive spirometer --Will need repeat imaging as outpatient (5) ADHD: Plan: Hold home prn Vyvanse Insomnia on lorazepam PRN Hypothyroidism Continue levothyroxine DVT Px Heparin SQ Admission and Anticipated Discharge Date Admission Date: April 07, 2024 Subjective Patient is seen and examined at bedside States feeling a lot better today Tolerating liquid diet No new complaints Denies any chest pain, dyspnea, dizziness, nausea, vomiting, abdominal pain Review of Systems Review of Systems: All systems reviewed & are unremarkable except as noted in Subjective Physical Exam Physical Exam: Physical Exam: Vitals signs as noted above General Appearance:Moderately built and nourished, no apparent distress Head: normocephalic, Atraumatic Eyes: normal inspection, EOMI Neck: supple, Trachea midline Respiratory/Chest: Normal breath sounds, CTA, No accessory muscle use Cardiovascular: S1, S2, No murmur Abdomen/GI:Soft, non tender, Bowel sounds present Extremities/Musculoskeletal:normal inspection, no edema Neurologic/Psych:AAOX3, grossly no focal neurological deficits Skin: normal color, warm Results & Data Results & Data Vital Signs (Past 12 Hours) Vital Signs Temp Pulse Pulse Resp BP BP Pulse Ox 04/12/24 10:51 36.6 C 83 17 100/67 96 04/12/24 09:21 83 04/12/24 07:08 36.6 C 68 16 94/62 L 97 04/12/24 03:16 36.6 C 83 17 94/58 L 97 O2 Del Method 04/12/24 10:51 Room Air 04/12/24 09:21 04/12/24 07:08 Room Air 04/12/24 03:16 Room Air Laboratory Results Short CBC 04/12/24 Range/Units 05:30 Hgb 9.3 L (12.0-16.0) g/dl Hct 28.3 L (37.0-47.0) % BMP 04/12/24 05:30 Sodium 143 Potassium 3.4 L Chloride 106 Carbon Dioxide 29 BUN 3 L Creatinine 0.38 L Glucose 84 Calcium 8.5 L (1) Diverticulitis of intestine with perforation Diverticulitis bleeding: without bleeding Diverticulitis site: large intestine Qualified Code(s): K57.20 - Diverticulitis of large intestine with perforation and abscess without bleeding
[2024-04-12] MEDS: metroNIDAZOLE 500 MG/100 ML BAG IV SCH (20:13)
[2024-04-12] MEDS ORDERED: metroNIDAZOLE 500 MG TAB PO SCH (21:00)
[2024-04-13 06:35] LABS: Hemoglobin 9.1 g/dl (12.0-16.0)
[2024-04-13 06:47] LABS: Calcium 8.2 mg/dl (8.6-10.3); Potassium 3.8 mmol/L (3.5-5.1)
[2024-04-13 06:53] LABS: BUN Creatinine Ratio 8.1 (10-20); Creatinine Clr Calc Pharmacy 124.7 ml/min; Est GFR (African American) 132.7 ml/min; Est GFR (Non-African American) 114.5 ml/min
--- NOTE | 2024-04-13 07:15 | Surgery Progress Note ---
Date of Service April 13, 2024 Assessment & Plan (1) Acute diverticulitis: Plan: clinically doing ok ok for d/c soon...IV antibiotics per ID low residue diet at home f/u with me in 2 weeks. Admission and Anticipated Discharge Date Admission Date: April 07, 2024 Subjective pt seen. feeling ok. somewhat apprehensive to go home. johann fulls ok Physical Exam Constitutional: WD/WN, vitals as above no acute distress and not ill appearing Eyes: PERRL, conjunctivae normal, anicteric sclerae EOM intact bilaterally ENMT: external ear and nose normal, oropharynx normal Ears: no hearing impairment Neck: trachea midline, no thyromegaly Respiratory: normal respiratory effort; no respiratory distress and does not use accessory muscles Cardiovascular: Rate/Rhythm: regular rate and regular rhythm Gastrointestinal (Abdomen): soft. mild LLQ ttp. no peritoneal signs. much improved from admission. Skin: no rashes, warm and dry Psychiatric: Orientation: alert, oriented x 3 and cooperative Results & Data Vital Signs (Past 12 Hours) Vital Signs Temp Pulse Resp BP Pulse Ox Pulse Ox O2 Del Method 04/13/24 02:44 36.7 C 93 H 16 113/75 95 Room Air 04/13/24 00:00 97 04/12/24 23:46 36.9 C 80 16 100/65 97 Room Air 04/12/24 20:01 36.8 C 86 16 104/70 97 Room Air O2 Del Method 04/13/24 02:44 04/13/24 00:00 Room Air 04/12/24 23:46 04/12/24 20:01 PG Care Time/CCT Total # of Minutes Spent Total Time Spent with Patient: Total time spent is greater than 50% in coordination of care (as documented) at patient's floor/unit and/or counseling patient: Coding Level of Care Code 59605 SUB INP/OBS CARE Diagnoses Acute diverticulitis K57.92
--- NOTE | 2024-04-13 10:49 | XRay Report ---
XR chest 1V portable CLINICAL HISTORY: PICC placement TECHNIQUE: Single frontal radiograph of the chest was obtained. Comparison: Comparison is made to chest radiograph 04/07/2024 FINDINGS: Right PICC terminates in the cavoatrial junction. The cardiomediastinal silhouette is normal. The jose gs are clear. No evidence of pleural effusion or pneumothorax. IMPRESSION: Satisfactory position of PICC. ACT 112: Negative or not required by law. Electronically signed by: Scott Biggs M.D. 04/13/2024 10:48 AM
[2024-04-13] MEDS: SODIUM CHLORIDE 0.9% 1,000 ML IV ONE (11:38)
--- NOTE | 2024-04-13 14:43 | Infectious Disease Progress Nt ---
Date of Service April 13, 2024 Assessment & Plan (1) Diverticulitis of intestine with perforation: Plan 63yo F with h/o hypothyroidism, mood disorder, fibromyalgia, prior h/o diverticulitis including 2013, Nov 2023 (received cipro/flagyl, developed significant diarrhea), and most recently admitted 03/14-03/22 with recurrent sigmoid diverticulitis with c/f microperforation and treated conservatively (tx with zosyn, dcd on augmentin x 14 days that was extended another 15d) who presented on 04/07 with abdominal pain. Abdominal pain had improved on augmentin (never stopped, compliant), but then developed worsening LLQ abdominal pain and fever x 1d. Here she has been afebrile. Initial WBC 19.83, Cr 0.55, UA negative. CTAP with IV contrast showed extensive sigmoid diverticulosis with progression of sigmoid colon wall thickening and moderate pericolonic inflammation since [place] , significant increase in extraluminal gas extending into the mesentery, findings favor perforated sigmoid diverticulitis with progression, a small few fluid and gas containing pericolonic collections c/w abscesses, no drainable abscess; persistent wall thickening of several ileal loops and the right colon, likely 2/2 perforated diverticulitis, tethered appearance of several ileal loop s, developing fistulas cannot be excluded; some findings favoring ileus. CXR with RLL nodular density. Patient was started on empiric abx. Seen by surgery and patient would like to hold off on surgical intervention and prefers conservative management. ID consulted 04/08. ESR 40, CRP 19.06. UA neg. Abx changed to CTX/Flagyl on 04/08. Patient is tolerating CTX, no rash. She is resistant to taking PO flagyl and ID did try explaining to her that its possible the issues last time could have been from ciprofloxacin and she should trial PO flagyl while inpatient. She had has abdominal discomfort but this improved.Abdominal pain nearly resolved, afebrile without leukocytosis as of 04/13 # Recurrent sigmoid diverticulitis with perforation and abscesses # H/o hypothyroidism - continue CTX 2g IV daily and flagyl 500mg bid ( SWITCH FROM IV to PO) as pt is feeling better. - plan will be for at least 3-4 weeks of antibiotics with follow up imaging towards end of therapy final duration pending resolution of abscesses (start 04/07, 4 weeks on 05/05) _ repeat CTAP in 3 weeks. _ Follow up with surgery. - Monitor cbc, bmp, lft on abx ID will sign off. Please call with questions. Harriett Cuevas MD, MPH Infectious Disease [facility] Call [phone] with questions Admission and Anticipated Discharge Date Admission Date: April 07, 2024 Subjective This patient recommendation is based on a telemedicine consult request which was completed asynchronously through chart review and information provided by the primary physician. The patient was not seen or examined today. The evaluation is consultative in nature and all patient care and treatment decisions can either be accepted or rejected by the patient's primary hospital-based treating physician using their own independent medical judgment for their patient. Time Spent Reviewing Chart: 11 - 20 minutes Abdominal pain resolved. Afebrile Results & Data Vital Signs (Past 12 Hours) Vital Signs Temp Pulse Pulse Resp BP BP Pulse Ox 04/13/24 14:34 92 H 04/13/24 11:24 36.8 C 76 18 106/71 96 04/13/24 07:36 36.7 C 74 18 93/65 L 94 04/13/24 07:15 72 04/13/24 02:44 36.7 C 93 H 16 113/75 95 O2 Del Method 04/13/24 14:34 04/13/24 11:24 Room Air 04/13/24 07:36 Room Air 04/13/24 07:15 04/13/24 02:44 Room Air Laboratory Results Short CBC 04/13/24 Range/Units 05:23 Hgb 9.1 L (12.0-16.0) g/dl Hct 28.0 L (37.0-47.0) % BMP 04/13/24 05:23 Sodium 141 Potassium 3.8 Chloride 106 Carbon Dioxide 29 BUN 3 L Creatinine 0.37 L Glucose 95 Calcium 8.2 L Diagnostic Findings Microbiology 04/07/24 14:57 Blood Aerobic Blood Culture - Final No growth in Aerobic bottle after 5 days. 04/07/24 14:57 Blood Anaerobic Blood Culture - Final No growth in Anaerobic bottle after 5 days. 04/07/24 14:50 Blood Aerobic Blood Culture - Final No growth in Aerobic bottle after 5 days. 04/07/24 14:50 Blood Anaerobic Blood Culture - Final No growth in Anaerobic bottle after 5 days. Chest X-Ray 04/13/24 10:20 XR chest 1V portable CLINICAL HISTORY: PICC placement TECHNIQUE: Single frontal radiograph of the chest was obtained. Comparison: Comparison is made to chest radiograph 04/07/2024 FINDINGS: Right PICC terminates in the cavoatrial junction. The cardiomediastinal silhouette is normal. The lungs are clear. No evidence of pleural effusion or pneumothorax. IMPRESSION: Satisfactory position of PICC. ACT 112: Negative or not required by law. Electronically signed by: Scott Biggs M.D. 04/13/2024 10:48 AM Medications Administered Home Medications Medication Instructions Recorded Confirmed Last Taken albuterol sulfate 90 mcg/actuation 2 puff inhalation .Q6HRS PRN 03/14/24 04/07/24 Unknown aerosol inhaler Shortness Of Breath Or Wheezing calcium carbonate 600 mg-vitamin 1 cap PO DAILY 03/14/24 04/07/24 04/06/24 D3 12.5 mcg (500 unit) capsule (Calcium 600 with Vitamin D3) cetirizine 10 mg tablet (Zyrtec) 10 mg PO DAILY 03/14/24 04/07/24 04/06/24 levothyroxine 50 mcg tablet 50 mcg PO QAM 03/14/24 04/07/24 04/07/24 lisdexamfetamine 20 mg capsule 20 mg PO DAILY PRN Need to 03/14/24 04/07/24 Unknown (Doreen) focus/Projects at work lorazepam 0.5 mg tablet 0.5 mg PO HS PRN Sleep 03/14/24 04/07/24 Unknown meclizine 25 mg tablet 25 mg PO TID PRN dizzyness 03/14/24 04/07/24 Unknown ondansetron HCl 4 mg tablet 4 mg PO Q8 PRN Nausea 03/14/24 04/07/24 Unknown pregabalin 75 mg capsule 75 mg PO QAM 03/14/24 04/07/24 04/07/24 silver sulfadiazine 1 % topical 1 applic topical DIRECTED 03/14/24 04/07/24 04/06/24 cream (Silvadene) tramadol 50 mg tablet 50 mg PO Q6H PRN Pain 03/14/24 04/07/24 Unknown vitamin B complex 1 tab PO DAILY 03/14/24 04/07/24 04/06/24 amoxicillin 875 mg-potassium 1 tab PO BID #30 tabs 03/31/24 04/07/24 04/06/24 clavulanate 125 mg tablet pregabalin 75 mg capsule 150 mg PO HS 04/07/24 04/07/24 04/06/24 Active Medications Generic Name Dose Route Start Last Admin Trade Name Freq PRN Reason Stop Dose Admin Calcium Carbonate 500 mg 04/10/24 21:38 04/10/24 21:55 Calcium Carbonate 500 Mg Chewable Tab PO 05/08/24 20:52 500 mg TID PRN Administration Indigestion Heparin Sodium (Porcine) 5,000 units 04/09/24 21:00 04/13/24 09:20 Heparin Sod 5,000 Unit/0.5 Ml Vial SQ 05/09/24 20:59 5,000 units Q12 JONES Administration Ceftriaxone Sodium 2,000 mg in 50 mls @ 100 mls/hr 04/08/24 16:00 04/12/24 19:10 Rocephin IV 04/18/24 15:59 Infused Q24H JONES Infusion Metronidazole 500 mg in 100 mls @ 100 mls/hr 04/12/24 21:00 04/13/24 13:43 Flagyl IV 04/18/24 20:59 100 mls/hr Q8H JONES Administration Protocol Sodium Chloride 1,000 mls @ 80 mls/hr 04/13/24 11:18 04/13/24 11:38 Nss IV 04/13/24 23:47 80 mls/hr .[id number] ONE Administration Lactobacillus Acidophilus 1,250 mg 04/09/24 09:00 04/13/24 09:20 Advanced Probiotic 625 Mg Capsule PO 05/09/24 08:59 1,250 mg DAILY JONES Administration Levothyroxine Sodium 50 mcg 04/08/24 06:30 04/13/24 05:28 Levothyroxine Sodium 50 Mcg Tablet PO 05/08/24 06:29 50 mcg DAILYBB JONES Administration Lorazepam 0.5 mg 04/09/24 01:38 04/12/24 20:18 Lorazepam 0.5 Mg Tab PO 05/09/24 01:37 0.5 mg HS PRN Administration Anxiety/Insomnia Ondansetron HCl 4 mg 04/07/24 23:53 04/10/24 07:38 Ondansetron Inj 2 Mg/Ml 2 Ml Vial IV 05/07/24 23:52 4 mg Q6H PRN Administration Nausea Pregabalin 150 mg 04/07/24 21:00 04/12/24 20:18 Pregabalin 150 Mg Cap PO 05/07/24 20:59 150 mg HS JONES Administration Pregabalin 75 mg 04/08/24 09:00 04/13/24 09:20 Pregabalin 75 Mg Cap PO 05/08/24 08:59 75 mg QAM JONES Administration (1) Diverticulitis of intestine with perforation Diverticulitis bleeding: without bleeding Diverticulitis site: large intesti ne Qualified Code(s): K57.20 - Diverticulitis of large intestine with perforation and abscess without bleeding
[2024-04-13] MEDS ORDERED: LOPERAMIDE HCL 2 MG CAP PO PRN (15:32)
--- NOTE | 2024-04-13 15:37 | Hospitalist Progress Note ---
Date of Service April 13, 2024 Assessment & Plan (1) Diverticulitis of intestine with perforation: (2) Sepsis: Plan: Patient is 63 year old female with PMH hypothyroidism, mood disorder presented to ER with c/o abdominal pain x 1 day. Hospitalization 03/14/2024-03/23/2024 for diverticulitis with microperforation treated with IV antibiotics and has been on Augmentin since. Intermittent fevers past week Today in ER afebrile, P: 115, R: 18, BP 97/65, 95% on room air. (Patient with chronic low blood pressure at baseline) WBC: 19, lactate: 1.1 Sepsis Recurrent sigmoid diverticulitis with perforation and abscess --CT ABD:Extensive sigmoid diverticulosis with progression of sigmoid colon wall thickening and moderate pericolonic inflammation since CT of March 16, 2024. Significant increase in extraluminal gas extending into the mesentery. The findings favor perforated sigmoid diverticulitis with progression since prior CT. A few small fluid and gas containing pericolonic collections consistent with abscesses. No drainable abscess. Persistent wall thickening of several ileal loops and the right colon, likely secondary to perforated diverticulitis. Tethered appearance of several ileal loops. Developing fistulas cannot be excluded. Mildly fluid-filled small bowel without transition point. The findings favor an ileus. No evidence for a bowel obstruction. No change in gallbladder distention. No CT evidence for acute cholecystitis. --ESR, CRP elevated -- Blood cultures negative to date Patient preferred conservative management --IV meropenem transition to Rocephin, Flagyl Appreciate surgery, infectious disease input Pain control Will need prolonged IV antibiotics till 05/05/24 per ID on full liquid diet Had PICC line placed Plan to discharge in 1 to 2 days once cleared by surgery Diarrhea Likely due to IV antibiotics Stool for C. difficile negative Gentle IV fluids today Monitor volume status Hypokalemia Replete electrolytes as needed Monitor (3) Hypothyroidism: Plan: Continue levothyroxine (4) Abnormal CXR: Plan: CXR: 1.7 cm right lower lung nodular opacity. This may reflect atelectasis. A small focus of pneumonia could appear similar although is considered less likely. A pulmonary nodule is also considered less likely, as no nodule was shown on abdominal CT of March 14, 2024. --No cough, SOB, CP -- Added incentive spirometer -- Repeat chest x-ray showed no opacity. (5) ADHD: Plan: Hold home prn Vyvanse Insomnia on lorazepam PRN Hypothyroidism Continue levothyroxine Hypotension Blood pressure usually runs low per patient Monitor BP DVT Px Heparin SQ Admission and Anticipated Discharge Date Admission Date: April 07, 2024 Subjective Patient is seen and examined at bedside States having multiple episodes of diarrhea today Also reported transient dizziness this morning Abdominal pain resolved Tolerating current diet Denies any chest pain, dyspnea, nausea, vomiting Review of Systems Review of Systems: All systems reviewed & are unremarkable except as noted in Subjective Physical Exam Physical Exam: Physical Exam: Vitals signs as noted above General Appearance:Moderately built and nourished, no apparent distress Head: normocephalic, Atraumatic Eyes: normal inspection, EOMI Neck: supple, Trachea midline Respiratory/Chest: Normal breath sounds, CTA, No accessory muscle use Cardiovascular: S1, S2, No murmur Abdomen/GI:Soft, non tender, Bowel sounds present Extremities/Musculoskeletal:normal inspection, no edema Neurologic/Psych:AAOX3, grossly no focal neurological deficits Skin: normal color, warm Results & Data Results & Data Vital Signs (Past 12 Hours) Vital Signs Temp Pulse Pulse Resp BP BP Pulse Ox 04/13/24 15:11 36.7 C 86 16 104/69 96 04/13/24 14:34 92 H 04/13/24 11:24 36.8 C 76 18 106/71 96 04/13/24 07:36 36.7 C 74 18 93/65 L 94 04/13/24 07:15 72 O2 Del Method 04/13/24 15:11 Room Air 04/13/24 14:34 04/13/24 11:24 Room Air 04/13/24 07:36 Room Air 04/13/24 07:15 Laboratory Results Short CBC 04/13/24 Range/Units 05:23 Hgb 9.1 L (12.0-16.0) g/dl Hct 28.0 L (37.0-47.0) % BMP 04/13/24 05:23 Sodium 141 Potassium 3.8 Chloride 106 Carbon Dioxide 29 BUN 3 L Creatinine 0.37 L Glucose 95 Calcium 8.2 L (1) Diverticulitis of intestine with perforation Diverticulitis bleeding: without bleeding Diverticulitis site: large intestine Qualified Code(s): K57.20 - Diverticulitis of large intestine with perforation and abscess without bleeding
[2024-04-13] MEDS: metroNIDAZOLE 500 MG TAB PO STA (20:10)
[2024-04-14 06:32] LABS: Hematocrit (blood only) 29.4 % (37.0-47.0); Hemoglobin 9.5 g/dl (12.0-16.0); Mean Corpuscular Hemoglobin 28.1 pg (25.0-34.0); Mean Corpuscular Hgb Conc 32.3 g/dL (32.0-36.0); Mean Platelet Volume 9.9 fL (9.4-12.4); Platelet Count 337 K/uL (130-400); RDW Coefficient of Variation 13.3 % (11.5-14.5); RDW Standard Deviation 41.3 fL (36.4-46.3); Red Blood Count 3.38 M/uL (4.20-5.40); White Blood Count 7.38 K/ul (4.8-10.8)
[2024-04-14 06:52] LABS: BUN Creatinine Ratio 7.1 (10-20); Calcium 8.3 mg/dl (8.6-10.3); Creatinine Clr Calc Pharmacy 118.8 ml/min; Est GFR (African American) 127.3 ml/min; Est GFR (Non-African American) 109.9 ml/min; Magnesium 1.9 mg/dl (1.7-2.4); Potassium 3.8 mmol/L (3.5-5.1)
[2024-04-14] MEDS: metroNIDAZOLE 500 MG TAB PO SCH (13:49)
--- NOTE | 2024-04-14 14:56 | Hospitalist Progress Note ---
Date of Service April 14, 2024 Assessment & Plan (1) Diverticulitis of intestine with perforation: (2) Sepsis: (3) Hypothyroidism: (4) Abnormal CXR: (5) ADHD: Plan: Ms. Lobato is a 63 year old female with PMH hypothyroidism, mood disorder presented to ER with c/o abdominal and admitted for acute complicated diverticulitis with concern for abscesses and ?fistula formation. Hospitalization 03/14/2024-03/23/2024 for diverticulitis with microperforation treated with IV antibiotics and has been on Augmentin. Patient has been admitted since 04/07. Patient evaluated by surgery who recommended sigmoid colectomy and diverting colostomy, however patient declined. Patient evaluated by ID who recommended prolonged IV abx with EOT 05/05. Patient was ready for discharge 04/14, however, noted hematochezia. Discussed with GI over tigertext. There is possibility this is related to diverticular bleed, however, would benefit for continued admission to ensure stable hgb. #Hematochezia ?2/2 diverticular bleed given extensive CT AP findings Discussed curbside with GI: recommend trend H/H q 4h, if downtrending make NPO and consult GI, if stable clear for dispo in am #Sepsis *resolved #Acute recurrent sigmoid diverticulitis with perforation and abscess CT ABD:Extensive sigmoid diverticulosis with progression of sigmoid colon wall thickening and moderate pericolonic inflammation since CT of March 16, 2024. Significant increase in extraluminal gas extending into the mesentery. The findings favor perforated sigmoid diverticulitis with progression since prior CT. A few small fluid and gas containing pericolonic collections consistent with abscesses. No drainable abscess. Persistent wall thickening of several ileal loops and the right colon, likely secondary to perforated diverticulitis. Tethered appearance of several ileal loops. Developing fistulas cannot be excluded. Mildly fluid-filled small bowel without transition point. The findings favor an ileus. No evidence for a bowel obstruction. No change in gallbladder distention. No CT evidence for acute cholecystitis. ESR, CRP elevated Blood cultures NGTD Surgery consulted -declined operative management ID consulted -Continue IV CTX until 05/05, PO flagyl #Diarrhea Likely due to IV antibiotics Stool for C. difficile negative Gentle IV fluids today Monitor volume status Probiotics #Hypokalemia Replete electrolytes as needed Monitor #Hypothyroidism Continue levothyroxine #ADHD Hold home prn Vyvanse #Abnormal CXR *resolved CXR: 1.7 cm right lower lung nodular opacity. This may reflect atelectasis. A small focus of pneumonia could appear similar although is considered less likely. A pulmonary nodule is also considered less likely, as no nodule was shown on abdominal CT of March 14, 2024. Asymptomatic, resolved on repeat imaging #Insomnia on lorazepam PRN #Hypotension Blood pressure usually runs low per patient Monitor BP DVT Px Heparin SQ Admission and Anticipated Discharge Date Admission Date: April 07, 2024 Subjective Patient evaluated at bedside Reports feeling well with some flatus; reports being able to tolerate po at this time for flagyl Revealed picture of blood in toilet bowel during bowel movement and notes increased frequency Denies lightheadedness or syncope Discussed continued monitoring for HH 2/2 bleeding and possible GI consult, patient verbalized understanding Physical Exam Constitutional: WD/WN, vitals as above Respiratory: normal respiratory effort, lungs clear to auscultation Cardiovascular: RRR, no murmur, no edema Gastrointestinal (Abdomen): normal bowel sounds, soft, nontender, no hepatosplenomegaly Musculoskeletal: no cyanosis or clubbing, extremities motor strength 5/5 Results & Data Results & Data Vital Signs (Past 12 Hours) Vital Signs Temp Pulse Pulse Resp BP Pulse Ox O2 Del Method 04/14/24 11:29 36.8 C 88 16 107/70 97 Room Air 04/14/24 08:06 80 04/14/24 07:37 36.7 C 79 18 118/75 95 Room Air Laboratory Results Short CBC 04/14/24 Range/Units 05:42 WBC 7.38 (4.8-10.8) K/ul Hgb 9.5 L (12.0-16.0) g/dl Hct 29.4 L (37.0-47.0) % Plt Count 337 (130-400) K/uL BMP 04/14/24 05:42 Sodium 142 Potassium 3.8 Chloride 107 Carbon Dioxide 29 BUN 3 L Creatinine 0.42 L Glucose 92 Calcium 8.3 L Medications Administered Home Medications Medication Instructions Recorded Confirmed Last Taken albuterol sulfate 90 mcg/actuation 2 puff inhalation .Q6HRS PRN 03/14/24 04/07/24 Unknown aerosol inhaler Shortness Of Breath Or Wheezing calcium carbonate 600 mg-vitamin 1 cap PO DAILY 03/14/24 04/07/24 04/06/24 D3 12.5 mcg (500 unit) capsule (Calcium 600 with Vitamin D3) cetirizine 10 mg tablet (Zyrtec) 10 mg PO DAILY 03/14/24 04/07/24 04/06/24 levothyroxine 50 mcg tablet 50 mcg PO QAM 03/14/24 04/07/24 04/07/24 lisdexamfetamine 20 mg capsule 20 mg PO DAILY PRN Need to 03/14/24 04/07/24 Unknown (Doreen) focus/Projects at work lorazepam 0.5 mg tablet 0.5 mg PO HS PRN Sleep 03/14/24 04/07/24 Unknown meclizine 25 mg tablet 25 mg PO TID PRN dizzyness 03/14/24 04/07/24 Unknown ondansetron HCl 4 mg tablet 4 mg PO Q8 PRN Nausea 03/14/24 04/07/24 Unknown pregabalin 75 mg capsule 75 mg PO QAM 03/14/24 04/07/24 04/07/24 silver sulfadiazine 1 % topical 1 applic topical DIRECTED 03/14/24 04/07/24 04/06/24 cream (Silvadene) tramadol 50 mg tablet 50 mg PO Q6H PRN Pain 03/14/24 04/07/24 Unknown vitamin B complex 1 tab PO DAILY 03/14/24 04/07/24 04/06/24 amoxicillin 875 mg-potassium 1 tab PO BID #30 tabs 03/31/24 04/07/24 04/06/24 clavulanate 125 mg tablet pregabalin 75 mg capsule 150 mg PO HS 04/07/24 04/07/24 04/06/24 Active Medications Generic Name Dose Route Start Last Admin Trade Name Freq PRN Reason Stop Dose Admin Calcium Carbonate 500 mg 04/10/24 21:38 04/14/24 13:51 Calcium Carbonate 500 Mg Chewable Tab PO 05/08/24 20:52 500 mg TID PRN Administration Indigestion Heparin Sodium (Beef Lung) 5 ml 04/12/24 14:17 04/14/24 08:44 Heparin 10 Unit/Ml 5 Ml Flush FLUSH 05/12/24 14:16 5 ml PRN PRN Administration Flush Heparin Sodium (Porcine) 5,000 units 04/09/24 21:00 04/14/24 08:24 Heparin Sod 5,000 Unit/0.5 Ml Vial SQ 05/09/24 20:59 5,000 units Q12 JONES Administration Ceftriaxone Sodium 2,000 mg in 50 mls @ 100 mls/hr 04/08/24 16:00 04/13/24 16:50 Rocephin IV 04/18/24 15:59 Infused Q24H JONES Infusion Lactobacillus Acidophilus 1,250 mg 04/09/24 09:00 04/14/24 08:24 Advanced Probiotic 625 Mg Capsule PO 05/09/24 08:59 1,250 mg DAILY JONES Administration Levothyroxine Sodium 50 mcg 04/08/24 06:30 04/14/24 05:40 Levothyroxine Sodium 50 Mcg Tablet PO 05/08/24 06:29 50 mcg DAILYBB JONES Administration Lorazepam 0.5 mg 04/09/24 01:38 04/13/24 20:16 Lorazepam 0.5 Mg Tab PO 05/09/24 01:37 0.5 mg HS PRN Administration Anxiety/Insomnia Metronidazole 500 mg 04/14/24 14:00 04/14/24 13:49 Metronidazole 500 Mg Tab PO 04/24/24 13:59 500 mg Q8 JONES Administration Protocol Ondansetron HCl 4 mg 04/07/24 23:53 04/14/24 08:30 Ondansetron Inj 2 Mg/Ml 2 Ml Vial IV 05/07/24 23:52 4 mg Q6H PRN Administration Nausea Pregabalin 150 mg 04/07/24 21:00 04/13/24 20:10 Pregabalin 150 Mg Cap PO 05/07/24 20:59 150 mg HS JONES Administration Pregabalin 75 mg 04/08/24 09:00 04/14/24 08:24 Pregabalin 75 Mg Cap PO 05/08/24 08:59 75 mg QAM JONES Administration (1) Diverticulitis of intestine with perforation Diverticulitis bleeding: without bleeding Diverticulitis site: large intestin e Qualified Code(s): K57.20 - Diverticulitis of large intestine with perforation and abscess without bleeding
[2024-04-14 16:14] LABS: Hemoglobin 9.6 g/dl (12.0-16.0)
[2024-04-14 19:18] LABS: Hematocrit (blood only) 30.1 % (37.0-47.0); Hemoglobin 9.7 g/dl (12.0-16.0)
[2024-04-14 23:13] LABS: Hemoglobin 9.7 g/dl (12.0-16.0)
[2024-04-15 06:31] LABS: BUN Creatinine Ratio 12.8 (10-20); Calcium 8.2 mg/dl (8.6-10.3); Creatinine Clr Calc Pharmacy 118.3 ml/min; Est GFR (African American) 130.5 ml/min; Est GFR (Non-African American) 112.6 ml/min; Phosphorus 4.3 mg/dl (2.5-4.9); Potassium 3.7 mmol/L (3.5-5.1)
[2024-04-15 06:33] LABS: Hematocrit (blood only) 29.8 % (37.0-47.0); Hemoglobin 9.5 g/dl (12.0-16.0); Mean Corpuscular Hemoglobin 27.8 pg (25.0-34.0); Mean Corpuscular Hgb Conc 31.9 g/dL (32.0-36.0); Mean Corpuscular Volume 87.1 fL (80.0-100.0); Mean Platelet Volume 9.9 fL (9.4-12.4); Platelet Count 285 K/uL (130-400); RDW Coefficient of Variation 13.7 % (11.5-14.5); RDW Standard Deviation 42.3 fL (36.4-46.3); Red Blood Count 3.42 M/uL (4.20-5.40); White Blood Count 7.57 K/ul (4.8-10.8)
[2024-04-15] MEDS: ALTEPLASE, RECOMBINANT 1 MG/ML 2ML VIAL INSTIL ONE (08:24)
--- NOTE | 2024-04-15 12:29 | Discharge Summary ---
Discharge Summary Date of Service April 15, 2024 Principal Dx & Hospital Course #1 = Principal Diagnosis (1) Diverticulitis of intestine with perforation: (2) Sepsis: (3) Hypothyroidism: (4) Abnormal CXR: (5) ADHD: Ms. Lobato is a 63 year old female with PMH hypothyroidism, mood disorder presented to ER with c/o abdominal and admitted for acute complicated diverticulitis with concern for abscesses and ?fistula formation. Hospitalization 03/14/2024-03/23/2024 for diverticulitis with microperforation treated with IV antibiotics and has been on Augmentin. Patient has been admitted since 04/07. Patient evaluated by surgery who recommended sigmoid colectomy and diverting colostomy, however patient declined. Patient evaluated by ID who recommended prolonged IV abx with EOT 05/05. Patient was ready for discharge 04/14, however, noted hematochezia. Discussed with GI over [employer]text. There is possibility this is related to diverticular bleed, however, would benefit for continued admission to ensure stable hgb. On 04/15, hgb remained stable and patient eager for discharge. Discussed diet recommendations as a soft, low fiber. On day of discharge, patient declined any new concerns, patient verbalized understanding of plan and follow up with sugery and pcp. #Hematochezia ?2/2 diverticular bleed given extensive CT AP findings Discussed curbside with GI: hgb remained stable #Sepsis *resolved #Acute recurrent sigmoid diverticulitis with perforation and abscess CT ABD:Extensive sigmoid diverticulosis with progression of sigmoid colon wall thickening and moderate pericolonic inflammation since CT of March 16, 2024. Significant increase in extraluminal gas extending into the mesentery. The findings favor perforated sigmoid diverticulitis with progression since prior CT. A few small fluid and gas containing pericolonic collections consistent with abscesses. No drainable abscess. Persistent wall thickening of several ileal loops and the right colon, likely secondary to perforated diverticulitis. Tethered appearance of several ileal loops. Developing fistulas cannot be excluded. Mildly fluid-filled small bowel without transition point. The findings favor an ileus. No evidence for a bowel obstruction. No change in gallbladder d istention. No CT evidence for acute cholecystitis. ESR, CRP elevated Blood cultures NGTD Surgery consulted -declined operative management ID consulted -Continue IV CTX until 05/05, PO flagyl #Diarrhea Likely due to IV antibiotics Stool for C. difficile negative Gentle IV fluids today Monitor volume status Probiotics #Hypokalemia replaced #Hypothyroidism Continue levothyroxine #ADHD resume home prn Vyvanse #Abnormal CXR *resolved CXR: 1.7 cm right lower lung nodular opacity. This may reflect atelectasis. A small focus of pneumonia could appear similar although is considered less likely. A pulmonary nodule is also considered less likely, as no nodule was shown on abdominal CT of March 14, 2024. Asymptomatic, resolved on repeat imaging #Insomnia on lorazepam PRN #Hypotension Blood pressure usually runs low per patient Monitor BP Notes For Next Care Provider Medication Changes From Visit CTX q24 EOT 05/05 Flagyl po q8h EOT 05/05 Admission HPI Per Admitting Provider Patient is 63 year old female with PMH hypothyroidism, mood disorder presented to ER with c/o abdominal pain. History obtained from patient and inpatient and outpatient chart review. History [facility] hospitalization 03/14/2024-03/23/2024 for diverticulitis with microperforation treated with IV antibiotics and discharged on Augmentin. Patient followed up with general surgery, Dr. Escobar on 03/31/2024 and was continued on Augmentin and low residue diet with plan of future laparoscopic sigmoid colectomy. Patient states since discharge home had been not having any abdominal pain. Reported fever 7 days and 5 days ago had Tmax 101.4F. Fevers seemed to resolve after that and was not having any abdominal pain. She tried liquid diet and was feeling ok, so started back with low residue diet again. She was discharged on 14 days Augmentin and general surgery prescribed additional 15 days and she denies any lapse in antibiotic therapy. Reports last night started with left lower abdominal pain. This morning LLQ abdominal pain more severe and sharp with any movement and rates 8 out of 10 on pain scale. She states had two formed BMs this am without any noted melena or hematochezia. States this morning 101F fever. Denies N/V, MUIR, dizziness, syn cope, CP, SOB, orthopnea, palpitations, cough, sore throat, weakness, extremity edema, rashes, urinary symptoms. Admission Exam Per Admitting Provider General: no acute distress, ill appearing but non-toxic appearance, WDWN Head: normocephalic, atraumatic Eyes: conjunctiva non-injected, anicteric ENT: normal inspection external ears, nose, mucous membranes moist Neck: supple, trachea midline Lungs: clear, no respiratory distress, no wheezing/rhonchi/rales CV: RRR, no murmur, no pretibial edema Abd: normal BS, soft, +tender to palpation LLQ with guarding Ext: no cyanosis, no calf tenderness Neuro: A&O x 3, no focal deficits noted, normal affect Skin: warm, dry Discharge Exam Constitutional WD/WN, vitals as above Respiratory normal respiratory effort, lungs clear to auscultation Cardiovascular RRR, no murmur, no edema Gastrointestinal (Abdomen) normal bowel sounds, soft, nontender, no hepatosplenomegaly Musculoskeletal no cyanosis or clubbing, extremities motor strength 5/5 Updated Medication List Medication Instructions Recorded Confirmed Type albuterol sulfate 90 mcg/actuation 2 puff inhalation .Q6HRS PRN 03/14/24 04/07/24 History aerosol inhaler Shortness Of Breath Or Wheezing calcium carbonate 600 mg-vitamin 1 cap PO DAILY 03/14/24 04/07/24 History D3 12.5 mcg (500 unit) capsule (Calcium 600 with Vitamin D3) cetirizine 10 mg tablet (Zyrtec) 10 mg PO DAILY 03/14/24 04/07/24 History levothyroxine 50 mcg tablet 50 mcg PO QAM 03/14/24 04/07/24 History lisdexamfetamine 20 mg capsule 20 mg PO DAILY PRN Need to 03/14/24 04/07/24 History (Doreen) focus/Projects at work lorazepam 0.5 mg tablet 0.5 mg PO HS PRN Sleep 03/14/24 04/07/24 History meclizine 25 mg tablet 25 mg PO TID PRN dizzyness 03/14/24 04/07/24 History pregabalin 75 mg capsule 75 mg PO QAM 03/14/24 04/07/24 History silver sulfadiazine 1 % topical 1 applic topical DIRECTED 03/14/24 04/07/24 History cream (Silvadene) tramadol 50 mg tablet 50 mg PO Q6H PRN Pain 03/14/24 04/07/24 History vitamin B complex 1 tab PO DAILY 03/14/24 04/07/24 History pregabalin 75 mg capsule 150 mg PO HS 04/07/24 04/07/24 History L.acidop,casei,lactis,rham-B.lact,naomy 1 cap PO DAILY #30 caps 04/15/24 Rx 625 mg (10 billion cell) capsule (Advanced Probiotic) metronidazole 500 mg tablet 500 mg PO Q8 20 days #60 tabs 04/15/24 Rx ondansetron HCl 4 mg tablet 4 mg PO Q8 PRN Nausea #30 tabs 04/15/24 Rx Hospital Stay Data Consultations 04/07/24 16:21 Consult General Surgery Stat 04/07/24 16:37 ED Decision to Admit Stat 04/07/24 23:53 Consult General Surgery Routine 04/08/24 10:24 Consult Infectious Diseases Routine Diagnostic Imagining Performed 04/07/24 14:27 CT abd pelvis IV con only Stat Pending Results Patient Have Any Pending Studies at Discharge: No Discharge Instructions Given to Patient (Per Discharging Provider) Follow-up with your primary care physician in 1 week Follow-up with your surgeon Dr. Escobar. Do not return to work until cleared by Dr. Escobar at your appointment. --Complete IV antibiotic course (IV Rocephin) as prescribed till 05/05/24 as recommended by your infectious disease specialist. --Complete Flagyl course by mouth every 8 hours as prescribed until 05/05/24 --Get blood work (CBC, BMP) weekly while on antibiotics and follow-up with your physician with results. -- You are incidentally noted to have 1.7 cm right lower lobe nodular opacity on chest x-ray. Will recommend repeat imaging in 4 to 6 weeks as outpatient to ensure resolution. Seek immediate medical attention if your symptoms reoccur or worsen Please take all medications as instructed on discharge list below. Please call if you have any questions or problems. You can reach a [facility] hospitalist on duty at [facility] 24 hours a day by calling [phone] Total Time Total Time Spent Total Time Spent (In Minutes): 15
== END 2024-04-15 16:31 | disposition home or self-care (01) | DRG 871 ==
LOC: ED 14:15 → EDINP 17:15 → SUATTDRO 17:15 → 2S 23:45

== ENCOUNTER 2024-08-05 05:49 | Inpatient (IN) ==
--- NOTE | 2024-07-29 12:41 | Anesthesiology Consultation ---
Date of Service July 29, 2024 Assessment & Plan (1) Encounter for pre-operative examination: - This anesthesia consult if for laparoscopic sigmoid colectomy scheduled 08/05/[address] Escobar. See alternate V#/anesthesia consult for colonoscopy scheduled 08/04/24. - Infectious disease screening: Per assessment on 07/28/24- No known recent infectious disease contacts or current infectious disease symptoms. Chart Review Chart Review: Acceptable Risk for Surgery and Patient NOT seen in Pre Admission Testing History Surgery Operation Date: 08/05/24 07:15 Proposed Procedures p Laparoscopic Sigmoid Colectomy - Augustin Escobar, DO Height/Weight Height: 5 ft 2 in Weight: 58.967 kg Allergies Allergy/AdvReac Type Severity Reaction Status Date / Time Bactrim Allergy Mild RASH Verified 09/15/16 17:20 sulfamethoxazole Allergy Mild Unknown Verified 07/28/24 10:13 trimethoprim Allergy Mild Unknown Verified 07/28/24 10:13 amoxicillin Allergy Unknown - Verified 07/28/24 10:13 cefuroxime Allergy Unknown "Sunburn Verified 07/29/24 12:35 skin" (received IV) acesulfame AdvReac Unknown Migraines Verified 07/29/24 12:35 aspartame AdvReac Unknown Migraines Verified 07/29/24 12:35 saccharin AdvReac Unknown Migraines Verified 07/29/24 12:35 sucralose AdvReac Unknown Migraines Verified 07/29/24 12:35 Medications Home Medications Medication Instructions Recorded Confirmed Last Taken albuterol sulfate 90 mcg/actuation 2 puff inhalation .Q6HRS PRN 03/14/24 07/28/24 Unknown aerosol inhaler Shortness Of Breath Or Wheezing calcium 600 mg (as 1 cap PO QAM 03/14/24 07/28/24 04/06/24 carbonate)-vitamin D3 12.5 mcg (500 unit) capsule (Calcium with Vit D3) cetirizine 10 mg tablet (Zyrtec) 10 mg PO QAM 03/14/24 07/28/24 04/06/24 levothyroxine 50 mcg tablet 50 mcg PO QAM 03/14/24 07/28/24 04/07/24 lisdexamfetamine 20 mg capsule 20 mg PO DAILY PRN Need to 03/14/24 07/28/24 Unknown (Vyvanse) focus/Projects at work lorazepam 0.5 mg tablet 0.5 mg PO HS PRN Sleep 03/14/24 07/28/24 Unknown meclizine 25 mg tablet 25 mg PO TID PRN Dizziness 03/14/24 07/28/24 Unknown pregabalin 75 mg capsule 75 mg PO QAM 03/14/24 07/28/24 04/07/24 silver sulfadiazine 1 % topical 1 applic topical DIRECTED PRN 03/14/24 07/28/24 04/06/24 cream (Silvadene) fitzgerald tramadol 50 mg tablet 50 mg PO Q6H PRN Pain 03/14/24 07/28/24 Unknown vitamin B complex 1 tab PO QAM 03/14/24 07/28/24 04/06/24 pregabalin 75 mg capsule 150 mg PO HS 04/07/24 07/28/24 04/06/24 peg 3350-electrolytes 236 240 ml PO Q10M #4,000 mL 07/19/24 Unknown gram-22.74 gram-6.74 gram-5.86 gram solution (GaviLyte-G) hknfsaf-rlqzwdunxcveg-cjbyfpsv 250 1 tab PO Q6H PRN Migraine Headache 07/28/24 07/28/24 Unknown mg-250 mg-65 mg tablet (Excedrin Migraine) eszopiclone 1 mg tablet (Lunesta) 1 mg PO HS PRN Sleep 07/28/24 07/28/24 Unknown ondansetron HCl 4 mg tablet 4 mg PO Q8 PRN Nausea/dizziness 07/28/24 07/28/24 Unknown Past Medical History Medical History ADD (attention deficit disorder) Fatty liver Fibromyalgia History of diverticulitis Recurrent Hypothyroidism Migraine Chronic Osteoarthritis Right lower lobe pulmonary nodule Per records, patient denies Situational anxiety Past Family History Family History Father Diabetes Other Cancer No family history of adverse response to anesthesia Denies family history of Ovarian cancer Breast cancer Colorectal cancer Past Surgical History Surgical History H/O dilation and curettage H/O LEEP History of hysterectomy Hx of colonoscopy Social History Smoking Status: Never smoker Do You Dip or Chew Tobacco: No Hx Alcohol Use: No Hx Substance Use: No substance use type: does not use Lab Results Anesthesia Preop Results Results Anesthesia Widget: WBC 7.54 K/ul (4.8-10.8) 07/28/24 Hgb 11.9 g/dl (12.0-16.0) L 07/28/24 Hct 36.5 % (37.0-47.0) L 07/28/24 Plt 380 K/uL (130-400) 07/28/24 Na 140 mmol/L (136-145) 07/28/24 K 3.5 mmol/L (3.5-5.1) 07/28/24 Cl 105 mmol/L (98-107) 07/28/24 CO2 29 mmol/L (21-32) 07/28/24 BUN 11 mg/dl (6-23) 07/28/24 Creat 0.48 mg/dl (0.6-1.2) L 07/28/24 Glucose Level 103 mg/dl (70-99(Fasting)) H 07/28/24 Testing Electrocardiogram Date: 04/07/24 ST at 106bpm. Possible old anterior infarct (cited on or before 09/28/2015 per roll up guider operator comparison). Other Testing Chest CT Date: 04/28/24 FINDINGS: Lungs and pleura: Atelectasis versus scarring is seen in the dependent portions of the lungs. No significant nodular densities are seen. Heart and pericardium: Heart size is normal. No pericardial effusion. Vessels: Mild atherosclerotic changes in the aorta and coronary arteries. Mediastinum and jose rafael: Subcentimeter lymph nodes are seen. Chest wall and lower neck: Subcentimeter axillary lymph nodes noted. Abdomen: For findings below the diaphragm, please refer to CT of the abdomen dated the same. Bones: Degenerative changes in the thoracic spine. IMPRESSION: No his findings and in particular no evidence of suspicious lung nodule.
--- NOTE | 2024-08-05 06:27 | History & Physical Bridge Note ---
Date of Service August 05, 2024 History & Physical Bridge Note I have examined the patient, reviewed the History & Physical and in the interval since the performance of the History & Physical I have noted the following changes of clinical significance: no changes noted
[2024-08-05] MEDS: LR 15ML/HR IV SCH (06:29)
[2024-08-05] MEDS: metroNIDAZOLE 500 MG/100 ML BAG IV SCH ×2 (06:36→14:17)
[2024-08-05] MEDS ORDERED: PROPOFOL IV EMULSION 10 MG/ML 20 ML VIAL IV ONE (06:47)
[2024-08-05] MEDS ORDERED: ONDANSETRON INJ 2 MG/ML 2 ML VIAL ONE (06:47)
[2024-08-05] MEDS ORDERED: NEOSTIGMINE METHYLSULFATE 1 MG/ML 10ML VIAL ONE (06:47)
[2024-08-05] MEDS ORDERED: SUCCINYLCHOLINE CHLORIDE 20 MG/ML 10 ML VIAL IV ONE (06:47)
[2024-08-05] MEDS ORDERED: GLYCOPYRROLATE 0.2 MG/ML VIAL ONE (06:47)
[2024-08-05] MEDS ORDERED: LIDOCAINE 2% 2 ML VIAL/AMP(20MG/ML) INFIL ONE (06:47)
[2024-08-05] MEDS ORDERED: PHENYLEPHRINE HCL 10 MG/ML VIAL ONE (06:47)
[2024-08-05] MEDS ORDERED: DEXAMETHASONE SOD INJ 4 MG/ML VIAL ONE (06:47)
[2024-08-05] MEDS ORDERED: ePHEDrine sulfate 50 MG/ML AMP ONE (06:47)
[2024-08-05] MEDS ORDERED: MIDAZOLAM HCL 1 MG/ML 2ML VIAL ONE (06:47)
[2024-08-05] MEDS ORDERED: fentaNYL citrate PF 100 MCG/2 ML VIAL ONE ×2 (06:48→09:31)
--- NOTE | 2024-08-05 07:03 | Anesthesiology Consultation ---
Date of Service August 05, 2024 Assessment & Plan (1) Encounter for pre-operative examination: Chart Review Chart Review: Acceptable Risk for Surgery and Patient NOT seen in Pre Admission Testing Consults Requested none History Surgery Operation Date: 08/05/24 07:15 Proposed Procedures p Laparoscopic Sigmoid Colectomy - Augustin Escobar, Height/Weight Height: 5 ft 2 in Weight: 57.9 kg Allergies Allergy/AdvReac Type Severity Reaction Status Date / Time sulfamethoxazole Allergy Mild Unknown Verified 08/05/24 06:10 trimethoprim Allergy Mild Unknown Verified 08/05/24 06:10 amoxicillin Allergy Unknown - Verified 08/05/24 06:10 cefuroxime Allergy Unknown "Sunburn Verified 08/05/24 06:10 skin" (received IV) acesulfame AdvReac Unknown Migraines Verified 08/05/24 06:10 aspartame AdvReac Unknown Migraines Verified 08/05/24 06:10 saccharin AdvReac Unknown Migraines Verified 08/05/24 06:10 sucralose AdvReac Unknown Migraines Verified 08/05/24 06:10 Medications Home Medications Medication Instructions Recorded Confirmed Last Taken albuterol sulfate 90 mcg/actuation 2 puff inhalation .Q6HRS PRN 03/14/24 08/05/24 Unknown aerosol inhaler Shortness Of Breath Or Wheezing calcium 600 mg (as 1 cap PO QAM 03/14/24 08/05/24 08/02/24 07:00 carbonate)-vitamin D3 12.5 mcg (500 unit) capsule (Calcium with Vit D3) cetirizine 10 mg tablet (Zyrtec) 10 mg PO QAM 03/14/24 08/05/24 08/03/24 levothyroxine 50 mcg tablet 50 mcg PO QAM 03/14/24 08/05/24 08/05/24 05:00 lisdexamfetamine 20 mg capsule 20 mg PO DAILY PRN Need to 03/14/24 08/05/24 08/02/24 06:30 (Doreen) focus/Projects at work lorazepam 0.5 mg tablet 0.5 mg PO HS PRN Sleep 03/14/24 08/05/24 08/04/24 20:30 meclizine 25 mg tablet 25 mg PO TID PRN Dizziness 03/14/24 08/05/24 Unknown pregabalin 75 mg capsule 75 mg PO QAM 03/14/24 08/05/24 08/05/24 05:15 silver sulfadiazine 1 % topical 1 applic topical DIRECTED PRN 03/14/24 08/05/24 04/06/24 cream (Silvadene) fitzgerald tramadol 50 mg tablet 50 mg PO Q6H PRN Pain 03/14/24 08/05/24 Unknown vitamin B complex 1 tab PO QAM 03/14/24 08/05/24 08/02/24 08:00 pregabalin 75 mg capsule 150 mg PO HS 04/07/24 08/05/24 08/04/24 20:30 haiydjr-ivxmlkaqxkhpz-yykxacsc 250 1 tab PO Q6H PRN Migraine Headache 07/28/24 08/05/24 Unknown mg-250 mg-65 mg tablet (Excedrin Migraine) eszopiclone 1 mg tablet (Lunesta) 1 mg PO HS PRN Sleep 07/28/24 08/05/24 08/02/24 ondansetron HCl 4 mg tablet 4 mg PO Q8 PRN Nausea/dizziness 07/28/24 08/05/24 Unknown Active Medications Generic Name Dose Route Start Last Admin Trade Name Freq PRN Reason Stop Dose Admin Metronidazole 500 mg in 100 mls @ 100 mls/hr 08/05/24 06:00 08/05/24 06:36 Flagyl IV 08/05/24 18:00 100 mls/hr PREOP JONES Administration Lactated Ringer's 1,000 mls @ 15 mls/hr 08/05/24 06:00 08/05/24 06:29 Lr IV 08/06/24 05:59 15 mls/hr .Q24H JONES Administration NPO Date Last Intake of Fluids: 08/04/24 Time Last Intake of Fluids: 21:00 Last Intake of Fluids Comment: sip of water 0515 w/meds Date Last Intake of Solids: 08/02/24 Time Last Intake of Solids: 18:00 Past Medical History Medical History History of diverticulitis Recurrent Situational anxiety Hypothyroidism Fibromyalgia Osteoarthritis Fatty liver ADD (attention deficit disorder) Right lower lobe pulmonary nodule Per records, patient denies Migraine Chronic Exercise / Class Metabolic Activity II 4-5 Yardwork/Stairs/Walk up hill Past Family History Family History Father Diabetes Other Cancer No family history of adverse response to anesthesia Denies family history of Ovarian cancer Breast cancer Colorectal cancer Past Surgical History Surgical History Hx of colonoscopy H/O dilation and curettage H/O LEEP Past Anesthesia History No Hx of Anesthesia Complications and No Family Hx of Anesthesia Complications Social History Smoking Status: Never smoker Do You Dip or Chew Tobacco: No Hx Alcohol Use: No Hx Substance Use: No substance use type: does not use Physical Exam Vital Signs Last Vital Signs Temp 36.6 C 08/05/24 06:10 Pulse 96 H 08/05/24 06:10 Resp 18 08/05/24 06:10 BP 129/71 08/05/24 06:10 Pulse Ox 97 08/05/24 06:10 O2 Del Method Room Air 08/05/24 06:10 Testing Laboratory Results see previous note Electrocardiogram Date: 04/07/24 ST at 106bpm. Possible old anterior infarct (cited on or before 09/28/2015 per production sorter comparison). Other Testing Chest CT Date: 04/28/24 FINDINGS: Lungs and pleura: Atelectasis versus scarring is seen in the dependent portions of the lungs. No significant nodular densities are seen. Heart and pericardium: Heart size is normal. No pericardial effusion. Vessels: Mild atherosclerotic changes in the aorta and coronary arteries. Mediastinum and jose rafael: Subcentimeter lymph nodes are seen. Chest wall and lower neck: Subcentimeter axillary lymph nodes noted. Abdomen: For findings below the diaphragm, please refer to CT of the abdomen dated the same. Bones: Degenerative changes in the thoracic spine. IMPRESSION: No his findings and in particular no evidence of suspicious lung nodule.
[2024-08-05] MEDS ORDERED: PROMETHAZINE HCL 6.25 MG in SODIUM CHLORIDE 0.9% 50 ML IV PRN (07:04)
[2024-08-05] MEDS ORDERED: ATROPINE SULFATE 0.1 MG/ML 10ML SYR IV PRN (07:04)
[2024-08-05] MEDS ORDERED: ONDANSETRON INJ 2 MG/ML 2 ML VIAL IV PRN (07:04)
[2024-08-05] MEDS ORDERED: ePHEDrine sulfate 50 MG/ML AMP IV PRN (07:04)
[2024-08-05] MEDS: CIPROFLOXACIN / D5W 400 MG/200 ML BAG IV SCH ×2 (08:00→19:34)
[2024-08-05] MEDS ORDERED: ROCURONIUM BROMIDE 10 MG/ML 5 ML VIAL IV ONE (09:09)
[2024-08-05] MEDS: BUPIVACAINE/EPINEPHRINE 0.5% MPF 1:200,000 30 ML VIAL ONE (10:43)
--- NOTE | 2024-08-05 11:01 | Post Operative Brief Note ---
PG Immediate Post Op with CF Date of Surgery August 05, 2024 Pre & Post Diagnosis Operation Date: 08/05/24 07:15 Pre-Op Diagnosis: history of Acute Diverticulitis, Colonic Diverticular Abscess Post-Op Diagnosis: diverticular disease; colo-colo fistula; adhesions I identified the patient and participated in the time-out.: Yes Procedure Operation Date: 08/05/24 07:15 Actual Procedures p Laparoscopic Sigmoid Colectomy, Take down of colo-colo fistula, ileocecectomy, enterolysis(Not Applicable) - Augustin Escobar DO Surgeon Augustin Escobar DO [employer] Clerk humphrey Ewing; Brooke Landa Estimated Blood Loss 200 Findings Consistent with Post-Op Diagnosis Specimens Specimen Description: A. Sigmoid B. Terminal ileum Portion of Cecum Drains Prakash Catheter and Forest-Warner Drain (10fr flat)
[2024-08-05] MEDS: fentaNYL citrate PF 100 MCG/2 ML VIAL IV PRN (11:09)
[2024-08-05] MEDS: HYDROmorphone INJ 1 MG/ML SYRINGE IV PRN (11:30)
[2024-08-05] MEDS: HYDROmorphone INJ 0.5 MG/0.5 ML SYR IV STA ×4 (11:54→12:11)
[2024-08-05] MEDS: HYDROmorphone INJ 0.5 MG/0.5 ML SYR ONE (11:54)
--- NOTE | 2024-08-05 12:38 | Operative Report ---
PG Post Operative Report Pre & Post Diagnosis Operation Date: 08/05/24 07:15 Pre-Op Diagnosis: Acute Diverticulitis, Colonic Diverticular Abscess Post-Op Diagnosis: Acute Diverticulitis, Colonic Diverticular Abscess I identified the patient and participated in the time-out.: Yes Procedure Operation Date: 08/05/24 07:15 Actual Procedures p Laparoscopic Sigmoid Colectomy, Take down of colo-colo fistula, ileocecectomy, enterolysis(Not Applicable) - Augustin Escobar DO Surgeon Augustin Escobar DO Professor Of Communication humphrey Ewing; Brooke Landa Estimated Blood Loss 200 Findings Consistent with Post-Op Diagnosis Specimens 1. sigmoid colon 2. terminal ileum, portion of cecum, appendix Description of Procedure After informed consent was obtained the patient was taken to the operating room and placed in supine position. After successful intubation a Prakash catheter was placed sterilely. An orogastric tube was also placed. The patient was placed in a low lithotomy position. The rectum and perineum and abdomen were all sterilely prepped and draped in usual fashion. I began with a supraumbilical incision with an 11 blade scalpel. This was carried down through the soft tissue using cautery. The anterior fascia was opened using cautery and two #0 Vicryl stay sutures were placed. The peritoneum was entered using blunt finger penetration and a finger sweep was performed. A 12 mm [place] trocar was placed and the abdomen was insufflated to 18 mmHg. Laparoscope was inserted and the abdomen was examined in 360 degrees. There were some adhesions from obvious prior inflammation in the lower half of the abdomen and pelvis. I began by placing a right lower quadrant 12 mm trocar a right mid abdominal 5 mm trocar and eventually a left lower quadrant 5 mm trocar. The patient was placed in a Trendelenburg position and slightly airplaned to the right. As I examined the sigmoid colon there was an area of obvious prior inflammation. There was a long floppy cecum and terminal ileum which were tightly adhered to the sigmoid colon. I began by taking down the adhesions using sharp scissor lysis, small amounts of harmonic scalpel, and blunt dissection. I began to tediously try and separate the cecum from the sigmoid colon. This was impossible to do bluntly indicating a fistulous connection. I was able to sharply separate the 2 which created a small opening in the cecum itself. Once I had them I then took down the white line of Toldt using blunt dissection as well as the harmonic scalpel. I was able to identify the left ureter to keep it out of harm's way. I carried this distally down over the pelvic brim. Next I created a small window in the mesentery distal to the area of inflammation in the sigmoid colon. 2 firings of a purple cartridge ERIKA 60 mm stapler was used to transect the sigmoid at its junction with the rectum. We then marked an area with a purple marker on the left colon proximal to the area of prior inflammation. I then used the harmonic scalpel to take down the mesentery up to the spot marked. Next we removed the left lower quadrant trocar and extended this incision me dially and laterally. This was carried down through soft tissue using cautery. Anterior fascia was also opened. I delivered the stapled end of the sigmoid colon out through this incision after toweling it off. We used bowel clamps and then divided the colon and sent it to pathology. Next we used sizers to estimate the size of the lumen. It was a small lumen and would only take a 25 mm sizer. At this point we used 2-0 silk to create a handsewn pursestring. The anvil of a 25 mm circular stapler was placed into the end of the colon and secured it using the pursestring sutures. This was then placed back into the abdomen. At this point I used Babcocks to deliver the cecum and terminal ileum and appendix out through this incision. Again the mesentery of the right colon was quite floppy which was convenient to allow us to do this. Upon manual evaluation there was a very hard mass right at the terminal ileum/cecum which was right where I had to sharply separate the cecum from the sigmoid colon. This appeared to be inflammatory in nature. I therefore decided to perform an ileocecectomy. The terminal ileum was transected using a ERIKA brown cartridge linear stapler. I was then able to use 2 firings of a purple 60 mm stapler to transect a portion of the cecum which contained the terminal ileum as well as the appendix. This was passed off to pathology. We then performed a s jairo-to-side stapled anastomosis using a ERIKA brown cartridge 60 mm stapler. The common enterotomy was closed using 3-0 Monocryl for serosal/mucosal layers followed by 3-0 silk to imbricate the enterotomy in Lembert fashion. I also used 2-0 Vicryl to close the mesenteric defect. The anastomosis was widely patent with no evidence of ischemia. This was then placed back into the abdomen. We then changed our gloves. We closed the fascia of this incision using 0 PDS in running fashion. At this point I re-insufflated the abdomen. We were able to easily lay the anvil over the pelvic brim to do the anastomosis with no tension. We were able to bring the handle of the circular stapler in through the rectal stump. We deployed the spike anterior to the staple line. We connected the handle to the anvil, they were secured together and fired creating a circular end-to-end anastomosis. Both donuts were intact. The anastomosis showed no signs of ischemia. We did fill the pelvis with water and used a rigid proctoscope to inflate the rectum. There was no evidence of any anastomotic leak. We thoroughly irrigated the lower half of the abdomen as well as the pelvis. There was adequate hemostasis. We looked around the abdomen and there was no other gross abnormalities. I placed a 10 flat Forest-Warner drain into the pelvis and brought it out through the right lower quadrant trocar site. It was secured the skin using 0 Vicryl. All the trocars were removed. The fascia of the camera port was closed using 0 Vicryl in a [id number] fashion. All the trocar wounds were irrigated and closed using 4-0 Monocryl. Marcaine with epinephrine was injected around the incisions for postoperative analgesia. The larger incision was closed using 3-0 Vicryl for deep layers and 4 Monocryl for skin. Dermabond glue was used to cover all the incisions. The patient was awakened extubated and transferred recovery in stable condition. My nurse practitioner was present for the entire case was instrumental in running the camera, assisting with all aspects of the dissection and anastomosis wound closure and dressing placement. My physician admissions assistant was present for the rectal portion of the case was instrumental in assisting with the anastomosis. I attest to the content of the Intraoperative Record and any orders documented therein. Any exceptions are noted below.
[2024-08-05] MEDS ORDERED: HYDROmorphone INJ 0.5 MG/0.5 ML SYR IV PRN (13:23)
[2024-08-05] MEDS ORDERED: ALBUTEROL HFA 8 GM INHALER INH PRN (13:23)
[2024-08-05] MEDS: LACTATED RINGER'S 1,000 ML IV SCH (13:45)
[2024-08-05] MEDS: ACETAMINOPHEN 1,000 MG/100 ML VIAL IV SCH (13:45)
--- NOTE | 2024-08-05 15:48 | Anesthesiology Progress Note ---
Date of Service August 05, 2024 Anesthesia Post Procedure Vital Signs Vital Signs: Temp Pulse Pulse Resp BP Pulse Ox O2 Del Method 08/05/24 14:37 36.8 C 83 18 109/67 95 Nasal Cannula 08/05/24 13:49 36.5 C 73 18 110/63 98 Nasal Cannula 08/05/24 13:20 36.2 C L 88 16 106/68 99 Room Air 08/05/24 12:50 36.5 C 76 20 138/76 95 Room Air 08/05/24 12:30 78 12 127/79 100 Nasal Cannula 08/05/24 12:20 36.3 C L 82 15 144/77 H 100 Nasal Cannula 08/05/24 12:10 68 12 123/72 100 Nasal Cannula 08/05/24 12:00 74 22 137/76 100 Nasal Cannula 08/05/24 11:50 62 18 130/77 100 Nasal Cannula 08/05/24 11:40 83 16 133/95 100 Nasal Cannula 08/05/24 11:30 79 22 144/70 H 100 Nasal Cannula 08/05/24 11:20 79 19 136/86 100 Nasal Cannula 08/05/24 11:10 78 19 136/67 100 Nasal Cannula 08/05/24 11:01 36.1 C L 79 12 131/77 99 Nasal Cannula 08/05/24 06:10 36.6 C 96 H 18 129/71 97 Room Air O2 Flow Rate 08/05/24 14:37 2 08/05/24 13:49 2 08/05/24 13:20 08/05/24 12:50 08/05/24 12:30 2 08/05/24 12:20 2 08/05/24 12:10 2 08/05/24 12:00 2 08/05/24 11:50 2 08/05/24 11:40 2 08/05/24 11:30 2 08/05/24 11:20 2 08/05/24 11:10 2 08/05/24 11:01 2 08/05/24 06:10 Pain Intensity Abdomen: Pain Intensity: 5 Transfer of Care Handoff Completed per policy Notes Mental Status: alert / awake / arousable and participated in evaluation Patient Amnestic to Procedure: Yes Nausea / Vomiting: adequately controlled Pain: adequately controlled Airway Patency, RR, SpO2: stable & adequate BP & HR: stable & adequate Hydration State: stable & adequate Anesthetic Complications: no major complications apparent and Pt Satisfied with anesthetic care
[2024-08-05] MEDS: HYDROmorphone INJ 0.5 MG/0.5 ML SYR IV PRN (18:08)
[2024-08-05] MEDS: ONDANSETRON INJ 2 MG/ML 2 ML VIAL IV PRN (18:12)
[2024-08-05] MEDS: PREGABALIN 150 MG CAP PO SCH (20:30)
[2024-08-05] MEDS: MECLIZINE 12.5 MG TAB PO PRN (21:03)
[2024-08-06] MEDS: LACTATED RINGER'S 500 ML IV ONE (02:16)
--- OUTSIDE RECORDS SUMMARY | 2024-08-06 02:55 | External Medical Summary | Summary of Care ---
Author Name Unknown Organization [facility] Address [address] [place] [address] Phone [phone] Care Team Providers Care Hose Handler Name Role Phone Mendez Licona MD Primary Care Provider + Encounter Details Date Type Department Care Team (Late st Contact Info) Description 08/05/2024 Orders Only Family Practice [facility] [address] [place] [address] Mendez Licona MD [address] [facility] [place] [address] Allergies Active Allergy Reactions Criticality Noted Date Comments Aspartame 04/13/2024 Other Reaction(s): Headache Bactrim Hives 10/29/2007 Citalopram Hydrobromide 02/17/2017 Flu like symptoms Doxycycline Nausea/vomiting 09/20/2016 Not able to eat Sucralose 04/13/2024 Other Reaction(s): Headache Sulfamethoxazole Low 04/07/2024 Other Reaction(s): Unknown Trimethoprim Low 04/07/2024 Other Reaction(s): Unknown Cefuroxime Sodium Rash 07/13/2010 Swelling of feet rash documented as of this encounter (statuses as of 08/05/2024) Medications Medication Sig Dispensed Refills Start Date End Date Status CALCIUM 1200 [id number] MG-UNIT PO CHEW one tablet daily Active [...] to burn. 20 g 1 06/02/2020 Active B Complex Vitamins Oral Capsule Take [...] for Cough. 30 Capsule 1 05/13/2023 Active Pregabalin 75 MG Oral Capsule (Lyrica) TAKE ONE CAPSULE BY MOUTH EVERY MORNING AND TAKE TWO CAPSULES BY MOUTH EVERY NIGHT--can take extra 1 capsule in afternoon and extra 1 capsule in evening as needed for fibro flare. 400 Capsule 1 12/31/2023 Active Levothyroxine Sodium 50 MCG Oral Tablet (Levoxyl) TAKE ONE TABLET BY MOUTH DAILY (AT LEAST 30 MINUTES PRIOR TO BREAKFAST OR OTHER MEDS) 90 Tablet 3 04/30/2024 04/30/2025 Active Eszopiclone 1 MG Oral Tablet (Lunesta)Indication s:Persistent insomnia Take 1 Tablet by mouth at bedtime. for sleep 30 Tablet 2 07/09/2024 Active LORazepam 0.5 MG Oral Tablet (Ativan)Indications :Anxiety state Take 1 Tablet by mouth at bedtime as needed for Anxiety or Sleep. 30 Tablet 2 07/09/2024 Active Lisdexamfetamine Dimesylate 20 MG Oral Capsule (Vyvanse)Indication s:Attention deficit disorder (ADD) without hyperactivity,MEDIC ATION USE AGREEMENT Take 1 Capsule by mouth in the morning. 30 Capsule 07/29/2024 Active SUMAtriptan Succinate 25 MG Oral Tablet (Imitrex)Indication s:Migraine with aura and without status migrainosus, not intractable Take 1 Tablet by mouth every 2 hours as needed for Migraine. Max dose 8 pills in 24h. 12 Tablet 3 07/29/2024 Active documented as of this encounter (statuses as of 08/05/2024) Active Problems Problem Noted Date Diagnosed Date [...] US-3mm polyp. Adjacent cysts to GB 01/24 [facility] ER US Chronic iritis 01/10/2014 [...] (no size mentioned on [facility] [place] Alejandra 1y d/c if stable Referred for STATUARY PAINTER-EAB endometrial polyp 01/26 11/25 mammo WNL 11/25 [...] as of this encounter (statuses as of 08/05/2024) Resolved Problems Problem Noted Date Diagnosed Date Resolved Date History of insect sting 06/29/201512/12 Diverticulitis of colon 01/25/201405/2017 Overview: 01/24 [facility] Abnormal pap 02/14/2009 08/28/2016 ADVANCE DIRECTIVE INFORMATION 05/31/2008 08/02/2008 Overview: No, explained to patient Major depressive disorder Overview: ICD-10 update of inactive term Cervical intraepithelial neoplasia grade 2 05/13/2013 documented as of this encounter (statuses as of 08/05/2024) Immunizations Name Administration Dates Next Due COVID-19 mRNA, LNP-s, No Pre serve, 2-Dose Series ([facility]) 07/25/2021,10/28/2020,10/07/2020 COVID-19, LNP-s, No Preserve , Irving-sucrose, Ages 12+ (Pfizer) 04/05/2022 COVID-19, MRNA-LNP, 23-24, P F, 30 MCG/0.3 mL, 12 YRS AND ABOVE, IM (Microarrays-[facility]) 07/07/2023 Covid-19, Mrna, Lnp-s, Pf, B ivalent, 30 Mcg, IM, 12 yrs and above (Pfizer) 09/25/2022 DTWP - Dipth/Tet/Whole Cell Pertussis 05/27/2001 Diptheria/Tetanus (Adult) 05/27/2001 PPD 11/20/2010 Seasonal Influenza Vac., MDV , IM, 0.5 mL (Fluzone) 07/23/2017,07/17/2016,07/20/2015,2012,07/28/2012,07/02/2011,07/22/2010,1 Seasonal Influenza, PF, 6 M & above, IM , (FluLaval or Fluzone) 07/07/2023,07/26/2022 Seasonal Influenza, Quadriva lent, No Preserve, IM 07/11/2021,06/28/2020,07/22/2019,2017 Seasonal Influenza, Trivalen t, (IIV3), PF, (Fluzone) 07/20/2024 TD, Preservative Free 07/02/2011 TDAP (age 10 [...] pur e alcohol) PHQ-2 Answer Date Recorded PHQ Adult Total Score 0 04/16/2024 Hunger Vital Sign Answer Date Recorded Within the past 12 months, y ou worried that your food would run out before you got the money to buy more. Never true 04/16/20 24 Within the past 12 months, t he food you bought just didn't last and you didn't have money to get more. Never true 04/16/2024 Childcare Answer Date Recorded Do you feel overwhelmed with taking care of a child, family member or friend? No 04/16/2024 Does your family need help f inding childcare? (Household - for ages 0-17 years) Not on file 04/16/2024 Clothing Answer Date Recorded Have you been unable to get clothing when it was really needed? No 04/16/2024 Is your family able to get c lothes or diapers when needed? (Household - for ages 0-17 years) Not on file 04/16/2024 Personal Safety Answer Date Recorded Do you feel unsafe or have concerns for your saf ety? No 04/16/2024 Do you have concerns for you r family's safety? (Household - for ages 0-17 years) Not on file 04/16/2024 Utilities Answer Date Recorded Do you have trouble paying y our heating, water, or electric bill? No 04/16/2024 Is your family able to pay t he heat, water, or electric bill? (Household - for ages 0-17 years) Not on file 04/16/2024 Does your family have access to good internet? (Household - for ages 0-17 years) Not on file 04/16/2024 Employment Status Answer Date Recorded Are you unemployed or without regular income? No 04/16/2024 Does the household have a re lar source of income? (Household - for ages 0-17 years) Not on file 04/16/2024 Social Connections Answer Date Recorded How often do you feel lonely or isolated from th ose around you? Never 04/16/2024 Financial Resource Strain Answer Date R ecorded Do you have any trouble payi ng for your medications, or do you think you might in the future? No 04/16/2024 Does your family have troubl e paying for medicine? (Household - for ages 0-17 years) Not on file 04/16/2024 Transportation Needs Answer Date Record ed Do you have trouble getting a ride to medical visits or work? (Adult - for ages 18 years and over) Not on file 04/16/2024 Does your family have a hard time getting a ride to doctors visits? (Household - for ages 0-17 years) Not on file 04/16/2024 Has lack of transportation k ept you from medical appointments, meetings, work, or from getting things needed for daily living? Check all that apply. No 04/16/2024 Do you (or your family) have trouble finding or paying for a ride (transportation)? (Household - for ages 0-17 years) Not on file 04/16/2024 Housing Stability Answer Date Recorded Do you currently live in a s helter or have no steady place to sleep at night? No 04/16/2024 Do you think you are at risk of becoming homeless? (Adult - for ages 18 years and over) Not on file 04/16/2024 Does your family worry about paying for your home or becoming homeless? (Household - for ages 0-17 years) Not on file 0 04/16/2024 Are you homeless or worried that you might be in the future? No 04/16/2024 Are you (or your family) katherine eless or worried that you might be in the future? (Household - for ages 0-17 years) Not on file Food Insecurity Answer Date Recorded Do you need food for this week? No 04/16/2024 Are you able to get enough f ood for your family? (Household - for ages 0-17 years) Not on file 04/16/2024 Does your family need food t his week? (Household - for ages 0-17 years) Not on file 04/16/2024 Do you always have enough fo od for your family? (Household - for ages 0-17 years) Not on file 04/16/2024 Sex and Gender Information Value Date Recorded Sex Assigned at Female 07/08/2024 12:44 PM EDT Gender Identity Female 07/08/2024 12:44 PM EDT Sexual Orientation Straight 07/08/2024 12 :44 PM EDT Job Start Date Occupation Industry Not on file Not on file Not on file documented as of this encounter Plan of Treatment Upcoming Encounters Date Type Department Care Team (Late st Contact Info) Description 05/26/2025 10:00 AM EDT Office Visit Family Practice [facility] [address] [place] [place] [address] Mendez Licona MD [address] [place] [address] Scheduled Procedures Name Priority Associated Diagnoses Date/Ti me COLONOSCOPY FLEXIBLE PROXIMA L DIAGNOSTIC Recall Special screening for malignant neoplasms, colon Health Maintenance Due Date Last Done Comments Fecal Occult Blood Test 2006 Sigmoidoscopy 2006 Zoster Vaccines (1 of 2) 2011 TSH 12/30/2024 12/31/2023, 11/2022, 12/10/2022, Additional history exists Depression Monitoring 04/16/2025 04/16/2024 Mammogram 06/23/2025 06/23/2024, 06/13, 11/13/2022, Additional history exists Cologuard 07/23/2025 07/23/2022, 03/2022, 07/18/2022, Additional history exists PAP SMEAR-EVERY 5 YRS,AGES 21-100 03/26/2026 03/26/2021, 11/08/2016, 07/20/2015, Additional history exists Lipid Panel 01/28/2029 01/29/2024, 07/3 , 04/06/2019, Additional history exists DTap/Tdap Vaccines (6 - Td or Tdap) 08/10/2031 08/10/2021, 07/02/2011, 05/27/2001, Additional history exists Colonoscopy 08/04/2034 08/04/2024, 05/2012, 08/20/2012 Colorectal Cancer Screening 08/04/2034 COVID-19 Vaccine Discontinued 07/07/2023, , 09/25/2022, Additional history exists Influenza Vaccine (FLU shot) Completed 07/20/2024, 07/07/2023, 07/26/2022, Additional history exists HPV (Gardasil) Vaccine Aged Out No lo nger eligible based on patient's age to complete this topic Hepatitis B Vaccine Aged Out No longe r eligible based on patient's age to complete [...] Procedure Name Priority Date/Time Associated Diagnosis Comments COLONOSCOPY, OUTSIDE PROCEDURE Routine 08/04/2024 documented in this encounter Results * COLONOSCOPY, OUTSIDE PROCEDURE (08/04/2024) 08/04/2024 History Per Patient GASTRO LOWER OUTSIDE LAB (SEE SCANNED REPORT) documented in this encounter Care Teams Hose Handler Relationship Specialty Start Date End Date Mendez Licona MD [address] [place] [id number] PCP - General Family Medicine 01/25/16 documented as of this encounter
[2024-08-06] MEDS: LEVOTHYROXINE SODIUM 50 MCG TABLET PO SCH (05:13)
[2024-08-06] MEDS: PREGABALIN 75 MG CAP PO SCH (08:15)
[2024-08-06 08:22] LABS: Basophils # (auto) 0.03 K/uL (0.00-0.20); Basophils % (auto) 0.3 %; Eosinophils # (auto) 0.01 K/uL (0.00-0.50); Eosinophils % (auto) 0.1 %; Hematocrit (blood only) 33.2 % (37.0-47.0); Hemoglobin 10.7 g/dl (12.0-16.0); Immature Granulocytes # (auto) 0.05 K/uL (0.01-0.20); Immature Granulocytes % (auto) 0.5 %; Lymphocytes # (auto) 1.52 K/uL (1.20-3.40); Lymphocytes % (auto) 16.5 %; Mean Corpuscular Hemoglobin 27.5 pg (25.0-34.0); Mean Corpuscular Hgb Conc 32.2 g/dL (32.0-36.0); Mean Corpuscular Volume 85.3 fL (80.0-100.0); Mean Platelet Volume 9.6 fL (9.4-12.4); Monocytes # (auto) 0.62 K/uL (0.11-0.59); Monocytes % (auto) 6.7 %; Neutrophils # (auto) 6.99 K/uL (1.40-6.50); Neutrophils % (auto) 75.9 %; Platelet Count 283 K/uL (130-400); RDW Coefficient of Variation 14.1 % (11.5-14.5); RDW Standard Deviation 43.8 fL (36.4-46.3); Red Blood Count 3.89 M/uL (4.20-5.40); White Blood Count 9.22 K/ul (4.8-10.8)
[2024-08-06 08:25] LABS: BUN Creatinine Ratio 12.5 (10-20); Calcium 8.4 mg/dl (8.6-10.3); Creatinine Clr Calc Pharmacy 94.9 ml/min; Potassium 3.7 mmol/L (3.5-5.1)
[2024-08-06] MEDS ORDERED: oxyCODONE HCL IR 5 MG TAB (IMMEDIATE RELEASE) PO PRN (08:27)
--- NOTE | 2024-08-06 08:41 | Surgery Progress Note ---
Date of Service August 06, 2024 Assessment & Plan (1) History of diverticulitis: Plan: POD 1 doing as expected can try some clears d/c fitzpatrick ambulate Admission and Anticipated Discharge Date Admission Date: August 05, 2024 Subjective as above. had MUIR last night which is improved. pain manageable. Physical Exam Physical Exam: alert. nad abd: soft. expected tenderness Results & Data Vital Signs (Past 12 Hours) Vital Signs Temp Pulse Pulse Resp BP Pulse Ox O2 Del Method 08/06/24 07:24 37.0 C 88 18 135/66 97 Room Air 08/06/24 03:10 36.9 C 71 18 116/72 97 Room Air 08/06/24 01:19 36.7 C 67 15 121/63 96 Room Air 08/05/24 23:02 36.9 C 66 18 111/70 98 Nasal Cannula O2 Flow Rate 08/06/24 07:24 08/06/24 03:10 08/06/24 01:19 08/05/24 23:02 2 PG Care Time/CCT Total # of Minutes Spent Total Time Spent with Patient: Total time spent is greater than 50% in coordination of care (as documented) at patient's floor/unit and/or counseling patient: Coding Level of Care Code 64292 Post Operative Follow-Up Diagnoses History of diverticulitis Z87.19
[2024-08-06] MEDS: oxyCODONE HCL IR 5 MG TAB (IMMEDIATE RELEASE) PO PRN (10:23)
[2024-08-06] MEDS: ENOXAPARIN INJ 40 MG/0.4 ML SYR SQ SCH (10:23)
[2024-08-06] MEDS: POTASSIUM CHLORIDE CRTAB 20 MEQ TABCR PO STA (10:23)
[2024-08-07 07:47] LABS: Basophils # (auto) 0.07 K/uL (0.00-0.20); Basophils % (auto) 0.7 %; Eosinophils # (auto) 0.37 K/uL (0.00-0.50); Eosinophils % (auto) 3.7 %; Hematocrit (blood only) 36.5 % (37.0-47.0); Hemoglobin 11.9 g/dl (12.0-16.0); Immature Granulocytes # (auto) 0.03 K/uL (0.01-0.20); Immature Granulocytes % (auto) 0.3 %; Lymphocytes # (auto) 2.03 K/uL (1.20-3.40); Lymphocytes % (auto) 20.2 %; Mean Corpuscular Hemoglobin 28.1 pg (25.0-34.0); Mean Corpuscular Hgb Conc 32.6 g/dL (32.0-36.0); Mean Corpuscular Volume 86.3 fL (80.0-100.0); Mean Platelet Volume 9.9 fL (9.4-12.4); Monocytes # (auto) 0.65 K/uL (0.11-0.59); Monocytes % (auto) 6.5 %; Neutrophils # (auto) 6.92 K/uL (1.40-6.50); Neutrophils % (auto) 68.6 %; Platelet Count 302 K/uL (130-400); RDW Coefficient of Variation 14.5 % (11.5-14.5); RDW Standard Deviation 45.7 fL (36.4-46.3); Red Blood Count 4.23 M/uL (4.20-5.40); White Blood Count 10.07 K/ul (4.8-10.8)
[2024-08-07 07:50] LABS: BUN Creatinine Ratio 11.3 (10-20); Calcium 8.8 mg/dl (8.6-10.3); Creatinine Clr Calc Pharmacy 85.9 ml/min; Potassium 3.6 mmol/L (3.5-5.1)
[2024-08-07] MEDS: NSS + 20MEQ KCL 20 MEQ/1,000 ML BAG IV SCH (08:51)
--- NOTE | 2024-08-07 08:54 | Surgery Progress Note ---
Date of Service August 07, 2024 Assessment & Plan (1) History of diverticulitis: Plan: POD 2 WBC 10, Hbg 11.9, K 3.6, Cr 0.5 IVF stopped after 24hr given pharmacy protocol during IVF shortage. we will resume some maintenance IV's given her recent bowel prep coupled with bowel surgery she has started to pass flatus, but will continue on clear liquids for today prn pain meds as needed dvt ppx with lovenox cont SHERYL drain encourage oob ambulating and pulmonary toilet as above looking much better today still needing some IVF for hypotension stay on clears for now pain control adequate +flatus/no bm yet Admission and Anticipated Discharge Date Admission Date: August 05, 2024 Subjective Patient feeling fairly well. She is passing flatus and feels the gas. Abdominal pain controlled. No n/v with clears. Physical Exam Physical Exam: awake/alert, no distress Gastrointestinal (Abdomen): Inspection/Auscultation: + abdominal surgical incision (with skin glue); abdomen not distended Percussion/Palpation: + abdomen tender (expected mohini incisional discomfort to palpation) SHERYL Drain serosang Results & Data Vital Signs (Past 12 Hours) Vital Signs Temp Pulse Pulse Resp BP Pulse Ox O2 Del Method 08/07/24 08:06 98.4 F 90 16 94/59 L 95 Room Air 08/06/24 22:25 98.9 F 79 18 98/61 L 93 Room Air PG Care Time/CCT Total # of Minutes Spent Total Time Spent with Patient: Total time spent is greater than 50% in coordination of care (as documented) at patient's floor/unit and/or counseling patient: Coding Level of Care Code 85168 Post Operative Follow-Up Diagnoses History of diverticulitis Z87.19
[2024-08-07] MEDS ORDERED: traMADol HCL 50 MG TABLET PO PRN (09:37)
[2024-08-07] MEDS: traMADol HCL 50 MG TABLET PO PRN (10:11)
[2024-08-08 08:41] LABS: Basophils # (auto) 0.05 K/uL (0.00-0.20); Basophils % (auto) 0.7 %; Eosinophils # (auto) 1.07 K/uL (0.00-0.50); Eosinophils % (auto) 14.3 %; Hematocrit (blood only) 31.5 % (37.0-47.0); Hemoglobin 10.4 g/dl (12.0-16.0); Immature Granulocytes # (auto) 0.03 K/uL (0.01-0.20); Immature Granulocytes % (auto) 0.4 %; Lymphocytes # (auto) 1.73 K/uL (1.20-3.40); Lymphocytes % (auto) 23.1 %; Mean Corpuscular Volume 84.7 fL (80.0-100.0); Mean Platelet Volume 9.8 fL (9.4-12.4); Monocytes % (auto) 6.7 %; Neutrophils # (auto) 4.11 K/uL (1.40-6.50); Neutrophils % (auto) 54.8 %; Platelet Count 264 K/uL (130-400); RDW Coefficient of Variation 14.3 % (11.5-14.5); RDW Standard Deviation 44.4 fL (36.4-46.3); Red Blood Count 3.72 M/uL (4.20-5.40); White Blood Count 7.49 K/ul (4.8-10.8)
[2024-08-08 08:52] LABS: BUN Creatinine Ratio 12.2 (10-20); Calcium 8.2 mg/dl (8.6-10.3); Creatinine Clr Calc Pharmacy 111.1 ml/min; Potassium 3.8 mmol/L (3.5-5.1)
--- NOTE | 2024-08-08 10:16 | Surgery Progress Note ---
Date of Service August 08, 2024 Assessment & Plan (1) H/O colectomy: Plan: POD 3 wbc wnl , h/h stable, VSS May stop IV fluids when bag is finished +flatus No bm yet , stay on clears today pain controlled dvt ppx with lovenox cont RACHEL drain, nursing to change rachel drain sponge daily encourage oob ambulating and pulmonary toilet Pt seen with Dr. Escobar as above. looks good. stay on clears until bowel fx Admission and Anticipated Discharge Date Admission Date: August 05, 2024 Subjective Pt reports tolerating clears no n/v pain tolerable +flatus no bm Review of Systems Constitutional: no fever and no chills Respiratory: no cough and no dyspnea Cardiovascular: no chest pain Gastrointestinal: + abdominal pain; no nausea and no vomit ing Musculoskeletal: no muscle weakness Integumentary: no rash Psychiatric: no confusion Physical Exam Constitutional: cooperative and comfortable; no acute distress Respiratory: normal respiratory effort and able to speak in complete sentences; no respiratory distress Cardiovascular: Rate/Rhythm: regular rate Gastrointestinal (Abdomen): Inspection/Auscultation: + abdominal surgical incision (CDI dermabond no s/s infection) and + abdominal surgical drain present (serosanguinous); abdomen not distended Percussion/Palpation: + abdomen tender and abdomen soft Psychiatric: A+Ox3, euthymic affect Results & Data Vital Signs (Past 12 Hours) Vital Signs Temp Pulse Pulse Resp BP Pulse Ox O2 Del Method 08/08/24 08:36 98.1 F 78 20 120/74 98 Room Air 08/08/24 07:28 98.4 F 79 16 100/66 97 Room Air Results CBC w Diff Results: RBC 3.72 M/uL (4.20-5.40) L 08/08/24 WBC 7.49 K/ul (4.8-10.8) 08/08/24 Hgb 10.4 g/dl (12.0-16.0) L 08/08/24 Hct 31.5 % (37.0-47.0) L 08/08/24 MCV 84.7 fL (80.0-100.0) 08/08/24 MCH 28.0 pg (25.0-34.0) 08/08/24 MCHC 33.0 g/dL (32.0-36.0) 08/08/24 RDW Standard Deviation 44.4 fL (36.4-46.3) 08/08/24 RDW Coefficient of Variation 14.3 % (11.5-14.5) 08/08/24 Plt Count 264 K/uL (130-400) 08/08/24 MPV 9.8 fL (9.4-12.4) 08/08/24 Neutrophils (%) (Auto) 54.8 % 08/08/24 Lymphocytes (%) (Auto) 23.1 % 08/08/24 Monocytes # (Auto) 0.50 K/uL (0.11-0.59) 08/08/24 Eosinophils # (Auto) 1.07 K/uL (0.00-0.50) H 08/08/24 Immature Granulocyte % (Auto) 0.4 % 08/08/24 Neutrophils # (Auto) 4.11 K/uL (1.40-6.50) 08/08/24 Lymphocytes # (Auto) 1.73 K/uL (1.20-3.40) 08/08/24 Monocytes # (Auto) 0.50 K/uL (0.11-0.59) 08/08/24 Eosinophils # (Auto) 1.07 K/uL (0.00-0.50) H 08/08/24 Basophils # (Auto) 0.05 K/uL (0.00-0.20) 08/08/24 Immature Granulocyte # (Auto) 0.03 K/uL (0.01-0.20) 4 Red Blood Cell Morphology Unremarkable 03/19/24 PG Care Time/CCT Total # of Minutes Spent Total Time Spent with Patient: Total time spent is greater than 50% in coordination of care (as documented) at patient's floor/unit and/or counseling patient: Coding Level of Care Code 45888 Post Operative Follow-Up Diagnoses H/O colectomy Z90.49
--- NOTE | 2024-08-08 11:04 | Communication Note ---
Date of Service: August 08, 2024 Notified by nursing staff that patient reported suede cleaner hung an IV fluid bag and poked a hole in the bag accidentally and placed tape over the hole , instead of getting a new bag. Patient VSS, afebrile , BP 120/74, HR 78, WBC wnl at 7.4. Continue current treatment plan, will monitor patient for signs of infection/sepsis. Dr Escobar, aware.
[2024-08-08] MEDS: ACETAMINOPHEN 500 MG TAB PO PRN (15:36)
[2024-08-09 08:54] LABS: Basophils # (auto) 0.05 K/uL (0.00-0.20); Basophils % (auto) 0.9 %; Eosinophils # (auto) 0.72 K/uL (0.00-0.50); Eosinophils % (auto) 12.6 %; Hematocrit (blood only) 34.4 % (37.0-47.0); Hemoglobin 11.1 g/dl (12.0-16.0); Immature Granulocytes # (auto) 0.01 K/uL (0.01-0.20); Immature Granulocytes % (auto) 0.2 %; Lymphocytes # (auto) 1.45 K/uL (1.20-3.40); Lymphocytes % (auto) 25.3 %; Mean Corpuscular Hemoglobin 27.8 pg (25.0-34.0); Mean Corpuscular Hgb Conc 32.3 g/dL (32.0-36.0); Mean Corpuscular Volume 86.2 fL (80.0-100.0); Mean Platelet Volume 9.5 fL (9.4-12.4); Monocytes # (auto) 0.35 K/uL (0.11-0.59); Monocytes % (auto) 6.1 %; Neutrophils # (auto) 3.15 K/uL (1.40-6.50); Neutrophils % (auto) 54.9 %; Platelet Count 291 K/uL (130-400); RDW Standard Deviation 43.8 fL (36.4-46.3); Red Blood Count 3.99 M/uL (4.20-5.40); White Blood Count 5.73 K/ul (4.8-10.8)
[2024-08-09 09:15] LABS: BUN Creatinine Ratio 14.3 (10-20); Calcium 8.8 mg/dl (8.6-10.3); Creatinine Clr Calc Pharmacy 130.1 ml/min; Magnesium 1.9 mg/dl (1.7-2.4); Potassium 3.4 mmol/L (3.5-5.1)
--- NOTE | 2024-08-09 09:29 | Surgery Progress Note ---
Date of Service August 09, 2024 Assessment & Plan (1) H/O colectomy: Plan: POD 4 wbc wnl , h/h stable, VSS +flatus No bm yet , feeling hungry will cautiously advance to full liquids pain controlled dvt ppx with lovenox cont RACHEL drain, nursing to change rachel drain sponge daily encourage oob ambulating and pulmonary toilet Admission and Anticipated Discharge Date Admission Date: August 05, 2024 Subjective Pt reports tolerating clears no n/v , feeling hungry pain tolerable +flatus no bm yet Review of Systems Constitutional: no fever and no chills Respiratory: no cough and no dyspnea Cardiovascular: no chest pain Gastrointestinal: + abdominal pain (discomfort ); no nause a and no vomiting Genitourinary: no dysuria Musculoskeletal: no muscle weakness Integumentary: no rash Psychiatric: no confusion Physical Exam Constitutional: cooperative and comfortable; no acute distress Respiratory: normal respiratory effort and able to speak in complete sentences; no respiratory distress Cardiovascular: Rate/Rhythm: regular rate Gastrointestinal (Abdomen): Inspection/Auscultation: + abdominal surgical incision (CDI dermabond no s/s infection) and + abdominal surgical drain present (serosanguinous); abdomen not distended Percussion/Palpation: + abdomen tender and abdomen soft Skin: no rashes, warm and dry Psychiatric: A+Ox3, euthymic affect Results & Data Vital Signs (Past 12 Hours) Vital Signs Temp Pulse Resp BP Pulse Ox O2 Del Method 08/09/24 07:56 98.6 F 65 16 107/67 97 Room Air 08/08/24 21:55 Room Air Results CBC w Diff Results: RBC 4.13 M/uL (4.20-5.40) L 08/10/24 WBC 6.57 K/ul (4.8-10.8) 08/10/24 Hgb 11.4 g/dl (12.0-16.0) L 08/10/24 Hct 35.0 % (37.0-47.0) L 08/10/24 MCV 84.7 fL (80.0-100.0) 08/10/24 MCH 27.6 pg (25.0-34.0) 08/10/24 MCHC 32.6 g/dL (32.0-36.0) 08/10/24 RDW Standard Deviation 43.3 fL (36.4-46.3) 08/10/24 RDW Coefficient of Variation 13.9 % (11.5-14.5) 08/10/24 Plt Count 319 K/uL (130-400) 08/10/24 MPV 9.2 fL (9.4-12.4) L 08/10/24 Neutrophils (%) (Auto) 50.8 % 08/10/24 Lymphocytes (%) (Auto) 29.5 % 08/10/24 Monocytes # (Auto) 0.45 K/uL (0.11-0.59) 08/10/24 Eosinophils # (Auto) 0.78 K/uL (0.00-0.50) H 08/10/24 Immature Granulocyte % (Auto) 0.2 % 08/10/24 Neutrophils # (Auto) 3.34 K/uL (1.40-6.50) 08/10/24 Lymphocytes # (Auto) 1.94 K/uL (1.20-3.40) 08/10/24 Monocytes # (Auto) 0.45 K/uL (0.11-0.59) 08/10/24 Eosinophils # (Auto) 0.78 K/uL (0.00-0.50) H 08/10/24 Basophils # (Auto) 0.05 K/uL (0.00-0.20) 08/10/24 Immature Granulocyte # (Auto) 0.01 K/uL (0.01-0.20) 4 Red Blood Cell Morphology Unremarkable 03/19/24 PG Care Time/CCT Total # of Minutes Spent Total Time Spent with Patient: Total time spent is greater than 50% in coordination of care (as documented) at patient's floor/unit and/or counseling patient: Coding Level of Care Code 82536 Post Operative Follow-Up Diagnoses H/O colectomy Z90.49
[2024-08-09] MEDS: POTASSIUM CHLORIDE / WTR 10 MEQ/100 ML PLCT IV SCH (10:10)
[2024-08-09] MEDS: POTASSIUM CHLORIDE CRTAB 20 MEQ TABCR PO STA (12:31)
[2024-08-09 18:26] VITALS: TEMP 98.1
[2024-08-10 07:38] VITALS: PULSE 78; RESP 12; O2SAT 95
--- NOTE | 2024-08-10 09:07 | Surgery Progress Note ---
Date of Service August 10, 2024 Assessment & Plan (1) H/O colectomy: Plan: POD 5 +bm and flatus pain controlled VSS d/c home today, continue low fiber , f/u o/p [address] Escobar Admission and Anticipated Discharge Date Admission Date: August 05, 2024 Review of Systems Constitutional: no fever and no chills Respiratory: no cough and no dyspnea Cardiovascular: no chest pain Gastrointestinal: no abdominal pain (discomfort ), no nausea and no vomiting Genitourinary: no dysuria Musculoskeletal: no muscle weakness Integumentary: no rash Psychiatric: no confusion Physical Exam Constitutional: cooperative and comfortable; no acute distress Respiratory: normal respiratory effort and able to speak in complete sentences; no respiratory distress Cardiovascular: Rate/Rhythm: regular rate Gastrointestinal (Abdomen): Inspection/Auscultation: + abdominal surgical incision and + abdominal surgical drain present (serosanguinous); abdomen not distended Skin: no rashes, warm and dry Psychiatric: A+Ox3, euthymic affect Results & Data Vital Signs (Past 12 Hours) Vital Signs Temp Pulse Resp BP Pulse Ox O2 Del Method 08/10/24 07:37 98.1 F 78 12 101/62 95 Room Air PG Care Time/CCT Total # of Minutes Spent Total Time Spent with Patient: Total time spent is greater than 50% in coordination of care (as documented) at patient's floor/unit and/or counseling patient: Coding Level of Care Code 61025 Post Operative Follow-Up Diagnoses H/O colectomy Z90.49
[2024-08-10 09:54] LABS: Basophils # (auto) 0.05 K/uL (0.00-0.20); Basophils % (auto) 0.8 %; Eosinophils # (auto) 0.78 K/uL (0.00-0.50); Eosinophils % (auto) 11.9 %; Hemoglobin 11.4 g/dl (12.0-16.0); Immature Granulocytes # (auto) 0.01 K/uL (0.01-0.20); Immature Granulocytes % (auto) 0.2 %; Lymphocytes # (auto) 1.94 K/uL (1.20-3.40); Lymphocytes % (auto) 29.5 %; Mean Corpuscular Hemoglobin 27.6 pg (25.0-34.0); Mean Corpuscular Hgb Conc 32.6 g/dL (32.0-36.0); Mean Corpuscular Volume 84.7 fL (80.0-100.0); Mean Platelet Volume 9.2 fL (9.4-12.4); Monocytes # (auto) 0.45 K/uL (0.11-0.59); Monocytes % (auto) 6.8 %; Neutrophils # (auto) 3.34 K/uL (1.40-6.50); Neutrophils % (auto) 50.8 %; Platelet Count 319 K/uL (130-400); RDW Coefficient of Variation 13.9 % (11.5-14.5); RDW Standard Deviation 43.3 fL (36.4-46.3); Red Blood Count 4.13 M/uL (4.20-5.40); White Blood Count 6.57 K/ul (4.8-10.8)
[2024-08-10 10:10] LABS: BUN Creatinine Ratio 10.9 (10-20); Potassium 3.3 mmol/L (3.5-5.1)
[2024-08-10 11:11] VITALS: BP 107/68
--- NOTE | 2024-08-10 12:34 | Discharge Summary ---
Date of Service August 10, 2024 Principal Diagnosis Laparoscopic Sigmoid Colectomy, Take down of colo-colo fistula, ileocecectomy, enterolysis Discharge Exam Constitutional cooperative and comfortable; no acute distress Respiratory normal respiratory effort and able to speak in complete sentences; no respiratory distress Cardiovascular Rate/Rhythm: regular rate Gastrointestinal (Abdomen) Inspection/Auscultation: + abdominal surgical incision; abdomen not distended Percussion/Palpation: + abdomen tender and abdomen soft Skin no rashes, warm and dry Psychiatric A+Ox3, euthymic affect Discharge Data Allergies Allergy/AdvReac Type Severity Reaction Status Date / Time sulfamethoxazole Allergy Mild Unknown Verified 08/05/24 06:10 trimethoprim Allergy Mild Unknown Verified 08/05/24 06:10 amoxicillin Allergy Unknown - Verified 08/05/24 06:10 cefuroxime Allergy Unknown "Sunburn Verified 08/05/24 06:10 skin" (received IV) acesulfame AdvReac Unknown Migraines Verified 08/05/24 06:10 aspartame AdvReac Unknown Migraines Verified 08/05/24 06:10 saccharin AdvReac Unknown Migraines Verified 08/05/24 06:10 sucralose AdvReac Unknown Migraines Verified 08/05/24 06:10 Procedures Performed Operation Date: 08/05/24 07:15 Actual Procedures p Laparoscopic Sigmoid Colectomy, Take down of colo-colo fistula, ileocecectomy, enterolysis(Not Applicable) - Augustin Escobar, DO Hospital Course (1) H/O colectomy: Patient is a pleasant 64 yo female that presented to the [facility] on 08/05/24 for an elective Laparoscopic Sigmoid Colectomy, Take down of colo-colo fistula, ileocecectomy, enterolysis with Dr. Escobar, see operative report for full details. Post operatively she was admitted to the hospital for care and observation. Her diet was advanced and she was tolerating without n/v. She was having bowel movements and her pain was controlled with oral pain medication. Her vitals signs remained stable throughout her stay. She had a SHERYL drain that was removed prior to her discharge. She was given post operative care instructions, follow up recommendations and return precautions and was deemed stable for discharge on post operative day five 08/10/24. Total Time Total Time Spent Total Time Spent (In Minutes): 10 Discharge Plan Discharge Items Patient Disposition: Home - Self-Care Reason For Visit: Acute Diverticulitis, Colonic Diverticular Abscess Discharge Diagnosis: Laparoscopic Sigmoid Colectomy Activity: Per Instructions section Lifting: No more than 10 pounds Bathing Comment: may shower; no soaking in tubs/pools x 2 weeks Exercise/Sports: Wait until after follow-up appointment Driving/Machine Use: no driving while taking narcotics for pain Non-emergency contact: Surgeon Call non-emergency contact if: you have any medication questions, your symptoms worsen, your pain is not controlled, you have a fever, your temperature is above 101.5, your wound has increased redness, your wound has increased drainage and your wound pain has increased Follow-up/Referrals: Augustin Escobar DO [Surgeon] - 08/18/25 1:30 pm (please call to schedule follow up in clinic in 10-14 days) Mendez Licona MD [Primary Care Provider] - Diet: Low Fiber Addtl Attending Provider Instructions: SPECIAL CARE INSTRUCTIONS: * You may Cover drain site incision and change dressing daily for comfort/drainage until healed (dry gauze and medipore tape) *You have surgical glue called dermabond on your surgical site incisions. You may shower with this on. This will tend to come off within a couple of weeks. Do not pick at it. * You may shower upon discharge. NO soaking in pools or baths for 2 weeks * No lifting greater than 10lbs. No exercise until cleared by surgeon. Light walking is accepted. * No driving while taking narcotic pain medication, wait to drive until cleared by surgeon * No drinking alcohol while taking narcotic pain medication * Expect some swelling and bruising. * Diet Low fiber Call your doctor if: * Temperature above 101 degrees, nausea/vomiting, fever/chills * Pain not relieved by pain medicine ordered * There is increased drainage or redness from any incision * You have any unanswered questions or concerns [phone]. FOLLOW UP VISIT: If not already scheduled, please call the office for a follow-up visit. Office Pending Studies at Discharge: Yes Studies:: surgical pathology Stand-Alone Forms: My [facility] [employer] Medications and DC Order Prescriptions: New tramadol 50 mg tablet 50 mg PO Q6H PRN (Reason: pain, for initial therapy, max 4 tabs/day) Qty: 15 0RF Continued sumatriptan succinate [Imitrex] 25 mg Tablet 25 mg PO Q6 PRN (Reason: Migraine Headache) Rx Instructions: take 1 tab at onset of headache; if no relief may repeat 1 tab after at least 2 hrs; max = 4 tabs/24 hr ondansetron HCl 4 mg tablet 4 mg PO Q8 PRN (Reason: Nausea/dizziness) Excedrin Migraine 250-250-65 mg Tablet 1 tab PO Q6H PRN (Reason: Migraine Headache) eszopiclone [Lunesta] 1 mg Tablet 1 mg PO HS PRN (Reason: Sleep) silver sulfadiazine [Silvadene] 1 % Cream 1 applic TOPICAL DIRECTED PRN (Reason: fitzgerald) Rx Instructions: apply a 1.5 mm thickness cetirizine [Zyrtec] 10 mg Tablet 10 mg PO QAM tramadol 50 mg Tablet 50 mg PO Q6H PRN (Reason: Pain) lorazepam 0.5 mg tablet 0.5 mg PO HS PRN (Reason: Sleep) meclizine 25 mg Tablet 25 mg PO TID PRN (Reason: Dizziness) levothyroxine 50 mcg tablet 50 mcg PO QAM vitamin B complex Tablet 1 tab PO QAM albuterol sulfate 90 mcg/actuation Hfa Aerosol Inhaler 2 puff INHALATION .Q6HRS PRN (Reason: Shortness Of Breath Or Wheezing) pregabalin 75 mg capsule 75 mg PO QAM lisdexamfetamine [Vyvanse] 20 mg capsule 20 mg PO DAILY PRN (Reason: Need to focus/Projects at work) calcium carbonate-vitamin D3 [Calcium 600 with Vitamin D3] 600 mg-12.5 mcg (500 unit) Capsule 1 cap PO QAM Rx Instructions: unsure of strenght pregabalin 75 mg capsule 150 mg PO HS Discharge Orders: Discharge Order (Routine); Ordered 08/10/24 Ordered By: Cassie Diaz/Other Patient Handouts: Low-Fiber Diet Admission Data Admit Date/Time: 08/05/24 11:16 Attending Provider: Augustin Escobar Admit Provider: Augustin Escobar Primary Care Provider: Mnedez Licona Other Interventions: Discharge Summary Assessment (RN) Last Done: 08/10/24 11:08 Coding Diagnoses H/O colectomy Z90.49
[2024-08-10] MEDS ORDERED: POTASSIUM CHLORIDE CRTAB 20 MEQ TABCR PO STA (12:43)
== END 2024-08-10 12:47 | disposition home or self-care (01) | DRG 330 ==
LOC: ASU 05:49 → 3W 11:16